=== PATIENT | female | born 1945 | race Two or more races ===

== ENCOUNTER → 2020-12-16 | Outpatient (CLI) | payer MEDICARE ==
[2020-12-02 15:00] VITALS: BP 164/74
[~2020-12-16] MED LIST: ACET325T9 PO; AMLO-187 PO; CRESTOR40 MG PO; HYDR-2145 PO; LEXAPRO20 MG PO; LOSA100T14 PO; METO50TA4 PO; WARF4TAB64 PO
--- NOTE | 2020-12-17 02:27 | RAD ---
US LEFT LOWER EXTREMITY ARTERIAL DUPLEX EVAL Indication: Reason: NON HEALING LEG ULCER / Spl. Instructions: / History: Pain Comparison: None. Procedure: Real-time grayscale, color flow Doppler, and Doppler spectral waveform analysis of the art erial system of the lower extremity is performed. Findings: Biphasic waveform within the left common femoral, deep femoral, superficial femoral and popliteal art eries. Monophasic waveform within the posterior tibial, peroneal and dorsalis pedis arteries. Borderl ine elevated velocity within the deep femoral artery measures 150 cm/s. Moderate atheromatous plaque. IMPRESSION: 1. Borderline elevated velocity within the left deep femoral artery, may indicate 30-49 percent sten osis. 2. Monophasic waveform within the left posterior tibial, peroneal and dorsalis pedis arteries, may i ndicate proximal stenosis. 3. Moderate atheromatous plaque. Electronically signed by: Esdras Rodas DO (12/17/2020 2:24 AM) [facility]
== END ==
LOC: US 13:43
PROVIDERS: ATTEND Nurse Practitioner Family
DX: L97.222 Non-pressure chronic ulcer of left calf with fat layer exposed (principal); L03.116 Cellulitis of left lower limb
CPT/HCPCS: 93926

== ENCOUNTER 2021-04-12 17:22 | Inpatient (IN) | payer MEDICARE ==
[~2021-04-12] VITALS: Ht 144.8 cm; Wt 94.8 kg
[~2021-04-12 17:22] MED LIST changes: +AMOX1TAB61 PO; +HYDR-2761 PO; +INSU100I13 SQ; +INSU100V6 SQ
[2021-04-12] MEDS ORDERED: ACETAMINOPHEN 325 MG TABLET. PO PRN (19:30)
[2021-04-12] MEDS ORDERED: 0.9 % SODIUM CHLORIDE 10 ML DISP.SYRIN. IV PRN (19:30)
[2021-04-12] MEDS ORDERED: guaiFENesin ORAL 200 MG/10 ML LIQUID. PO PRN (19:30)
[2021-04-12] MEDS ORDERED: ONDANSETRON PF 4 MG/2 ML VIAL. IV PRN (19:30)
[2021-04-12] MEDS ORDERED: SODIUM PHOSPHATES 19/7GM 133 ML ENEMA. PR PRN (19:30)
[2021-04-12] MEDS ORDERED: MAG HYDROX/ALUMINUM HYD/SIMETH 30 ML ORAL.SUSP PO PRN (19:30)
[2021-04-12] MEDS ORDERED: HYDROcodone/APAP 5/325MG 1 TAB TABLET PO PRN (19:45)
[2021-04-12] MEDS: ATORVASTATIN CALCIUM 40 MG TABLET. PO SCH (19:55)
[2021-04-12] MEDS: WARFARIN 4 MG TABLET. PO SCH (19:56)
[2021-04-12] MEDS ORDERED: IPRATRPIUM/ALBUTEROL 0.5/2.5MG 3 ML NEBU. NEB SCH (20:00)
[2021-04-12 21:19] LABS: BASO % 0 % (0-3); EOS # 0.1 x10^3/uL (0.0-0.7); EOS % 1 % (0-3); HEMATOCRIT 23.4 % (36.0-47.0); HEMOGLOBIN 7.4 g/dL (12.0-15.5); LYMPH # 1.3 x10^3/uL (1.0-4.8); LYMPH % 18 % (24-48); MEAN CORPUSCULAR HEMOGLOBIN 26 pg (25-35); MEAN CORPUSCULAR HGB CONC 32 g/dL (31-37); MEAN CORPUSCULAR VOLUME 81 fL (79-100); MONO # 0.5 x10^3/uL (0.0-1.1); MONO % 7 % (0-9); NEUT # 5.4 x10^3/uL (1.8-7.7); NEUT % 74 % (31-73); PLATELET COUNT 293 x10^3/uL (140-400); RED BLOOD COUNT 2.88 x10^6/uL (3.50-5.40); RED CELL DISTRIBUTION WIDTH 18.8 % (11.5-14.5); WHITE BLOOD COUNT 7.3 x10^3/uL (4.0-11.0)
[2021-04-12] MEDS ORDERED: DEXTROSE 50% 25 GM / 50ML DISP.SYRIN. IV PRN (21:30)
[2021-04-12] MEDS ORDERED: STERILE WATER for RESP 1,000 ML BAG. INH PRN (21:30)
[2021-04-12 21:40] LABS: ALBUMIN 1.5 g/dL (3.4-5.0); ALBUMIN/GLOBULIN RATIO 0.4 (1.0-1.7); CALCIUM 7.7 mg/dL (8.5-10.1); GFR 53.8; POTASSIUM 3.8 mmol/L (3.5-5.1); TOTAL BILIRUBIN 0.3 mg/dL (0.2-1.0); TOTAL PROTEIN 5.4 g/dL (6.4-8.2)
[2021-04-12] MEDS: HYDROmorphone 2 MG/ML VIAL IVP PRN (22:21)
[2021-04-12] MEDS: IV NORMAL SALINE 1000ML BAG 1,000 ML IV SCH (22:25)
[2021-04-12 23:00] VITALS: BP 128/47
--- NOTE | 2021-04-12 23:05 | NUR ---
patient arrived to unit at shift change from . Dr Cash admitted patient, new orders discussed with patient . No antibiotic for tonight per Dr Cash. Wound care consulted.
[2021-04-13 03:00] VITALS: BP 140/79
[2021-04-13] MEDS: HYDROmorphone 2 MG/ML VIAL IVP PRN ×2 (04:06→12:14)
--- NOTE | 2021-04-13 06:51 | PDOC1 ---
History and Physical Date of Admission Date of Admission DATE: 04/13/21 TIME: 06:47 Identification/Chief Complaint Chief Complaint Bilateral lower extremity wounds Source Source: Patient History of Present Illness History of Present Illness Patient 76-year-old female with past medical history DM2, CAD, HTN, HLD, presents as a direct admit from [facility] due to multiple nonhealing blistering wounds to her bilateral feet for the past month. She was recently treated on our service (03/22/2021) for evacuation and debridement of right thigh hematoma. Right lower extremity CTA at that time showed calcified plaque with approximately 50 percent stenosis to SFA, extensive arterial calcifications to right popliteal artery, heavy calcifications to anterior tibial artery, and occluded right posterior tibial artery; Left lower extremity CTA showed popliteal artery with 60-70 percent stenosis at mid segment, left anterior tibial artery with heavy calcifications, left posterior tibial artery occluded distally. She has been receiving local wound care and follow-up at wound care clinic without significant improvement in her blisters. She denies any significant pain but does admit to some clear serous drainage from her bilateral feet. Will admit patient for further medical management. Past Medical History Cardiovascular: CAD, HTN, Hyperlipidemia, Other Pulmonary: Asthma, Pulmonary embolus CENTRAL NERVOUS SYSTEM: Periperal neuropathy GI: GERD Heme/Onc: Anemia NOS, Other Hepatobiliary: No pertinent hx Psych: No pertinent hx Musculoskeletal: Osteoarthritis Rheumatologic: No pertinent hx Infectious disease: No pertinent hx Renal/: No pertinent hx Endocrine: Diabetes Past Surgical History Past Surgical History: Arthroscopy, CABG, Total knee replacement, Hysterectomy Family History Family History: Hypertension Social History Smoke: No ALCOHOL: none Drugs: None Current Medications Current Medications Current Medications Sodium Chloride (Normal Saline Flush) 3 ml QSHIFT PRN IV AFTER MEDS AND BLOOD DRAWS; Start 04/12/21 at 19:30 Sodium Chloride 1,000 ml @ 70 mls/hr [id number] IV Last administered on 04/12/21at 22:25; Start 04/12/21 at 19:30 Ondansetron HCl (Zofran) 4 mg PRN Q4HRS PRN IV NAUSEA/VOMITING; Start 04/12/21 at 19:30 Acetaminophen (Tylenol) 650 mg PRN Q4HRS PRN PO TEMP OVER 100.4F OR MILD PAIN; Start 04/12/21 at 19:30 Al Hydroxide/Mg Hydroxide (Mylanta Plus Xs) 30 ml PRN DAILY PRN PO HEARTBURN / GAS; Start 04/12/21 at 19:30 Sodium Monofluorophosphate (Fleet Adult) 133 ml PRN DAILY PRN MI CONSTIPATION; Start 04/12/21 at 19:30 Albuterol/ Ipratropium (Duoneb) 3 ml Q4HRS NEB ; Start 04/12/21 at 20:00; Stop 04/12/21 at 21:28; Status DC Guaifenesin (Robitussin) 200 mg PRN Q4HRS PRN PO COUGH; Start 04/12/21 at 19:30 Amlodipine Besylate (Norvasc) 10 mg DAILY PO ; Start 04/13/21 at 09:00 Acetaminophen/ Hydrocodone Bitart (Lortab 5/325) 1 tab PRN Q4HRS PRN PO MILD TO MOD PAIN Last administered on 04/12/21at 19:56; Start 04/12/21 at 19:45; Stop 04/12/21 at 21:23; Status DC Metoprolol Succinate (Toprol Xl) 50 mg DAILY PO ; Start 04/13/21 at 09:00 Warfarin Sodium (Coumadin) 4 mg DAILY16 PO ; Start 04/12/21 at 20:00 Citalopram Hydrobromide (CeleXA) 40 mg DAILY PO ; Start 04/13/21 at 09:00 Losartan Potassium (Cozaar) 100 mg DAILY PO ; Start 04/13/21 at 09:00 Atorvastatin Calcium (Lipitor) 80 mg QHS PO Last administered on 04/12/21at 19:55; Start 04/12/21 at 21:00 Warfarin Sodium (Coumadin Per Physician) 1 each PRN DAILY PRN MC SEE COMMENTS; Start 04/12/21 at 19:45 Sterile Water (WATER for RESP) 1,000 ml CONT PRN INH VIA VAPOTHERM DEVICE; Start 04/12/21 at 21:30; Status Cancel Insulin Human Lispro (HumaLOG) 0-5 UNITS TIDWMEALS SQ ; Start 04/13/21 at 08:00 Dextrose (Dextrose 50%-Water Syringe) 12.5 gm PRN Q15MIN PRN IV SEE COMMENTS; Start 04/12/21 at 21:30 Hydromorphone HCl (Dilaudid) 0.5 mg PRN Q2HRS PRN IVP SEVERE PAIN 7-10 Last administered on 04/13/21at 04:06; Start 04/12/21 at 21:30 Albuterol Sulfate (Ventolin Neb Soln) 2.5 mg PRN Q4HRS PRN NEB SHORTNESS OF BREATH; Start 04/12/21 at 21:45 Active Scripts Active Hydrocodone-Apap 5-325 (Hydrocodone Bit/Acetaminophen) 1 Tab Tablet 1 Tab PO PRN Q4HRS PRN 14 Days Reported Humalog (Insulin Lispro) 100 Unit/1 Ml Vial Unknown Dose SQ BIDWMEALS Lantus Solostar (Insulin Glargine,Hum.rec.anlog) 100 Unit/1 Ml Insuln.pen 75 Un it SQ QHS Warfarin Sodium 4 Mg Tablet 4 Mg PO DAILY Toprol XL (Metoprolol Succinate) 50 Mg Tab.er.24h 50 Mg PO DAILY Losartan Potassium 100 Mg Tablet 100 Mg PO DAILY Crestor (Rosuvastatin Calcium) 40 Mg Tablet 1 Tab PO DAILY Amlodipine Besylate 10 Mg Tablet 10 Mg PO DAILY Lexapro (Escitalopram Oxalate) 20 Mg Tablet 1 Tab PO DAILY Tylenol (Acetaminophen) 325 Mg Tablet 325 Mg PO DAILY Allergies Allergies: Coded Allergies: Sulfa (Sulfonamide Antibiotics) (Verified Allergy, Intermediate, 11/29/20) adhesive tape (Verified Allergy, Intermediate, 11/29/20) ROS Review of System GENERAL: No history of weight change, weakness or fevers. SKIN: No bruising, hair changes or rashes. EYES: No blurred, double or loss of vision. NOSE AND THROAT: No history of nosebleeds, hoarseness or sore throat. HEART: Denies chest pain, denies palpitations. LUNGS: Denies cough, hemoptysis, wheezing or shortness of breath. GASTROINTESTINAL: Denies nausea, vomiting, abdominal pain. GENITOURINARY: Denies dysuria, frequency, urgency, hematuria. NEUROLOGIC: Denies history of numbness, tingling, tremor or weakness. PSYCHIATRIC: Denies anxiety, denies depression. ENDOCRINE: No history of heat or cold intolerance, polyuria or polydipsia. EXTREMITIES: Multiple blisters to bilateral lower extremities. Denies muscle weakness, joint pain, pain on walking or stiffness. Physical Exam Physical Exam General: Alert, Oriented X3, Cooperative, No acute distress HEENT: PERRLA, EOMI Lungs: Clear to auscultation, Normal air movement Heart: RRR, no murmurs Cardiovascular: S1, S2 Abdomen: Normal bowel sounds, Soft, No tenderness Extremities: Bilateral lower extremities wrapped in bandage with multiple surrounding vesicles containing serous fluid. Diminished pulses bilateral lower extremities. No clubbing, No cyanosis Skin: No rashes, No significant lesion Neuro: Normal speech, Normal tone, Sensation intact Psych/Mental Status: Mental status NL, Mood NL Vitals Vitals Vital Signs Date Time Temp Pulse Resp B/P (MAP) Pulse Ox O2 Delivery O2 Flow Rate FiO2 04/13/21 04:36 20 96 Room Air 04/13/21 03:00 98.3 65 140/79 (99) 98.3 Labs Labs Laboratory Tests Test 04/12/21 20:50 04/12/21 20:52 White Blood Count 7.3 x10^3/uL (4.0-11.0) Red Blood Count 2.88 x10^6/uL (3.50-5.40) Hemoglobin 7.4 g/dL (12.0-15.5) Hematocrit 23.4 % (36.0-47.0) Mean Corpuscular Volume 81 fL (79-100) Mean Corpuscular Hemoglobin 26 pg (25-35) Mean Corpuscular Hemoglobin Concent 32 g/dL (31-37) Red Cell Distribution Width 18.8 % (11.5-14.5) Platelet Count 293 x10^3/uL (140-400) Neutrophils (%) (Auto) 74 % (31-73) Lymphocytes (%) (Auto) 18 % (24-48) Monocytes (%) (Auto) 7 % (0-9) Eosinophils (%) (Auto) 1 % (0-3) Basophils (%) (Auto) 0 % (0-3) Neutrophils # (Auto) 5.4 x10^3/uL (1.8-7.7) Lymphocytes # (Auto) 1.3 x10^3/uL (1.0-4.8) Monocytes # (Auto) 0.5 x10^3/uL (0.0-1.1) Eosinophils # (Auto) 0.1 x10^3/uL (0.0-0.7) Basophils # (Auto) 0.0 x10^3/uL (0.0-0.2) Sodium Level 141 mmol/L (136-145) Potassium Level 3.8 mmol/L (3.5-5.1) Chloride Level 107 mmol/L (98-107) Carbon Dioxide Level 27 mmol/L (21-32) Anion Gap 7 (6-14) Blood Urea Nitrogen 32 mg/dL (7-20) Creatinine 1.0 mg/dL (0.6-1.0) Estimated GFR (Cockcroft-Gault) 53.8 BUN/Creatinine Ratio 32 (6-20) Glucose Level 222 mg/dL (70-99) Calcium Level 7.7 mg/dL (8.5-10.1) Total Bilirubin 0.3 mg/dL (0.2-1.0) Aspartate Amino Transf (AST/SGOT) 22 U/L (15-37) Alanine Aminotransferase (ALT/SGPT) 9 U/L (14-59) Alkaline Phosphatase 158 U/L (46-116) Total Protein 5.4 g/dL (6.4-8.2) Albumin 1.5 g/dL (3.4-5.0) Albumin/Globulin Ratio 0.4 (1.0-1.7) Glucose (Fingerstick) 210 mg/dL (70-99) Laboratory Tests Test 04/12/21 20:50 04/12/21 20:52 White Blood Count 7.3 x10^3/uL (4.0-11.0) Red Blood Count 2.88 x10^6/uL (3.50-5.40) Hemoglobin 7.4 g/dL (12.0-15.5) Hematocrit 23.4 % (36.0-47.0) Mean Corpuscular Volume 81 fL (79-100) Mean Corpuscular Hemoglobin 26 pg (25-35) Mean Corpuscular Hemoglobin Concent 32 g/dL (31-37) Red Cell Distribution Width 18.8 % (11.5-14.5) Platelet Count 293 x10^3/uL (140-400) Neutrophils (%) (Auto) 74 % (31-73) Lymphocytes (%) (Auto) 18 % (24-48) Monocytes (%) (Auto) 7 % (0-9) Eosinophils (%) (Auto) 1 % (0-3) Basophils (%) (Auto) 0 % (0-3) Neutrophils # (Auto) 5.4 x10^3/uL (1.8-7.7) Lymphocytes # (Auto) 1.3 x10^3/uL (1.0-4.8) Monocytes # (Auto) 0.5 x10^3/uL (0.0-1.1) Eosinophils # (Auto) 0.1 x10^3/uL (0.0-0.7) Basophils # (Auto) 0.0 x10^3/uL (0.0-0.2) Sodium Level 141 mmol/L (136-145) Potassium Level 3.8 mmol/L (3.5-5.1) Chloride Level 107 mmol/L (98-107) Carbon Dioxide Level 27 mmol/L (21-32) Anion Gap 7 (6-14) Blood Urea Nitrogen 32 mg/dL (7-20) Creatinine 1.0 mg/dL (0.6-1.0) Estimated GFR (Cockcroft-Gault) 53.8 BUN/Creatinine Ratio 32 (6-20) Glucose Level 222 mg/dL (70-99) Calcium Level 7.7 mg/dL (8.5-10.1) Total Bilirubin 0.3 mg/dL (0.2-1.0) Aspartate Amino Transf (AST/SGOT) 22 U/L (15-37) Alanine Aminotransferase (ALT/SGPT) 9 U/L (14-59) Alkaline Phosphatase 158 U/L (46-116) Total Protein 5.4 g/dL (6.4-8.2) Albumin 1.5 g/dL (3.4-5.0) Albumin/Globulin Ratio 0.4 (1.0-1.7) Glucose (Fingerstick) 210 mg/dL (70-99) Images Images PATIENT: SIXTO SANTANA ACCOUNT: [id number] : 1945 LOCATION: [address] [place] [address] AGE: 76 SEX: F EXAM STATUS: ADM IN ORD. PHYSICIAN: RADHA RIOS MD REASON: PVD? THIGH WOUND. EVAL FOR STENOSIS. PROCEDURE: CT ANGIO ABD ILEO/FEMOR RUNOFF Site ID: [id number] EXAMINATION: CTA AORTA/RUNOFF W/WO +POST. Technique: Axial images with coronal and sagittal reconstructions with MIP technique are performed of Abdomen and pelvis with bilateral lower extremity runoff and MIP reconstructions performed with angiogram protocol. 95 mL of Omnipaque 350 is administered intravenously. One or more of the following radiation dose reduction techniques was used: automated exposure control, adjustment of mA and/or KV according to patient size, and/or utilization of iterative reconstruction technique. HISTORY: 76 years Female right thigh wound, history of the peripheral arterial disease. COMPARISON: Correlation with vascular ultrasound performed on the same day. FINDINGS: CTA abdomen: The abdominal aorta is a normal in caliber. There is a atherosclerotic calcified the plaque catheter throughout including at the ostium of the the major branches with the the celiac trunk demonstrate the approximately 50 percent stenosis. There is a estimated 80 percent stenosis in the proximal the SMA. Both renal arteries demonstrate stenotic lesions proximally less than 40 percent on the right and the estimated to be at 60 percent on the left side. There is an indeterminate hypodense lesion in the right hepatic lobe measuring 1.6 cm. Dedicated follow-up liver mass protocol CT scan or MRI without and with contrast is recommended for further evaluation. The soft tissues in the abdomen and pelvis appear otherwise grossly unremarkable. The lung bases demonstrate groundglass opacities could relate to atelectasis. * Pelvic CTA: RIGHT: Common iliac: no significant stenosis Internal iliac: no significant stenosis External iliac: no significant stenosis LEFT: Common iliac: no significant stenosis Internal iliac: no significant stenosis External iliac: no significant stenosis * Right lower extremity CTA: [employer]: no significant stenosis Profunda: no significant stenosis SFA: Multifocal the calcified plaque with approximately 50 percent stenosis suggested. Unfortunately the calcium produce artifacts which the may decrease accuracy of estimation of degree of stenosis. Popliteal: The mid segment of the artery is completely obscured by artifacts from knee prosthesis. Proximally and distally the artery appear patent. Distally however there is extensive arterial calcifications. In the right side there are fluid collections with the air in it. This could relate to open wound or recent the procedure versus infection related. The fluid collection is located within the subcutaneous fat along the anterior medial aspect of the mid the right thigh and maximum axial dimensions is a 9.2 x 2.4 cm. AT: Not well evaluated due to heavy calcifications Peroneal: Appear patent to the ankle PT: Appears occluded * Left lower extremity CTA: [employer]: no significant stenosis Profunda: no significant stenosis SFA: Multifocal calcified plaque with no high-grade stenosis evident Popliteal: 60-70 percent stenosis at mid segment AT: Not well evaluated due to heavy calcifications Peroneal: Appear patent PT: Appears to be occluded distally IMPRESSION: 1. Indeterminant hypodense mass in the right the lobe of the liver measuring 1.6 cm. Further evaluation with dedicated liver mass protocol CT scan or MRI of the abdomen without and with contrast is recommended. 2. In the anterior medial aspect of the mid to distal thigh, there are fluid collections within the subcutaneous fat layer containing air which could relate to prior injury, recent the intervention or infection. 3. No high-grade stenosis in the aortoiliac segments. 4. Significant calcifications in the femoropopliteal and the infrapopliteal segments significantly limit evaluation especially below the knee. See detailed evaluation of the arteries in the findings. VTE Prophylaxis Ordered VTE Prophylaxis Devices: No VTE Pharmacological Prophylaxi: Yes Assessment/Plan Assessment/Plan Nonhealing bilateral lower extremity wounds Peripheral artery disease Atrial fibrillation DM2 CAD HTN Severe malnutrition Plan: Place consultation to vascular surgery, plastic surgery, and wound care We will hold off on systemic antibiotics at this time we will hold topical treatments and further wound care recommendations Resume home medications FEN - Cardiac diet PPX - Warfarin DNR Dispo - inpatient for above Surrogate decision-maker is her daughter (Alyce Santana) Justifications for Admission Other Justification Diabetic ulcers, failed outpatient treatment CELIO VILLEGAS MD Apr 13, 2021 06:51
[2021-04-13 07:00] VITALS: BP 138/51
[2021-04-13] MEDS ORDERED: DEXTROSE 50% 25 GM / 50ML DISP.SYRIN. IV PRN (07:30)
[2021-04-13] MEDS ORDERED: IV DEXTROSE 5% 250 ML BAG. IV PRN (07:30)
[2021-04-13] MEDS: INSULIN LISPRO 300 UNITS/3 ML VIAL. SQ SCH ×3 (08:00→17:52)
[2021-04-13] MEDS ORDERED: INSULIN LISPRO 300 UNITS/3 ML VIAL. SQ SCH (08:00)
[2021-04-13 09:03] LABS: PROTHROMBIN TIME PATIENT 20.9 SEC (11.7-14.0)
[2021-04-13] MEDS: HYDROcodone/APAP 5/325MG 1 TAB TABLET PO PRN ×3 (09:23→22:32)
[2021-04-13] MEDS: LOSARTAN POTASSIUM 50 MG TABLET. PO SCH (09:23)
[2021-04-13] MEDS: CITALOPRAM 20 MG TABLET. PO SCH (09:24)
[2021-04-13] MEDS: METOPROLOL SUCC 24HR ER 50 MG TAB.ER.24H. PO SCH (09:24)
[2021-04-13] MEDS: IV NORMAL SALINE 1000ML BAG 1,000 ML IV SCH ×2 (09:48→12:15)
--- NOTE | 2021-04-13 10:22 | PDOC2 ---
CONSULT Date of Service Date of Service DATE: 04/13/21 TIME: 09:59 Reason for Consult Reason for Consult: Nonhealing leg wounds Identification/Chief Complaint Chief Complaint Fall Source Source: Patient History of Present Illness Reason for Visit: This a pleasant 76-year-old diabetic female with significant medical history as noted in her problem list. She has had a previous CABG with left leg vein harvest. She has had several leg surgeries including right knee, right foot, right leg hematoma evacuation x2, denies vascular interventions. She is on chronic anticoagulation with warfarin, her current INR is1.8. She is here due to a fall from tripping in her yard. She has had bilateral leg wounds for several months. She reports she can walk approximately 50 to 80 yards before she needs to stop and rest due to her leg and back pain. She has chronic back pain and receives epidural treatment every 3 months. She has had new small blisters pop up to on her feet in the past week and some discoloration. Her pain is diffusely throughout her bilateral lower extremities, sometimes it is worse with walking, but sometimes also just bad at rest. She denies any fevers or chills. She had a CT angiogram runoff on March 18 that has been reviewed. She recently had right thigh hematoma evacuation by plastic surgery on 03/22 and prior to that hematoma evacuation with VAC by orthopedics on 03/04. Past Medical History Cardiovascular: CAD, HTN, Hyperlipidemia, Other Pulmonary: Asthma, Pulmonary embolus CENTRAL NERVOUS SYSTEM: Periperal neuropathy GI: GERD Heme/Onc: Anemia NOS, Other Hepatobiliary: No pertinent hx Psych: No pertinent hx Musculoskeletal: Osteoarthritis Rheumatologic: No pertinent hx Infectious disease: No pertinent hx Renal/: No pertinent hx Endocrine: Diabetes Past Surgical History Past Surgical History: Arthroscopy, CABG, Total knee replacement, Hysterectomy Family History Family History: Hypertension Social History No ALCOHOL: none Drugs: None Lives: with Family Current Medications Current Medications Current Medications Sodium Chloride (Normal Saline Flush) 3 ml QSHIFT PRN IV AFTER MEDS AND BLOOD DRAWS; Start 04/12/21 at 19:30 Sodium Chloride 1,000 ml @ 70 mls/hr [id number] IV Last administered on 04/12/21at 22:25; Start 04/12/21 at 19:30 Ondansetron HCl (Zofran) 4 mg PRN Q4HRS PRN IV NAUSEA/VOMITING; Start 04/12/21 at 19:30 Acetaminophen (Tylenol) 650 mg PRN Q4HRS PRN PO TEMP OVER 100.4F OR MILD PAIN; Start 04/12/21 at 19:30 Al Hydroxide/Mg Hydroxide (Mylanta Plus Xs) 30 ml PRN DAILY PRN PO HEARTBURN / GAS; Start 04/12/21 at 19:30 Sodium Monofluorophosphate (Fleet Adult) 133 ml PRN DAILY PRN SC CONSTIPATION; Start 04/12/21 at 19:30 Albuterol/ Ipratropium (Duoneb) 3 ml Q4HRS NEB ; Start 04/12/21 at 20:00; Stop 04/12/21 at 21:28; Status DC Guaifenesin (Robitussin) 200 mg PRN Q4HRS PRN PO COUGH; Start 04/12/21 at 19:30 Amlodipine Besylate (Norvasc) 10 mg DAILY PO Last administered on 04/13/21at 09:23; Start 04/13/21 at 09:00 Acetaminophen/ Hydrocodone Bitart (Lortab 5/325) 1 tab PRN Q4HRS PRN PO MILD TO MOD PAIN Last administered on 04/12/21at 19:56; Start 04/12/21 at 19:45; Stop 04/12/21 at 21:23; Status DC Metoprolol Succinate (Toprol Xl) 50 mg DAILY PO Last administered on 04/13/21at 09:24; Start 04/13/21 at 09:00 Warfarin Sodium (Coumadin) 4 mg DAILY16 PO ; Start 04/12/21 at 20:00 Citalopram Hydrobromide (CeleXA) 40 mg DAILY PO Last administered on 04/13/21at 09:24; Start 04/13/21 at 09:00 Losartan Potassium (Cozaar) 100 mg DAILY PO Last administered on 04/13/21at 09:23; Start 04/13/21 at 09:00 Atorvastatin Calcium (Lipitor) 80 mg QHS PO Last administered on 04/12/21at 19:55; Start 04/12/21 at 21:00 Warfarin Sodium (Coumadin Per Physician) 1 each PRN DAILY PRN MC SEE COMMENTS; Start 04/12/21 at 19:45 Sterile Water (WATER for RESP) 1,000 ml CONT PRN INH VIA VAPOTHERM DEVICE; Start 04/12/21 at 21:30; Status Cancel Insulin Human Lispro (HumaLOG) 0-5 UNITS TIDWMEALS SQ ; Start 04/13/21 at 08:00; Status Cancel Dextrose (Dextrose 50%-Water Syringe) 12.5 gm PRN Q15MIN PRN IV SEE COMMENTS; Start 04/12/21 at 21:30 Hydromorphone HCl (Dilaudid) 0.5 mg PRN Q2HRS PRN IVP SEVERE PAIN 7-10 Last administered on 04/13/21at 04:06; Start 04/12/21 at 21:30 Albuterol Sulfate (Ventolin Neb Soln) 2.5 mg PRN Q4HRS PRN NEB SHORTNESS OF BREATH; Start 04/12/21 at 21:45 Insulin Glargine (Lantus Syringe) 75 unit QHS SQ ; Start 04/13/21 at 21:00 Insulin Human Lispro (HumaLOG) 0-9 UNITS TIDWMEALS SQ ; Start 04/13/21 at 08:00 Dextrose (Dextrose 50%-Water Syringe) 12.5 gm PRN Q15MIN PRN IV SEE COMMENTS; Start 04/13/21 at 07:30 Dextrose (Iv Dextrose 5%) 250 ml PRN Q15MIN PRN IV SEE COMMENTS; Start 04/13/21 at 07:30; Status UNV Acetaminophen/ Hydrocodone Bitart (Lortab 5/325) 1 tab PRN Q4HRS PRN PO PAIN Last administered on 04/13/21at 09:23; Start 04/13/21 at 07:30 Active Scripts Active Hydrocodone-Apap 5-325 (Hydrocodone Bit/Acetaminophen) 1 Tab Tablet 1 Tab PO PRN Q4HRS PRN 14 Days Reported Humalog (Insulin Lispro) 100 Unit/1 Ml Vial Unknown Dose SQ BIDWMEALS Lantus Solostar (Insulin Glargine,Hum.rec.anlog) 100 Unit/1 Ml Insuln.pen 75 Unit SQ QHS Warfarin Sodium 4 Mg Tablet 4 Mg PO DAILY Toprol XL (Metoprolol Succinate) 50 Mg Tab.er.24h 50 Mg PO DAILY Losartan Potassium 100 Mg Tablet 100 Mg PO DAILY Crestor (Rosuvastatin Calcium) 40 Mg Tablet 1 Tab PO DAILY Amlodipine Besylate 10 Mg Tablet 10 Mg PO DAILY Lexapro (Escitalopram Oxalate) 20 Mg Tablet 1 Tab PO DAILY Tylenol (Acetaminophen) 325 Mg Tablet 325 Mg PO DAILY Allergies Allergies: Coded Allergies: Sulfa (Sulfonamide Antibiotics) (Verified Allergy, Intermediate, 11/29/20) adhesive tape (Verified Allergy, Intermediate, 11/29/20) ROS General: No: Chills, Other (fever) Hematological and Lymphatic: No: Bleeding Problems, Blood Clots Respiratory: No: Cough, Shortness of breath, SOB with excertion Cardiovascular: yes Edema; No Chest Pain Gastrointestinal: No Nausea, No Vomiting, No Abdominal Pain Musculoskeletal: Yes Gait Disturbance, Yes Other (recent fall) Neurological: No Dizziness Skin: No Dry Skin, No Rash, No Skin Lesion Changes Physical Exam General: Alert, Oriented X3, Cooperative, No acute distress HEENT: Atraumatic Lungs: Normal air movement Heart: Regular rate, Other (Mild peripheral edema) Abdomen: Soft, Other (obese) Extremities: No clubbing, Other (Palpable left femoral pulse, limited right exam due to body habitus. She has powder consuming her right groin pannus and thigh crease and interdry with moist rash consuming her left groin area and pannus crease. She has biphasic left DP and PT, biphasic right DP and monophasic right PT. Her feet are warm. ) Skin: Other (She has several wounds to LE. Her right leg has a large surface area wound to her thigh above her knee with granulation tissue throughout and distinct wound edges without surrounding erythema. Her right lower leg has lateral wounds that are malodorous, appear fairly superficial covered with slough and mild surrounding erythema. Her right foot does not have any open wounds however has several petechial-like blisters and some red discoloration to her toes intermittently. Right knee scar . her left leg she has a thigh scar from vein harvest, knee scar. She has lateral leg wounds that are clean and appear to be healing well, a superficial anterior left lower leg that is covered in slough with old evidence of blistering that was removed. There is mild surrounding erythema. She has a blister over her dorsal first toe on the left that has been popped with slightly discolored but clean tissue underneath. There are no areas of fluctuance or necrosis or signs for deep tissue infection throughout.) Vitals VITALS Vital Signs Date Time Temp Pulse Resp B/P (MAP) Pulse Ox O2 Delivery O2 Flow Rate FiO2 04/13/21 09:24 67 138/51 04/13/21 09:23 Room Air 04/13/21 07:00 98.8 16 92 98.8 Labs Labs Laboratory Tests Test 04/12/21 20:50 04/12/21 20:52 04/13/21 08:15 White Blood Count 7.3 x10^3/uL (4.0-11.0) Red Blood Count 2.88 x10^6/uL (3.50-5.40) Hemoglobin 7.4 g/dL (12.0-15.5) Hematocrit 23.4 % (36.0-47.0) Mean Corpuscular Volume 81 fL (79-100) Mean Corpuscular Hemoglobin 26 pg (25-35) Mean Corpuscular Hemoglobin Concent 32 g/dL (31-37) Red Cell Distribution Width 18.8 % (11.5-14.5) Platelet Count 293 x10^3/uL (140-400) Neutrophils (%) (Auto) 74 % (31-73) Lymphocytes (%) (Auto) 18 % (24-48) Monocytes (%) (Auto) 7 % (0-9) Eosinophils (%) (Auto) 1 % (0-3) Basophils (%) (Auto) 0 % (0-3) Neutrophils # (Auto) 5.4 x10^3/uL (1.8-7.7) Lymphocytes # (Auto) 1.3 x10^3/uL (1.0-4.8) Monocytes # (Auto) 0.5 x10^3/uL (0.0-1.1) Eosinophils # (Auto) 0.1 x10^3/uL (0.0-0.7) Basophils # (Auto) 0.0 x10^3/uL (0.0-0.2) Sodium Level 141 mmol/L (136-145) Potassium Level 3.8 mmol/L (3.5-5.1) Chloride Level 107 mmol/L (98-107) Carbon Dioxide Level 27 mmol/L (21-32) Anion Gap 7 (6-14) Blood Urea Nitrogen 32 mg/dL (7-20) Creatinine 1.0 mg/dL (0.6-1.0) Estimated GFR (Cockcroft-Gault) 53.8 BUN/Creatinine Ratio 32 (6-20) Glucose Level 222 mg/dL (70-99) Calcium Level 7.7 mg/dL (8.5-10.1) Total Bilirubin 0.3 mg/dL (0.2-1.0) Aspartate Amino Transf (AST/SGOT) 22 U/L (15-37) Alanine Aminotransferase (ALT/SGPT) 9 U/L (14-59) Alkaline Phosphatase 158 U/L (46-116) Total Protein 5.4 g/dL (6.4-8.2) Albumin 1.5 g/dL (3.4-5.0) Albumin/Globulin Ratio 0.4 (1.0-1.7) Glucose (Fingerstick) 210 mg/dL (70-99) 123 mg/dL (70-99) Prothrombin Time 20.9 SEC (11.7-14.0) Prothromb Time International Ratio 1.8 (0.8-1.1) Laboratory Tests Test 04/12/21 20:50 04/12/21 20:52 04/13/21 08:15 White Blood Count 7.3 x10^3/uL (4.0-11.0) Red Blood Count 2.88 x10^6/uL (3.50-5.40) Hemoglobin 7.4 g/dL (12.0-15.5) Hematocrit 23.4 % (36.0-47.0) Mean Corpuscular Volume 81 fL (79-100) Mean Corpuscular Hemoglobin 26 pg (25-35) Mean Corpuscular Hemoglobin Concent 32 g/dL (31-37) Red Cell Distribution Width 18.8 % (11.5-14.5) Platelet Count 293 x10^3/uL (140-400) Neutrophils (%) (Auto) 74 % (31-73) Lymphocytes (%) (Auto) 18 % (24-48) Monocytes (%) (Auto) 7 % (0-9) Eosinophils (%) (Auto) 1 % (0-3) Basophils (%) (Auto) 0 % (0-3) Neutrophils # (Auto) 5.4 x10^3/uL (1.8-7.7) Lymphocytes # (Auto) 1.3 x10^3/uL (1.0-4.8) Monocytes # (Auto) 0.5 x10^3/uL (0.0-1.1) Eosinophils # (Auto) 0.1 x10^3/uL (0.0-0.7) Basophils # (Auto) 0.0 x10^3/uL (0.0-0.2) Sodium Level 141 mmol/L (136-145) Potassium Level 3.8 mmol/L (3.5-5.1) Chloride Level 107 mmol/L (98-107) Carbon Dioxide Level 27 mmol/L (21-32) Anion Gap 7 (6-14) Blood Urea Nitrogen 32 mg/dL (7-20) Creatinine 1.0 mg/dL (0.6-1.0) Estimated GFR (Cockcroft-Gault) 53.8 BUN/Creatinine Ratio 32 (6-20) Glucose Level 222 mg/dL (70-99) Calcium Level 7.7 mg/dL (8.5-10.1) Total Bilirubin 0.3 mg/dL (0.2-1.0) Aspartate Amino Transf (AST/SGOT) 22 U/L (15-37) Alanine Aminotransferase (ALT/SGPT) 9 U/L (14-59) Alkaline Phosphatase 158 U/L (46-116) Total Protein 5.4 g/dL (6.4-8.2) Albumin 1.5 g/dL (3.4-5.0) Albumin/Globulin Ratio 0.4 (1.0-1.7) Glucose (Fingerstick) 210 mg/dL (70-99) 123 mg/dL (70-99) Prothrombin Time 20.9 SEC (11.7-14.0) Prothromb Time International Ratio 1.8 (0.8-1.1) Images Images CTA 03/18 * Right lower extremity CTA: OSS ARCHITECT: no significant stenosis Profunda: no significant stenosis SFA: Multifocal the calcified plaque with approximately 50 percent stenosis suggested. Unfortunately the calcium produce artifacts which the may decrease accuracy of estimation of degree of stenosis. Popliteal: The mid segment of the artery is completely obscured by artifacts from knee prosthesis. Proximally and distally the artery appear patent. Distally however there is extensive arterial calcifications. In the right side there are fluid collections with the air in it. This could relate to open wound or recent the procedure versus infection related. The fluid collection is located within the subcutaneous fat along the anterior medial aspect of the mid the right thigh and maximum axial dimensions is a 9.2 x 2.4 cm. AT: Not well evaluated due to heavy calcifications Peroneal: Appear patent to the ankle PT: Appears occluded * Left lower extremity CTA: OSS ARCHITECT: no significant stenosis Profunda: no significant stenosis SFA: Multifocal calcified plaque with no high-grade stenosis evident Popliteal: 60-70 percent stenosis at mid segment AT: Not well evaluated due to heavy calcifications Peroneal: Appear patent PT: Appears to be occluded distally Assessment/Plan Assessment/Plan Recent fall Chronic bilateral lower extremity wounds Status post hematoma evacuation 03/22 by plastic surgery Peripheral arterial disease Pleasant 76-year-old female with some evidence of mild-moderate diffuse peripheral arterial disease on CT angiogram, which I have reviewed. She has several wounds to her lower extremities, most are healing relatively nicely. Her right lower leg lateral wounds would likely benefit from a debriding agent with wound care. Nothing seems to require surgical debridement at this time. She recently underwent hematoma evacuation of her right upper thigh by plastic surgery, this is healing nicely with granulation tissue. Recommend revisiting with plastic surgeon regarding skin graft. Left leg wounds appear to be healing. She has normal creatinine, her next step regarding her circulation would be an arteriogram with possible intervention, however this is not urgent. She has adequate circulation by exam with biphasic signals, which should be sufficient for healing lower leg wounds. She has blistering to her feet, but no deep ulcers or signs of active acute infection. She would be high risk for groin complications due to her body habitus, bilateral groin rashes and likely fungal infection. I discussed with her in detail and also the nurse she will need to continue strict cleaning and rash care for her groins prior to us pursuing arteriogram. She is not currently on antibiotics, however would recommend initiating with her several skin related issues. Recommend physical therapy, no weight bearing restrictions from our standpoint. Recommend continued wound care, would likely benefit from a debriding agent to the right lower leg wounds. Wound care team has been consulted and familiar with patient. No urgent vascular plans at this time. Vascular surgeon will see patient as well. EDDY FINNEGAN Apr 13, 2021 10:22
[2021-04-13 11:00] VITALS: BP 129/82
--- NOTE | 2021-04-13 11:01 | NUR ---
SW following. Discussed with RN. Pt admitted from [facility], can return when medically stable. Pt on room air, ada diet. SW will continue to follow.
[2021-04-13] MEDS: NYSTATIN TOPICAL POWDER 15GM BOTTLE. TP SCH ×2 (12:14→20:29)
[2021-04-13 15:00] VITALS: BP 130/63
--- NOTE | 2021-04-13 15:22 | PDOC2 ---
CONSULT Date of Consult Date of Consult DATE: 04/13/21 TIME: 14:52 Reason for Consult Reason for Consult: Bilateral lower extremity wounds as well as right thigh wound Referring Physician Referring Physician: Dr. 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 [place] recently she underwent a right thigh hematoma evacuation. I believe patient underwent angioplasty of the left popliteal artery and angiogram at that time in January of this year (Dr. Bates) showed 100% occlusion of left anterior tibial and posterior tibial with one-vessel runoff to the left foot via the peroneal artery. It also demonstrated 100% occlusion of the right anterior tibial and posterior tibial with one-vessel runoff via peroneal on the right. She is receiving warfarin anticoagulation. While in rehab facility she demonstrated worsening ulcerations on the lower extremity associated with petechial rash. Recent consultation with vascular surgery reports adequate lower extremity circulation. Consultation effort is directed to the right thigh postoperative site and bilateral lower extremity ulcerations and scattered bullae Past Medical History Cardiovascular: CAD, HTN, Hyperlipidemia, Other Pulmonary: Asthma, Pulmonary embolus CENTRAL NERVOUS SYSTEM: Periperal neuropathy GI: GERD Heme/Onc: Anemia NOS, Other Hepatobiliary: No pertinent hx Psych: No pertinent hx Musculoskeletal: Osteoarthritis Rheumatologic: No pertinent hx Infectious disease: No pertinent hx Renal/: No pertinent hx Endocrine: Diabetes Past Surgical History Past Surgical History: Arthroscopy, CABG, Total knee replacement, Hysterectomy Family History Family History: Hypertension Social History No ALCOHOL: none Drugs: None Lives: with Family Current Medications Current Medications Current Medications Sodium Chloride (Normal Saline Flush) 3 ml QSHIFT PRN IV AFTER MEDS AND BLOOD DRAWS; Start 04/12/21 at 19:30 Sodium Chloride 1,000 ml @ 70 mls/hr [id number] IV Last administered on 04/13/21at 12:15; Start 04/12/21 at 19:30 Ondansetron HCl (Zofran) 4 mg PRN Q4HRS PRN IV NAUSEA/VOMITING; Start 04/12/21 at 19:30 Acetaminophen (Tylenol) 650 mg PRN Q4HRS PRN PO TEMP OVER 100.4F OR MILD PAIN; Start 04/12/21 at 19:30 Al Hydroxide/Mg Hydroxide (Mylanta Plus Xs) 30 ml PRN DAILY PRN PO HEARTBURN / GAS; Start 04/12/21 at 19:30 Sodium Monofluorophosphate (Fleet Adult) 133 ml PRN DAILY PRN ID CONSTIPATION; Start 04/12/21 at 19:30 Albuterol/ Ipratropium (Duoneb) 3 ml Q4HRS NEB ; Start 04/12/21 at 20:00; Stop 04/12/21 at 21:28; Status DC Guaifenesin (Robitussin) 200 mg PRN Q4HRS PRN PO COUGH; Start 04/12/21 at 19:30 Amlodipine Besylate (Norvasc) 10 mg DAILY PO Last administered on 04/13/21at 09:23; Start 04/13/21 at 09:00 Acetaminophen/ Hydrocodone Bitart (Lortab 5/325) 1 tab PRN Q4HRS PRN PO MILD TO MOD PAIN Last administered on 04/12/21at 19:56; Start 04/12/21 at 19:45; Stop 04/12/21 at 21:23; Status DC Metoprolol Succinate (Toprol Xl) 50 mg DAILY PO Last administered on 04/13/21at 09:24; Start 04/13/21 at 09:00 Warfarin Sodium (Coumadin) 4 mg DAILY16 PO ; Start 04/12/21 at 20:00 Citalopram Hydrobromide (CeleXA) 40 mg DAILY PO Last administered on 04/13/21at 09:24; Start 04/13/21 at 09:00 Losartan Potassium (Cozaar) 100 mg DAILY PO Last administered on 04/13/21at 09:23; Start 04/13/21 at 09:00 Atorvastatin Calcium (Lipitor) 80 mg QHS PO Last administered on 04/12/21at 19:55; Start 04/12/21 at 21:00 Warfarin Sodium (Coumadin Per Physician) 1 each PRN DAILY PRN MC SEE COMMENTS; Start 04/12/21 at 19:45 Sterile Water (WATER for RESP) 1,000 ml CONT PRN INH VIA VAPOTHERM DEVICE; Start 04/12/21 at 21:30; Status Cancel Insulin Human Lispro (HumaLOG) 0-5 UNITS TIDWMEALS SQ ; Start 04/13/21 at 08:00; Status Cancel Dextrose (Dextrose 50%-Water Syringe) 12.5 gm PRN Q15MIN PRN IV SEE COMMENTS; Start 04/12/21 at 21:30 Hydromorphone HCl (Dilaudid) 0.5 mg PRN Q2HRS PRN IVP SEVERE PAIN 7-10 Last administered on 04/13/21at 12:14; Start 04/12/21 at 21:30 Albuterol Sulfate (Ventolin Neb Soln) 2.5 mg PRN Q4HRS PRN NEB SHORTNESS OF BREATH; Start 04/12/21 at 21:45 Insulin Glargine (Lantus Syringe) 75 unit QHS SQ ; Start 04/13/21 at 21:00 Insulin Human Lispro (HumaLOG) 0-9 UNITS TIDWMEALS SQ Last administered on 04/13/21at 12:22; Start 04/13/21 at 08:00 Dextrose (Dextrose 50%-Water Syringe) 12.5 gm PRN Q15MIN PRN IV SEE COMMENTS; Start 04/13/21 at 07:30; Status Cancel Dextrose (Iv Dextrose 5%) 250 ml PRN Q15MIN PRN IV SEE COMMENTS; Start 04/13/21 at 07:30; Status UNV Acetaminophen/ Hydrocodone Bitart (Lortab 5/325) 1 tab PRN Q4HRS PRN PO PAIN Last administered on 04/13/21at 14:00; Start 04/13/21 at 07:30 Nystatin (Nystop) 1 debbie BID TP Last administered on 04/13/21at 12:14; Start 04/13/21 at 11:00 Active Scripts Active Hydrocodone-Apap 5-325 (Hydrocodone Bit/Acetaminophen) 1 Tab Tablet 1 Tab PO PRN Q4HRS PRN 14 Days Reported Humalog (Insulin Lispro) 100 Unit/1 Ml Vial Unknown Dose SQ BIDWMEALS Lantus Solostar (Insulin Glargine,Hum.rec.anlog) 100 Unit/1 Ml Insuln.pen 75 Unit SQ QHS Warfarin Sodium 4 Mg Tablet 4 Mg PO DAILY Toprol XL (Metoprolol Succinate) 50 Mg Tab.er.24h 50 Mg PO DAILY Losartan Potassium 100 Mg Tablet 100 Mg PO DAILY Crestor (Rosuvastatin Calcium) 40 Mg Tablet 1 Tab PO DAILY Amlodipine Besylate 10 Mg Tablet 10 Mg PO DAILY Lexapro (Escitalopram Oxalate) 20 Mg Tablet 1 Tab PO DAILY Tylenol (Acetaminophen) 325 Mg Tablet 325 Mg PO DAILY Allergies Allergies: Coded Allergies: Sulfa (Sulfonamide Antibiotics) (Verified Allergy, Intermediate, 11/29/20) adhesive tape (Verified Allergy, Intermediate, 11/29/20) ROS Review of System Review of systems negative except as reported below. Hematological and Lymphatic: YES: Brusing, Other (Anemia) Cardiovascular: yes Edema Musculoskeletal: Yes Gait Disturbance, Yes Joint Stiffness, Yes Pain In: (Chronic back pain) Skin: Yes Skin Lesion Changes (Rash to the lower extremities) Physical Exam General: Alert, Oriented X3, Cooperative HEENT: Atraumatic, PERRLA, EOMI Lungs: Clear to auscultation (Anteriorly) Heart: Regular rate Abdomen: Soft, No tenderness Extremities: Normal pulses (Identified as biphasic left dorsalis pedis and posterior tibial, biphasic right dorsalis pedis and monophasic right posterior tibial pulses by vascular.), Other (Palpable petechial-like rashes identified over bilateral lower extremities and feet. Coalesced areas do demonstrate some blister formation as well. Wounds identified and documented per wound care include a left lower leg ulceration measuring 9.3 cm x 15.5 cm x 0.2 cm to the left lower leg, wound measuring 5 cm x 3.5 cm x 0.1 cm to the left foot, wound measuring 17.5 cm x 15 cm x 4.4 cm to the right thigh, wound measuring 21 cm x 16 cm x 0.2 cm to the right lower leg. Right thigh wound demonstrates relatively heavy biofilm/slough at this time. No significant granulation as evident in a negative pressure wound site.) Skin: No rashes (Petechial rash demonstrated distally coalescence to bullae formation identified over the foot dorsum.) Neuro: Normal speech Psych/Mental Status: Mental status NL MUSCULOSKELETAL: Not examined Vitals VITALS Vital Signs Date Time Temp Pulse Resp B/P (MAP) Pulse Ox O2 Delivery O2 Flow Rate FiO2 04/13/21 14:00 Room Air 04/13/21 11:00 98.3 66 16 129/82 (98) 92 98.3 Labs Labs Laboratory Tests Test 04/12/21 20:50 04/12/21 20:52 04/13/21 08:15 04/13/21 11:15 White Blood Count 7.3 x10^3/uL (4.0-11.0) Red Blood Count 2.88 x10^6/uL (3.50-5.40) Hemoglobin 7.4 g/dL (12.0-15.5) Hematocrit 23.4 % (36.0-47.0) Mean Corpuscular Volume 81 fL (79-100) Mean Corpuscular Hemoglobin 26 pg (25-35) Mean Corpuscular Hemoglobin Concent 32 g/dL (31-37) Red Cell Distribution Width 18.8 % (11.5-14.5) Platelet Count 293 x10^3/uL (140-400) Neutrophils (%) (Auto) 74 % (31-73) Lymphocytes (%) (Auto) 18 % (24-48) Monocytes (%) (Auto) 7 % (0-9) Eosinophils (%) (Auto) 1 % (0-3) Basophils (%) (Auto) 0 % (0-3) Neutrophils # (Auto) 5.4 x10^3/uL (1.8-7.7) Lymphocytes # (Auto) 1.3 x10^3/uL (1.0-4.8) Monocytes # (Auto) 0.5 x10^3/uL (0.0-1.1) Eosinophils # (Auto) 0.1 x10^3/uL (0.0-0.7) Basophils # (Auto) 0.0 x10^3/uL (0.0-0.2) Sodium Level 141 mmol/L (136-145) Potassium Level 3.8 mmol/L (3.5-5.1) Chloride Level 107 mmol/L (98-107) Carbon Dioxide Level 27 mmol/L (21-32) Anion Gap 7 (6-14) Blood Urea Nitrogen 32 mg/dL (7-20) Creatinine 1.0 mg/dL (0.6-1.0) Estimated GFR (Cockcroft-Gault) 53.8 BUN/Creatinine Ratio 32 (6-20) Glucose Level 222 mg/dL (70-99) Calcium Level 7.7 mg/dL (8.5-10.1) Total Bilirubin 0.3 mg/dL (0.2-1.0) Aspartate Amino Transf (AST/SGOT) 22 U/L (15-37) Alanine Aminotransferase (ALT/SGPT) 9 U/L (14-59) Alkaline Phosphatase 158 U/L (46-116) Total Protein 5.4 g/dL (6.4-8.2) Albumin 1.5 g/dL (3.4-5.0) Albumin/Globulin Ratio 0.4 (1.0-1.7) Glucose (Fingerstick) 210 mg/dL (70-99) 123 mg/dL (70-99) 174 mg/dL (70-99) Prothrombin Time 20.9 SEC (11.7-14.0) Prothromb Time International Ratio 1.8 (0.8-1.1) Laboratory Tests Test 04/12/21 20:50 04/12/21 20:52 04/13/21 08:15 04/13/21 11:15 White Blood Count 7.3 x10^3/uL (4.0-11.0) Red Blood Count 2.88 x10^6/uL (3.50-5.40) Hemoglobin 7.4 g/dL (12.0-15.5) Hematocrit 23.4 % (36.0-47.0) Mean Corpuscular Volume 81 fL (79-100) Mean Corpuscular Hemoglobin 26 pg (25-35) Mean Corpuscular Hemoglobin Concent 32 g/dL (31-37) Red Cell Distribution Width 18.8 % (11.5-14.5) Platelet Count 293 x10^3/uL (140-400) Neutrophils (%) (Auto) 74 % (31-73) Lymphocytes (%) (Auto) 18 % (24-48) Monocytes (%) (Auto) 7 % (0-9) Eosinophils (%) (Auto) 1 % (0-3) Basophils (%) (Auto) 0 % (0-3) Neutrophils # (Auto) 5.4 x10^3/uL (1.8-7.7) Lymphocytes # (Auto) 1.3 x10^3/uL (1.0-4.8) Monocytes # (Auto) 0.5 x10^3/uL (0.0-1.1) Eosinophils # (Auto) 0.1 x10^3/uL (0.0-0.7) Basophils # (Auto) 0.0 x10^3/uL (0.0-0.2) Sodium Level 141 mmol/L (136-145) Potassium Level 3.8 mmol/L (3.5-5.1) Chloride Level 107 mmol/L (98-107) Carbon Dioxide Level 27 mmol/L (21-32) Anion Gap 7 (6-14) Blood Urea Nitrogen 32 mg/dL (7-20) Creatinine 1.0 mg/dL (0.6-1.0) Estimated GFR (Cockcroft-Gault) 53.8 BUN/Creatinine Ratio 32 (6-20) Glucose Level 222 mg/dL (70-99) Calcium Level 7.7 mg/dL (8.5-10.1) Total Bilirubin 0.3 mg/dL (0.2-1.0) Aspartate Amino Transf (AST/SGOT) 22 U/L (15-37) Alanine Aminotransferase (ALT/SGPT) 9 U/L (14-59) Alkaline Phosphatase 158 U/L (46-116) Total Protein 5.4 g/dL (6.4-8.2) Albumin 1.5 g/dL (3.4-5.0) Albumin/Globulin Ratio 0.4 (1.0-1.7) Glucose (Fingerstick) 210 mg/dL (70-99) 123 mg/dL (70-99) 174 mg/dL (70-99) Prothrombin Time 20.9 SEC (11.7-14.0) Prothromb Time International Ratio 1.8 (0.8-1.1) Images Images CT with runoff noted Assessment/Plan Assessment/Plan 1) postoperative right thigh wound demonstrating relatively heavy bioburden. Will institute vari flow to this site. Long-term goal is skin grafting to the area. 2) bilateral lower extremity ulcerations demonstrating fat exposure with likely mixed etiology (venous, arterial and vasculitic) Dressing orders as above. Patient is currently poorly tolerant of debridement and would hope to accomplish this after appropriate dressing application and wound bed preparation. 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 Thank you ILIR ADAN DO Apr 13, 2021 15:22
--- NOTE | 2021-04-13 15:54 | NUR ---
Wound/Ostomy Care Wound Type/Assessment: Wound care consult for multiple bilateral thigh, lower legs and foot wounds (see wound intervention for details), pt known to wound care team from previous admissions and outpatient clinic. Dr. Holt (wound care provider) at bedside at time of evaluation. Bilateral lower leg wound possibly venous, arterial and vasculitis in nature. Recommendation for veraflo wound vac to right thigh, honey and aquacel ag to michael lower legs and contact layer for bilateral feet. All wounds assessed, cleansed, pictured and measured. Bruising, dark red discoloration noted to be expanding through lower legs to plantar feet. No other wounds noted on head to toe skin assessment. Treatment Recommendations/Plan: Right thigh: cleanse wound, cover with veraflo silver waffle foam to wound bed, ostomy ring used rajan wound, good seal obtained at 125mmgh, pt tolerated procedure well. Wound care will change dressing again on . Bilateral lower legs: cleanse wounds, cover with therahoney, aquacel ag, abd and kerlix, change every 2-3 days or as needed if saturated. Bilateral feet: cleanse wounds, cover with contact layer (greasy gauze), then cover with abd and kerlix, change every 2-3 days. Education provided: pt educated on PU prevention and leg elevation Offloading surface/device: pillows, purple wedge Recommended Referrals/Tests: n/a Discharge Recommendations for dressings: same as above, wound care will follow up on 04/15 for re-eval on wounds. Dressing recommendations left in room, pt left in bed with call light within reach, be lowered, pt dtr at bedside at time of departure.
[2021-04-13] MEDS: WARFARIN 4 MG TABLET. PO SCH (16:36)
[2021-04-13 19:15] VITALS: BP 138/55
[2021-04-13] MEDS: ATORVASTATIN CALCIUM 40 MG TABLET. PO SCH (20:29)
[2021-04-13] MEDS ORDERED: INSULIN GLARGINE SYRINGE. SQ SCH (21:00)
[2021-04-13] MEDS: INSULIN GLARGINE SYRINGE. SQ SCH (21:56)
[2021-04-13 23:00] VITALS: BP 142/54
[2021-04-14] MEDS: HYDROmorphone 2 MG/ML VIAL IVP PRN ×2 (01:15→11:06)
[2021-04-14 03:00] VITALS: BP 142/51
[2021-04-14 06:49] LABS: BASO % 0 % (0-3); EOS # 0.1 x10^3/uL (0.0-0.7); EOS % 1 % (0-3); HEMATOCRIT 24.3 % (36.0-47.0); HEMOGLOBIN 7.6 g/dL (12.0-15.5); LYMPH % 18 % (24-48); MEAN CORPUSCULAR HEMOGLOBIN 26 pg (25-35); MEAN CORPUSCULAR HGB CONC 31 g/dL (31-37); MEAN CORPUSCULAR VOLUME 82 fL (79-100); MONO # 0.9 x10^3/uL (0.0-1.1); MONO % 8 % (0-9); NEUT # 8.3 x10^3/uL (1.8-7.7); NEUT % 73 % (31-73); PLATELET COUNT 330 x10^3/uL (140-400); RED BLOOD COUNT 2.97 x10^6/uL (3.50-5.40); RED CELL DISTRIBUTION WIDTH 18.8 % (11.5-14.5); WHITE BLOOD COUNT 11.4 x10^3/uL (4.0-11.0)
[2021-04-14 07:00] VITALS: BP 136/53
[2021-04-14 07:02] LABS: C-REACTIVE PROTEIN 128.6 mg/L (0-3.3); CALCIUM 7.5 mg/dL (8.5-10.1); CREATININE 1.1 mg/dL (0.6-1.0); GFR 48.2; POTASSIUM 3.9 mmol/L (3.5-5.1)
[2021-04-14] MEDS: INSULIN LISPRO 300 UNITS/3 ML VIAL. SQ SCH ×3 (08:00→17:48)
--- NOTE | 2021-04-14 08:06 | PDOC ---
[employer] PROGRESS NOTE Date of Service DOS: DATE: 04/14/21 TIME: 07:53 Chief Complaint Chief Complaint Nonhealing bilateral lower extremity wounds Peripheral artery disease Atrial fibrillation DM2 CAD HTN Severe malnutrition Plan: Place consultation to vascular surgery, plastic surgery, and wound care We will hold off on systemic antibiotics at this time we will hold topical treatments and further wound care recommendations Resume home medications FEN - Cardiac diet PPX - Warfarin DNR Dispo - inpatient for above Surrogate decision-maker is her daughter (Alyce Santana) History of Present Illness History of Present Illness Patient 76-year-old female with past medical history DM2, CAD, HTN, HLD, presents as a direct admit from [facility] due to multiple nonhealing bl istering wounds to her bilateral feet for the past month. She was recently treated on our service (03/22/2021) for evacuation and debridement of right thigh hematoma. Right lower extremity CTA at that time showed calcified plaque with approximately 50 percent stenosis to SFA, extensive arterial calcifications to right popliteal artery, heavy calcifications to anterior tibial artery, and occluded right posterior tibial artery; Left lower extremity CTA showed popliteal artery with 60-70 percent stenosis at mid segment, left anterior tibial artery with heavy calcifications, left posterior tibial artery occluded distally. She has been receiving local wound care and follow-up at wound care clinic without significant improvement in her blisters. She denies any s ignificant pain but does admit to some clear serous drainage from her bilateral feet. Will admit patient for further medical management. 04/14/2021: Febrile overnight with T-max 100.7 F. WBC 11.4. Will place consult to ID to help with management of cellulitis that failed outpatient antibiotic treatment. Per vascular surgery, no urgency for surgical debridement of her wounds or angiogram currently. She had wound VAC placed in the right thigh yesterday. Await recommendations from plastic surgery. Vitals/I&O Vitals/I&O: Vital Signs Date Time Temp Pulse Resp B/P (MAP) Pulse Ox O2 Delivery O2 Flow Rate FiO2 04/14/21 03:00 99.2 88 18 142/51 (81) 96 Room Air 99.2 I & O 04/13/21 04/13/21 04/14/21 15:00 23:00 07:00 Intake Total 510 ml 200 ml Output Total 400 ml Balance 510 ml -200 ml Physical Exam General: Alert, Oriented X3, Cooperative Heart: Regular rate Lungs: Clear Abdomen: Soft, No tenderness Extremities: Normal pulses (Identified as biphasic left dorsalis pedis and posterior tibial, biphasic right dorsalis pedis and monophasic right posterior tibial pulses by vascular.), Other (Palpable petechial-like rashes identified over bilateral lower extremities and feet. Coalesced areas do demonstrate some blister formation as well. Wounds identified and documented per wound care include a left lower leg ulceration measuring 9.3 cm x 15.5 cm x 0.2 cm to the left lower leg, wound measuring 5 cm x 3.5 cm x 0.1 cm to the left foot, wound measuring 17.5 cm x 15 cm x 4.4 cm to the right thigh, wound measuring 21 cm x 16 cm x 0.2 cm to the right lower leg. Right thigh wound demonstrates relatively heavy biofilm/slough at this time. No significant granulation as evident in a negative pressure wound site.) Skin: No rashes (Petechial rash demonstrated distally coalescence to bullae for mation identified over the foot dorsum.) Labs Labs: Laboratory Tests Test 04/13/21 08:15 04/13/21 11:15 04/13/21 16:44 04/13/21 19:57 Prothrombin Time 20.9 SEC (11.7-14.0) Prothromb Time International Ratio 1.8 (0.8-1.1) Glucose (Fingerstick) 123 mg/dL (70-99) 174 mg/dL (70-99) 167 mg/dL (70-99) 147 mg/dL (70-99) Test 04/14/21 06:25 White Blood Count 11.4 x10^3/uL (4.0-11.0) Red Blood Count 2.97 x10^6/uL (3.50-5.40) Hemoglobin 7.6 g/dL (12.0-15.5) Hematocrit 24.3 % (36.0-47.0) Mean Corpuscular Volume 82 fL (79-100) Mean Corpuscular Hemoglobin 26 pg (25-35) Mean Corpuscular Hemoglobin Concent 31 g/dL (31-37) Red Cell Distribution Width 18.8 % (11.5-14.5) Platelet Count 330 x10^3/uL (140-400) Neutrophils (%) (Auto) 73 % (31-73) Lymphocytes (%) (Auto) 18 % (24-48) Monocytes (%) (Auto) 8 % (0-9) Eosinophils (%) (Auto) 1 % (0-3) Basophils (%) (Auto) 0 % (0-3) Neutrophils # (Auto) 8.3 x10^3/uL (1.8-7.7) Lymphocytes # (Auto) 2.0 x10^3/uL (1.0-4.8) Monocytes # (Auto) 0.9 x10^3/uL (0.0-1.1) Eosinophils # (Auto) 0.1 x10^3/uL (0.0-0.7) Basophils # (Auto) 0.0 x10^3/uL (0.0-0.2) Sodium Level 137 mmol/L (136-145) Potassium Level 3.9 mmol/L (3.5-5.1) Chloride Level 106 mmol/L (98-107) Carbon Dioxide Level 27 mmol/L (21-32) Anion Gap 4 (6-14) Blood Urea Nitrogen 41 mg/dL (7-20) Creatinine 1.1 mg/dL (0.6-1.0) Estimated GFR (Cockcroft-Gault) 48.2 Glucose Level 142 mg/dL (70-99) Calcium Level 7.5 mg/dL (8.5-10.1) C-Reactive Protein, Quantitative 128.6 mg/L (0-3.3) Assessment and Plan Problems: (1) Diabetic leg ulcer (2) skilled nursing (current) use of anticoagulants Comment Review of Relevant I have reviewed the following items ronen (where applicable) has been applied. Medications: Current Medications Medications (Trade) Dose Ordered Sig/Gennaro Route PRN Reason Start Time Stop Time Status Last Admin Dose Admin Amlodipine Besylate (Norvasc) 10 mg DAILY PO 04/13/21 09:00 04/13/21 09:23 Metoprolol Succinate (Toprol Xl) 50 mg DAILY PO 04/13/21 09:00 04/13/21 09:24 Citalopram Hydrobromide (CeleXA) 40 mg DAILY PO 04/13/21 09:00 04/13/21 09:24 Losartan Potassium (Cozaar) 100 mg DAILY PO 04/13/21 09:00 04/13/21 09:23 Insulin Human Lispro (HumaLOG) 0-9 UNITS TIDWMEALS SQ 04/13/21 08:00 04/13/21 17:52 Nystatin (Nystop) 1 debbie BID TP 04/13/21 11:00 04/13/21 20:29 Insulin Glargine (Lantus Syringe) 8 unit QHS SQ 04/13/21 22:00 04/13/21 21:56 Justifications for Admission Other Justification Diabetic ulcers, failed outpatient treatment CELIO VILLEGAS MD Apr 14, 2021 08:06
[2021-04-14] MEDS: LOSARTAN POTASSIUM 50 MG TABLET. PO SCH (08:44)
[2021-04-14] MEDS: NYSTATIN TOPICAL POWDER 15GM BOTTLE. TP SCH ×2 (08:45→20:33)
[2021-04-14] MEDS: METOPROLOL SUCC 24HR ER 50 MG TAB.ER.24H. PO SCH (08:45)
[2021-04-14] MEDS: CITALOPRAM 20 MG TABLET. PO SCH (08:45)
[2021-04-14] MEDS: IV NORMAL SALINE 1000ML BAG 1,000 ML IV SCH (08:46)
[2021-04-14] MEDS: HYDROcodone/APAP 5/325MG 1 TAB TABLET PO PRN ×3 (08:50→22:12)
--- NOTE | 2021-04-14 10:02 | CONS ---
DATE OF CONSULTATION: 04/14/2021 REQUESTING PHYSICIAN: Dr. Proctor. REASON FOR CONSULTATION: Cellulitis. HISTORY OF PRESENT ILLNESS: This is a 76-year-old female who has had fall with hematoma, multiple surgeries done for that. The patient also has some peripheral vascular disease and lower extremity blistering and ulcerations that have been going on for several months. The patient has had a prolonged hospital course last time and she was seen at [facility] and she came back with further worsening of the wounds. The patient denies any fever, denies any nausea, vomiting, diarrhea, chest pain, shortness of breath, abdominal pain, urinary symptoms or bowel symptoms. The patient has a wound VAC on the right lower thigh and multiple other wounds on both lower extremities. Vascular Surgery is involved and last time Plastic Surgery was involved. The patient is not on any antibiotics. PAST MEDICAL HISTORY: Positive for coronary artery disease, hypertension, hyperlipidemia, asthma, pulmonary embolism, peripheral neuropathy, gastroesophageal reflux disease, anemia, osteoarthritis, diabetes. She had coronary artery bypass grafting in the past, total knee arthroplasty, hysterectomy, and hematoma evacuation done in the past. SOCIAL HISTORY: Negative for smoking, alcohol, illicit drug use. ALLERGIES: LISTED ALLERGIC TO SULFA. CURRENT MEDICATIONS: Reviewed. REVIEW OF SYSTEMS: As in HPI. All other systems reviewed are negative. PHYSICAL EXAMINATION: GENERAL: Alert, oriented female, not in distress. VITAL SIGNS: Temperature 98.7 with a T-max 100.7, pulse 71, respiration 16, blood pressure 136/53. HEENT: Both pupils are round and reacting. No conjunctival lesion, no lesion in the mouth. NECK: Supple, no JVP, no lymphadenopathy. LUNGS: Clear. HEART: S1, S2 regular. ABDOMEN: Soft, nontender, no organomegaly. EXTREMITIES: Right lower extremity, lower thigh, right thigh has a wound VAC, which was not removed. Right lower extremity, back of the leg, there is a foul smelling necrotic wound. She has some other skin breakdown superficial on the right leg and foot and erythema. The patient also has an ulcer on the left leg, large ulcer with drainage, again foul smelling drainage and multiple other smaller superficial wounds. NEUROLOGIC: The patient is alert, awake, and appropriate. No focal neurologic deficit. LABORATORY DATA: White count is 11.4, platelets are normal. BUN and creatinine is 41 and 1.1. Cultures were done earlier last month, they were negative. The patient had angiogram done. There is a hypodense mass in the right lobe of the liver, no high-grade stenosis and significant calcification in the femoral, popliteal and infrapopliteal segment. IMPRESSION: 1. Infected foul smelling wounds, bilateral lower extremity. 2. Right lower thigh hematoma evacuation with a wound VAC in place, unable to see right now. 3. Leukocytosis. 4. Fever. 5. Peripheral vascular disease. 6. Coronary artery disease. RECOMMENDATIONS: We will start Zosyn, supportive care and will continue to follow. Thank you very much, Dr. Proctor for giving me opportunity to participate in this patient's care. IVIS DR: Acosta TID: [id number]
[2021-04-14] MEDS: PIPERACILLIN/TAZOBACTAM 3.375 GM in IV NORMAL SALINE 50ML 50 ML IV SCH ×2 (10:06→17:45)
--- NOTE | 2021-04-14 10:45 | NUR ---
Covid swab collected and walked down to lab.
[2021-04-14 11:00] VITALS: BP 130/80
--- NOTE | 2021-04-14 12:50 | NUR ---
SW following. Discussed with RN, clinicals faxed to [facility], pending insurance auth and negative COVID. SW will continue to follow.
[2021-04-14 15:00] VITALS: BP 114/75
[2021-04-14] MEDS: WARFARIN 4 MG TABLET. PO SCH (16:12)
[2021-04-14 19:00] VITALS: BP 98/41
[2021-04-14] MEDS: LACTOBACILLUS RHAMNOSUS GG 1 CAPSULE. PO SCH (20:34)
[2021-04-14] MEDS: INSULIN GLARGINE SYRINGE. SQ SCH (20:34)
[2021-04-14] MEDS: ATORVASTATIN CALCIUM 40 MG TABLET. PO SCH (20:34)
[2021-04-14 23:00] VITALS: BP 153/47
[2021-04-15] MEDS: PIPERACILLIN/TAZOBACTAM 3.375 GM in IV NORMAL SALINE 50ML 50 ML IV SCH ×4 (00:26→17:43)
[2021-04-15 02:44] VITALS: BP 172/57
[2021-04-15 05:00] LABS: PROTHROMBIN TIME PATIENT 25.9 SEC (11.7-14.0)
[2021-04-15 05:04] LABS: BASO # 0.1 x10^3/uL (0.0-0.2); BASO % 1 % (0-3); EOS # 0.1 x10^3/uL (0.0-0.7); EOS % 1 % (0-3); HEMATOCRIT 24.4 % (36.0-47.0); HEMOGLOBIN 7.7 g/dL (12.0-15.5); LYMPH # 1.4 x10^3/uL (1.0-4.8); LYMPH % 14 % (24-48); MEAN CORPUSCULAR HEMOGLOBIN 26 pg (25-35); MEAN CORPUSCULAR HGB CONC 32 g/dL (31-37); MEAN CORPUSCULAR VOLUME 82 fL (79-100); MONO # 0.7 x10^3/uL (0.0-1.1); MONO % 7 % (0-9); NEUT # 7.8 x10^3/uL (1.8-7.7); NEUT % 78 % (31-73); PLATELET COUNT 328 x10^3/uL (140-400); RED BLOOD COUNT 2.98 x10^6/uL (3.50-5.40); RED CELL DISTRIBUTION WIDTH 18.9 % (11.5-14.5); WHITE BLOOD COUNT 10.1 x10^3/uL (4.0-11.0)
[2021-04-15 05:10] LABS: CALCIUM 7.7 mg/dL (8.5-10.1); CREATININE 1.1 mg/dL (0.6-1.0); GFR 48.2; POTASSIUM 3.9 mmol/L (3.5-5.1)
[2021-04-15] MEDS: IV NORMAL SALINE 1000ML BAG 1,000 ML IV SCH ×2 (05:39→12:53)
[2021-04-15] MEDS: HYDROcodone/APAP 5/325MG 1 TAB TABLET PO PRN ×3 (05:39→15:14)
[2021-04-15 07:00] VITALS: BP 159/57
--- NOTE | 2021-04-15 07:39 | PDOC ---
[employer] PROGRESS NOTE Date of Service DOS: DATE: 04/15/21 TIME: 07:29 Chief Complaint Chief Complaint Nonhealing bilateral lower extremity wounds Right lower thigh hematoma with wound VAC in place Peripheral artery disease Atrial fibrillation DM2 CAD HTN Severe malnutrition Plan: Place consultation to vascular surgery, plastic surgery, and wound care We will hold off on systemic antibiotics at this time we will hold topical t reatments and further wound care recommendations Resume home medications FEN - Cardiac diet PPX - Warfarin DNR Dispo - inpatient for above Surrogate decision-maker is her daughter (Alyce Santana) History of Present Illness History of Present Illness Patient 76-year-old female with past medical history DM2, CAD, HTN, HLD, presents as a direct admit from [facility] due to multiple nonhealing blistering wounds to her bilateral feet for the past month. She was recently t reated on our service (03/22/2021) for evacuation and debridement of right thigh hematoma. Right lower extremity CTA at that time showed calcified plaque with approximately 50 percent stenosis to SFA, extensive arterial calcifications to right popliteal artery, heavy calcifications to anterior tibial artery, and occluded right posterior tibial artery; Left lower extremity CTA showed popliteal artery with 60-70 percent stenosis at mid segment, left anterior tibial artery with heavy calcifications, left posterior tibial artery occluded distally. She has been receiving local wound care and follow-up at wound care clinic without significant improvement in her blisters. She denies any significant pain but does admit to some clear serous drainage from her bilateral feet. Will admit patient for further medical management. 04/14/2021: Febrile overnight with T-max 100.7 F. WBC 11.4. Will place consult to ID to help with management of cellulitis that failed outpatient antibiotic treatment. Per vascular surgery, no urgency for surgical debridement of her wounds or angiogram currently. She had wound VAC placed in the right thigh yesterday. Await recommendations from plastic surgery. 04/15/2021: Afebrile, breathing on room air. Wound VAC in place to right thigh. She reports some pain in her legs with movement, but worked with physical therapy yesterday. Continue treatment of bilateral lower extremity wounds with Zosyn. She states that she has not found to [facility] as did not really change the dressings on her legs. She would much prefer a different [facility] facility upon discharge. Anticipate plastic surgery recommendations on management of right thigh hematoma. Vitals/I&O Vitals/I&O: Vital Signs Date Time Temp Pulse Resp B/P (MAP) Pulse Ox O2 Delivery O2 Flow Rate FiO2 04/15/21 06:09 20 92 Room Air 04/15/21 02:44 98.5 71 172/57 (95) 98.5 I & O 04/14/21 04/14/21 04/15/21 15:00 23:00 07:00 Intake Total 100 ml 100 ml Output Total 300 ml Balance 100 ml -200 ml Physical Exam General: Alert, Oriented X3, Cooperative Heart: Regular rate Lungs: Clear Abdomen: Soft, No tenderness Extremities: Normal pulses (Identified as biphasic left dorsalis pedis and posterior tibial, biphasic right dorsalis pedis and monophasic right posterior tibial pulses by vascular.), Other (Palpable petechial-like rashes identified over bilateral lower extremities and feet. Coalesced areas do demonstrate some blister formation as well. Wounds identified and documented per wound care include a left lower leg ulceration measuring 9.3 cm x 15.5 cm x 0.2 cm to the left lower leg, wound measuring 5 cm x 3.5 cm x 0.1 cm to the left foot, wound measuring 17.5 cm x 15 cm x 4.4 cm to the right thigh, wound measuring 21 cm x 16 cm x 0.2 cm to the right lower leg. Right thigh wound demonstrates relatively heavy biofilm/slough at this time. No significant granulation as evident in a negative pressure wound site.) Skin: No rashes (Petechial rash demonstrated distally coalescence to bullae formation identified over the foot dorsum.) Labs Labs: Laboratory Tests Test 04/14/21 07:45 04/14/21 11:42 04/14/21 16:28 04/14/21 20:09 Glucose (Fingerstick) 138 mg/dL (70-99) 204 mg/dL (70-99) 187 mg/dL (70-99) 158 mg/dL (70-99) Test 04/15/21 04:28 White Blood Count 10.1 x10^3/uL (4.0-11.0) Red Blood Count 2.98 x10^6/uL (3.50-5.40) Hemoglobin 7.7 g/dL (12.0-15.5) Hematocrit 24.4 % (36.0-47.0) Mean Corpuscular Volume 82 fL (79-100) Mean Corpuscular Hemoglobin 26 pg (25-35) Mean Corpuscular Hemoglobin Concent 32 g/dL (31-37) Red Cell Distribution Width 18.9 % (11.5-14.5) Platelet Count 328 x10^3/uL (140-400) Neutrophils (%) (Auto) 78 % (31-73) Lymphocytes (%) (Auto) 14 % (24-48) Monocytes (%) (Auto) 7 % (0-9) Eosinophils (%) (Auto) 1 % (0-3) Basophils (%) (Auto) 1 % (0-3) Neutrophils # (Auto) 7.8 x10^3/uL (1.8-7.7) Lymphocytes # (Auto) 1.4 x10^3/uL (1.0-4.8) Monocytes # (Auto) 0.7 x10^3/uL (0.0-1.1) Eosinophils # (Auto) 0.1 x10^3/uL (0.0-0.7) Basophils # (Auto) 0.1 x10^3/uL (0.0-0.2) Prothrombin Time 25.9 SEC (11.7-14.0) Prothromb Time International Ratio 2.4 (0.8-1.1) Sodium Level 134 mmol/L (136-145) Potassium Level 3.9 mmol/L (3.5-5.1) Chloride Level 104 mmol/L (98-107) Carbon Dioxide Level 26 mmol/L (21-32) Anion Gap 4 (6-14) Blood Urea Nitrogen 37 mg/dL (7-20) Creatinine 1.1 mg/dL (0.6-1.0) Estimated GFR (Cockcroft-Gault) 48.2 Glucose Level 171 mg/dL (70-99) Calcium Level 7.7 mg/dL (8.5-10.1) Comment Review of Relevant I have reviewed the following items ronen (where applicable) has been applied. Medications: Current Medications Medications (Trade) Dose Ordered Sig/Gennaro Route PRN Reason Start Time Stop Time Status Last Admin Dose Admin Piperacillin Sod/ Tazobactam Sod 3.375 gm/Sodium Chloride 50 ml @ 100 mls/hr Q6HRS IV 04/14/21 10:00 04/15/21 05:38 Lactobacillus Rhamnosus (Culturelle) 1 cap BID PO 04/14/21 21:00 04/14/21 20:34 Justifications for Admission Other Justification Diabetic ulcers, failed outpatient treatment CELIO VILLEGAS MD Apr 15, 2021 07:39
--- NOTE | 2021-04-15 08:10 | PDOC ---
Infectious Disease Note Subjective Subjective pt is feeling better ROS ROS no n/v/d/sob Vital Sign Vital Signs Vital Signs Date Time Temp Pulse Resp B/P (MAP) Pulse Ox O2 Delivery O2 Flow Rate FiO2 04/15/21 06:09 20 92 Room Air 04/15/21 02:44 98.5 71 172/57 (95) 98.5 Physical Exam PHYSICAL EXAM GENERAL: Alert, oriented female, not in distress. VITAL SIGNS: stable HEENT: Both pupils are round and reacting. No conjunctival lesion, no lesion in the mouth. NECK: Supple, no JVP, no lymphadenopathy. LUNGS: Clear. HEART: S1, S2 regular. ABDOMEN: Soft, nontender, no organomegaly. EXTREMITIES: Right lower extremity, lower thigh, right thigh has a wound VAC, which was not removed. Right lower extremity, back of the leg, there is a foul smelling necrotic wound. She has some other skin breakdown superficial on the right leg and foot and erythema. The patient also has an ulcer on the left leg, large ulcer with drainage, again foul smelling drainage and multiple other smaller superficial wounds. NEUROLOGIC: The patient is alert, awake, and appropriate. No focal neurologic deficit. Labs Lab Laboratory Tests Test 04/14/21 11:42 04/14/21 16:28 04/14/21 20:09 04/15/21 04:28 Glucose (Fingerstick) 204 mg/dL (70-99) 187 mg/dL (70-99) 158 mg/dL (70-99) White Blood Count 10.1 x10^3/uL (4.0-11.0) Red Blood Count 2.98 x10^6/uL (3.50-5.40) Hemoglobin 7.7 g/dL (12.0-15.5) Hematocrit 24.4 % (36.0-47.0) Mean Corpuscular Volume 82 fL (79-100) Mean Corpuscular Hemoglobin 26 pg (25-35) Mean Corpuscular Hemoglobin Concent 32 g/dL (31-37) Red Cell Distribution Width 18.9 % (11.5-14.5) Platelet Count 328 x10^3/uL (140-400) Neutrophils (%) (Auto) 78 % (31-73) Lymphocytes (%) (Auto) 14 % (24-48) Monocytes (%) (Auto) 7 % (0-9) Eosinophils (%) (Auto) 1 % (0-3) Basophils (%) (Auto) 1 % (0-3) Neutrophils # (Auto) 7.8 x10^3/uL (1.8-7.7) Lymphocytes # (Auto) 1.4 x10^3/uL (1.0-4.8) Monocytes # (Auto) 0.7 x10^3/uL (0.0-1.1) Eosinophils # (Auto) 0.1 x10^3/uL (0.0-0.7) Basophils # (Auto) 0.1 x10^3/uL (0.0-0.2) Prothrombin Time 25.9 SEC (11.7-14.0) Prothromb Time International Ratio 2.4 (0.8-1.1) Sodium Level 134 mmol/L (136-145) Potassium Level 3.9 mmol/L (3.5-5.1) Chloride Level 104 mmol/L (98-107) Carbon Dioxide Level 26 mmol/L (21-32) Anion Gap 4 (6-14) Blood Urea Nitrogen 37 mg/dL (7-20) Creatinine 1.1 mg/dL (0.6-1.0) Estimated GFR (Cockcroft-Gault) 48.2 Glucose Level 171 mg/dL (70-99) Calcium Level 7.7 mg/dL (8.5-10.1) Objective Assessment IMPRESSION: 1. Infected foul smelling wounds, bilateral lower extremity. 2. Right lower thigh hematoma evacuation with a wound VAC in place, unable to see right now. 3. Leukocytosis. 4. Fever. 5. Peripheral vascular disease. 6. Coronary artery disease. Plan Plan of Care cont antibiotics cont supportive care TOMAS ROMAN MD Apr 15, 2021 08:10
[2021-04-15] MEDS: CITALOPRAM 20 MG TABLET. PO SCH (08:49)
[2021-04-15] MEDS: METOPROLOL SUCC 24HR ER 50 MG TAB.ER.24H. PO SCH (08:49)
[2021-04-15] MEDS: LOSARTAN POTASSIUM 50 MG TABLET. PO SCH (08:49)
[2021-04-15] MEDS: LACTOBACILLUS RHAMNOSUS GG 1 CAPSULE. PO SCH ×2 (08:49→20:37)
[2021-04-15] MEDS: NYSTATIN TOPICAL POWDER 15GM BOTTLE. TP SCH ×2 (08:50→20:37)
[2021-04-15] MEDS: INSULIN LISPRO 300 UNITS/3 ML VIAL. SQ SCH ×3 (08:54→17:45)
[2021-04-15 11:00] VITALS: BP 133/51
[2021-04-15 15:00] VITALS: BP 140/45
[2021-04-15] MEDS: WARFARIN 4 MG TABLET. PO SCH (16:29)
[2021-04-15 19:30] VITALS: BP 137/49
[2021-04-15] MEDS: ATORVASTATIN CALCIUM 40 MG TABLET. PO SCH (20:37)
[2021-04-15] MEDS: INSULIN GLARGINE SYRINGE. SQ SCH (21:22)
[2021-04-15 23:08] VITALS: BP 130/56
[2021-04-16] MEDS: PIPERACILLIN/TAZOBACTAM 3.375 GM in IV NORMAL SALINE 50ML 50 ML IV SCH ×4 (00:04→16:21)
[2021-04-16] MEDS: HYDROcodone/APAP 5/325MG 1 TAB TABLET PO PRN ×5 (00:12→20:58)
[2021-04-16 03:44] VITALS: BP 141/51
[2021-04-16] MEDS: IV NORMAL SALINE 1000ML BAG 1,000 ML IV SCH (06:21)
[2021-04-16 07:00] VITALS: BP 158/56
[2021-04-16] MEDS: NYSTATIN TOPICAL POWDER 15GM BOTTLE. TP SCH ×2 (08:19→20:58)
[2021-04-16] MEDS: LACTOBACILLUS RHAMNOSUS GG 1 CAPSULE. PO SCH ×2 (08:20→20:57)
[2021-04-16] MEDS: CITALOPRAM 20 MG TABLET. PO SCH (08:20)
[2021-04-16 08:21] LABS: BASO % 0 % (0-3); EOS % 1 % (0-3); HEMATOCRIT 22.7 % (36.0-47.0); HEMOGLOBIN 7.3 g/dL (12.0-15.5); LYMPH # 0.9 x10^3/uL (1.0-4.8); LYMPH % 11 % (24-48); MEAN CORPUSCULAR HEMOGLOBIN 26 pg (25-35); MEAN CORPUSCULAR HGB CONC 32 g/dL (31-37); MEAN CORPUSCULAR VOLUME 81 fL (79-100); MONO # 0.5 x10^3/uL (0.0-1.1); MONO % 6 % (0-9); NEUT # 6.7 x10^3/uL (1.8-7.7); NEUT % 82 % (31-73); PLATELET COUNT 334 x10^3/uL (140-400); RED BLOOD COUNT 2.79 x10^6/uL (3.50-5.40); RED CELL DISTRIBUTION WIDTH 18.8 % (11.5-14.5); WHITE BLOOD COUNT 8.2 x10^3/uL (4.0-11.0)
--- NOTE | 2021-04-16 08:21 | PDOC ---
Infectious Disease Note Subjective Subjective pt is feeling better ROS ROS no n/v/d/ Vital Sign Vital Signs Vital Signs Date Time Temp Pulse Resp B/P (MAP) Pulse Ox O2 Delivery O2 Flow Rate FiO2 04/16/21 04:56 Room Air 04/16/21 03:44 98.8 69 18 141/51 (81) 94 98.8 Physical Exam PHYSICAL EXAM GENERAL: Alert, oriented female, not in distress. VITAL SIGNS: stable HEENT: Both pupils are round and reacting. No conjunctival lesion, no lesion in the mouth. NECK: Supple, no JVP, no lymphadenopathy. LUNGS: Clear. HEART: S1, S2 regular. ABDOMEN: Soft, nontender, no organomegaly. EXTREMITIES: Right lower extremity, lower thigh, right thigh has a wound VAC, which was not removed. Right lower extremity, back of the leg, there is a foul smelling necrotic wound. She has some other skin breakdown superficial on the right leg and foot and erythema. The patient also has an ulcer on the left leg, large ulcer with drainage, again foul smelling drainage and multiple other smaller superficial wounds. NEUROLOGIC: The patient is alert, awake, and appropriate. No focal neurologic deficit. Labs Lab Laboratory Tests Test 04/15/21 08:24 04/15/21 11:17 04/15/21 17:01 04/15/21 21:04 Glucose (Fingerstick) 183 mg/dL (70-99) 199 mg/dL (70-99) 186 mg/dL (70-99) 217 mg/dL (70-99) Objective Assessment IMPRESSION: 1. Infected foul smelling wounds, bilateral lower extremity. 2. Right lower thigh hematoma evacuation with a wound VAC in place, unable to see right now. 3. Leukocytosis. 4. Fever. 5. Peripheral vascular disease. 6. Coronary artery disease. Plan Plan of Care cont antibiotics cont supportive care [facility] cannot do zosyn ( 4 times a day ) change to TOMAS Paz MD Apr 16, 2021 08:21
[2021-04-16] MEDS: INSULIN LISPRO 300 UNITS/3 ML VIAL. SQ SCH ×3 (08:22→17:13)
[2021-04-16] MEDS: METOPROLOL SUCC 24HR ER 50 MG TAB.ER.24H. PO SCH (08:26)
[2021-04-16] MEDS: LOSARTAN POTASSIUM 50 MG TABLET. PO SCH (08:27)
[2021-04-16 08:39] LABS: CALCIUM 7.6 mg/dL (8.5-10.1); GFR 53.8; POTASSIUM 3.7 mmol/L (3.5-5.1)
--- NOTE | 2021-04-16 10:47 | PDOC ---
PROGRESS NOTES Date of Service: DATE: 04/16/21 TIME: 10:47 Chief Complaint Chief Complaint Nonhealing bilateral lower extremity wounds Right lower thigh hematoma with wound VAC in place Peripheral artery disease Atrial fibrillation DM2 CAD HTN Severe malnutrition Plan: Place consultation to vascular surgery, plastic surgery, and wound care We will hold off on systemic antibiotics at this time we will hold topical treatments and further wound care recommendations Resume home medications FEN - Cardiac diet PPX - Warfarin DNR Dispo - inpatient for above Surrogate decision-maker is her daughter (Alyce Santana) History of Present Illness History of Present Illness Patient 76-year-old female with past medical history DM2, CAD, HTN, HLD, presents as a direct admit from [facility] due to multiple nonhealing blistering wounds to her bilateral feet for the past month. She was recently treated on our service (03/22/2021) for evacuation and debridement of right thigh hematoma. Right lower extremity CTA at that time showed calcified plaque with approximately 50 percent stenosis to SFA, extensive arterial calcifications to right popliteal artery, heavy calcifications to anterior tibial artery, and occluded right posterior tibial artery; Left lower extremity CTA showed popliteal artery with 60-70 percent stenosis at mid segment, left anterior tibial artery with heavy calcifications, left posterior tibial artery occluded distally. She has been receiving local wound care and follow-up at wound care clinic without significant improvement in her blisters. She denies any significant pain but does admit to some clear serous drainage from her bilateral feet. Will admit patient for further medical management. 04/14/2021: Febrile overnight with T-max 100.7 F. WBC 11.[address]. Will place consult to ID to help with management of cellulitis that failed outpatient antibiotic treatment. Per vascular surgery, no urgency for surgical debridement of her wounds or angiogram currently. She had wound VAC placed in the right thigh yesterday. Await recommendations from plastic surgery. 04/15/2021: Afebrile, breathing on room air. Wound VAC in place to right thigh. She reports some pain in her legs with movement, but worked with physical therapy yesterday. Continue treatment of bilateral lower extremity wounds with Zosyn. She states that she has not found to [facility] as did not really change the dressings on her legs. She would much prefer a different halfway facility upon discharge. Anticipate plastic surgery recommendations on management of right thigh hematoma. 04/16/2021: Afebrile, breathing on room air. Wound VAC in place to right thigh. worked with physical therapy . Continue treatment of bilateral lower extremity wounds with Zosyn. she has not willing to go back [facility] as did not really change the dressings on her legs. She would much prefer a different halfway facility upon discharge. Anticipate plastic surgery recommendations on management of right thigh hematoma. d/w rn and social work infected foul smelling wounds, bilateral lower extremity. Right lower thigh hematoma evacuation with a wound VAC in place Vitals Vitals Vital Signs Date Time Temp Pulse Resp B/P (MAP) Pulse Ox O2 Delivery O2 Flow Rate FiO2 04/16/21 08:27 71 158/56 04/16/21 08:00 Room Air 04/16/21 07:00 98.0 18 95 98.0 Physical Exam Physical Exam GENERAL: Alert, oriented female, not in distress. resting in bed HEENT: Both pupils are round and reacting. No conjunctival lesion, no lesion in the mouth. NECK: Supple, no JVP, no lymphadenopathy. LUNGS: Clear. HEART: S1, S2 regular. ABDOMEN: Soft, nontender, no organomegaly. EXTREMITIES: Right lower extremity, lower thigh, right thigh has a wound VAC, which was not removed. Right lower extremity, back of the leg, there is a foul smelling necrotic wound. She has some other skin breakdown superficial on the right leg and foot and erythema. The patient also has an ulcer on the left leg, large ulcer with drainage, again foul smelling drainage and multiple other smaller superficial wounds. NEUROLOGIC: The patient is alert, awake, and appropriate. No focal neurologic deficit. General: Alert, Oriented X3, Cooperative, No acute distress Heart: Regular rate Lungs: Clear Abdomen: Normal bowel sounds, Soft, No tenderness Extremities: No cyanosis, Normal pulses (Identified as biphasic left dorsalis pedis and posterior tibial, biphasic right dorsalis pedis and monophasic right posterior tibial pulses by vascular.), Other (Palpable petechial-like rashes identified over bilateral lower extremities and feet. Coalesced areas do demonstrate some blister formation as well. Wounds identified and documented per wound care include a left lower leg ulceration measuring 9.3 cm x 15.5 cm x 0.2 cm to the left lower leg, wound measuring 5 cm x 3.5 cm x 0.1 cm to the left foot, wound measuring 17.5 cm x 15 cm x 4.4 cm to the right thigh, wound measuring 21 cm x 16 cm x 0.2 cm to the right lower leg. Right thigh wound demo nstrates relatively heavy biofilm/slough at this time. No significant granulation as evident in a negative pressure wound site.) Skin: No rashes (Petechial rash demonstrated distally coalescence to bullae formation identified over the foot dorsum.) Labs LABS Laboratory Tests Test 04/15/21 11:17 04/15/21 17:01 04/15/21 21:04 04/16/21 07:55 Glucose (Fingerstick) 199 mg/dL (70-99) 186 mg/dL (70-99) 217 mg/dL (70-99) White Blood Count 8.2 x10^3/uL (4.0-11.0) Red Blood Count 2.79 x10^6/uL (3.50-5.40) Hemoglobin 7.3 g/dL (12.0-15.5) Hematocrit 22.7 % (36.0-47.0) Mean Corpuscular Volume 81 fL (79-100) Mean Corpuscular Hemoglobin 26 pg (25-35) Mean Corpuscular Hemoglobin Concent 32 g/dL (31-37) Red Cell Distribution Width 18.8 % (11.5-14.5) Platelet Count 334 x10^3/uL (140-400) Neutrophils (%) (Auto) 82 % (31-73) Lymphocytes (%) (Auto) 11 % (24-48) Monocytes (%) (Auto) 6 % (0-9) Eosinophils (%) (Auto) 1 % (0-3) Basophils (%) (Auto) 0 % (0-3) Neutrophils # (Auto) 6.7 x10^3/uL (1.8-7.7) Lymphocytes # (Auto) 0.9 x10^3/uL (1.0-4.8) Monocytes # (Auto) 0.5 x10^3/uL (0.0-1.1) Eosinophils # (Auto) 0.0 x10^3/uL (0.0-0.7) Basophils # (Auto) 0.0 x10^3/uL (0.0-0.2) Sodium Level 139 mmol/L (136-145) Potassium Level 3.7 mmol/L (3.5-5.1) Chloride Level 106 mmol/L (98-107) Carbon Dioxide Level 25 mmol/L (21-32) Anion Gap 8 (6-14) Blood Urea Nitrogen 24 mg/dL (7-20) Creatinine 1.0 mg/dL (0.6-1.0) Estimated GFR (Cockcroft-Gault) 53.8 Glucose Level 198 mg/dL (70-99) Calcium Level 7.6 mg/dL (8.5-10.1) Test 04/16/21 08:21 Glucose (Fingerstick) 179 mg/dL (70-99) Comment Review of Relevant I have reviewed the following items ronen (where applicable) has been applied. Labs Laboratory Tests Test 04/14/21 11:42 04/14/21 16:28 04/14/21 20:09 04/15/21 04:28 Glucose (Fingerstick) 204 mg/dL (70-99) 187 mg/dL (70-99) 158 mg/dL (70-99) White Blood Count 10.1 x10^3/uL (4.0-11.0) Red Blood Count 2.98 x10^6/uL (3.50-5.40) Hemoglobin 7.7 g/dL (12.0-15.5) Hematocrit 24.4 % (36.0-47.0) Mean Corpuscular Volume 82 fL (79-100) Mean Corpuscular Hemoglobin 26 pg (25-35) Mean Corpuscular Hemoglobin Concent 32 g/dL (31-37) Red Cell Distribution Width 18.9 % (11.5-14.5) Platelet Count 328 x10^3/uL (140-400) Neutrophils (%) (Auto) 78 % (31-73) Lymphocytes (%) (Auto) 14 % (24-48) Monocytes (%) (Auto) 7 % (0-9) Eosinophils (%) (Auto) 1 % (0-3) Basophils (%) (Auto) 1 % (0-3) Neutrophils # (Auto) 7.8 x10^3/uL (1.8-7.7) Lymphocytes # (Auto) 1.4 x10^3/uL (1.0-4.8) Monocytes # (Auto) 0.7 x10^3/uL (0.0-1.1) Eosinophils # (Auto) 0.1 x10^3/uL (0.0-0.7) Basophils # (Auto) 0.1 x10^3/uL (0.0-0.2) Prothrombin Time 25.9 SEC (11.7-14.0) Prothromb Time International Ratio 2.4 (0.8-1.1) Sodium Level 134 mmol/L (136-145) Potassium Level 3.9 mmol/L (3.5-5.1) Chloride Level 104 mmol/L (98-107) Carbon Dioxide Level 26 mmol/L (21-32) Anion Gap 4 (6-14) Blood Urea Nitrogen 37 mg/dL (7-20) Creatinine 1.1 mg/dL (0.6-1.0) Estimated GFR (Cockcroft-Gault) 48.2 Glucose Level 171 mg/dL (70-99) Calcium Level 7.7 mg/dL (8.5-10.1) Test 04/15/21 08:24 04/15/21 11:17 04/15/21 17:01 04/15/21 21:04 Glucose (Fingerstick) 183 mg/dL (70-99) 199 mg/dL (70-99) 186 mg/dL (70-99) 217 mg/dL (70-99) Test 04/16/21 07:55 04/16/21 08:21 White Blood Count 8.2 x10^3/uL (4.0-11.0) Red Blood Count 2.79 x10^6/uL (3.50-5.40) Hemoglobin 7.3 g/dL (12.0-15.5) Hematocrit 22.7 % (36.0-47.0) Mean Corpuscular Volume 81 fL (79-100) Mean Corpuscular Hemoglobin 26 pg (25-35) Mean Corpuscular Hemoglobin Concent 32 g/dL (31-37) Red Cell Distribution Width 18.8 % (11.5-14.5) Platelet Count 334 x10^3/uL (140-400) Neutrophils (%) (Auto) 82 % (31-73) Lymphocytes (%) (Auto) 11 % (24-48) Monocytes (%) (Auto) 6 % (0-9) Eosinophils (%) (Auto) 1 % (0-3) Basophils (%) (Auto) 0 % (0-3) Neutrophils # (Auto) 6.7 x10^3/uL (1.8-7.7) Lymphocytes # (Auto) 0.9 x10^3/uL (1.0-4.8) Monocytes # (Auto) 0.5 x10^3/uL (0.0-1.1) Eosinophils # (Auto) 0.0 x10^3/uL (0.0-0.7) Basophils # (Auto) 0.0 x10^3/uL (0.0-0.2) Sodium Level 139 mmol/L (136-145) Potassium Level 3.7 mmol/L (3.5-5.1) Chloride Level 106 mmol/L (98-107) Carbon Dioxide Level 25 mmol/L (21-32) Anion Gap 8 (6-14) Blood Urea Nitrogen 24 mg/dL (7-20) Creatinine 1.0 mg/dL (0.6-1.0) Estimated GFR (Cockcroft-Gault) 53.8 Glucose Level 198 mg/dL (70-99) Calcium Level 7.6 mg/dL (8.5-10.1) Glucose (Fingerstick) 179 mg/dL (70-99) Laboratory Tests Test 04/15/21 11:17 04/15/21 17:01 04/15/21 21:04 04/16/21 07:55 Glucose (Fingerstick) 199 mg/dL (70-99) 186 mg/dL (70-99) 217 mg/dL (70-99) White Blood Count 8.2 x10^3/uL (4.0-11.0) Red Blood Count 2.79 x10^6/uL (3.50-5.40) Hemoglobin 7.3 g/dL (12.0-15.5) Hematocrit 22.7 % (36.0-47.0) Mean Corpuscular Volume 81 fL (79-100) Mean Corpuscular Hemoglobin 26 pg (25-35) Mean Corpuscular Hemoglobin Concent 32 g/dL (31-37) Red Cell Distribution Width 18.8 % (11.5-14.5) Platelet Count 334 x10^3/uL (140-400) Neutrophils (%) (Auto) 82 % (31-73) Lymphocytes (%) (Auto) 11 % (24-48) Monocytes (%) (Auto) 6 % (0-9) Eosinophils (%) (Auto) 1 % (0-3) Basophils (%) (Auto) 0 % (0-3) Neutrophils # (Auto) 6.7 x10^3/uL (1.8-7.7) Lymphocytes # (Auto) 0.9 x10^3/uL (1.0-4.8) Monocytes # (Auto) 0.5 x10^3/uL (0.0-1.1) Eosinophils # (Auto) 0.0 x10^3/uL (0.0-0.7) Basophils # (Auto) 0.0 x10^3/uL (0.0-0.2) Sodium Level 139 mmol/L (136-145) Potassium Level 3.7 mmol/L (3.5-5.1) Chloride Level 106 mmol/L (98-107) Carbon Dioxide Level 25 mmol/L (21-32) Anion Gap 8 (6-14) Blood Urea Nitrogen 24 mg/dL (7-20) Creatinine 1.0 mg/dL (0.6-1.0) Estimated GFR (Cockcroft-Gault) 53.8 Glucose Level 198 mg/dL (70-99) Calcium Level 7.6 mg/dL (8.5-10.1) Test 04/16/21 08:21 Glucose (Fingerstick) 179 mg/dL (70-99) Medications Current Medications Sodium Chloride (Normal Saline Flush) 3 ml QSHIFT PRN IV AFTER MEDS AND BLOOD DRAWS; Start 04/12/21 at 19:30 Sodium Chloride 1,000 ml @ 70 mls/hr [id number] IV Last administered on 04/16/21at 06:21; Start 04/12/21 at 19:30 Ondansetron HCl (Zofran) 4 mg PRN Q4HRS PRN IV NAUSEA/VOMITING; Start 04/12/21 at 19:30 Acetaminophen (Tylenol) 650 mg PRN Q4HRS PRN PO TEMP OVER 100.4F OR MILD PAIN; Start 04/12/21 at 19:30 Al Hydroxide/Mg Hydroxide (Mylanta Plus Xs) 30 ml PRN DAILY PRN PO HEARTBURN / GAS; Start 04/12/21 at 19:30 Sodium Monofluorophosphate (Fleet Adult) [address]N [address] CONSTIPATION; Start 04/12/21 at 19:30 Albuterol/ Ipratropium (Duoneb) 3 ml Q4HRS NEB ; Start 04/12/21 at 20:00; Stop 04/12/21 at 21:28; Status DC Guaifenesin (Robitussin) 200 mg PRN Q4HRS PRN PO COUGH; Start 04/12/21 at 19:30 Amlodipine Besylate (Norvasc) 10 mg DAILY PO Last administered on 04/16/21at 08:26; Start 04/13/21 at 09:00 Acetaminophen/ Hydrocodone Bitart (Lortab 5/325) 1 tab PRN Q4HRS PRN PO MILD TO MOD PAIN Last administered on 04/12/21at 19:56; Start 04/12/21 at 19:45; Stop 04/12/21 at 21:23; Status DC Metoprolol Succinate (Toprol Xl) 50 mg DAILY PO Last administered on 04/16/21 08:26; Start 04/13/21 at 09:00 Warfarin Sodium (Coumadin) 4 mg DAILY16 PO Last administered on 04/15/21at 16:29; Start 04/12/21 at 20:00 Citalopram Hydrobromide (CeleXA) 40 mg DAILY PO Last administered on 04/16/21at 08:20; Start 04/13/21 at 09:00 Losartan Potassium (Cozaar) 100 mg DAILY PO Last administered on 04/16/21 08:27; Start 04/13/21 at 09:00 Atorvastatin Calcium (Lipitor) 80 mg QHS PO Last administered on 04/15/21at 20:37; Start 04/12/21 at 21:00 Warfarin Sodium (Coumadin Per Physician) 1 each PRN DAILY PRN MC SEE COMMENTS Last administered on 04/14/21at 12:31; Start 04/12/21 at 19:45 Sterile Water (WATER for RESP) 1,000 ml CONT PRN INH VIA VAPOTHERM DEVICE; Start 04/12/21 at 21:30; Status Cancel Insulin Human Lispro (HumaLOG) 0-5 UNITS TIDWMEALS SQ ; Start 04/13/21 at 08:00; Status Cancel Dextrose (Dextrose 50%-Water Syringe) 12.5 gm PRN Q15MIN PRN IV SEE COMMENTS; Start 04/12/21 at 21:30 Hydromorphone HCl (Dilaudid) 0.5 mg PRN Q2HRS PRN IVP SEVERE PAIN 7-10 Last administered on 04/14/21at 11:06; Start 04/12/21 at 21:30 Albuterol Sulfate (Ventolin Neb Soln) 2.5 mg PRN Q4HRS PRN NEB SHORTNESS OF BREATH; Start 04/12/21 at 21:45 Insulin Glargine (Lantus Syringe) 75 unit QHS SQ ; Start 04/13/21 at 21:00; Stop 04/13/21 at 21:33; Status DC Insulin Human Lispro (HumaLOG) 0-9 UNITS TIDWMEALS SQ Last administered on 04/16/21at 08:22; Start 04/13/21 at 08:00 Dextrose (Dextrose 50%-Water Syringe) 12.5 gm PRN Q15MIN PRN IV SEE COMMENTS; Start 04/13/21 at 07:30; Status Cancel Dextrose (Iv Dextrose 5%) 250 ml PRN Q15MIN PRN IV SEE COMMENTS; Start 04/13/21 at 07:30; Status UNV Acetaminophen/ Hydrocodone Bitart (Lortab 5/325) 1 tab PRN Q4HRS PRN PO MODERATE-SEVERE PAIN Last administered on 04/16/21at 08:20; Start 04/13/21 at 07:30 Nystatin (Nystop) 1 debbie BID TP Last administered on 04/16/21at 08:19; Start 04/13/21 at 11:00 Insulin Glargine (Lantus Syringe) 8 unit QHS SQ Last administered on 04/15/21at 21:22; Start 04/13/21 at 22:00 Piperacillin Sod/ Tazobactam Sod 3.375 gm/Sodium Chloride 50 ml @ 100 mls/hr Q6HRS IV Last administered on 04/16/21at 05:52; Start 04/14/21 at 10:00 Lactobacillus Rhamnosus (Culturelle) 1 cap BID PO Last administered on 04/16/21at 08:20; Start 04/14/21 at 21:00 Active Scripts Active Hydrocodone-Apap 5-325 (Hydrocodone Bit/Acetaminophen) 1 Tab Tablet 1 Tab PO PRN Q4HRS PRN 14 Days Reported Humalog (Insulin Lispro) 100 Unit/1 Ml Vial Unknown Dose SQ BIDWMEALS Lantus Solostar (Insulin Glargine,Hum.rec.anlog) 100 Unit/1 Ml Insuln.pen 75 Unit SQ QHS Warfarin Sodium 4 Mg Tablet 4 Mg PO DAILY Toprol XL (Metoprolol Succinate) 50 Mg Tab.er.24h 50 Mg PO DAILY Losartan Potassium 100 Mg Tablet 100 Mg PO DAILY Crestor (Rosuvastatin Calcium) 40 Mg Tablet 1 Tab PO DAILY Amlodipine Besylate 10 Mg Tablet 10 Mg PO DAILY Lexapro (Escitalopram Oxalate) 20 Mg Tablet 1 Tab PO DAILY Tylenol (Acetaminophen) 325 Mg Tablet 325 Mg PO DAILY Vitals/I & O Vital Sign - Last 24 Hours 04/15/21 04/15/21 04/15/21 04/15/21 11:00 15:00 15:14 19:30 Temp 98.8 98.4 98.7 98.8 98.4 98.7 Pulse 66 62 59 Resp 16 16 18 B/P (MAP) 133/51 (78) 140/45 (76) 137/49 (78) Pulse Ox 95 92 93 O2 Delivery Room Air Room Air Room Air Room Air 04/15/21 04/15/21 04/16/21 04/16/21 19:45 23:08 00:12 03:44 Temp 98.6 98.8 98.6 98.8 Pulse 60 69 Resp 18 18 B/P (MAP) 130/56 (80) 141/51 (81) Pulse Ox 94 94 O2 Delivery Room Air Room Air Room Air Room Air 04/16/21 04/16/21 04/16/21 04/16/21 04:26 04:56 07:00 08:00 Temp 98.0 98.0 Pulse 70 Resp 18 B/P (MAP) 158/56 (90) Pulse Ox 95 O2 Delivery Room Air Room Air Room Air Room Air 04/16/21 04/16/21 04/16/21 08:26 08:26 08:27 Pulse 71 71 71 B/P (MAP) 158/56 158/56 158/56 Intake and Output 04/15/21 04/15/21 04/16/21 15:00 23:00 07:00 Intake Total 480 ml Balance 480 ml Justicifation of Admission Dx: Justifications for Admission: Justification of Admission Dx: Yes JEVON CUNNINGHAM MD Apr 16, 2021 10:47
[2021-04-16 11:00] VITALS: BP 134/52
[2021-04-16 15:00] VITALS: BP 148/51
--- NOTE | 2021-04-16 16:02 | NUR ---
Wound Care Wound care changed wound vac dressing. ostomy ring to periwound. NPWT 125 mmHg continuous suction, veraflo black foam 26ml NS for 5 min every 3 hours. Other dressings had already been changed today. Pt tolerated dressing change well.
[2021-04-16] MEDS: WARFARIN 4 MG TABLET. PO SCH (16:20)
[2021-04-16 19:30] VITALS: BP 141/90
[2021-04-16] MEDS: INSULIN GLARGINE SYRINGE. SQ SCH (20:57)
[2021-04-16] MEDS: ATORVASTATIN CALCIUM 40 MG TABLET. PO SCH (20:57)
[2021-04-16 23:21] VITALS: BP 133/65
[2021-04-17] MEDS: IV NORMAL SALINE 1000ML BAG 1,000 ML IV SCH ×2 (00:06→13:54)
[2021-04-17] MEDS: PIPERACILLIN/TAZOBACTAM 3.375 GM in IV NORMAL SALINE 50ML 50 ML IV SCH ×4 (00:06→17:52)
[2021-04-17] MEDS: HYDROcodone/APAP 5/325MG 1 TAB TABLET PO PRN ×4 (03:08→21:35)
[2021-04-17 03:16] VITALS: BP 134/65
[2021-04-17 07:00] VITALS: BP 141/48
[2021-04-17] MEDS: INSULIN LISPRO 300 UNITS/3 ML VIAL. SQ SCH ×3 (08:00→16:54)
[2021-04-17 08:16] LABS: BASO % 0 % (0-3); EOS # 0.1 x10^3/uL (0.0-0.7); EOS % 1 % (0-3); HEMATOCRIT 23.5 % (36.0-47.0); HEMOGLOBIN 7.4 g/dL (12.0-15.5); LYMPH # 1.2 x10^3/uL (1.0-4.8); LYMPH % 18 % (24-48); MEAN CORPUSCULAR HEMOGLOBIN 26 pg (25-35); MEAN CORPUSCULAR HGB CONC 32 g/dL (31-37); MEAN CORPUSCULAR VOLUME 81 fL (79-100); MONO # 0.5 x10^3/uL (0.0-1.1); MONO % 8 % (0-9); NEUT # 4.9 x10^3/uL (1.8-7.7); NEUT % 73 % (31-73); PLATELET COUNT 359 x10^3/uL (140-400); RED BLOOD COUNT 2.89 x10^6/uL (3.50-5.40); RED CELL DISTRIBUTION WIDTH 18.7 % (11.5-14.5); WHITE BLOOD COUNT 6.7 x10^3/uL (4.0-11.0)
[2021-04-17 08:29] LABS: PROTHROMBIN TIME PATIENT 49.1 SEC (11.7-14.0)
[2021-04-17 08:34] LABS: CALCIUM 7.5 mg/dL (8.5-10.1); CREATININE 0.9 mg/dL (0.6-1.0); GFR 60.7; POTASSIUM 3.6 mmol/L (3.5-5.1)
[2021-04-17] MEDS: METOPROLOL SUCC 24HR ER 50 MG TAB.ER.24H. PO SCH (08:48)
[2021-04-17] MEDS: CITALOPRAM 20 MG TABLET. PO SCH (08:48)
[2021-04-17] MEDS: LACTOBACILLUS RHAMNOSUS GG 1 CAPSULE. PO SCH ×2 (08:48→20:54)
[2021-04-17] MEDS: LOSARTAN POTASSIUM 50 MG TABLET. PO SCH (08:49)
[2021-04-17] MEDS: NYSTATIN TOPICAL POWDER 15GM BOTTLE. TP SCH ×2 (08:49→20:59)
--- NOTE | 2021-04-17 09:08 | PDOC ---
Infectious Disease Note Subjective Subjective pt is feeling better ROS ROS No nausea vomiting diarrhea does have swelling of the body Vital Sign Vital Signs Vital Signs Date Time Temp Pulse Resp B/P (MAP) Pulse Ox O2 Delivery O2 Flow Rate FiO2 04/17/21 08:49 77 141/48 04/17/21 07:00 97.9 18 96 Room Air 97.9 Physical Exam PHYSICAL EXAM GENERAL: Alert, oriented female, not in distress. resting in bed HEENT: Both pupils are round and reacting. No conjunctival lesion, no lesion in the mouth. NECK: Supple, no JVP, no lymphadenopathy. LUNGS: Clear. HEART: S1, S2 regular. ABDOMEN: Soft, nontender, no organomegaly. EXTREMITIES: Right lower extremity, lower thigh, right thigh has a wound VAC, which was not removed. Right lower extremity, back of the leg, there is a foul smelling necrotic wound. She has some other skin breakdown superficial on the right leg and foot and erythema. The patient also has an ulcer on the left leg, large ulcer with drainage, again foul smelling drainage and multiple other smaller superficial wounds. NEUROLOGIC: The patient is alert, awake, and appropriate. No focal neurologic deficit. Labs Lab Laboratory Tests Test 04/16/21 11:52 04/16/21 17:07 04/16/21 20:55 04/17/21 07:44 Glucose (Fingerstick) 181 mg/dL (70-99) 186 mg/dL (70-99) 172 mg/dL (70-99) 149 mg/dL (70-99) Test 04/17/21 07:50 White Blood Count 6.7 x10^3/uL (4.0-11.0) Red Blood Count 2.89 x10^6/uL (3.50-5.40) Hemoglobin 7.4 g/dL (12.0-15.5) Hematocrit 23.5 % (36.0-47.0) Mean Corpuscular Volume 81 fL (79-100) Mean Corpuscular Hemoglobin 26 pg (25-35) Mean Corpuscular Hemoglobin Concent 32 g/dL (31-37) Red Cell Distribution Width 18.7 % (11.5-14.5) Platelet Count 359 x10^3/uL (140-400) Neutrophils (%) (Auto) 73 % (31-73) Lymphocytes (%) (Auto) 18 % (24-48) Monocytes (%) (Auto) 8 % (0-9) Eosinophils (%) (Auto) 1 % (0-3) Basophils (%) (Auto) 0 % (0-3) Neutrophils # (Auto) 4.9 x10^3/uL (1.8-7.7) Lymphocytes # (Auto) 1.2 x10^3/uL (1.0-4.8) Monocytes # (Auto) 0.5 x10^3/uL (0.0-1.1) Eosinophils # (Auto) 0.1 x10^3/uL (0.0-0.7) Basophils # (Auto) 0.0 x10^3/uL (0.0-0.2) Prothrombin Time 49.1 SEC (11.7-14.0) Prothromb Time International Ratio 5.6 (0.8-1.1) Sodium Level 140 mmol/L (136-145) Potassium Level 3.6 mmol/L (3.5-5.1) Chloride Level 107 mmol/L (98-107) Carbon Dioxide Level 25 mmol/L (21-32) Anion Gap 8 (6-14) Blood Urea Nitrogen 18 mg/dL (7-20) Creatinine 0.9 mg/dL (0.6-1.0) Estimated GFR (Cockcroft-Gault) 60.7 Glucose Level 155 mg/dL (70-99) Calcium Level 7.5 mg/dL (8.5-10.1) Objective Assessment IMPRESSION: 1. Infected foul smelling wounds, bilateral lower extremity. 2. Right lower thigh hematoma evacuation with a wound VAC in place, unable to see right now. 3. Leukocytosis. 4. Fever. 5. Peripheral vascular disease. 6. Coronary artery disease. Plan Plan of Care cont antibiotics cont supportive care [facility] cannot do zosyn ( 4 times a day ) change to TOMAS Paz MD Apr 17, 2021 09:08
--- NOTE | 2021-04-17 10:55 | PDOC ---
PROGRESS NOTES Date of Service: DATE: 04/17/21 TIME: 10:53 Chief Complaint Chief Complaint impression Nonhealing bilateral lower extremity wounds Right lower thigh hematoma with wound VAC in place Peripheral artery disease Atrial fibrillation Supratherapeutic INR, hold warfarin, pharmacy to adjust need 04-17 DM2 CAD HTN Severe malnutrition Plan: Place consultation to vascular surgery, plastic surgery, and wound care We will hold off on systemic antibiotics at this time we will hold topical treatments and further wound care recommendations Resume home medications FEN - Cardiac diet PPX - Warfarin DNR Dispo - inpatient for above Surrogate decision-maker is her daughter (Alyce Santana) History of Present Illness History of Present Illness Patient 76-year-old female with past medical history DM2, CAD, HTN, HLD, presents as a direct admit from [facility] due to multiple nonhealing blistering wounds to her bilateral feet for the past month. She was recently treated on our service (03/22/2021) for evacuation and debridement of right thigh hematoma. Right lower extremity CTA at that time showed calcified plaque with approximately 50 percent stenosis to SFA, extensive arterial calcifications to right popliteal artery, heavy calcifications to anterior tibial artery, and oc cluded right posterior tibial artery; Left lower extremity CTA showed popliteal artery with 60-70 percent stenosis at mid segment, left anterior tibial artery with heavy calcifications, left posterior tibial artery occluded distally. She has been receiving local wound care and follow-up at wound care clinic without significant improvement in her blisters. She denies any significant pain but does admit to some clear serous drainage from her bilateral feet. Will admit patient for further medical management. 04/14/2021: Febrile overnight with T-max 100.7 F. WBC 11.[address]. Will place consult to ID to help with management of cellulitis that failed outpatient antibiotic treatment. Per vascular surgery, no urgency for surgical debridement of her wounds or angiogram currently. She had wound VAC placed in the right thigh yesterday. Await recommendations from plastic surgery. 04/15/2021: Afebrile, breathing on room air. Wound VAC in place to right thigh. She reports some pain in her legs with movement, but worked with physical therapy yesterday. Continue treatment of bilateral lower extremity wounds with Zosyn. She states that she has not found to [facility] as did not really change the dressings on her legs. She would much prefer a different snf facility upon discharge. Anticipate plastic surgery recommendations on management of right thigh hematoma. 04/17/2021: less ankle edema Afebrile, breathing on room air. Wound VAC in place to right thigh. worked with physical therapy . Continue treatment of bilateral lower extremity wounds with Zosyn. she has not willing to go back [facility] as did not really change the dressings on her legs. She would much prefer a different snf facility upon discharge. Anticipate plastic surgery recommendations on management of right thigh hematoma. d/w rn and social work infected foul smelling wounds, bilateral lower extremity. Right lower thigh hematoma evacuation with a wound VAC in place 28 min pt exam, chart review, > 50% of time spent with exam, chart review, pt care coordination 04/16/2021: Afebrile, breathing on room air. Wound VAC in place to right thigh. worked with physical therapy . Continue treatment of bilateral lower extremity wounds with Zosyn. she has not willing to go back [facility] as did not really change the dressings on her legs. She would much prefer a different snf facili ty upon discharge. Anticipate plastic surgery recommendations on management of right thigh hematoma. d/w rn and social work infected foul smelling wounds, bilateral lower extremity. Right lower thigh hematoma evacuation with a wound VAC in place Vitals Vitals Vital Signs Date Time Temp Pulse Resp B/P (MAP) Pulse Ox O2 Delivery O2 Flow Rate FiO2 04/17/21 08:49 77 141/48 04/17/21 07:00 97.9 18 96 Room Air 97.9 Physical Exam Physical Exam GENERAL: Alert, oriented female, not in distress. resting in bed HEENT: Both pupils are round and reacting. No conjunctival lesion, no lesion in the mouth. NECK: Supple, no JVP, no lymphadenopathy. LUNGS: Clear. HEART: S1, S2 regular. ABDOMEN: Soft, nontender, no organomegaly. EXTREMITIES: Right lower extremity, lower thigh, right thigh has a wound VAC, which was not removed. Right lower extremity, back of the leg, there is a foul smelling necrotic wound. She has some other skin breakdown superficial on the right leg and foot and erythema. The patient also has an ulcer on the left leg, large ulcer with drainage, again foul smelling drainage and multiple other smaller superficial wounds. NEUROLOGIC: The patient is alert, awake, and appropriate. No focal neurologic deficit. General: Alert, Oriented X3, Cooperative, No acute distress Heart: Regular rate Lungs: Clear Abdomen: Normal bowel sounds, Soft, No tenderness Extremities: No cyanosis, Normal pulses (Identified as biphasic left dorsalis pedis and posterior tibial, biphasic right dorsalis pedis and monophasic right posterior tibial pulses by vascular.), Other (Palpable petechial-like rashes identified over bilateral lower extremities and feet. Coalesced areas do de monstrate some blister formation as well. Wounds identified and documented per wound care include a left lower leg ulceration measuring 9.3 cm x 15.5 cm x 0.2 cm to the left lower leg, wound measuring 5 cm x 3.5 cm x 0.1 cm to the left foot, wound measuring 17.5 cm x 15 cm x 4.4 cm to the right thigh, wound measuring 21 cm x 16 cm x 0.2 cm to the right lower leg. Right thigh wound demonstrates relatively heavy biofilm/slough at this time. No significant granulation as evident in a negative pressure wound site.) Skin: No rashes (Petechial rash demonstrated distally coalescence to bullae formation identified over the foot dorsum.) Labs LABS Laboratory Tests Test 04/16/21 11:52 04/16/21 17:07 04/16/21 20:55 04/17/21 07:44 Glucose (Fingerstick) 181 mg/dL (70-99) 186 mg/dL (70-99) 172 mg/dL (70-99) 149 mg/dL (70-99) Test 04/17/21 07:50 White Blood Count 6.7 x10^3/uL (4.0-11.0) Red Blood Count 2.89 x10^6/uL (3.50-5.40) Hemoglobin 7.4 g/dL (12.0-15.5) Hematocrit 23.5 % (36.0-47.0) Mean Corpuscular Volume 81 fL (79-100) Mean Corpuscular Hemoglobin 26 pg (25-35) Mean Corpuscular Hemoglobin Concent 32 g/dL (31-37) Red Cell Distribution Width 18.7 % (11.5-14.5) Platelet Count 359 x10^3/uL (140-400) Neutrophils (%) (Auto) 73 % (31-73) Lymphocytes (%) (Auto) 18 % (24-48) Monocytes (%) (Auto) 8 % (0-9) Eosinophils (%) (Auto) 1 % (0-3) Basophils (%) (Auto) 0 % (0-3) Neutrophils # (Auto) 4.9 x10^3/uL (1.8-7.7) Lymphocytes # (Auto) 1.2 x10^3/uL (1.0-4.8) Monocytes # (Auto) 0.5 x10^3/uL (0.0-1.1) Eosinophils # (Auto) 0.1 x10^3/uL (0.0-0.7) Basophils # (Auto) 0.0 x10^3/uL (0.0-0.2) Prothrombin Time 49.1 SEC (11.7-14.0) Prothromb Time International Ratio 5.6 (0.8-1.1) Sodium Level 140 mmol/L (136-145) Potassium Level 3.6 mmol/L (3.5-5.1) Chloride Level 107 mmol/L (98-107) Carbon Dioxide Level 25 mmol/L (21-32) Anion Gap 8 (6-14) Blood Urea Nitrogen 18 mg/dL (7-20) Creatinine 0.9 mg/dL (0.6-1.0) Estimated GFR (Cockcroft-Gault) 60.7 Glucose Level 155 mg/dL (70-99) Calcium Level 7.5 mg/dL (8.5-10.1) Comment Review of Relevant I have reviewed the following items ronen (where applicable) has been applied. Labs Laboratory Tests Test 04/15/21 11:17 04/15/21 17:01 04/15/21 21:04 04/16/21 07:55 Glucose (Fingerstick) 199 mg/dL (70-99) 186 mg/dL (70-99) 217 mg/dL (70-99) White Blood Count 8.2 x10^3/uL (4.0-11.0) Red Blood Count 2.79 x10^6/uL (3.50-5.40) Hemoglobin 7.3 g/dL (12.0-15.5) Hematocrit 22.7 % (36.0-47.0) Mean Corpuscular Volume 81 fL (79-100) Mean Corpuscular Hemoglobin 26 pg (25-35) Mean Corpuscular Hemoglobin Concent 32 g/dL (31-37) Red Cell Distribution Width 18.8 % (11.5-14.5) Platelet Count 334 x10^3/uL (140-400) Neutrophils (%) (Auto) 82 % (31-73) Lymphocytes (%) (Auto) 11 % (24-48) Monocytes (%) (Auto) 6 % (0-9) Eosinophils (%) (Auto) 1 % (0-3) Basophils (%) (Auto) 0 % (0-3) Neutrophils # (Auto) 6.7 x10^3/uL (1.8-7.7) Lymphocytes # (Auto) 0.9 x10^3/uL (1.0-4.8) Monocytes # (Auto) 0.5 x10^3/uL (0.0-1.1) Eosinophils # (Auto) 0.0 x10^3/uL (0.0-0.7) Basophils # (Auto) 0.0 x10^3/uL (0.0-0.2) Sodium Level 139 mmol/L (136-145) Potassium Level 3.7 mmol/L (3.5-5.1) Chloride Level 106 mmol/L (98-107) Carbon Dioxide Level 25 mmol/L (21-32) Anion Gap 8 (6-14) Blood Urea Nitrogen 24 mg/dL (7-20) Creatinine 1.0 mg/dL (0.6-1.0) Estimated GFR (Cockcroft-Gault) 53.8 Glucose Level 198 mg/dL (70-99) Calcium Level 7.6 mg/dL (8.5-10.1) Test 04/16/21 08:21 04/16/21 11:52 04/16/21 17:07 04/16/21 20:55 Glucose (Fingerstick) 179 mg/dL (70-99) 181 mg/dL (70-99) 186 mg/dL (70-99) 172 mg/dL (70-99) Test 04/17/21 07:44 04/17/21 07:50 Glucose (Fingerstick) 149 mg/dL (70-99) White Blood Count 6.7 x10^3/uL (4.0-11.0) Red Blood Count 2.89 x10^6/uL (3.50-5.40) Hemoglobin 7.4 g/dL (12.0-15.5) Hematocrit 23.5 % (36.0-47.0) Mean Corpuscular Volume 81 fL (79-100) Mean Corpuscular Hemoglobin 26 pg (25-35) Mean Corpuscular Hemoglobin Concent 32 g/dL (31-37) Red Cell Distribution Width 18.7 % (11.5-14.5) Platelet Count 359 x10^3/uL (140-400) Neutrophils (%) (Auto) 73 % (31-73) Lymphocytes (%) (Auto) 18 % (24-48) Monocytes (%) (Auto) 8 % (0-9) Eosinophils (%) (Auto) 1 % (0-3) Basophils (%) (Auto) 0 % (0-3) Neutrophils # (Auto) 4.9 x10^3/uL (1.8-7.7) Lymphocytes # (Auto) 1.2 x10^3/uL (1.0-4.8) Monocytes # (Auto) 0.5 x10^3/uL (0.0-1.1) Eosinophils # (Auto) 0.1 x10^3/uL (0.0-0.7) Basophils # (Auto) 0.0 x10^3/uL (0.0-0.2) Prothrombin Time 49.1 SEC (11.7-14.0) Prothromb Time International Ratio 5.6 (0.8-1.1) Sodium Level 140 mmol/L (136-145) Potassium Level 3.6 mmol/L (3.5-5.1) Chloride Level 107 mmol/L (98-107) Carbon Dioxide Level 25 mmol/L (21-32) Anion Gap 8 (6-14) Blood Urea Nitrogen 18 mg/dL (7-20) Creatinine 0.9 mg/dL (0.6-1.0) Estimated GFR (Cockcroft-Gault) 60.7 Glucose Level 155 mg/dL (70-99) Calcium Level 7.5 mg/dL (8.5-10.1) Laboratory Tests Test 04/16/21 11:52 04/16/21 17:07 04/16/21 20:55 04/17/21 07:44 Glucose (Fingerstick) 181 mg/dL (70-99) 186 mg/dL (70-99) 172 mg/dL (70-99) 149 mg/dL (70-99) Test 04/17/21 07:50 White Blood Count 6.7 x10^3/uL (4.0-11.0) Red Blood Count 2.89 x10^6/uL (3.50-5.40) Hemoglobin 7.4 g/dL (12.0-15.5) Hematocrit 23.5 % (36.0-47.0) Mean Corpuscular Volume 81 fL (79-100) Mean Corpuscular Hemoglobin 26 pg (25-35) Mean Corpuscular Hemoglobin Concent 32 g/dL (31-37) Red Cell Distribution Width 18.7 % (11.5-14.5) Platelet Count 359 x10^3/uL (140-400) Neutrophils (%) (Auto) 73 % (31-73) Lymphocytes (%) (Auto) 18 % (24-48) Monocytes (%) (Auto) 8 % (0-9) Eosinophils (%) (Auto) 1 % (0-3) Basophils (%) (Auto) 0 % (0-3) Neutrophils # (Auto) 4.9 x10^3/uL (1.8-7.7) Lymphocytes # (Auto) 1.2 x10^3/uL (1.0-4.8) Monocytes # (Auto) 0.5 x10^3/uL (0.0-1.1) Eosinophils # (Auto) 0.1 x10^3/uL (0.0-0.7) Basophils # (Auto) 0.0 x10^3/uL (0.0-0.2) Prothrombin Time 49.1 SEC (11.7-14.0) Prothromb Time International Ratio 5.6 (0.8-1.1) Sodium Level 140 mmol/L (136-145) Potassium Level 3.6 mmol/L (3.5-5.1) Chloride Level 107 mmol/L (98-107) Carbon Dioxide Level 25 mmol/L (21-32) Anion Gap 8 (6-14) Blood Urea Nitrogen 18 mg/dL (7-20) Creatinine 0.9 mg/dL (0.6-1.0) Estimated GFR (Cockcroft-Gault) 60.7 Glucose Level 155 mg/dL (70-99) Calcium Level 7.5 mg/dL (8.5-10.1) Medications Current Medications Sodium Chloride (Normal Saline Flush) 3 ml QSHIFT PRN IV AFTER MEDS AND BLOOD DRAWS; Start 04/12/21 at 19:30 Sodium Chloride 1,000 ml @ 70 mls/hr [id number] IV Last administered on 04/17/21at 00:06; Start 04/12/21 at 19:30 Ondansetron HCl (Zofran) 4 mg PRN Q4HRS PRN IV NAUSEA/VOMITING; Start 04/12/21 at 19:30 Acetaminophen (Tylenol) 650 mg PRN Q4HRS PRN PO TEMP OVER 100.4F OR MILD PAIN; Start 04/12/21 at 19:30 Al Hydroxide/Mg Hydroxide (Mylanta Plus Xs) 30 ml PRN DAILY PRN PO HEARTBURN / GAS; Start 04/12/21 at 19:30 Sodium Monofluorophosphate (Fleet Adult) 133 ml PRN DAILY PRN [place] CONSTIPATION; Start 04/12/21 at 19:30 Albuterol/ Ipratropium (Duoneb) 3 ml Q4HRS NEB ; Start 04/12/21 at 20:00; Stop 04/12/21 at 21:28; Status DC Guaifenesin (Robitussin) 200 mg PRN Q4HRS PRN PO COUGH; Start 04/12/21 at 19:30 Amlodipine Besylate (Norvasc) 10 mg DAILY PO Last administered on 04/17/21at 08:48; Start 04/13/21 at 09:00 Acetaminophen/ Hydrocodone Bitart (Lortab 5/325) 1 tab PRN Q4HRS PRN PO MILD TO MOD PAIN Last administered on 04/12/21at 19:56; Start 04/12/21 at 19:45; Stop 04/12/21 at 21:23; Status DC Metoprolol Succinate (Toprol Xl) 50 mg DAILY PO Last administered on 04/17/21at 08:48; Start 04/13/21 at 09:00 Warfarin Sodium (Coumadin) 4 mg DAILY16 PO Last administered on 04/16/21at 16:20; Start 04/12/21 at 20:00; Stop 04/17/21 at 09:07; Status DC Citalopram Hydrobromide (CeleXA) 40 mg DAILY PO Last administered on 04/17/21at 08:48; Start 04/13/21 at 09:00 Losartan Potassium (Cozaar) 100 mg DAILY PO Last administered on 04/17/21at 08:49; Start 04/13/21 at 09:00 Atorvastatin Calcium (Lipitor) 80 mg QHS PO Last administered on 04/16/21at 20:57; Start 04/12/21 at 21:00 Warfarin Sodium (Coumadin Per Physician) 1 each PRN DAILY PRN MC SEE COMMENTS Last administered on 04/16/21at 13:55; Start 04/12/21 at 19:45; Stop 04/17/21 at 09:07; Status DC Sterile Water (WATER for RESP) 1,000 ml CONT PRN INH VIA VAPOTHERM DEVICE; Start 04/12/21 at 21:30; Status Cancel Insulin Human Lispro (HumaLOG) 0-5 UNITS TIDWMEALS SQ ; Start 04/13/21 at 08:00; Status Cancel Dextrose (Dextrose 50%-Water Syringe) 12.5 gm PRN Q15MIN PRN IV SEE COMMENTS; Start 04/12/21 at 21:30 Hydromorphone HCl (Dilaudid) 0.5 mg PRN Q2HRS PRN IVP SEVERE PAIN 7-10 Last administered on 04/14/21at 11:06; Start 04/12/21 at 21:30 Albuterol Sulfate (Ventolin Neb Soln) 2.5 mg PRN Q4HRS PRN NEB SHORTNESS OF BREATH; Start 04/12/21 at 21:45 Insulin Glargine (Lantus Syringe) 75 unit QHS SQ ; Start 04/13/21 at 21:00; Stop 04/13/21 at 21:33; Status DC Insulin Human Lispro (HumaLOG) 0-9 UNITS TIDWMEALS SQ Last administered on 04/16/21at 17:13; Start 04/13/21 at 08:00 Dextrose (Dextrose 50%-Water Syringe) 12.5 gm PRN Q15MIN PRN IV SEE COMMENTS; Start 04/13/21 at 07:30; Status Cancel Dextrose (Iv Dextrose 5%) 250 ml PRN Q15MIN PRN IV SEE COMMENTS; Start 04/13/21 at 07:30; Status UNV Acetaminophen/ Hydrocodone Bitart (Lortab 5/325) 1 tab PRN Q4HRS PRN PO MODERATE-SEVERE PAIN Last administered on 04/17/21at 03:08; Start 04/13/21 at 07:30 Nystatin (Nystop) 1 debbie BID TP Last administered on 04/17/21at 08:49; Start 04/13/21 at 11:00 Insulin Glargine (Lantus Syringe) 8 unit QHS SQ Last administered on 04/16/21at 20:57; Start 04/13/21 at 22:00 Piperacillin Sod/ Tazobactam Sod 3.375 gm/Sodium Chloride 50 ml @ 100 mls/hr Q6HRS IV Last administered on 04/17/21at 05:56; Start 04/14/21 at 10:00 Lactobacillus Rhamnosus (Culturelle) 1 cap BID PO Last administered on 04/17/21at 08:48; Start 04/14/21 at 21:00 Warfarin Sodium (Coumadin Per Pharmacy) 1 each PRN DAILY PRN MC SEE COMMENTS; Start 04/17/21 at 09:00 Warfarin Sodium (Coumadin - No Dose Today) 1 each 1X WARF ONCE MC ; Start 04/17/21 at 16:00; Stop 04/17/21 at 16:01 Active Scripts Active Hydrocodone-Apap 5-325 (Hydrocodone Bit/Acetaminophen) 1 Tab Tablet 1 Tab PO PRN Q4HRS PRN 14 Days Reported Humalog (Insulin Lispro) 100 Unit/1 Ml Vial Unknown Dose SQ BIDWMEALS Lantus Solostar (Insulin Glargine,Hum.rec.anlog) 100 Unit/1 Ml Insuln.pen 75 Unit SQ QHS Warfarin Sodium 4 Mg Tablet 4 Mg PO DAILY Toprol XL (Metoprolol Succinate) 50 Mg Tab.er.24h 50 Mg PO DAILY Losartan Potassium 100 Mg Tablet 100 Mg PO DAILY Crestor (Rosuvastatin Calcium) 40 Mg Tablet 1 Tab PO DAILY Amlodipine Besylate 10 Mg Tablet 10 Mg PO DAILY Lexapro (Escitalopram Oxalate) 20 Mg Tablet 1 Tab PO DAILY Tylenol (Acetaminophen) 325 Mg Tablet 325 Mg PO DAILY Vitals/I & O Vital Sign - Last 24 Hours 04/16/21 04/16/21 04/16/21 04/16/21 11:00 15:00 19:30 20:10 Temp 98.2 98.7 99.0 98.2 98.7 99.0 Pulse 65 65 73 Resp 18 18 20 B/P (MAP) 134/52 (79) 148/51 (83) 141/90 (107) Pulse Ox 93 95 91 O2 Delivery Room Air Room Air Room Air Room Air 04/16/21 04/16/21 04/16/21 04/17/21 20:58 21:28 23:21 03:08 Temp 99.9 99.9 Pulse 70 Resp 18 B/P (MAP) 133/65 (87) Pulse Ox 91 O2 Delivery Nasal Cannula Room Air Room Air Room Air 04/17/21 04/17/21 04/17/21 04/17/21 03:16 03:38 07:00 08:48 Temp 99.1 97.9 99.1 97.9 Pulse 70 77 77 Resp 18 18 B/P (MAP) 134/65 (88) 141/48 (79) 141/48 Pulse Ox 92 96 O2 Delivery Room Air Room Air Room Air 04/17/21 04/17/21 08:48 08:49 Pulse 77 77 B/P (MAP) 141/48 141/48 Intake and Output 04/16/21 04/16/21 04/17/21 15:00 23:00 07:00 Intake Total 240 ml 120 ml 1530 ml Balance 240 ml 120 ml 1530 ml Justicifation of Admission Dx: Justifications for Admission: Justification of Admission Dx: Yes JEVON CUNNINGHAM MD Apr 17, 2021 10:54
[2021-04-17 11:00] VITALS: BP 133/87
--- NOTE | 2021-04-17 11:43 | NUR ---
Pharmacy Warfarin Dosing Note S: Pharmacy consulted to assist with anticoagulation therapy started [employer] O: SIXTO MEREDITH is a 76 year old F with H/O DVT LABS: Last INR: 5.6 Last HGB: 7.4 Last HCT: 23.5 Last PLT: 359 Last dose of 4 mg given on 04/16/21 at 1620 A:INR of 5.6 is above desired range. Target range for this patient is: 2 -3 P: Warfarin dose: Hold Today Next INR due 04/18/21 AM Pharmacy anticoagulation service will continue to follow. RICKEY CHE RP, 04/17/21 1149
[2021-04-17 15:00] VITALS: BP 154/60
[2021-04-17 19:37] VITALS: BP 137/50
[2021-04-17] MEDS: ATORVASTATIN CALCIUM 40 MG TABLET. PO SCH (20:54)
[2021-04-17] MEDS: INSULIN GLARGINE SYRINGE. SQ SCH (20:58)
[2021-04-17 23:00] VITALS: BP 142/54
[2021-04-18] MEDS: PIPERACILLIN/TAZOBACTAM 3.375 GM in IV NORMAL SALINE 50ML 50 ML IV SCH ×5 (00:38→23:39)
[2021-04-18] MEDS: HYDROcodone/APAP 5/325MG 1 TAB TABLET PO PRN ×4 (01:32→20:52)
[2021-04-18 03:00] VITALS: BP 136/55
[2021-04-18] MEDS: IV NORMAL SALINE 1000ML BAG 1,000 ML IV SCH (04:12)
[2021-04-18 07:00] VITALS: BP 153/88
--- NOTE | 2021-04-18 07:12 | PDOC ---
[employer] PROGRESS NOTE Date of Service DOS: DATE: 04/18/21 TIME: 07:05 Chief Complaint Chief Complaint impression Nonhealing bilateral lower extremity wounds Right lower thigh hematoma with wound VAC in place Peripheral artery disease Atrial fibrillation Supratherapeutic INR, hold warfarin, pharmacy to adjust need 04-17 DM2 CAD HTN Severe malnutrition Plan: Place consultation to vascular surgery, plastic surgery, and wound care We will hold off on systemic antibiotics at this time we will hold topical treatments and further wound care recommendations Resume home medications FEN - Cardiac diet PPX - Warfarin DNR Dispo - inpatient for above Surrogate decision-maker is her daughter (Alyce Santana) History of Present Illness History of Present Illness Patient 76-year-old female with past medical history DM2, CAD, HTN, HLD, presents as a direct admit from [facility] due to multiple nonhealing blistering wounds to her bilateral feet for the past month. She was recently treated on our service (03/22/2021) for evacuation and debridement of right thigh hematoma. Right lower extremity CTA at that time showed calcified plaque with approximately 50 percent stenosis to SFA, extensive arterial calcifications to right popliteal artery, heavy calcifications to anterior tibial artery, and occluded right posterior tibial artery; Left lower extremity CTA showed popliteal artery with 60-70 percent stenosis at mid segment, left anterior tibial artery with heavy calcifications, left posterior tibial artery occluded distally. She has been receiving local wound care and follow-up at wound care clinic without significant improvement in her blisters. She denies any significant pain but does admit to some clear serous drainage from her bilateral feet. Will admit patient for further medical management. 04/18/2021: Afebrile. Still with some leg pain, controlled with medication. She will need [facility] facility that can manage wound VAC and IV antibiotic regimen. Likely change Zosyn to Invanz, per ID. She does not want to return to [facility] for mcc. 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 04/17/2021: less ankle edema Afebrile, breathing on room air. Wound VAC in place to right thigh. worked with physical therapy . Continue treatment of bilateral lower extremity wounds with Zosyn. she has not willing to go back [facility] as did not really change the dressings on her legs. She would much prefer a different [facility] facility upon discharge. Anticipate plastic surgery recommendations on management of right thigh hematoma. d/w rn and social work infected foul smelling wounds, bilateral lower extremity. Right lower thigh hematoma evacuation with a wound VAC in place 28 min pt exam, chart review, > 50% of time spent with exam, chart review, pt care coordination 04/16/2021: Afebrile, breathing on room air. Wound VAC in place to right thigh. worked with physical therapy . Continue treatment of bilateral lower extremity wounds with Zosyn. she has not willing to go back [facility] as did not really change the dressings on her legs. She would much prefer a different [facility] facility upon discharge. Anticipate plastic surgery recommendations on management of right thigh hematoma. d/w rn and social work infected foul smelling wounds, bilateral lower extremity. Right lower thigh hematoma evacuation with a wound VAC in place 04/15/2021: Afebrile, breathing on room air. Wound VAC in place to right thigh. She reports some pain in her legs with movement, but worked with physical therapy yesterday. Continue treatment of bilateral lower extremity wounds with Zosyn. She states that she has not found to [facility] as did not really change the dressings on her legs. She would much prefer a different [facility] facility upon discharge. Anticipate plastic surgery recommendations on management of right thigh hematoma. 04/14/2021: Febrile overnight with T-max 100.7 F. WBC 11.[address]. Will [address] consult to ID to help with management of cellulitis that failed outpatient antibiotic treatment. Per vascular surgery, no urgency for surgical debridement of her wounds or angiogram currently. She had wound VAC placed in the right thigh yesterday. Await recommendations from plastic surgery. Vitals/I&O Vitals/I&O: Vital Signs Date Time Temp Pulse Resp B/P (MAP) Pulse Ox O2 Delivery O2 Flow Rate FiO2 04/18/21 03:00 98.1 69 16 136/55 (82) 91 Room Air 98.1 I & O 04/17/21 04/17/21 04/18/21 14:59 22:59 06:59 Intake Total 200 ml 0 ml Output Total 300 ml Balance 200 ml -300 ml Physical Exam Physical Exam: GENERAL: Alert, oriented female, not in distress. resting in bed HEENT: Both pupils are round and reacting. No conjunctival lesion, no lesion in the mouth. NECK: Supple, no JVP, no lymphadenopathy. LUNGS: Clear. HEART: S1, S2 regular. ABDOMEN: Soft, nontender, no organomegaly. EXTREMITIES: Right lower extremity, lower thigh, right thigh has a wound VAC, which was not removed. Right lower extremity, back of the leg, there is a foul smelling necrotic wound. She has some other skin breakdown superficial on the right leg and foot and erythema. The patient also has an ulcer on the left leg, large ulcer with drainage, again foul smelling drainage and multiple other smaller superficial wounds. NEUROLOGIC: The patient is alert, awake, and appropriate. No focal neurologic deficit. General: Alert, Oriented X3, Cooperative, No acute distress Heart: Regular rate Lungs: Clear Abdomen: Normal bowel sounds, Soft, No tenderness Extremities: No cyanosis, Normal pulses (Identified as biphasic left dorsalis pedis and posterior tibial, biphasic right dorsalis pedis and monophasic right posterior tibial pulses by vascular.), Other (Palpable petechial-like rashes identified over bilateral lower extremities and feet. Coalesced areas do demonstrate some blister formation as well. Wounds identified and documented per wound care include a left lower leg ulceration measuring 9.3 cm x 15.5 cm x 0.2 cm to the left lower leg, wound measuring 5 cm x 3.5 cm x 0.1 cm to the left foot, wound measuring 17.5 cm x 15 cm x 4.4 cm to the right thigh, wound measuring 21 cm x 16 cm x 0.2 cm to the right lower leg. Right thigh wound demonstrates relatively heavy biofilm/slough at this time. No significant granulation as evident in a negative pressure wound site.) Skin: No rashes (Petechial rash demonstrated distally coalescence to bullae formation identified over the foot dorsum.) Labs Labs: Laboratory Tests Test 04/17/21 07:44 04/17/21 07:50 04/17/21 12:11 04/17/21 16:38 Glucose (Fingerstick) 149 mg/dL (70-99) 215 mg/dL (70-99) 243 mg/dL (70-99) White Blood Count 6.7 x10^3/uL (4.0-11.0) Red Blood Count 2.89 x10^6/uL (3.50-5.40) Hemoglobin 7.4 g/dL (12.0-15.5) Hematocrit 23.5 % (36.0-47.0) Mean Corpuscular Volume 81 fL (79-100) Mean Corpuscular Hemoglobin 26 pg (25-35) Mean Corpuscular Hemoglobin Concent 32 g/dL (31-37) Red Cell Distribution Width 18.7 % (11.5-14.5) Platelet Count 359 x10^3/uL (140-400) Neutrophils (%) (Auto) 73 % (31-73) Lymphocytes (%) (Auto) 18 % (24-48) Monocytes (%) (Auto) 8 % (0-9) Eosinophils (%) (Auto) 1 % (0-3) Basophils (%) (Auto) 0 % (0-3) Neutrophils # (Auto) 4.9 x10^3/uL (1.8-7.7) Lymphocytes # (Auto) 1.2 x10^3/uL (1.0-4.8) Monocytes # (Auto) 0.5 x10^3/uL (0.0-1.1) Eosinophils # (Auto) 0.1 x10^3/uL (0.0-0.7) Basophils # (Auto) 0.0 x10^3/uL (0.0-0.2) Prothrombin Time 49.1 SEC (11.7-14.0) Prothromb Time International Ratio 5.6 (0.8-1.1) Sodium Level 140 mmol/L (136-145) Potassium Level 3.6 mmol/L (3.5-5.1) Chloride Level 107 mmol/L (98-107) Carbon Dioxide Level 25 mmol/L (21-32) Anion Gap 8 (6-14) Blood Urea Nitrogen 18 mg/dL (7-20) Creatinine 0.9 mg/dL (0.6-1.0) Estimated GFR (Cockcroft-Gault) 60.7 Glucose Level 155 mg/dL (70-99) Calcium Level 7.5 mg/dL (8.5-10.1) Test 04/17/21 20:53 Glucose (Fingerstick) 182 mg/dL (70-99) Comment Review of Relevant I have reviewed the following items ronen (where applicable) has been applied. Medications: Current Medications Medications (Trade) Dose Ordered Sig/Gennaro Route PRN Reason Start Time Stop Time Status Last Admin Dose Admin Warfarin Sodium (Coumadin Per Pharmacy) 1 each PRN DAILY PRN [facility] SEE COMMENTS 04/17/21 09:00 04/17/21 11:41 Warfarin Sodium (Coumadin - No Dose Today) 1 each 1X WARF ONCE 04/17/21 16:00 04/17/21 16:01 DC 04/17/21 16:00 Justifications for Admission Other Justification Diabetic ulcers, failed outpatient treatment CELIO VILLEGAS MD Apr 18, 2021 07:11
[2021-04-18 07:58] LABS: BASO % 0 % (0-3); EOS # 0.1 x10^3/uL (0.0-0.7); EOS % 1 % (0-3); HEMATOCRIT 24.6 % (36.0-47.0); HEMOGLOBIN 7.8 g/dL (12.0-15.5); LYMPH # 1.5 x10^3/uL (1.0-4.8); LYMPH % 21 % (24-48); MEAN CORPUSCULAR HEMOGLOBIN 26 pg (25-35); MEAN CORPUSCULAR HGB CONC 32 g/dL (31-37); MEAN CORPUSCULAR VOLUME 81 fL (79-100); MONO # 0.6 x10^3/uL (0.0-1.1); MONO % 8 % (0-9); NEUT # 4.8 x10^3/uL (1.8-7.7); NEUT % 69 % (31-73); PLATELET COUNT 397 x10^3/uL (140-400); RED BLOOD COUNT 3.05 x10^6/uL (3.50-5.40); RED CELL DISTRIBUTION WIDTH 18.8 % (11.5-14.5); WHITE BLOOD COUNT 7.1 x10^3/uL (4.0-11.0)
[2021-04-18] MEDS: INSULIN LISPRO 300 UNITS/3 ML VIAL. SQ SCH ×3 (08:00→17:41)
[2021-04-18 08:08] LABS: PROTHROMBIN TIME PATIENT 46.6 SEC (11.7-14.0)
[2021-04-18 08:11] LABS: CREATININE 0.8 mg/dL (0.6-1.0); GFR 69.6; POTASSIUM 3.8 mmol/L (3.5-5.1)
[2021-04-18] MEDS: LOSARTAN POTASSIUM 50 MG TABLET. PO SCH (09:11)
[2021-04-18] MEDS: LACTOBACILLUS RHAMNOSUS GG 1 CAPSULE. PO SCH ×2 (09:11→20:52)
[2021-04-18] MEDS: CITALOPRAM 20 MG TABLET. PO SCH (09:11)
[2021-04-18] MEDS: METOPROLOL SUCC 24HR ER 50 MG TAB.ER.24H. PO SCH (09:11)
[2021-04-18] MEDS: NYSTATIN TOPICAL POWDER 15GM BOTTLE. TP SCH ×2 (09:12→21:00)
--- NOTE | 2021-04-18 09:29 | PDOC ---
Infectious Disease Note Subjective Subjective Patient continues to have swelling all over but no other complaints ROS ROS No nausea vomiting diarrhea or fever Vital Sign Vital Signs Vital Signs Date Time Temp Pulse Resp B/P (MAP) Pulse Ox O2 Delivery O2 Flow Rate FiO2 04/18/21 09:11 Room Air 04/18/21 09:11 74 153/88 04/18/21 07:00 98.6 18 95 98.6 Physical Exam PHYSICAL EXAM GENERAL: Alert, oriented female, not in distress. resting in bed HEENT: Both pupils are round and reacting. No conjunctival lesion, no lesion in the mouth. NECK: Supple, no JVP, no lymphadenopathy. LUNGS: Clear. HEART: S1, S2 regular. ABDOMEN: Soft, nontender, no organomegaly. EXTREMITIES: Right lower extremity, lower thigh, right thigh has a wound VAC, which was not removed. Right lower extremity, back of the leg, there is a foul smelling necrotic wound. She has some other skin breakdown superficial on the right leg and foot and erythema. The patient also has an ulcer on the left leg, large ulcer with drainage, again foul smelling drainage and multiple other smaller superficial wounds. NEUROLOGIC: The patient is alert, awake, and appropriate. No focal neurologic deficit. Labs Lab Laboratory Tests Test 04/17/21 12:11 04/17/21 16:38 04/17/21 20:53 04/18/21 07:35 Glucose (Fingerstick) 215 mg/dL (70-99) 243 mg/dL (70-99) 182 mg/dL (70-99) White Blood Count 7.1 x10^3/uL (4.0-11.0) Red Blood Count 3.05 x10^6/uL (3.50-5.40) Hemoglobin 7.8 g/dL (12.0-15.5) Hematocrit 24.6 % (36.0-47.0) Mean Corpuscular Volume 81 fL (79-100) Mean Corpuscular Hemoglobin 26 pg (25-35) Mean Corpuscular Hemoglobin Concent 32 g/dL (31-37) Red Cell Distribution Width 18.8 % (11.5-14.5) Platelet Count 397 x10^3/uL (140-400) Neutrophils (%) (Auto) 69 % (31-73) Lymphocytes (%) (Auto) 21 % (24-48) Monocytes (%) (Auto) 8 % (0-9) Eosinophils (%) (Auto) 1 % (0-3) Basophils (%) (Auto) 0 % (0-3) Neutrophils # (Auto) 4.8 x10^3/uL (1.8-7.7) Lymphocytes # (Auto) 1.5 x10^3/uL (1.0-4.8) Monocytes # (Auto) 0.6 x10^3/uL (0.0-1.1) Eosinophils # (Auto) 0.1 x10^3/uL (0.0-0.7) Basophils # (Auto) 0.0 x10^3/uL (0.0-0.2) Prothrombin Time 46.6 SEC (11.7-14.0) Prothromb Time International Ratio 5.2 (0.8-1.1) Sodium Level 141 mmol/L (136-145) Potassium Level 3.8 mmol/L (3.5-5.1) Chloride Level 108 mmol/L (98-107) Carbon Dioxide Level 25 mmol/L (21-32) Anion Gap 8 (6-14) Blood Urea Nitrogen 13 mg/dL (7-20) Creatinine 0.8 mg/dL (0.6-1.0) Estimated GFR (Cockcroft-Gault) 69.6 Glucose Level 128 mg/dL (70-99) Calcium Level 8.0 mg/dL (8.5-10.1) Test 04/18/21 08:36 Glucose (Fingerstick) 137 mg/dL (70-99) Objective Assessment IMPRESSION: 1. Infected foul smelling wounds, bilateral lower extremity. 2. Right lower thigh hematoma evacuation with a wound VAC in place, unable to see right now. 3. Leukocytosis. 4. Fever. 5. Peripheral vascular disease. 6. Coronary artery disease. Plan Plan of Care cont antibiotics cont supportive care NH cannot do zosyn ( 4 times a day ) change to TOMAS Paz MD Apr 18, 2021 09:29
[2021-04-18 11:00] VITALS: BP 155/55
[2021-04-18 15:00] VITALS: BP 143/49
[2021-04-18 19:00] VITALS: BP 138/54
[2021-04-18] MEDS: ATORVASTATIN CALCIUM 40 MG TABLET. PO SCH (20:53)
[2021-04-18] MEDS: INSULIN GLARGINE SYRINGE. SQ SCH (20:53)
[2021-04-18 23:00] VITALS: BP 151/57
[2021-04-19] MEDS: HYDROcodone/APAP 5/325MG 1 TAB TABLET PO PRN ×4 (02:25→22:30)
[2021-04-19 03:00] VITALS: BP 147/53
[2021-04-19 05:28] LABS: PROTHROMBIN TIME PATIENT 46.1 SEC (11.7-14.0)
[2021-04-19] MEDS: PIPERACILLIN/TAZOBACTAM 3.375 GM in IV NORMAL SALINE 50ML 50 ML IV SCH ×3 (05:44→17:40)
[2021-04-19 07:00] VITALS: BP 150/54
[2021-04-19] MEDS: LOSARTAN POTASSIUM 50 MG TABLET. PO SCH (08:45)
[2021-04-19] MEDS: CITALOPRAM 20 MG TABLET. PO SCH (08:45)
[2021-04-19] MEDS: LACTOBACILLUS RHAMNOSUS GG 1 CAPSULE. PO SCH ×2 (08:45→22:21)
[2021-04-19] MEDS: METOPROLOL SUCC 24HR ER 50 MG TAB.ER.24H. PO SCH (08:46)
[2021-04-19] MEDS: NYSTATIN TOPICAL POWDER 15GM BOTTLE. TP SCH ×2 (08:46→22:32)
[2021-04-19] MEDS: INSULIN LISPRO 300 UNITS/3 ML VIAL. SQ SCH ×3 (08:49→17:43)
--- NOTE | 2021-04-19 09:53 | PDOC ---
Infectious Disease Note Subjective: Subjective Patient continues to feel the same Vital Signs: Vital Signs Vital Signs Date Time Temp Pulse Resp B/P (MAP) Pulse Ox O2 Delivery O2 Flow Rate FiO2 04/19/21 09:14 Room Air 04/19/21 08:46 68 150/54 04/19/21 07:00 98.0 18 96 98.0 Physical Exam: PHYSICAL EXAM GENERAL: Alert, oriented female, not in distress. resting in bed HEENT: Both pupils are round and reacting. No conjunctival lesion, no lesion in the mouth. NECK: Supple, no JVP, no lymphadenopathy. LUNGS: Clear. HEART: S1, S2 regular. ABDOMEN: Soft, nontender, no organomegaly. EXTREMITIES: Right lower extremity, lower thigh, right thigh has a wound VAC, Intact, removed, large wound with clean base , purulence no surrounding redness or warmth; Bilateral lower extremity, back of the leg, wound dressing in place, intact not taken down Wound pictures reviewed in chart; discussed with RN NEUROLOGIC: The patient is alert, awake, and appropriate. No focal neurologic deficit. Medications: Inpatient Meds: Medications reviewed. Labs: Lab Laboratory Tests Test 04/18/21 12:12 04/18/21 16:53 04/18/21 20:58 04/19/21 04:40 Glucose (Fingerstick) 217 mg/dL (70-99) 179 mg/dL (70-99) 224 mg/dL (70-99) Prothrombin Time 46.1 SEC (11.7-14.0) Prothromb Time International Ratio 5.2 (0.8-1.1) Test 04/19/21 08:20 Glucose (Fingerstick) 156 mg/dL (70-99) Objective: Assessment: 1. Infected foul smelling wounds, bilateral lower extremity. 2. Right lower thigh hematoma evacuation with a wound VAC in place, clean wound 3. Leukocytosis. 4. Fever. 5. Peripheral vascular disease. 6. Coronary artery disease. Plan: Plan of Care NH cannot do zosyn ( 4 times a day ) Not place midline or PICC line Change to Invanz when ready for discharge for 7 days through PIV First dose here before discharge Then transition to p.o. Augmentin for 7 days Wound/VAC care per wound team Discussed with nursing staff CASTRO ROMAN MD Apr 19, 2021 09:53
[2021-04-19] MEDS ORDERED: ERTAPENEM 1GM IVPB(GENERIC) NS 50 ML IV ONE (10:00)
--- NOTE | 2021-04-19 10:31 | NUR ---
Pharmacy Warfarin Dosing Note S:Pharmacy consulted to assist with anticoagulation therapy started with target INR: 2 -3 O:SIXTO MEREDITH is a 76 year old F with DVT/PE H/O DVT LABS: Last INR: 5.2 Last HGB: 7.8 Last HCT: 24.6 Last PLT: 397 Last dose of Hold given on 04/16/21 at 1620 Previous Regimen: 4MG DAILY Vitamin K given: N Drug Interaction Changes: None Ongoing Drug Interactions: A:INR of 5.2 is above desired range. Target range for this patient is: 2 -3 P: Warfarin dose: Hold Today at 1600. Bridge Therapy: None Next INR due tomorrow. Pharmacy anticoagulation service will continue to follow. Carson Chandler [facility] [place], 04/19/21 103
[2021-04-19 11:00] VITALS: BP 130/91
[2021-04-19] MEDS ORDERED: FUROSEMIDE 20 MG/2 ML VIAL. IVP ONE (12:15)
[2021-04-19] MEDS: HYDROmorphone 2 MG/ML VIAL IVP PRN (13:33)
--- NOTE | 2021-04-19 13:40 | NUR ---
Dr. Cartwright requested Dr. Arevalo follow up on the wounds. Called and left message with answering service at Dr. Arevalo office.
--- NOTE | 2021-04-19 13:51 | RAD ---
EXAM: CHEST ONE VIEW. HISTORY: Shortness of breath. COMPARISON: 03/09/2021. FINDINGS: A frontal view of the chest is obtained. There are changes of coronary artery bypass grafti ng. Bibasilar interstitial opacities appear slightly improved since the prior study. Small bilateral pleu ral effusions are likely present. There is no pneumothorax. The heart is moderately enlarged. There a re atherosclerotic calcifications of the aorta. IMPRESSION: 1. Small bilateral pleural effusions. Correlate for mild pulmonary edema. Electronically signed by: Laly Banegas MD (04/19/2021 1:49 PM) [id number]
--- NOTE | 2021-04-19 14:28 | PDOC ---
[employer] PROGRESS NOTE Date of Service DOS: DATE: 04/19/21 TIME: 14:24 Chief Complaint Chief Complaint Impression Nonhealing bilateral lower extremity wounds Right lower thigh hematoma with wound VAC in place Peripheral artery disease Atrial fibrillation Supratherapeutic INR, hold warfarin, pharmacy to adjust need 04-17 DM2 CAD HTN Severe malnutrition Plan: Consulted to vascular surgery, plastic surgery, and wound care Continue Zosyn; will change to Invanz on discharge Continue holding warfarin due to supratherapeutic INR Continue home medications FEN - Cardiac diet PPX - Warfarin DNR Dispo - inpatient for above Surrogate decision-maker is her daughter (Alyce Santana) History of Present Illness History of Present Illness Patient 76-year-old female with past medical history DM2, CAD, HTN, HLD, presents as a direct admit from [facility] due to multiple nonhealing blistering wounds to her bilateral feet for the past month. She was recently treated on our service (03/22/2021) for evacuation and debridement of right thigh hematoma. Right lower extremity CTA at that time showed calcified plaque with approximately 50 percent stenosis to SFA, extensive arterial calcifications to right popliteal artery, heavy calcifications to anterior tibial artery, and occluded right posterior tibial artery; Left lower extremity CTA showed popliteal artery with 60-70 percent stenosis at mid segment, left anterior tibial artery with heavy calcifications, left posterior tibial artery occluded distally. She has been receiving local wound care and follow-up at wound care clinic without significant improvement in her blisters. She denies any significant pain but does admit to some clear serous drainage from her bilateral feet. Will admit patient for further medical management. 04/19/21 Patient seen and examined at bedside. Remains afebrile. Agreeable to returning to [facility] for rehab. Continuing Zosyn will change to Invanz on discharge. Is endorsing some shortness of breath and bilateral upper extremity swelling this morning chest x-ray shows pulmonary edema, will try a one-time dose of Lasix. Plan of care discussed with bedside nurse 04/18/2021: Afebrile. Still with some leg pain, controlled with medication. She will need detention facility that can manage wound VAC and IV antibiotic regimen. Likely change Zosyn to Invanz, per ID. She does not want to return to [facility] for detention. 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 04/17/2021: less ankle edema Afebrile, breathing on room air. Wound VAC in place to right thigh. worked with physical therapy . Continue treatment of bilateral lower extremity wounds with Zosyn. she has not willing to go back [facility] as did not really change the dressings on her legs. She would much prefer a different detention facility upon discharge. Anticipate plastic surgery recommendations on management of right thigh hematoma. d/w rn and social work infected foul smelling wounds, bilateral lower extremity. Right lower thigh hematoma evacuation with a wound VAC in place 28 min pt exam, chart review, > 50% of time spent with exam, chart review, pt care coordination 04/16/2021: Afebrile, breathing on room air. Wound VAC in place to right thigh. worked with physical therapy . Continue treatment of bilateral lower extremity wounds with Zosyn. she has not willing to go back [facility] as did not really change the dressings on her legs. She would much prefer a different detention facility upon discharge. Anticipate plastic surgery recommendations on management of right thigh hematoma. d/w rn and social work infected foul smelling wounds, bilateral lower extremity. Right lower thigh hematoma evacuation with a wound VAC in place 04/15/2021: Afebrile, breathing on room air. Wound VAC in place to right thigh. She reports some pain in her legs with movement, but worked with physical therapy yesterday. Continue treatment of bilateral lower extremity wounds with Zosyn. She states that she has not found to [facility] as did not really change the dressings on her legs. She would much prefer a different detention facility upon discharge. Anticipate plastic surgery recommendations on management of right thigh hematoma. 04/14/2021: Febrile overnight with T-max 100.7 F. WBC 11[address]. [address] consult to ID to help with management of cellulitis that failed outpatient antibiotic treatment. Per vascular surgery, no urgency for surgical debridement of her wounds or angiogram currently. She had wound VAC placed in the right thigh yesterday. Await recommendations from plastic surgery. Vitals/I&O Vitals/I&O: Vital Signs Date Time Temp Pulse Resp B/P (MAP) Pulse Ox O2 Delivery O2 Flow Rate FiO2 04/19/21 13:33 Room Air 04/19/21 11:00 98.0 64 18 130/91 104 92 98.0 I & O 04/18/21 04/18/21 04/19/21 15:00 23:00 07:00 Intake Total 200 ml 320 ml Balance 200 ml 320 ml Physical Exam Physical Exam: GENERAL: Alert, oriented female, not in distress. resting in bed HEENT: Both pupils are round and reacting. No conjunctival lesion, no lesion in the mouth. NECK: Supple, no JVP, no lymphadenopathy. LUNGS: Clear. HEART: S1, S2 regular. ABDOMEN: Soft, nontender, no organomegaly. EXTREMITIES: Right lower extremity, lower thigh, right thigh has a wound VAC, Intact, removed, large wound with clean base , purulence no surrounding redness or warmth; Bilateral lower extremity, back of the leg, wound dressing in place, intact not taken down Wound pictures reviewed in chart; discussed with RN NEUROLOGIC: The patient is alert, awake, and appropriate. No focal neurologic deficit. General: Alert, Oriented X3, Cooperative, No acute distress Heart: Regular rate, Normal S1, Normal S2 Lungs: Clear Abdomen: Normal bowel sounds, Soft, No tenderness Extremities: No cyanosis, Normal pulses (Identified as biphasic left dorsalis pedis and posterior tibial, biphasic right dorsalis pedis and monophasic right posterior tibial pulses by vascular.), Other (Palpable petechial-like rashes identified over bilateral lower extremities and feet. Coalesced areas do demonstrate some blister formation as well. Wounds identified and documented per wound care include a left lower leg ulceration measuring 9.3 cm x 15.5 cm x 0.2 cm to the left lower leg, wound measuring 5 cm x 3.5 cm x 0.1 cm to the left foot, wound measuring 17.5 cm x 15 cm x 4.4 cm to the right thigh, wound measuring 21 cm x 16 cm x 0.2 cm to the right lower leg. Right thigh wound demonstrates relatively heavy biofilm/slough at this time. No significant granulation as evident in a negative pressure wound site.) Skin: No rashes (Petechial rash demonstrated distally coalescence to bullae formation identified over the foot dorsum.) Labs Labs: Laboratory Tests Test 04/18/21 16:53 04/18/21 20:58 04/19/21 04:40 04/19/21 08:20 Glucose (Fingerstick) 179 mg/dL (70-99) 224 mg/dL (70-99) 156 mg/dL (70-99) Prothrombin Time 46.1 SEC (11.7-14.0) Prothromb Time International Ratio 5.2 (0.8-1.1) Test 04/19/21 10:57 Glucose (Fingerstick) 175 mg/dL (70-99) Review of Systems Review of Systems: Endorses mild shortness of breath Comment Review of Relevant I have reviewed the following items ronen (where applicable) has been applied. Medications: Current Medications Medications (Trade) Dose Ordered Sig/Gennaro Route PRN Reason Start Time Stop Time Status Last Admin Dose Admin Warfarin Sodium (Coumadin - No Dose Today) 1 each 1X WARF ONCE 04/18/21 16:00 04/18/21 16:01 DC 04/18/21 15:47 Furosemide (Lasix) 20 mg 1X ONCE IVP 04/19/21 12:15 04/19/21 12:16 DC 04/19/21 12:41 Justifications for Admission Other Justification Diabetic ulcers, failed outpatient treatment JAZMINE REY MD Apr 19, 2021 14:28
[2021-04-19 15:00] VITALS: BP 145/46
--- NOTE | 2021-04-19 16:20 | NUR ---
Wound Care Wound Type/Assessment: Follow up to apply migdalia-flow wound vac. Dressing removed by ID earlier today, and photographed by Thu COLBY. Wound cleansed and measured. Wound bed is clean and fully granulated with smooth, epithelialized margins. Skin prep applied to periwound and 2 pieces of black foam to the wound bed. Good seal achieved. All dressings to other wounds changed within the last hour prior to arrival, left in place. Will reassess at next vac change on 04/21/21. No other wounds noted on head to toe inspection. Treatment Recommendations/Plan: Leave current dressings in place until follow up on 04/21/21 Veraflow settings: Instill NS @ 26cc x5min Q3H. Suction at 125mmHg continuous. Education provided: Pt educated on mobility to reduce risk for pressure ulcers. Offloading surface/device: Pt is independent with bed mobility Recommended Referrals/Tests: Per Dr. Cartwright, consult to Dr. Arevalo due to worsening wounds to BLE. Discharge Recommendations for dressings: As above pending changes in treatment plan
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
[2021-04-19 19:00] VITALS: BP 149/48
[2021-04-19] MEDS: ATORVASTATIN CALCIUM 40 MG TABLET. PO SCH (22:21)
[2021-04-19] MEDS: INSULIN GLARGINE SYRINGE. SQ SCH (22:26)
[2021-04-19 23:00] VITALS: BP 151/52
[2021-04-20] MEDS: PIPERACILLIN/TAZOBACTAM 3.375 GM in IV NORMAL SALINE 50ML 50 ML IV SCH ×4 (00:04→17:30)
[2021-04-20] MEDS: HYDROcodone/APAP 5/325MG 1 TAB TABLET PO PRN ×4 (02:41→17:31)
[2021-04-20 03:00] VITALS: BP 151/49
[2021-04-20 04:56] LABS: PROTHROMBIN TIME PATIENT 37.6 SEC (11.7-14.0)
[2021-04-20 07:00] VITALS: BP 151/41
[2021-04-20] MEDS: INSULIN LISPRO 300 UNITS/3 ML VIAL. SQ SCH ×3 (08:00→17:36)
[2021-04-20] MEDS: LACTOBACILLUS RHAMNOSUS GG 1 CAPSULE. PO SCH ×2 (08:40→21:06)
[2021-04-20] MEDS: CITALOPRAM 20 MG TABLET. PO SCH (08:40)
[2021-04-20] MEDS: LOSARTAN POTASSIUM 50 MG TABLET. PO SCH (08:41)
[2021-04-20] MEDS: METOPROLOL SUCC 24HR ER 50 MG TAB.ER.24H. PO SCH (08:41)
[2021-04-20] MEDS: NYSTATIN TOPICAL POWDER 15GM BOTTLE. TP SCH ×2 (08:43→21:00)
--- NOTE | 2021-04-20 08:55 | PDOC ---
Infectious Disease Note Subjective: Subjective Patient feels better wound evaluated d.w external grinder tool plans for debridement Vital Signs: Vital Signs Vital Signs Date Time Temp Pulse Resp B/P (MAP) Pulse Ox O2 Delivery O2 Flow Rate FiO2 04/20/21 08:43 Room Air 04/20/21 08:41 77 151/41 04/20/21 07:00 98.5 18 94 98.5 Physical Exam: PHYSICAL EXAM GENERAL: Alert, oriented female, not in distress. resting in bed HEENT: Both pupils are round and reacting. No conjunctival lesion, no lesion in the mouth. NECK: Supple, no JVP, no lymphadenopathy. LUNGS: Clear. HEART: S1, S2 regular. ABDOMEN: Soft, nontender, no organomegaly. EXTREMITIES: Right lower extremity, lower thigh, right thigh has a wound VAC, Intact, removed, large wound with clean base , purulence no surrounding redness or warmth; Bilateral lower extremity, back of the leg, wound dressing in place, intact not taken down Wound pictures reviewed in chart; discussed with RN NEUROLOGIC: The patient is alert, awake, and appropriate. No focal neurologic deficit. Medications: Inpatient Meds: Medications reviewed. Labs: Lab Laboratory Tests Test 04/19/21 10:57 04/19/21 16:45 04/19/21 20:53 04/20/21 04:37 Glucose (Fingerstick) 175 mg/dL (70-99) 180 mg/dL (70-99) 179 mg/dL (70-99) Prothrombin Time 37.6 SEC (11.7-14.0) Prothromb Time International Ratio 3.9 (0.8-1.1) Test 04/20/21 08:03 Glucose (Fingerstick) 132 mg/dL (70-99) Objective: Assessment: 1. Infected foul smelling wounds, bilateral lower extremity. 2. Right lower thigh hematoma evacuation with a wound VAC in place, clean wound 3. Leukocytosis. 4. Fever. 5. Peripheral vascular disease. 6. Coronary artery disease. Plan: Plan of Care cont zosyn local wound care per wound team plastics plans for debridement per [employer] following D/W daughter at bedside Discussed with nursing staff CASTRO ROMAN MD Apr 20, 2021 08:55
--- NOTE | 2021-04-20 09:29 | PDOC ---
PROGRESS NOTES Date of Service DATE: 04/20/21 TIME: 09:03 Subjective Subjective Patient seen and examined in room. Patient has a history of peripheral arterial disease and venous stasis ulceration of the left lower extremity, she was last seen on 04/13/2021 for superficial lower extremity wounds that appeared to be r esponding to local wound care. The wounds on her right lower extremity are progressively worsening. In addition she has a petechia rash and blistering on her feet. We have been asked to reevaluate the patient due to poorly healing right lower extremity wounds. The patient has biphasic doppler signal bilateral DP and PT. She has a history of right thigh wound from a hematoma and debridement with wound vac therapy. This wound is healing nicely. The patient has been under the care of Infectious Disease with Intravenous antibiotics. Objective Objective Vital Signs Date Time Temp Pulse Resp B/P (MAP) Pulse Ox O2 Delivery O2 Flow Rate FiO2 04/20/21 08:43 Room Air 04/20/21 08:41 77 151/41 04/20/21 07:00 98.5 18 94 98.5 Intake and Output 04/20/21 07:00 # Voids 4 # Bowel Movements 2 Physical Exam Physical Exam Awake and alert HRR Non-labored respirations Abdomen obese, soft, NTND Bilateral groin dry without fungal infection Extremities: Right thigh wound vac in place, images reviewed from 04/19/2021, wound bed clean with pink granulation tissue. Left lower extremity wounds with fibrin slough, this was gently debrided with gauze and underlying tissue is pink and superficial. Right lateral and posterior leg wounds have necrotic gangrenous tissue throughout with some periwound erythema. The second and fourth toes have blisters on the dorsal surface of the distal phalanges. There are venous stasis skin changes and edema in bilateral lower extremities. There are petechiae extending from the lower leg to the toes. Plan Plan of Care 76 year old female with atherosclerosis of the bilateral lower extremities with ulceration. I discussed the above examination with Dr. Arevalo. Etiology of her progressively worsening right lower extremity wounds is uncertain. We agree the patient should seek hematology evaluation with concerning petechiae and her anticoagulation history with rapid wound progression to rule out a vasculitis. We are not certain that her wounds are due to ischemia or occlusive disease, therefore would await the decision from hematology prior to proceeding with an angiogram. She would definitely not be a good candidate for bypass if percutaneous intervention is not an option. I discussed plan of care with the wound care team, the patient's nurse and the patient. The patient would benefit from an evaluation for HBO. In addition she would benefit from wound debridement. We will defer to Plastic Surgery. Comment Review of Relevant I have reviewed the following items ronen (where applicable) has been applied. Labs Laboratory Tests Test 04/18/21 12:12 04/18/21 16:53 04/18/21 20:58 04/19/21 04:40 Glucose (Fingerstick) 217 mg/dL (70-99) 179 mg/dL (70-99) 224 mg/dL (70-99) Prothrombin Time 46.1 SEC (11.7-14.0) Prothromb Time International Ratio 5.2 (0.8-1.1) Test 04/19/21 08:20 04/19/21 10:57 04/19/21 16:45 04/19/21 20:53 Glucose (Fingerstick) 156 mg/dL (70-99) 175 mg/dL (70-99) 180 mg/dL (70-99) 179 mg/dL (70-99) Test 04/20/21 04:37 04/20/21 08:03 Prothrombin Time 37.6 SEC (11.7-14.0) Prothromb Time International Ratio 3.9 (0.8-1.1) Glucose (Fingerstick) 132 mg/dL (70-99) Laboratory Tests Test 04/19/21 10:57 04/19/21 16:45 04/19/21 20:53 04/20/21 04:37 Glucose (Fingerstick) 175 mg/dL (70-99) 180 mg/dL (70-99) 179 mg/dL (70-99) Prothrombin Time 37.6 SEC (11.7-14.0) Prothromb Time International Ratio 3.9 (0.8-1.1) Test 04/20/21 08:03 Glucose (Fingerstick) 132 mg/dL (70-99) Medications Current Medications Sodium Chloride (Normal Saline Flush) 3 ml QSHIFT PRN IV AFTER MEDS AND BLOOD DRAWS; Start 04/12/21 at 19:30 Sodium Chloride 1,000 ml @ 70 mls/hr [id number] IV Last administered on 04/17/21at 00:06; Start 04/12/21 at 19:30; Stop 04/18/21 at 17:42; Status DC Ondansetron HCl (Zofran) 4 mg PRN Q4HRS PRN IV NAUSEA/VOMITING; Start 04/12/21 at 19:30 Acetaminophen (Tylenol) 650 mg PRN Q4HRS PRN PO TEMP OVER 100.4F OR MILD PAIN Last administered on 04/18/21at 23:39; Start 04/12/21 at 19:30 Al Hydroxide/Mg Hydroxide (Mylanta Plus Xs) 30 ml PRN DAILY PRN PO HEARTBURN / GAS; Start 04/12/21 at 19:30 Sodium Monofluorophosphate (Fleet Adult) 133 ml PRN DAILY PRN OK CONSTIPATION; Start 04/12/21 at 19:30 Albuterol/ Ipratropium (Duoneb) 3 ml Q4HRS NEB ; Start 04/12/21 at 20:00; Stop 04/12/21 at 21:28; Status DC Guaifenesin (Robitussin) 200 mg PRN Q4HRS PRN PO COUGH; Start 04/12/21 at 19:30 Amlodipine Besylate (Norvasc) 10 mg DAILY PO Last administered on 04/20/21at 08:41; Start 04/13/21 at 09:00 Acetaminophen/ Hydrocodone Bitart (Lortab 5/325) 1 tab PRN Q4HRS PRN PO MILD TO MOD PAIN Last administered on 04/12/21at 19:56; Start 04/12/21 at 19:45; Stop 04/12/21 at 21:23; Status DC Metoprolol Succinate (Toprol Xl) 50 mg DAILY PO Last administered on 04/20/21at 08:41; Start 04/13/21 at 09:00 Warfarin Sodium (Coumadin) 4 mg DAILY16 PO Last administered on 04/16/21at 16:20; Start 04/12/21 at 20:00; Stop 04/17/21 at 09:07; Status DC Citalopram Hydrobromide (CeleXA) 40 mg DAILY PO Last administered on 04/20/21at 08:40; Start 04/13/21 at 09:00 Losartan Potassium (Cozaar) 100 mg DAILY PO Last administered on 04/20/21at 08:41; Start 04/13/21 at 09:00 Atorvastatin Calcium (Lipitor) 80 mg QHS PO Last administered on 04/19/21 22:21; Start 04/12/21 at 21:00 Warfarin Sodium (Coumadin Per Physician) 1 each PRN DAILY PRN MC SEE COMMENTS Last administered on 04/16/21at 13:55; Start 04/12/21 at 19:45; Stop 04/17/21 at 09:07; Status DC Sterile Water (WATER for RESP) 1,000 ml CONT PRN INH VIA VAPOTHERM DEVICE; Start 04/12/21 at 21:30; Status Cancel Insulin Human Lispro (HumaLOG) 0-5 UNITS TIDWMEALS SQ ; Start 04/13/21 at 08:00; Status Cancel Dextrose (Dextrose 50%-Water Syringe) 12.5 gm PRN Q15MIN PRN IV SEE COMMENTS; Start 04/12/21 at 21:30 Hydromorphone HCl (Dilaudid) 0.5 mg PRN Q2HRS PRN IVP SEVERE PAIN 7-10 Last administered on 04/19/21at 13:33; Start 04/12/21 at 21:30 Albuterol Sulfate (Ventolin Neb Soln) 2.5 mg PRN Q4HRS PRN NEB SHORTNESS OF BREATH; Start 04/12/21 at 21:45 Insulin Glargine (Lantus Syringe) 75 unit QHS SQ ; Start 04/13/21 at 21:00; Stop 04/13/21 at 21:33; Status DC Insulin Human Lispro (HumaLOG) 0-9 UNITS TIDWMEALS SQ Last administered on 04/19/21at 17:43; Start 04/13/21 at 08:00 Dextrose (Dextrose 50%-Water Syringe) 12.5 gm PRN Q15MIN PRN IV SEE COMMENTS; Start 04/13/21 at 07:30; Status Cancel Dextrose (Iv Dextrose 5%) 250 ml PRN Q15MIN PRN IV SEE COMMENTS; Start 04/13/21 at 07:30; Status UNV Acetaminophen/ Hydrocodone Bitart (Lortab 5/325) 1 tab PRN Q4HRS PRN PO MODERATE-SEVERE PAIN Last administered on 04/20/21at 08:43; Start 04/13/21 at 07:30 Nystatin (Nystop) 1 debbie BID TP Last administered on 04/20/21 08:43; Start 04/13/21 at 11:00 Insulin Glargine (Lantus Syringe) 8 unit QHS SQ Last administered on 04/19/21 22:26; Start 04/13/21 at 22:00 Piperacillin Sod/ Tazobactam Sod 3.375 gm/Sodium Chloride 50 ml @ 100 mls/hr Q6HRS IV Last administered on 04/20/21 06:16; Start 04/14/21 at 10:00 Lactobacillus Rhamnosus (Culturelle) 1 cap BID PO Last administered on 04/20/21 08:40; Start 04/14/21 at 21:00 Warfarin Sodium (Coumadin Per Pharmacy) 1 each PRN DAILY PRN MC SEE COMMENTS Last administered on 04/19/21 10:18; Start 04/17/21 at 09:00 Warfarin Sodium (Coumadin - No Dose Today) 1 each 1X WARF ONCE MC Last administered on 04/17/21at 16:00; Start 04/17/21 at 16:00; Stop 04/17/21 at 16:01; Status DC Warfarin Sodium (Coumadin - No Dose Today) 1 each 1X WARF ONCE MC Last administered on 04/18/21at 15:47; Start 04/18/21 at 16:00; Stop 04/18/21 at 16:01; Status DC Ertapenem 50 ml @ 100 mls/hr 1X ONCE IV ; Start 04/19/21 at 10:00; Stop 04/19/21 at 10:29; Status DC Warfarin Sodium (Coumadin - No Dose Today) 1 each 1X WARF ONCE MC Last administered on 04/19/21at 16:00; Start 04/19/21 at 16:00; Stop 04/19/21 at 16:01; Status DC Furosemide (Lasix) 20 mg 1X ONCE IVP Last administered on 04/19/21at 12:41; Start 04/19/21 at 12:15; Stop 04/19/21 at 12:16; Status DC Active Scripts Active Hydrocodone-Apap 5-325 (Hydrocodone Bit/Acetaminophen) 1 Tab Tablet 1 Tab PO PRN Q4HRS PRN 14 Days Reported Humalog (Insulin Lispro) 100 Unit/1 Ml Vial Unknown Dose SQ BIDWMEALS Lantus Solostar (Insulin Glargine,Hum.rec.anlog) 100 Unit/1 Ml Insuln.pen 75 Unit SQ QHS Warfarin Sodium 4 Mg Tablet 4 Mg PO DAILY Toprol XL (Metoprolol Succinate) 50 Mg Tab.er.24h 50 Mg PO DAILY Losartan Potassium 100 Mg Tablet 100 Mg PO DAILY Crestor (Rosuvastatin Calcium) 40 Mg Tablet 1 Tab PO DAILY Amlodipine Besylate 10 Mg Tablet 10 Mg PO DAILY Lexapro (Escitalopram Oxalate) 20 Mg Tablet 1 Tab PO DAILY Tylenol (Acetaminophen) 325 Mg Tablet 325 Mg PO DAILY Vitals/I & O Vital Sign - Last 24 Hours 04/19/21 04/19/21 04/19/21 04/19/21 09:14 09:45 11:00 13:33 Temp 98.0 98.0 Pulse 64 Resp 18 B/P (MAP) 130/91 (104) Pulse Ox 92 O2 Delivery Room Air Room Air Room Air Room Air 04/19/21 04/19/21 04/19/21 04/19/21 14:05 15:00 16:01 16:35 Temp 98.7 98.7 Pulse 70 Resp 18 B/P (MAP) 145/46 (79) Pulse Ox 91 O2 Delivery Room Air Room Air Room Air Room Air 04/19/21 04/19/21 04/19/21 04/19/21 19:00 19:40 22:30 23:00 Temp 99.5 99.5 Pulse 69 Resp 18 20 20 B/P (MAP) 149/48 (81) Pulse Ox 92 O2 Delivery Room Air Room Air Room Air Room Air 04/19/21 04/20/21 04/20/21 04/20/21 23:00 02:41 03:00 03:11 Temp 99.2 99.2 99.2 99.2 Pulse 64 69 Resp 18 20 18 20 B/P (MAP) 151/52 (85) 151/49 (83) Pulse Ox 93 93 O2 Delivery Room Air Room Air Room Air Room Air 04/20/21 04/20/21 04/20/21 04/20/21 07:00 08:41 08:41 08:41 Temp 98.5 98.5 Pulse 77 77 77 77 Resp 18 B/P (MAP) 151/41 (77) 151/41 151/41 151/41 Pulse Ox 94 O2 Delivery Room Air 04/20/21 08:43 O2 Delivery Room Air Justifications for Admission Other Justification Diabetic ulcers, failed outpatient treatment [facility] [employer] DISPATCHER Apr 20, 2021 09:28
--- NOTE | 2021-04-20 10:28 | PDOC ---
[employer] PROGRESS NOTE Date of Service DOS: DATE: 04/20/21 TIME: 10:25 Chief Complaint Chief Complaint Impression Nonhealing bilateral lower extremity wounds Right lower thigh hematoma with wound VAC in place Peripheral artery disease Atrial fibrillation Supratherapeutic INR, hold warfarin, pharmacy to adjust need 04-17 DM2 CAD HTN Severe malnutrition Plan: Consulted to vascular surgery, plastic surgery, and wound care Patient likely to need additional debridement Continue Zosyn; will change to Invanz on discharge Continue holding warfarin due to supratherapeutic INR Continue home medications FEN - Cardiac diet PPX - Warfarin DNR Dispo - inpatient for above Surrogate decision-maker is her daughter (Alyce Santana) History of Present Illness History of Present Illness Patient 76-year-old female with past medical history DM2, CAD, HTN, HLD, presents as a direct admit from [facility] due to multiple nonhealing blistering wounds to her bilateral feet for the past month. She was recently treated on our service (03/22/2021) for evacuation and debridement of right thigh hematoma. Right lower extremity CTA at that time showed calcified plaque with approximately 50 percent stenosis to SFA, extensive arterial calcifications to right popliteal artery, heavy calcifications to anterior tibial artery, and occluded right posterior tibial artery; Left lower extremity CTA showed popliteal artery with 60-70 percent stenosis at mid segment, left anterior tibial artery with heavy calcifications, left posterior tibial artery occluded distally. She has been receiving local wound care and follow-up at wound care clinic without significant improvement in her blisters. She denies any significant pain but does admit to some clear serous drainage from her bilateral feet. Will admit patient for further medical management. 04/20/21 Patient seen and examined at bedside. This morning she reports her breathing is stable. Does report increased swelling in her bilateral upper extremities encouraged her to elevate them. Patient being reevaluated by vascular surgery today. Also will consult hematology for vasculitis work-up. Plan of care discussed with bedside nurse. 04/19/21 Patient seen and examined at bedside. Remains afebrile. Agreeable to returning to [facility] for rehab. Continuing Zosyn will change to Invanz on discharge. Is endorsing some shortness of breath and bilateral upper extremity swelling this morning chest x-ray shows pulmonary edema, will try a one-time dose of Lasix. Plan of care discussed with bedside nurse 04/18/2021: Afebrile. Still with some leg pain, controlled with medication. She will need [facility] facility that can manage wound VAC and IV antibiotic regimen. Likely change Zosyn to Invanz, per ID. She does not want to return to [facility] for [facility]. 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 04/17/2021: less ankle edema Afebrile, breathing on room air. Wound VAC in place to right thigh. worked with physical therapy . Continue treatment of bilateral lower extremity wounds with Zosyn. she has not willing to go back [facility] as did not really change the dressings on her legs. She would much prefer a different [facility] facility upon discharge. Anticipate plastic surgery recommendations on management of right thigh hematoma. d/w rn and social work infected foul smelling wounds, bilateral lower extremity. Right lower thigh hematoma evacuation with a wound VAC in place 28 min pt exam, chart review, > 50% of time spent with exam, chart review, pt care coordination 04/16/2021: Afebrile, breathing on room air. Wound VAC in place to right thigh. worked with physical therapy . Continue treatment of bilateral lower extremity wounds with Zosyn. she has not willing to go back [facility] as did not really change the dressings on her legs. She would much prefer a different [facility] facility upon discharge. Anticipate plastic surgery recommendations on management of right thigh hematoma. d/w rn and social work infected foul smelling wounds, bilateral lower extremity. Right lower thigh hematoma evacuation with a wound VAC in place 04/15/2021: Afebrile, breathing on room air. Wound VAC in place to right thigh. She reports some pain in her legs with movement, but worked with physical therapy yesterday. Continue treatment of bilateral lower extremity wounds with Zosyn. She states that she has not found to [facility] as did not really change the dressings on her legs. She would much prefer a different [facility] facility upon discharge. Anticipate plastic surgery recommendations on management of right thigh hematoma. 04/14/2021: Febrile overnight with T-max 100.7 F. WBC 11.4. Will place consult to ID to help with management of cellulitis that failed outpatient antibiotic treatment. Per vascular surgery, no urgency for surgical debridement of her wounds or angiogram currently. She had wound VAC placed in the right thigh yesterday. Await recommendations from plastic surgery. Vitals/I&O Vitals/I&O: Vital Signs Date Time Temp Pulse Resp B/P (MAP) Pulse Ox O2 Delivery O2 Flow Rate FiO2 04/20/21 08:43 Room Air 04/20/21 08:41 77 151/41 04/20/21 07:00 98.5 18 94 98.5 Physical Exam Physical Exam: GENERAL: Alert, oriented female, not in distress. resting in bed HEENT: Both pupils are round and reacting. No conjunctival lesion, no lesion in the mouth. NECK: Supple, no JVP, no lymphadenopathy. LUNGS: Clear. HEART: S1, S2 regular. ABDOMEN: Soft, nontender, no organomegaly. EXTREMITIES: Right lower extremity, lower thigh, right thigh has a wound VAC, Intact, removed, large wound with clean base , purulence no surrounding redness or warmth; Bilateral lower extremity, back of the leg, wound dressing in place, intact not taken down Wound pictures reviewed in chart; discussed with RN NEUROLOGIC: The patient is alert, awake, and appropriate. No focal neurologic deficit. General: Alert, Oriented X3, No acute distress Heart: Regular rate, Normal S1, Normal S2 Lungs: Clear Abdomen: Normal bowel sounds, Soft Extremities: Other (Necrotic ulcers on right lower extremity. Diffuse wounds throughout lower extremities. Wound VAC in place to right lower extremity) Skin: No rashes (Petechial rash demonstrated distally coalescence to bullae formation identified over the foot dorsum.) Labs Labs: Laboratory Tests Test 04/19/21 10:57 04/19/21 16:45 04/19/21 20:53 04/20/21 04:37 Glucose (Fingerstick) 175 mg/dL (70-99) 180 mg/dL (70-99) 179 mg/dL (70-99) Prothrombin Time 37.6 SEC (11.7-14.0) Prothromb Time International Ratio 3.9 (0.8-1.1) Test 04/20/21 08:03 Glucose (Fingerstick) 132 mg/dL (70-99) Review of Systems Review of Systems: No major complaints Comment Review of Relevant I have reviewed the following items ronen (where applicable) has been applied. Medications: Current Medications Medications (Trade) Dose Ordered Sig/Gennaro Route PRN Reason Start Time Stop Time Status Last Admin Dose Admin Warfarin Sodium (Coumadin - No Dose Today) 1 each 1X WARF ONCE MC 04/19/21 16:00 04/19/21 16:01 DC 04/19/21 16:00 Furosemide (Lasix) 20 mg 1X ONCE IVP 04/19/21 12:15 04/19/21 12:16 DC 04/19/21 12:41 Justifications for Admission Other Justification Diabetic ulcers, failed outpatient treatment JAZMINE REY MD Apr 20, 2021 10:28
--- NOTE | 2021-04-20 10:49 | NUR ---
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 Target range for this patient is: 2 -3 P: Warfarin dose: Hold Today at 1600. Bridge Therapy: None Next INR due tomorrow. Pharmacy anticoagulation service will continue to follow. Carson Chandler [facility], 04/20/21 [id number]
[2021-04-20 11:00] VITALS: BP 152/49
[2021-04-20] MEDS: HYDROmorphone 2 MG/ML VIAL IVP PRN ×2 (11:52→15:32)
[2021-04-20 15:00] VITALS: BP 153/48
[2021-04-20 19:00] VITALS: BP 135/49
[2021-04-20] MEDS: ATORVASTATIN CALCIUM 40 MG TABLET. PO SCH (21:06)
[2021-04-20] MEDS: INSULIN GLARGINE SYRINGE. SQ SCH (21:11)
[2021-04-20 23:40] VITALS: BP 138/52
[2021-04-21] MEDS: PIPERACILLIN/TAZOBACTAM 3.375 GM in IV NORMAL SALINE 50ML 50 ML IV SCH ×4 (00:05→18:00)
[2021-04-21 03:10] VITALS: BP 157/59
[2021-04-21 07:00] VITALS: BP 170/62
--- NOTE | 2021-04-21 08:22 | PDOC ---
Infectious Disease Note Subjective: Subjective Patient feels better wound evaluated viky adamemold burner plans for debridement Vital Signs: Vital Signs Vital Signs Date Time Temp Pulse Resp B/P (MAP) Pulse Ox O2 Delivery O2 Flow Rate FiO2 04/21/21 03:10 98.5 73 20 157/59 (91) 94 Room Air 98.5 Physical Exam: PHYSICAL EXAM GENERAL: Alert, oriented female, not in distress. resting in bed HEENT: Both pupils are round and reacting. No conjunctival lesion, no lesion in the mouth. NECK: Supple, no JVP, no lymphadenopathy. LUNGS: Clear. HEART: S1, S2 regular. ABDOMEN: Soft, nontender, no organomegaly. EXTREMITIES: Right lower extremity, lower thigh, right thigh has a wound VAC, Intact, removed, large wound with clean base , purulence no surrounding redness or warmth; Bilateral lower extremity, back of the leg, wound dressing in place, intact not taken down Wound pictures reviewed in chart; discussed with RN NEUROLOGIC: The patient is alert, awake, and appropriate. No focal neurologic deficit. Medications: Inpatient Meds: Medications reviewed. Labs: Lab Laboratory Tests Test 04/20/21 11:19 04/20/21 17:17 04/20/21 20:45 04/21/21 07:45 Glucose (Fingerstick) 169 mg/dL (70-99) 167 mg/dL (70-99) 167 mg/dL (70-99) 156 mg/dL (70-99) Objective: Assessment: 1. Infected foul smelling wounds, bilateral lower extremity. 2. Right lower thigh hematoma evacuation with a wound VAC in place, clean wound 3. Leukocytosis. 4. Fever. 5. Peripheral vascular disease. 6. Coronary artery disease. Plan: Plan of Care cont [facility] per wound team Awaiting possible debridement by plastics Discussed with nursing staff and daughter CASTRO ROMAN MD Apr 21, 2021 08:22
[2021-04-21] MEDS: CITALOPRAM 20 MG TABLET. PO SCH (08:41)
[2021-04-21] MEDS: METOPROLOL SUCC 24HR ER 50 MG TAB.ER.24H. PO SCH (08:42)
[2021-04-21] MEDS: LOSARTAN POTASSIUM 50 MG TABLET. PO SCH (08:42)
[2021-04-21] MEDS: HYDROcodone/APAP 5/325MG 1 TAB TABLET PO PRN ×3 (08:42→21:19)
[2021-04-21] MEDS: LACTOBACILLUS RHAMNOSUS GG 1 CAPSULE. PO SCH ×2 (08:42→21:19)
[2021-04-21] MEDS: NYSTATIN TOPICAL POWDER 15GM BOTTLE. TP SCH ×2 (08:47→21:20)
[2021-04-21] MEDS: INSULIN LISPRO 300 UNITS/3 ML VIAL. SQ SCH ×3 (08:47→18:05)
[2021-04-21 09:12] LABS: PROTHROMBIN TIME PATIENT 28.4 SEC (11.7-14.0)
--- NOTE | 2021-04-21 09:42 | PDOC ---
PROGRESS NOTES Date of Service DATE: 04/21/21 TIME: 09:32 Subjective Subjective Patient without new complaints overnight. Notes persistent pain in the RLE with occasional shooting pain. Objective Objective Vital Signs Date Time Temp Pulse Resp B/P (MAP) Pulse Ox O2 Delivery O2 Flow Rate FiO2 04/21/21 08:42 Room Air 04/21/21 08:42 80 170/62 04/21/21 07:00 98.1 18 94 98.1 Intake and Output 04/21/21 07:00 Intake Total 360 ml Balance 360 ml Intake Oral 360 ml # Voids 4 # Bowel Movements 1 Physical Exam Physical Exam Physical Exam General: alert and oriented, NAD Heart: regular rate and rhythm Lungs: nonlabored respirations Abd: soft, NT, ND Ext: BLE with wounds with dressings in place, minimal serous staining on dressing, RLE wound vac in place, scattered superficial ulcerations across toes Vasc: doppler DP/PT signal bilaterally Neuro: sensation and motor intact to BLE Diagnosis HYPERTENSION: Benign hypertension HEART FAILURE: Coronary artery disease DIABETES: Type II (Controlled) Other peripheral arterial disease Assessment Assessment 76F with BLE wounds, recent RLE debridement for hematoma, CAD, DM Plan Plan of Care Patient reports that she had an angiogram with angioplasty, she believes of the LLE with Dr. Bates. We will obtain these records. Await input from Hematology regarding possible vasculitis. She does have peripheral arterial disease, but it is unclear whether this is driving her wound formation. Continue local wound care. Will follow along. Comment Review of Relevant I have reviewed the following items ronen (where applicable) has been applied. Labs Laboratory Tests Test 04/19/21 10:57 04/19/21 16:45 04/19/21 20:53 04/20/21 04:37 Glucose (Fingerstick) 175 mg/dL (70-99) 180 mg/dL (70-99) 179 mg/dL (70-99) Prothrombin Time 37.6 SEC (11.7-14.0) Prothromb Time International Ratio 3.9 (0.8-1.1) Test 04/20/21 08:03 04/20/21 11:19 04/20/21 17:17 04/20/21 20:45 Glucose (Fingerstick) 132 mg/dL (70-99) 169 mg/dL (70-99) 167 mg/dL (70-99) 167 mg/dL (70-99) Test 04/21/21 07:45 04/21/21 08:40 Glucose (Fingerstick) 156 mg/dL (70-99) Prothrombin Time 28.4 SEC (11.7-14.0) Prothromb Time International Ratio 2.7 (0.8-1.1) Laboratory Tests Test 04/20/21 11:19 04/20/21 17:17 04/20/21 20:45 04/21/21 07:45 Glucose (Fingerstick) 169 mg/dL (70-99) 167 mg/dL (70-99) 167 mg/dL (70-99) 156 mg/dL (70-99) Test 04/21/21 08:40 Prothrombin Time 28.4 SEC (11.7-14.0) Prothromb Time International Ratio 2.7 (0.8-1.1) Medications Current Medications Sodium Chloride (Normal Saline Flush) 3 ml QSHIFT PRN IV AFTER MEDS AND BLOOD DRAWS; Start 04/12/21 at 19:30 Sodium Chloride 1,000 ml @ 70 mls/hr [id number] IV Last administered on 04/17/21at 00:06; Start 04/12/21 at 19:30; Stop 04/18/21 at 17:42; Status DC Ondansetron HCl (Zofran) 4 mg PRN Q4HRS PRN IV NAUSEA/VOMITING; Start 04/12/21 at 19:30 Acetaminophen (Tylenol) 650 mg PRN Q4HRS PRN PO TEMP OVER 100.4F OR MILD PAIN Last administered on 04/18/21at 23:39; Start 04/12/21 at 19:30 Al Hydroxide/Mg Hydroxide (Mylanta Plus Xs) 30 ml PRN DAILY PRN PO HEARTBURN / GAS; Start 04/12/21 at 19:30 Sodium Monofluorophosphate (Fleet Adult) 133 ml PRN DAILY PRN DE CONSTIPATION; Start 04/12/21 at 19:30 Albuterol/ Ipratropium (Duoneb) 3 ml Q4HRS NEB ; Start 04/12/21 at 20:00; Stop 04/12/21 at 21:28; Status DC Guaifenesin (Robitussin) 200 mg PRN Q4HRS PRN PO COUGH; Start 04/12/21 at 19:30 Amlodipine Besylate (Norvasc) 10 mg DAILY PO Last administered on 04/21/21 08:42; Start 04/13/21 at 09:00 Acetaminophen/ Hydrocodone Bitart (Lortab 5/325) 1 tab PRN Q4HRS PRN PO MILD TO MOD PAIN Last administered on 04/12/21at 19:56; Start 04/12/21 at 19:45; Stop 04/12/21 at 21:23; Status DC Metoprolol Succinate (Toprol Xl) 50 mg DAILY PO Last administered on 04/21/21 08:42; Start 04/13/21 at 09:00 Warfarin Sodium (Coumadin) 4 mg DAILY16 PO Last administered on 04/16/21at 16:20; Start 04/12/21 at 20:00; Stop 04/17/21 at 09:07; Status DC Citalopram Hydrobromide (CeleXA) 40 mg DAILY PO Last administered on 04/21/21at 08:41; Start 04/13/21 at 09:00 Losartan Potassium (Cozaar) 100 mg DAILY PO Last administered on 04/21/21at 08:42; Start 04/13/21 at 09:00 Atorvastatin Calcium (Lipitor) 80 mg QHS PO Last administered on 04/20/21at 21:06; Start 04/12/21 at 21:00 Warfarin Sodium (Coumadin Per Physician) 1 each PRN DAILY PRN MC SEE COMMENTS Last administered on 04/16/21at 13:55; Start 04/12/21 at 19:45; Stop 04/17/21 at 09:07; Status DC Sterile Water (WATER for RESP) 1,000 ml CONT PRN INH VIA VAPOTHERM DEVICE; Start 04/12/21 at 21:30; Status Cancel Insulin Human Lispro (HumaLOG) 0-5 UNITS TIDWMEALS SQ ; Start 04/13/21 at 08:00; Status Cancel Dextrose (Dextrose 50%-Water Syringe) 12.5 gm PRN Q15MIN PRN IV SEE COMMENTS; Start 04/12/21 at 21:30 Hydromorphone HCl (Dilaudid) 0.5 mg PRN Q2HRS PRN IVP SEVERE PAIN 7-10 Last administered on 04/20/21at 15:32; Start 04/12/21 at 21:30 Albuterol Sulfate (Ventolin Neb Soln) 2.5 mg PRN Q4HRS PRN NEB SHORTNESS OF BREATH; Start 04/12/21 at 21:45 Insulin Glargine (Lantus Syringe) 75 unit QHS SQ ; Start 04/13/21 at 21:00; Stop 04/13/21 at 21:33; Status DC Insulin Human Lispro (HumaLOG) 0-9 UNITS TIDWMEALS SQ Last administered on 04/21/21at 08:47; Start 04/13/21 at 08:00 Dextrose (Dextrose 50%-Water Syringe) 12.5 gm PRN Q15MIN PRN IV SEE COMMENTS; Start 04/13/21 at 07:30; Status Cancel Dextrose (Iv Dextrose 5%) 250 ml PRN Q15MIN PRN IV SEE COMMENTS; Start 04/13/21 at 07:30; Status UNV Acetaminophen/ Hydrocodone Bitart (Lortab 5/325) 1 tab PRN Q4HRS PRN PO MODERATE-SEVERE PAIN Last administered on 04/21/21 08:42; Start 04/13/21 at 07:30 Nystatin (Nystop) 1 debbie BID TP Last administered on 04/21/21 08:47; Start 04/13/21 at 11:00 Insulin Glargine (Lantus Syringe) 8 unit QHS SQ Last administered on 04/20/21at 21:11; Start 04/13/21 at 22:00 Piperacillin Sod/ Tazobactam Sod 3.375 gm/Sodium Chloride 50 ml @ 100 mls/hr Q6HRS IV Last administered on 04/21/21at 06:10; Start 04/14/21 at 10:00 Lactobacillus Rhamnosus (Culturelle) 1 cap BID PO Last administered on 04/21/21 08:42; Start 04/14/21 at 21:00 Warfarin Sodium (Coumadin Per Pharmacy) 1 each PRN DAILY PRN MC SEE COMMENTS Last administered on 04/20/21at 10:46; Start 04/17/21 at 09:00 Warfarin Sodium (Coumadin - No Dose Today) 1 each 1X WARF ONCE MC Last administered on 04/17/21at 16:00; Start 04/17/21 at 16:00; Stop 04/17/21 at 16:01; Status DC Warfarin Sodium (Coumadin - No Dose Today) 1 each 1X WARF ONCE MC Last administered on 04/18/21at 15:47; Start 04/18/21 at 16:00; Stop 04/18/21 at 16:01; Status DC Ertapenem 50 ml @ 100 mls/hr 1X ONCE IV ; Start 04/19/21 at 10:00; Stop 04/19/21 at 10:29; Status DC Warfarin Sodium (Coumadin - No Dose Today) 1 each 1X WARF ONCE MC Last administered on 04/19/21at 16:00; Start 04/19/21 at 16:00; Stop 04/19/21 at 16:01; Status DC Furosemide (Lasix) 20 mg 1X ONCE IVP Last administered on 04/19/21at 12:41; Start 04/19/21 at 12:15; Stop 04/19/21 at 12:16; Status DC Warfarin Sodium (Coumadin - No Dose Today) 1 each 1X WARF ONCE MC Last administered on 04/20/21at 16:00; Start 04/20/21 at 16:00; Stop 04/20/21 at 16:01; Status DC Active Scripts Active Hydrocodone-Apap 5-325 (Hydrocodone Bit/Acetaminophen) 1 Tab Tablet 1 Tab PO PRN Q4HRS PRN 14 Days Reported Humalog (Insulin Lispro) 100 Unit/1 Ml Vial Unknown Dose SQ BIDWMEALS Lantus Solostar (Insulin Glargine,Hum.rec.anlog) 100 Unit/1 Ml Insuln.pen 75 Unit SQ QHS Warfarin Sodium 4 Mg Tablet 4 Mg PO DAILY Toprol XL (Metoprolol Succinate) 50 Mg Tab.er.24h 50 Mg PO DAILY Losartan Potassium 100 Mg Tablet 100 Mg PO DAILY Crestor (Rosuvastatin Calcium) 40 Mg Tablet 1 Tab PO DAILY Amlodipine Besylate 10 Mg Tablet 10 Mg PO DAILY Lexapro (Escitalopram Oxalate) 20 Mg Tablet 1 Tab PO DAILY Tylenol (Acetaminophen) 325 Mg Tablet 325 Mg PO DAILY Vitals/I & O Vital Sign - Last 24 Hours 04/20/21 04/20/21 04/20/21 04/20/21 11:00 11:52 12:22 13:39 Temp 98.6 98.6 Pulse 67 Resp 18 B/P (MAP) 152/49 (83) Pulse Ox 94 O2 Delivery Room Air Room Air Room Air Room Air 04/20/21 04/20/21 04/20/21 04/20/21 14:22 15:00 15:32 16:02 Temp 98.8 98.8 Pulse 69 Resp 18 B/P (MAP) 153/48 (83) Pulse Ox 90 O2 Delivery Room Air Room Air Room Air Room Air 04/20/21 04/20/21 04/20/21 04/20/21 17:31 18:01 19:00 20:00 Temp 98.8 98.8 Pulse 66 Resp 18 B/P (MAP) 135/49 (77) Pulse Ox 91 O2 Delivery Room Air Room Air Room Air Room Air 04/20/21 04/21/21 04/21/21 04/21/21 23:40 03:10 07:00 08:42 Temp 98.6 98.5 98.1 98.6 98.5 98.1 Pulse 66 73 80 80 Resp 18 18 B/P (MAP) 138/52 (80) 157/59 (91) 170/62 (98) 170/62 Pulse Ox 97 94 94 O2 Delivery Room Air Room Air Room Air 04/21/21 04/21/21 04/21/21 08:42 08:42 08:42 Pulse 80 80 B/P (MAP) 170/62 170/62 O2 Delivery Room Air Intake and Output 04/20/21 04/20/21 04/21/21 15:00 23:00 07:00 Intake Total 120 ml 240 ml Balance 120 ml 240 ml Justifications for Admission Other Justification Diabetic ulcers, failed outpatient treatment JOSE ARMIJO DO Apr 21, 2021 09:42
--- NOTE | 2021-04-21 10:47 | PDOC2 ---
CONSULT Date of Consult Date of Consult DATE: 04/21/21 TIME: 10:42 Reason for Consult Reason for Consult: petechiae, rapid wound changes, anticoagulation hx Referring Physician Referring Physician: Dr. Cartwright Identification/Chief Complaint Chief Complaint Bilateral leg pain and infected wounds Source Source: Chart review, Patient History of Present Illness Reason for Visit: Loree Santana is a 76-year-old female with medical history pertinent for coronary artery disease, peripheral vascular disease, uncontrolled type 2 diabetes, hypertension, atrial fibrillation Past Medical History Cardiovascular: CAD, HTN, Hyperlipidemia, Other Pulmonary: Asthma, Pulmonary embolus CENTRAL NERVOUS SYSTEM: Periperal neuropathy GI: GERD Heme/Onc: Anemia NOS, Other Hepatobiliary: No pertinent hx Psych: No pertinent hx Musculoskeletal: Osteoarthritis Rheumatologic: No pertinent hx Infectious disease: No pertinent hx Renal/: No pertinent hx Endocrine: Diabetes Past Surgical History Past Surgical History: Arthroscopy, CABG, Total knee replacement, Hysterectomy Family History Family History: Hypertension Social History No ALCOHOL: none Drugs: None Lives: with Family Current Medications Current Medications Current Medications Sodium Chloride (Normal Saline Flush) 3 ml QSHIFT PRN IV AFTER MEDS AND BLOOD DRAWS; Start 04/12/21 at 19:30 Sodium Chloride 1,000 ml @ 70 mls/hr [id number] IV Last administered on 04/17/21at 00:06; Start 04/12/21 at 19:30; Stop 04/18/21 at 17:42; Status DC Ondansetron HCl (Zofran) 4 mg PRN Q4HRS PRN IV NAUSEA/VOMITING; Start 04/12/21 at 19:30 Acetaminophen (Tylenol) 650 mg PRN Q4HRS PRN PO TEMP OVER 100.4F OR MILD PAIN Last administered on 04/18/21at 23:39; Start 04/12/21 at 19:30 Al Hydroxide/Mg Hydroxide (Mylanta Plus Xs) 30 ml PRN DAILY PRN PO HEARTBURN / GAS; Start 04/12/21 at 19:30 Sodium Monofluorophosphate (Fleet Adult) 133 ml PRN DAILY PRN NM CONSTIPATION; Start 04/12/21 at 19:30 Albuterol/ Ipratropium (Duoneb) 3 ml Q4HRS NEB ; Start 04/12/21 at 20:00; Stop 04/12/21 at 21:28; Status DC Guaifenesin (Robitussin) 200 mg PRN Q4HRS PRN PO COUGH; Start 04/12/21 at 19:30 Amlodipine Besylate (Norvasc) 10 mg DAILY PO Last administered on 04/21/21 08:42; Start 04/13/21 at 09:00 Acetaminophen/ Hydrocodone Bitart (Lortab 5/325) 1 tab PRN Q4HRS PRN PO MILD TO MOD PAIN Last administered on 04/12/21at 19:56; Start 04/12/21 at 19:45; Stop 04/12/21 at 21:23; Status DC Metoprolol Succinate (Toprol Xl) 50 mg DAILY PO Last administered on 04/21/21 08:42; Start 04/13/21 at 09:00 Warfarin Sodium (Coumadin) 4 mg DAILY16 PO Last administered on 04/16/21at 16:20; Start 04/12/21 at 20:00; Stop 04/17/21 at 09:07; Status DC Citalopram Hydrobromide (CeleXA) 40 mg DAILY PO Last administered on 04/21/21at 08:41; Start 04/13/21 at 09:00 Losartan Potassium (Cozaar) 100 mg DAILY PO Last administered on 04/21/21 08:42; Start 04/13/21 at 09:00 Atorvastatin Calcium (Lipitor) 80 mg QHS PO Last administered on 04/20/21at 21:06; Start 04/12/21 at 21:00 Warfarin Sodium (Coumadin Per Physician) 1 each PRN DAILY PRN MC SEE COMMENTS Last administered on 04/16/21at 13:55; Start 04/12/21 at 19:45; Stop 04/17/21 at 09:07; Status DC Sterile Water (WATER for RESP) 1,000 ml CONT PRN INH VIA VAPOTHERM DEVICE; Start 04/12/21 at 21:30; Status Cancel Insulin Human Lispro (HumaLOG) 0-5 UNITS TIDWMEALS SQ ; Start 04/13/21 at 08:00; Status Cancel Dextrose (Dextrose 50%-Water Syringe) 12.5 gm PRN Q15MIN PRN IV SEE COMMENTS; Start 04/12/21 at 21:30 Hydromorphone HCl (Dilaudid) 0.5 mg PRN Q2HRS PRN IVP SEVERE PAIN 7-10 Last administered on 04/20/21at 15:32; Start 04/12/21 at 21:30 Albuterol Sulfate (Ventolin Neb Soln) 2.5 mg PRN Q4HRS PRN NEB SHORTNESS OF BREATH; Start 04/12/21 at 21:45 Insulin Glargine (Lantus Syringe) 75 unit QHS SQ ; Start 04/13/21 at 21:00; Stop 04/13/21 at 21:33; Status DC Insulin Human Lispro (HumaLOG) 0-9 UNITS TIDWMEALS SQ Last administered on 04/21/21 08:47; Start 04/13/21 at 08:00 Dextrose (Dextrose 50%-Water Syringe) 12.5 gm PRN Q15MIN PRN IV SEE COMMENTS; Start 04/13/21 at 07:30; Status Cancel Dextrose (Iv Dextrose 5%) 250 ml PRN Q15MIN PRN IV SEE COMMENTS; Start 04/13/21 at 07:30; Status UNV Acetaminophen/ Hydrocodone Bitart (Lortab 5/325) 1 tab PRN Q4HRS PRN PO MODERATE-SEVERE PAIN Last administered on 04/21/21 08:42; Start 04/13/21 at 07:30 Nystatin (Nystop) 1 debbie BID TP Last administered on 04/21/21 08:47; Start 04/13/21 at 11:00 Insulin Glargine (Lantus Syringe) 8 unit QHS SQ Last administered on 04/20/21at 21:11; Start 04/13/21 at 22:00 Piperacillin Sod/ Tazobactam Sod 3.375 gm/Sodium Chloride 50 ml @ 100 mls/hr Q6HRS IV Last administered on 04/21/21 06:10; Start 04/14/21 at 10:00 Lactobacillus Rhamnosus (Culturelle) 1 cap BID PO Last administered on 04/21/21 08:42; Start 04/14/21 at 21:00 Warfarin Sodium (Coumadin Per Pharmacy) 1 each PRN DAILY PRN MC SEE COMMENTS Last administered on 04/20/21at 10:46; Start 04/17/21 at 09:00 Warfarin Sodium (Coumadin - No Dose Today) 1 each 1X WARF ONCE MC Last administered on 04/17/21at 16:00; Start 04/17/21 at 16:00; Stop 04/17/21 at 16:01; Status DC Warfarin Sodium (Coumadin - No Dose Today) 1 each 1X WARF ONCE MC Last administered on 04/18/21at 15:47; Start 04/18/21 at 16:00; Stop 04/18/21 at 16:01; Status DC Ertapenem 50 ml @ 100 mls/hr 1X ONCE IV ; Start 04/19/21 at 10:00; Stop 04/19/21 at 10:29; Status DC Warfarin Sodium (Coumadin - No Dose Today) 1 each 1X WARF ONCE MC Last administered on 04/19/21at 16:00; Start 04/19/21 at 16:00; Stop 04/19/21 at 16:01; Status DC Furosemide (Lasix) 20 mg 1X ONCE IVP Last administered on 04/19/21at 12:41; Start 04/19/21 at 12:15; Stop 04/19/21 at 12:16; Status DC Warfarin Sodium (Coumadin - No Dose Today) 1 each 1X WARF ONCE MC Last adminis tered on 04/20/21at 16:00; Start 04/20/21 at 16:00; Stop 04/20/21 at 16:01; Status DC Active Scripts Active Hydrocodone-Apap 5-325 (Hydrocodone Bit/Acetaminophen) 1 Tab Tablet 1 Tab PO PRN Q4HRS PRN 14 Days Reported Humalog (Insulin Lispro) 100 Unit/1 Ml Vial Unknown Dose SQ BIDWMEALS Lantus Solostar (Insulin Glargine,Hum.rec.anlog) 100 Unit/1 Ml Insuln.pen 75 Unit SQ QHS Warfarin Sodium 4 Mg Tablet 4 Mg PO DAILY Toprol XL (Metoprolol Succinate) 50 Mg Tab.er.24h 50 Mg PO DAILY Losartan Potassium 100 Mg Tablet 100 Mg PO DAILY Crestor (Rosuvastatin Calcium) 40 Mg Tablet 1 Tab PO DAILY Amlodipine Besylate 10 Mg Tablet 10 Mg PO DAILY Lexapro (Escitalopram Oxalate) 20 Mg Tablet 1 Tab PO DAILY Tylenol (Acetaminophen) 325 Mg Tablet 325 Mg PO DAILY Allergies Allergies: Coded Allergies: Sulfa (Sulfonamide Antibiotics) (Verified Allergy, Intermediate, 11/29/20) adhesive tape (Verified Allergy, Intermediate, 11/29/20) Vitals VITALS Vital Signs Date Time Temp Pulse Resp B/P (MAP) Pulse Ox O2 Delivery O2 Flow Rate FiO2 04/21/21 09:12 Room Air 04/21/21 08:42 80 170/62 04/21/21 07:00 98.1 18 94 98.1 Labs Labs Laboratory Tests Test 04/19/21 10:57 04/19/21 16:45 04/19/21 20:53 04/20/21 04:37 Glucose (Fingerstick) 175 mg/dL (70-99) 180 mg/dL (70-99) 179 mg/dL (70-99) Prothrombin Time 37.6 SEC (11.7-14.0) Prothromb Time International Ratio 3.9 (0.8-1.1) Test 04/20/21 08:03 04/20/21 11:19 04/20/21 17:17 04/20/21 20:45 Glucose (Fingerstick) 132 mg/dL (70-99) 169 mg/dL (70-99) 167 mg/dL (70-99) 167 mg/dL (70-99) Test 04/21/21 07:45 04/21/21 08:40 Glucose (Fingerstick) 156 mg/dL (70-99) Prothrombin Time 28.4 SEC (11.7-14.0) Prothromb Time International Ratio 2.7 (0.8-1.1) Laboratory Tests Test 04/20/21 11:19 04/20/21 17:17 04/20/21 20:45 04/21/21 07:45 Glucose (Fingerstick) 169 mg/dL (70-99) 167 mg/dL (70-99) 167 mg/dL (70-99) 156 mg/dL (70-99) Test 04/21/21 08:40 Prothrombin Time 28.4 SEC (11.7-14.0) Prothromb Time International Ratio 2.7 (0.8-1.1) ODALYS SIMMONS MD Apr 21, 2021 10:47
[2021-04-21 11:00] VITALS: BP 152/52
[2021-04-21] MEDS ORDERED: HYDROcodone/APAP 5/325MG 1 TAB TABLET PO PRN (11:15)
--- NOTE | 2021-04-21 12:00 | NUR ---
Spoke to Dr. Cartwright regarding plan of care. Updated her that vascular surgeon stated it does not appear to be a vascular issue and they do not recommend angiography or intervention at this time. Also updated her that Dr. Kramer stated he does not believe there is any intervention needed on his end of things. He stated he would also call Dr. Cartwright to discuss. Received orders from Dr. Cartwright for debridement of bilateral wounds tomorrow afternoon. Orders for NS @ 75mL/hr, NPO midnight. Provided update to patient. Addendum: 04/21/21 at 1940 by ZAYDA BEAVERS RN Per Dr. Cartwright INR needs to be < or equal to 1.[address] Torres who placed orders for vit K.
[2021-04-21] MEDS ORDERED: PHYTONADIONE 10 MG/ML AMPUL. SQ ONE (13:00)
--- NOTE | 2021-04-21 13:21 | PDOC ---
[facility] [facility] PROGRESS NOTE Date of Service DOS: DATE: 04/21/21 TIME: 13:17 Chief Complaint Chief Complaint Impression Nonhealing bilateral lower extremity wounds Right lower thigh hematoma with wound VAC in place Peripheral artery disease Atrial fibrillation Supratherapeutic INR, hold warfarin, pharmacy to adjust need 04-17 DM2 CAD HTN Severe malnutrition Plan: Consulted to vascular surgery, plastic surgery, and wound care Patient likely to need additional debridement; planning for April 22 Continue Zosyn; will change to Invanz on discharge Continue holding warfarin due to supratherapeutic INR Continue home medications FEN - Cardiac diet PPX -hold warfarin for procedure tomorrow DNR Dispo - inpatient for above Surrogate decision-maker is her daughter (Alyce Santana) History of Present Illness History of Present Illness Patient 76-year-old female with past medical history DM2, CAD, HTN, HLD, presents as a direct admit from [facility] due to multiple nonhealing blistering wounds to her bilateral feet for the past month. She was recently treated on our service (03/22/2021) for evacuation and debridement of right thigh hematoma. Right lower extremity CTA at that time showed calcified plaque with approximately 50 percent stenosis to SFA, extensive arterial calcifications to right popliteal artery, heavy calcifications to anterior tibial artery, and occluded right posterior tibial artery; Left lower extremity CTA showed popliteal artery with 60-70 percent stenosis at mid segment, left anterior tibial artery with heavy calcifications, left posterior tibial artery occluded distally. She has been receiving local wound care and follow-up at wound care clinic without significant improvement in her blisters. She denies any significant pain but does admit to some clear serous drainage from her bilateral feet. Will admit patient for further medical management. 04/21/21 Patient seen and examined at bedside. Does say she is having some worsening pain in her right lower extremity. Evaluated by hematology and vascular surgery today. Plastic surgery reconsulted and planning for irrigation and debridement tomorrow. However patient's INR needs to be below 1.5, it is 2.7 today however has been dropping at least one-point the past 2 days. Will give dose of vitamin K today and recheck INR in the morning. If above one-point 5 in the morning patient may need FFP prior to surgery. 04/20/21 Patient seen and examined at bedside. This morning she reports her breathing is stable. Does report increased swelling in her bilateral upper extremities encouraged her to elevate them. Patient being reevaluated by vascular surgery today. Also will consult hematology for vasculitis work-up. Plan of care discussed with bedside nurse. 04/19/21 Patient seen and examined at bedside. Remains afebrile. Agreeable to returning to [facility] for rehab. Continuing Zosyn will change to Invanz on discharge. Is endorsing some shortness of breath and bilateral upper extremity swelling this morning chest x-ray shows pulmonary edema, will try a one-time dose of Lasix. Plan of care discussed with bedside nurse 04/18/2021: Afebrile. Still with some leg pain, controlled with medication. She will need chcf facility that can manage wound VAC and IV antibiotic regimen. Likely change Zosyn to Invanz, per ID. She does not want to return to [facility] for chcf. insulation worker interior surface helping to find other suitable rehab facilities per patient's preference. 04/17/2021: less ankle edema Afebrile, breathing on room air. Wound VAC in place to right thigh. worked with physical therapy . Continue treatment of bilateral lower extremity wounds with Zosyn. she has not willing to go back [facility] as did not really change the dressings on her legs. She would much prefer a different chcf facility upon discharge. Anticipate plastic surgery recommendations on management of right thigh hematoma. d/w rn and social work infected foul smelling wounds, bilateral lower extremity. Right lower thigh hematoma evacuation with a wound VAC in place 28 min pt exam, chart review, > 50% of time spent with exam, chart review, pt care coordination 04/16/2021: Afebrile, breathing on room air. Wound VAC in place to right thigh. worked with physical therapy . Continue treatment of bilateral lower extremity wounds with Zosyn. she has not willing to go back [facility] as did not really change the dressings on her legs. She would much prefer a different chcf facility upon discharge. Anticipate plastic surgery recommendations on ma nagement of right thigh hematoma. d/w rn and social work infected foul smelling wounds, bilateral lower extremity. Right lower thigh hematoma evacuation with a wound VAC in place 04/15/2021: Afebrile, breathing on room air. Wound VAC in place to right thigh. She reports some pain in her legs with movement, but worked with physical therapy yesterday. Continue treatment of bilateral lower extremity wounds with Zosyn. She states that she has not found to [facility] as did not really change the dressings on her legs. She would much prefer a different chcf facility upon discharge. Anticipate plastic surgery recommendations on management of right thigh hematoma. 04/14/2021: Febrile overnight with T-max 100.7 F. WBC 11[address] consult to ID to help with management of cellulitis that failed outpatient antibiotic treatment. Per vascular surgery, no urgency for surgical debridement of her wounds or angiogram currently. She had wound VAC placed in the right thigh yesterday. Await recommendations from plastic surgery. Vitals/I&O Vitals/I&O: Vital Signs Date Time Temp Pulse Resp B/P (MAP) Pulse Ox O2 Delivery O2 Flow Rate FiO2 04/21/21 12:44 Room Air 04/21/21 11:00 98.4 72 18 152/52 (85) 95 98.4 I & O 04/20/21 04/20/21 04/21/21 15:00 23:00 07:00 Intake Total 120 ml 240 ml Balance 120 ml 240 ml Physical Exam Physical Exam: GENERAL: Alert, oriented female, not in distress. resting in bed HEENT: Both pupils are round and reacting. No conjunctival lesion, no lesion in the mouth. NECK: Supple, no JVP, no lymphadenopathy. LUNGS: Clear. HEART: S1, S2 regular. ABDOMEN: Soft, nontender, no organomegaly. EXTREMITIES: Right lower extremity, lower thigh, right thigh has a wound VAC, Intact, removed, large wound with clean base , purulence no surrounding redness or warmth; Bilateral lower extremity, back of the leg, wound dressing in place, intact not taken down Wound pictures reviewed in chart; discussed with RN NEUROLOGIC: The patient is alert, awake, and appropriate. No focal neurologic deficit. General: Alert, Oriented X3, No acute distress Heart: Regular rate, Normal S1, Normal S2 Lungs: Clear Abdomen: Normal bowel sounds, Soft Extremities: Other (Necrotic ulcers on right lower extremity. Diffuse wounds throughout lower extremities. Wound VAC in place to right lower extremity) Skin: No rashes (Petechial rash demonstrated distally coalescence to bullae formation identified over the foot dorsum.) Labs Labs: Laboratory Tests Test 04/20/21 17:17 04/20/21 20:45 04/21/21 07:45 04/21/21 08:40 Glucose (Fingerstick) 167 mg/dL (70-99) 167 mg/dL (70-99) 156 mg/dL (70-99) Prothrombin Time 28.4 SEC (11.7-14.0) Prothromb Time International Ratio 2.7 (0.8-1.1) Test 04/21/21 11:05 Glucose (Fingerstick) 193 mg/dL (70-99) Review of Systems Review of Systems: Endorsing leg pain otherwise doing well Comment Review of Relevant I have reviewed the following items ronen (where applicable) has been applied. Medications: Current Medications Medications (Trade) Dose Ordered Sig/Gennaro Route PRN Reason Start Time Stop Time Status Last Admin Dose Admin Warfarin Sodium (Coumadin - No Dose Today) 1 each 1X WARF ONCE MC 04/20/21 16:00 04/20/21 16:01 DC 04/20/21 16:00 Acetaminophen/ Hydrocodone Bitart (Lortab 5/325) 2 tab PRN Q4HRS PRN PO SEVERE PAIN 04/21/21 11:15 04/21/21 12:14 Justifications for Admission Other Justification Diabetic ulcers, failed outpatient treatment JAZMINE REY MD Apr 21, 2021 13:21
--- NOTE | 2021-04-21 14:34 | RAD ---
EXAM: Right lower extremity venous Doppler. HISTORY: Right lower extremity pain/swelling. COMPARISON: None. FINDINGS: Grayscale and Doppler analysis of the right lower extremity deep venous system was performe d with graded compression and augmentation. The common femoral, greater saphenous, superficial femora l, popliteal and calf veins were assessed. There is no evidence of deep venous thrombosis. IMPRESSION: 1. No evidence of deep venous thrombosis. Electronically signed by: Laly Banegas MD (04/21/2021 2:31 PM) [id number]
[2021-04-21 15:00] VITALS: BP 138/54
[2021-04-21 19:00] VITALS: BP 146/43
[2021-04-21] MEDS: ATORVASTATIN CALCIUM 40 MG TABLET. PO SCH (21:19)
[2021-04-21] MEDS: IV NORMAL SALINE 1000ML BAG 1,000 ML IV SCH (21:20)
[2021-04-21] MEDS: INSULIN GLARGINE SYRINGE. SQ SCH (21:35)
[2021-04-21 22:53] VITALS: BP 139/49
[2021-04-22] MEDS: PIPERACILLIN/TAZOBACTAM 3.375 GM in IV NORMAL SALINE 50ML 50 ML IV SCH ×4 (00:04→17:46)
[2021-04-22 03:00] VITALS: BP 144/56
[2021-04-22] MEDS: HYDROmorphone 2 MG/ML VIAL IVP PRN ×2 (04:11→07:53)
[2021-04-22 05:05] LABS: PROTHROMBIN TIME PATIENT 22.9 SEC (11.7-14.0)
[2021-04-22 06:20] VITALS: BP 159/60
[2021-04-22] MEDS: INSULIN LISPRO 300 UNITS/3 ML VIAL. SQ SCH ×3 (07:38→17:46)
--- NOTE | 2021-04-22 07:49 | PDOC ---
Infectious Disease Note Subjective: Subjective Patient feels better RLE pain is improving d.w rn Vital Signs: Vital Signs Vital Signs Date Time Temp Pulse Resp B/P (MAP) Pulse Ox O2 Delivery O2 Flow Rate FiO2 04/22/21 06:20 97.6 65 18 159/60 (93) 94 Room Air 97.6 Physical Exam: PHYSICAL EXAM GENERAL: Alert, oriented female, not in distress. resting in bed HEENT: Both pupils are round and reacting. No conjunctival lesion, no lesion in the mouth. NECK: Supple, no JVP, no lymphadenopathy. LUNGS: Clear. HEART: S1, S2 regular. ABDOMEN: Soft, nontender, no organomegaly. EXTREMITIES: Right lower extremity, lower thigh, right thigh has a wound VAC, Intact, removed, large wound with clean base , purulence no surrounding redness or warmth; Bilateral lower extremity, back of the leg, wound dressing in place, intact not taken down Wound pictures reviewed in chart; discussed with RN NEUROLOGIC: The patient is alert, awake, and appropriate. No focal neurologic deficit. Medications: Inpatient Meds: Medications reviewed. Labs: Lab Laboratory Tests Test 04/21/21 08:40 04/21/21 11:05 04/21/21 16:40 04/21/21 20:36 Prothrombin Time 28.4 SEC (11.7-14.0) Prothromb Time International Ratio 2.7 (0.8-1.1) Glucose (Fingerstick) 193 mg/dL (70-99) 191 mg/dL (70-99) 191 mg/dL (70-99) Test 04/22/21 04:02 04/22/21 07:23 Prothrombin Time 22.9 SEC (11.7-14.0) Prothromb Time International Ratio 2.1 (0.8-1.1) Glucose (Fingerstick) 149 mg/dL (70-99) Objective: Assessment: 1. Infected foul smelling wounds, bilateral lower extremity. 2. Right lower thigh hematoma evacuation with a wound VAC in place, clean wound 3. Leukocytosis. 4. Fever. resolved 5. Peripheral vascular disease. 6. Coronary artery disease. Plan: Plan of Care cont zosyn local wound care per wound team Awaiting debridement by plastics Monitor labs D/W CASTRO MAYA MD Apr 22, 2021 07:49
[2021-04-22] MEDS: METOPROLOL SUCC 24HR ER 50 MG TAB.ER.24H. PO SCH (07:54)
[2021-04-22] MEDS: LOSARTAN POTASSIUM 50 MG TABLET. PO SCH (07:54)
[2021-04-22] MEDS: CITALOPRAM 20 MG TABLET. PO SCH (07:55)
[2021-04-22] MEDS: LACTOBACILLUS RHAMNOSUS GG 1 CAPSULE. PO SCH ×2 (09:00→22:05)
[2021-04-22] MEDS ORDERED: PHYTONADIONE 10 MG/ML AMPUL. SQ ONE (09:30)
[2021-04-22] MEDS: HYDROcodone/APAP 5/325MG 1 TAB TABLET PO PRN ×3 (09:54→22:36)
[2021-04-22 11:00] VITALS: BP 133/53
[2021-04-22] MEDS: IV NORMAL SALINE 1000ML BAG 1,000 ML IV SCH ×2 (12:20→22:25)
[2021-04-22] MEDS: NYSTATIN TOPICAL POWDER 15GM BOTTLE. TP SCH ×2 (12:21→22:06)
--- NOTE | 2021-04-22 13:40 | PDOC ---
[employer] [facility] PROGRESS NOTE Date of Service DOS: DATE: 04/22/21 TIME: 13:38 Chief Complaint Chief Complaint Impression Nonhealing bilateral lower extremity wounds Right lower thigh hematoma with wound VAC in place Peripheral artery disease Atrial fibrillation Supratherapeutic INR, hold warfarin, pharmacy to adjust need 04-17 DM2 CAD HTN Severe malnutrition Plan: Consulted to vascular surgery, plastic surgery, and wound care Patient likely to need additional debridement; planning for April 23 pending INR below 1.5 tomorrow morning Continue Zosyn; will change to Invanz on discharge Continue holding warfarin due to supratherapeutic INR Continue home medications FEN - Cardiac diet PPX -hold warfarin for procedure tomorrow DNR Dispo - inpatient for above Surrogate decision-maker is her daughter (Alyce Santana) History of Present Illness History of Present Illness Patient 76-year-old female with past medical history DM2, CAD, HTN, HLD, presents as a direct admit from [facility] due to multiple nonhealing blistering wounds to her bilateral feet for the past month. She was recently treated on our service (03/22/2021) for evacuation and debridement of right thigh hematoma. Right lower extremity CTA at that time showed calcified plaque with approximately 50 percent stenosis to SFA, extensive arterial calcifications to right popliteal artery, heavy calcifications to anterior tibial artery, and occluded right posterior tibial artery; Left lower extremity CTA showed popliteal artery with 60-70 percent stenosis at mid segment, left anterior tibial artery with heavy calcifications, left posterior tibial artery occluded distally. She has been receiving local wound care and follow-up at wound care clinic without significant improvement in her blisters. She denies any significant pain but does admit to some clear serous drainage from her bilateral feet. Will admit patient for further medical management. 04/22/21 Patient seen and examined at bedside. Other than right lower extremity pain no complaints. INR 2 elevated this morning, 2.1, so high for surgery. Will give another dose of vitamin K today and recheck INR tomorrow. Surgery pending INR result in the morning. Plan discussed with bedside nurse. 04/21/21 Patient seen and examined at bedside. Does say she is having some worsening pain in her right lower extremity. Evaluated by hematology and vascular surgery today. Plastic surgery reconsulted and planning for irrigation and debridement tomorrow. However patient's INR needs to be below 1.5, it is 2.7 today however has been dropping at least one-point the past 2 days. Will give dose of vitamin K today and recheck INR in the morning. If above one-point 5 in the morning patient may need FFP prior to surgery. 04/20/21 Patient seen and examined at bedside. This morning she reports her breathing is stable. Does report increased swelling in her bilateral upper extremities encouraged her to elevate them. Patient being reevaluated by vascular surgery today. Also will consult hematology for vasculitis work-up. Plan of care disc ussed with bedside nurse. 04/19/21 Patient seen and examined at bedside. Remains afebrile. Agreeable to returning to [facility] for rehab. Continuing Zosyn will change to Invanz on discharge. Is endorsing some shortness of breath and bilateral upper extremity swelling this morning chest x-ray shows pulmonary edema, will try a one-time dose of Lasix. Plan of care discussed with bedside nurse 04/18/2021: Afebrile. Still with some leg pain, controlled with medication. She will need shelter facility that can manage wound VAC and IV antibiotic regimen. Likely change Zosyn to Invanz, per ID. She does not want to return to [facility] for shelter. 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 04/17/2021: less ankle edema Afebrile, breathing on room air. Wound VAC in place to right thigh. worked with physical therapy . Continue treatment of bilateral lower extremity wounds with Zosyn. she has not willing to go back [facility] as did not really change the dressings on her legs. She would much prefer a different shelter facility upon discharge. Anticipate plastic surgery recommendations on management of right thigh hematoma. d/w rn and social work infected foul smelling wounds, bilateral lower extremity. Right lower thigh hematoma evacuation with a wound VAC in place 28 min pt exam, chart review, > 50% of time spent with exam, chart review, pt care coordination 04/16/2021: Afebrile, breathing on room air. Wound VAC in place to right thigh. worked with physical therapy . Continue treatment of bilateral lower extremity wounds with Zosyn. she has not willing to go back [facility] as did not really change the dressings on her legs. She would much prefer a different shelter facility upon discharge. Anticipate plastic surgery recommendations on management of right thigh hematoma. d/w rn and social work infected foul smelling wounds, bilateral lower extremity. Right lower thigh hematoma evacuation with a wound VAC in place 04/15/2021: Afebrile, breathing on room air. Wound VAC in place to right thigh. She reports some pain in her legs with movement, but worked with physical therapy yesterday. Continue treatment of bilateral lower extremity wounds with Zosyn. She states that she has not found to [facility] as did not really change the dressings on her legs. She would much prefer a different shelter facility upon discharge. Anticipate plastic surgery recommendations on management of right thigh hematoma. 04/14/2021: Febrile overnight with T-max 100.7 F. WBC 11.[address] consult to ID to help with management of cellulitis that failed outpatient antibiotic treatment. Per vascular surgery, no urgency for surgical debridement of her wounds or angiogram currently. She had wound VAC placed in the right thigh yesterday. Await recommendations from plastic surgery. Vitals/I&O Vitals/I&O: Vital Signs Date Time Temp Pulse Resp B/P (MAP) Pulse Ox O2 Delivery O2 Flow Rate FiO2 04/22/21 11:00 98.3 61 16 133/53 (79) 90 Room Air 98.3 I & O 04/21/21 04/21/21 04/22/21 15:00 23:00 07:00 Intake Total 840 ml 50 ml Balance 840 ml 50 ml Physical Exam Physical Exam: GENERAL: Alert, oriented female, not in distress. resting in bed HEENT: Both pupils are round and reacting. No conjunctival lesion, no lesion in the mouth. NECK: Supple, no JVP, no lymphadenopathy. LUNGS: Clear. HEART: S1, S2 regular. ABDOMEN: Soft, nontender, no organomegaly. EXTREMITIES: Right lower extremity, lower thigh, right thigh has a wound VAC, Intact, removed, large wound with clean base , purulence no surrounding redness or warmth; Bilateral lower extremity, back of the leg, wound dressing in place, intact not taken down Wound pictures reviewed in chart; discussed with RN NEUROLOGIC: The patient is alert, awake, and appropriate. No focal neurologic deficit. General: Alert, Oriented X3, No acute distress Heart: Regular rate, Normal S1, Normal S2 Lungs: Clear Abdomen: Normal bowel sounds, Soft Extremities: Other (Necrotic ulcers on right lower extremity. Diffuse wounds throughout lower extremities. Wound VAC in place to right lower extremity) Skin: No rashes (Petechial rash demonstrated distally coalescence to bullae formation identified over the foot dorsum.) Labs Labs: Laboratory Tests Test 04/21/21 16:40 04/21/21 20:36 04/22/21 04:02 04/22/21 07:23 Glucose (Fingerstick) 191 mg/dL (70-99) 191 mg/dL (70-99) 149 mg/dL (70-99) Prothrombin Time 22.9 SEC (11.7-14.0) Prothromb Time International Ratio 2.1 (0.8-1.1) Test 04/22/21 11:16 Glucose (Fingerstick) 154 mg/dL (70-99) Review of Systems Review of Systems: Other than right lower extremity pain no complaints Comment Review of Relevant I have reviewed the following items ronen (where applicable) has been applied. Medications: Current Medications Medications (Trade) Dose Ordered Sig/Gennaro Route PRN Reason Start Time Stop Time Status Last Admin Dose Admin Warfarin Sodium (Coumadin - No Dose Today) 1 each 1X WARF ONCE MC 04/21/21 16:00 04/21/21 16:01 DC 04/21/21 16:00 Sodium Chloride 1,000 ml @ 75 mls/hr [id number] IV 04/21/21 19:45 04/22/21 12:20 Hydromorphone HCl (Dilaudid) 0.5 mg PRN Q2HR PRN IVP SEVERE PAIN 7-10 04/22/21 04:00 04/22/21 07:53 Phytonadione (Vitamin K Ampule) 5 mg 1X ONCE SQ 04/22/21 09:30 04/22/21 09:31 DC 04/22/21 12:20 Justifications for Admission Other Justification Diabetic ulcers, failed outpatient treatment JAZMINE REY MD Apr 22, 2021 13:40
--- NOTE | 2021-04-22 14:50 | NUR ---
Wound Care Pt had vac dressing changed earlier by Law BRIDGES. Pt had venous doppler today so kerlix was removed. Pt still has aquacel ag over open wounds, reapplied ABD pads and kerlix, wounds not assessed as pt is scheduled to go to surgery tomorrow.
[2021-04-22 15:00] VITALS: BP 147/54
--- NOTE | 2021-04-22 15:33 | NUR ---
Pt transferred to 5N at 1525.
--- NOTE | 2021-04-22 15:45 | NUR ---
Pt arrived on unit from 4N at 1530 via bed. Pt denies pain upon transfer. Tele monitor applied, sinus rhythm on the monitor. POC/orders reviewed. Pt has call light at hand, water within reach, watching tv with no complaints. Will assume care of pt.
--- NOTE | 2021-04-22 16:37 | RAD ---
EXAM: US VENOUS REFLUX. HISTORY: Venous hypertension. COMPARISON: None. FINDINGS: Grayscale and Doppler analysis of the lower extremity deep venous systems was performed to assess for reflux. On the right, there is 0.4 seconds reflux at the saphenofemoral junction, which measures 0.7 mm. Ther e is no free reflux within the proximal greater saphenous vein. There is no reflux within the right lesser saphenous vein. It measures 2 mm at the junction and 3 mm proximally. On the left, there is 0.4 seconds reflux at the saphenofemoral junction, which measures 6 mm. The lef t greater saphenous vein has been ablated more distally. The left lesser saphenous vein is not visualized. IMPRESSION: 1. 0.4 seconds reflux at the saphenofemoral junctions bilaterally may be within normal limits. Electronically signed by: Laly Banegas MD (04/22/2021 4:35 PM) [id number]
[2021-04-22 19:00] VITALS: BP 132/47
[2021-04-22] MEDS: ATORVASTATIN CALCIUM 40 MG TABLET. PO SCH (22:04)
[2021-04-22] MEDS: INSULIN GLARGINE SYRINGE. SQ SCH (22:10)
--- NOTE | 2021-04-22 22:25 | NUR ---
Iv flids for 2225 not administered, as current bag remains infusing, not out as of yet.
[2021-04-22 23:00] VITALS: BP 142/52
[2021-04-23] VITALS (10 sets, daily range): BP systolic 155–197; BP diastolic 35–167
[2021-04-23] MEDS: PIPERACILLIN/TAZOBACTAM 3.375 GM in IV NORMAL SALINE 50ML 50 ML IV SCH ×5 (00:13→23:26)
--- NOTE | 2021-04-23 02:34 | NUR ---
Wound vac collection chamber full, changed with assist of carlos Holly rn, 450mls serous contents noted, entered onto the i/o chart. patient sleping through the change.
[2021-04-23 07:08] LABS: BASO % 0 % (0-3); EOS # 0.1 x10^3/uL (0.0-0.7); EOS % 1 % (0-3); HEMATOCRIT 23.9 % (36.0-47.0); HEMOGLOBIN 7.6 g/dL (12.0-15.5); LYMPH # 1.4 x10^3/uL (1.0-4.8); LYMPH % 20 % (24-48); MEAN CORPUSCULAR HEMOGLOBIN 26 pg (25-35); MEAN CORPUSCULAR HGB CONC 32 g/dL (31-37); MEAN CORPUSCULAR VOLUME 80 fL (79-100); MONO # 0.6 x10^3/uL (0.0-1.1); MONO % 8 % (0-9); NEUT % 71 % (31-73); PLATELET COUNT 379 x10^3/uL (140-400); RED BLOOD COUNT 2.97 x10^6/uL (3.50-5.40); RED CELL DISTRIBUTION WIDTH 18.9 % (11.5-14.5); WHITE BLOOD COUNT 7.1 x10^3/uL (4.0-11.0)
[2021-04-23 07:15] LABS: PROTHROMBIN TIME PATIENT 17.5 SEC (11.7-14.0)
[2021-04-23 07:28] LABS: ALBUMIN 1.2 g/dL (3.4-5.0); ALBUMIN/GLOBULIN RATIO 0.3 (1.0-1.7); CALCIUM 7.9 mg/dL (8.5-10.1); CREATININE 0.9 mg/dL (0.6-1.0); GFR 60.7; POTASSIUM 3.2 mmol/L (3.5-5.1); TOTAL BILIRUBIN 0.2 mg/dL (0.2-1.0); TOTAL PROTEIN 5.5 g/dL (6.4-8.2)
[2021-04-23] MEDS: INSULIN LISPRO 300 UNITS/3 ML VIAL. SQ SCH ×3 (07:54→17:40)
--- NOTE | 2021-04-23 08:34 | PDOC ---
Infectious Disease Note Subjective: Subjective Patient feels better has some RLE pain and loose bm dEmyw rn Vital Signs: Vital Signs Vital Signs Date Time Temp Pulse Resp B/P (MAP) Pulse Ox O2 Delivery O2 Flow Rate FiO2 04/23/21 07:54 Room Air 04/23/21 06:14 98.9 72 20 160/61 (94) 93 98.9 Physical Exam: PHYSICAL EXAM GENERAL: Alert, oriented female, not in distress. resting in bed HEENT: Both pupils are round and reacting. No conjunctival lesion, no lesion in the mouth. NECK: Supple, no JVP, no lymphadenopathy. LUNGS: Clear. HEART: S1, S2 regular. ABDOMEN: Soft, nontender, no organomegaly. EXTREMITIES: Right lower extremity, lower thigh, right thigh has a wound VAC, Intact, removed, large wound with clean base , purulence no surrounding redness or warmth; Bilateral lower extremity, back of the leg, wound dressing in place, intact not taken down Wound pictures reviewed in chart; discussed with RN NEUROLOGIC: The patient is alert, awake, and appropriate. No focal neurologic deficit. Medications: Inpatient Meds: Medications reviewed. Labs: Lab Laboratory Tests Test 04/22/21 11:16 04/22/21 17:14 04/22/21 20:20 04/23/21 06:40 Glucose (Fingerstick) 154 mg/dL (70-99) 199 mg/dL (70-99) 172 mg/dL (70-99) White Blood Count 7.1 x10^3/uL (4.0-11.0) Red Blood Count 2.97 x10^6/uL (3.50-5.40) Hemoglobin 7.6 g/dL (12.0-15.5) Hematocrit 23.9 % (36.0-47.0) Mean Corpuscular Volume 80 fL (79-100) Mean Corpuscular Hemoglobin 26 pg (25-35) Mean Corpuscular Hemoglobin Concent 32 g/dL (31-37) Red Cell Distribution Width 18.9 % (11.5-14.5) Platelet Count 379 x10^3/uL (140-400) Neutrophils (%) (Auto) 71 % (31-73) Lymphocytes (%) (Auto) 20 % (24-48) Monocytes (%) (Auto) 8 % (0-9) Eosinophils (%) (Auto) 1 % (0-3) Basophils (%) (Auto) 0 % (0-3) Neutrophils # (Auto) 5.0 x10^3/uL (1.8-7.7) Lymphocytes # (Auto) 1.4 x10^3/uL (1.0-4.8) Monocytes # (Auto) 0.6 x10^3/uL (0.0-1.1) Eosinophils # (Auto) 0.1 x10^3/uL (0.0-0.7) Basophils # (Auto) 0.0 x10^3/uL (0.0-0.2) Prothrombin Time 17.5 SEC (11.7-14.0) Prothromb Time International Ratio 1.5 (0.8-1.1) Sodium Level 144 mmol/L (136-145) Potassium Level 3.2 mmol/L (3.5-5.1) Chloride Level 110 mmol/L (98-107) Carbon Dioxide Level 28 mmol/L (21-32) Anion Gap 6 (6-14) Blood Urea Nitrogen 9 mg/dL (7-20) Creatinine 0.9 mg/dL (0.6-1.0) Estimated GFR (Cockcroft-Gault) 60.7 BUN/Creatinine Ratio 10 (6-20) Glucose Level 141 mg/dL (70-99) Calcium Level 7.9 mg/dL (8.5-10.1) Total Bilirubin 0.2 mg/dL (0.2-1.0) Aspartate Amino Transf (AST/SGOT) 14 U/L (15-37) Alanine Aminotransferase (ALT/SGPT) 7 U/L (14-59) Alkaline Phosphatase 117 U/L (46-116) Total Protein 5.5 g/dL (6.4-8.2) Albumin 1.2 g/dL (3.4-5.0) Albumin/Globulin Ratio 0.3 (1.0-1.7) Test 04/23/21 07:54 Glucose (Fingerstick) 132 mg/dL (70-99) Objective: Assessment: 1. Infected foul smelling wounds, bilateral lower extremity. 2. Right lower thigh hematoma evacuation with a wound VAC in place, clean wound 3. Leukocytosis. 4. Fever. resolved 5. Peripheral vascular disease. 6. Coronary artery disease. Plan: Plan of Care cont zosyn Cont local wound care per wound team Awaiting debridement by plastics per RN Monitor labs D/W CASTRO MAYA MD Apr 23, 2021 08:34
[2021-04-23] MEDS: LACTOBACILLUS RHAMNOSUS GG 1 CAPSULE. PO SCH ×2 (08:52→20:56)
[2021-04-23] MEDS: METOPROLOL SUCC 24HR ER 50 MG TAB.ER.24H. PO SCH (08:52)
[2021-04-23] MEDS: LOSARTAN POTASSIUM 50 MG TABLET. PO SCH (08:52)
[2021-04-23] MEDS: CITALOPRAM 20 MG TABLET. PO SCH (08:52)
[2021-04-23] MEDS: HYDROmorphone 2 MG/ML VIAL IVP PRN ×2 (09:40→20:56)
[2021-04-23] MEDS: NYSTATIN TOPICAL POWDER 15GM BOTTLE. TP SCH ×2 (09:41→20:57)
[2021-04-23] MEDS: POTASSIUM CHLORIDE 10MEQ 100 ML IV SCH ×4 (09:41→15:30)
[2021-04-23] MEDS ORDERED: IV RINGERS,LACTATED 1000ML 1,000 ML IV SCH (11:00)
[2021-04-23] MEDS ORDERED: fentaNYL PF VIAL 100 MCG/2 ML VIAL IVP PRN (11:00)
[2021-04-23] MEDS ORDERED: HYDROmorphone 2 MG/ML VIAL IVP PRN (11:00)
[2021-04-23] MEDS ORDERED: PROCHLORPERAZINE 10 MG/2 ML VIAL. IVP PRN (11:00)
[2021-04-23] MEDS ORDERED: MORPHINE SULFATE 2 MG/ML INJ. IVP PRN (11:00)
--- NOTE | 2021-04-23 11:27 | PDOC ---
[facility] [facility] PROGRESS NOTE Date of Service DOS: DATE: 04/23/21 TIME: 11:22 Chief Complaint Chief Complaint Impression Sepsis present on admission Nonhealing acute on chronic bilateral lower extremity wounds, foul-smelling and necrotic tissue down to subcutaneous fat. Right lower thigh hematoma with wound VAC in place Severe peripheral vascular disease with multiple stenosis Atrial fibrillation Supratherapeutic INR, hold warfarin, pharmacy to adjust need 04-17 DM2 CAD HTN Severe protein malnutrition Anemia of chronic inflammatory disease Transaminitiselevated alkaline phosphatase likely related to bone disease Hypokalemia Plan: Consulted to vascular surgery, plastic surgery, and wound care Patient likely to need additional debridement; planning for April 23 pending INR below 1.5 tomorrow morning Continue Zosyn; will change to Invanz on discharge Continue holding warfarin due to supratherapeutic INR Continue home medications FEN - Cardiac diet PPX -hold warfarin for procedure tomorrow DNR Dispo - inpatient for above Surrogate decision-maker is her daughter (Alyce Santana) History of Present Illness History of Present Illness Patient 76-year-old female with past medical history DM2, CAD, HTN, HLD, presents as a direct admit from [facility] due to multiple nonhealing blistering wounds to her bilateral feet for the past month. She was recently treated on our service (03/22/2021) for evacuation and debridement of right thigh hematoma. Right lower extremity CTA at that time showed calcified plaque with approximately 50 percent stenosis to SFA, extensive arterial calcifications to right popliteal artery, heavy calcifications to anterior tibial artery, and occluded right posterior tibial artery; Left lower extremity CTA showed popliteal artery with 60-70 percent stenosis at mid segment, left anterior tibial artery with heavy calcifications, left posterior tibial artery occluded distally. She has been receiving local wound care and follow-up at wound care clinic without significant improvement in her blisters. She denies any significant pain but does admit to some clear serous drainage from her bilateral feet. Will admit patient for further medical management. 04/22/21 Patient seen and examined at bedside. Other than right lower extremity pain no complaints. INR 2 elevated this morning, 2.1, so high for surgery. Will give another dose of vitamin K today and recheck INR tomorrow. Surgery pending INR result in the morning. Plan discussed with bedside nurse. 04/21/21 Patient seen and examined at bedside. Does say she is having some worsening pain in her right lower extremity. Evaluated by hematology and vascular surgery today. Plastic surgery reconsulted and planning for irrigation and debridement tomorrow. However patient's INR needs to be below 1.5, it is 2.7 today however has been dropping at least one-point the past 2 days. Will give dose of vitamin K today and recheck INR in the morning. If above one-point 5 in the morning patient may need FFP prior to surgery. 04/20/21 Patient seen and examined at bedside. This morning she reports her breathing is stable. Does report increased swelling in her bilateral upper extremities encouraged her to elevate them. Patient being reevaluated by vascular surgery today. Also will consult hematology for vasculitis work-up. Plan of care discussed with bedside nurse. 04/19/21 Patient seen and examined at bedside. Remains afebrile. Agreeable to returning to [facility] for rehab. Continuing Zosyn will change to Invanz on discharge. Is endorsing some shortness of breath and bilateral upper extremity swelling this morning chest x-ray shows pulmonary edema, will try a one-time dose of Lasix. Plan of care discussed with bedside nurse 04/18/2021: Afebrile. Still with some leg pain, controlled with medication. She will need penitentiary facility that can manage wound VAC and IV antibiotic regimen. Likely change Zosyn to Invanz, per ID. She does not want to return to [facility] for penitentiary. political worker helping to find other suitable rehab facilities per patient's preference. 04/17/2021: less ankle edema Afebrile, breathing on room air. Wound VAC in place to right thigh. worked with physical therapy . Continue treatment of bilateral lower extremity wounds with Zosyn. she has not willing to go back [facility] as did not really change the dressings on her legs. She would much prefer a different penitentiary facility upon discharge. Anticipate plastic surgery recommendations on management of right thigh hematoma. d/w rn and social work infected foul smelling wounds, bilateral lower extremity. Right lower thigh hematoma evacuation with a wound VAC in place 28 min pt exam, chart review, > 50% of time spent with exam, chart review, pt care coordination 04/16/2021: Afebrile, breathing on room air. Wound VAC in place to right thigh. worked with physical therapy . Continue treatment of bilateral lower extremity wounds with Zosyn. she has not willing to go back [facility] as did not really change the dressings on her legs. She would much prefer a different penitentiary facility upon discharge. Anticipate plastic surgery recommendations on management of right thigh hematoma. d/w rn and social work infected foul smelling wounds, bilateral lower extremity. Right lower thigh hematoma evacuation with a wound VAC in place 04/15/2021: Afebrile, breathing on room air. Wound VAC in place to right thigh. She reports some pain in her legs with movement, but worked with physical therapy yesterday. Continue treatment of bilateral lower extremity wounds with Zosyn. She states that she has not found to [facility] as did not really change the dressings on her legs. She would much prefer a different penitentiary facility upon discharge. Anticipate plastic surgery recommendations on management of right thigh hematoma. 04/14/2021: Febrile overnight with T-max 100.7 F. WBC 11.[address]. Will [address] consult to ID to help with management of cellulitis that failed outpatient antibiotic treatment. Per vascular surgery, no urgency for surgical debridement of her wounds or angiogram currently. She had wound VAC placed in the right thigh yesterday. Await recommendations from plastic surgery. Vitals/I&O Vitals/I&O: Vital Signs Date Time Temp Pulse Resp B/P (MAP) Pulse Ox O2 Delivery O2 Flow Rate FiO2 04/23/21 10:03 Room Air 04/23/21 06:14 98.9 72 20 160/61 (94) 93 98.9 I & O 04/22/21 04/22/21 04/23/21 15:00 23:00 07:00 Intake Total 150 ml 150 ml Output Total 450 ml Balance 150 ml -300 ml Physical Exam Physical Exam: GENERAL: Alert, oriented female, not in distress. resting in bed HEENT: Both pupils are round and reacting. No conjunctival lesion, no lesion in the mouth. NECK: Supple, no JVP, no lymphadenopathy. LUNGS: Clear. HEART: S1, S2 regular. ABDOMEN: Soft, nontender, no organomegaly. EXTREMITIES: Right lower extremity, lower thigh, right thigh has a wound VAC, Intact, removed, large wound with clean base , purulence no surrounding redness or warmth; Bilateral lower extremity, back of the leg, wound dressing in place, intact not taken down Wound pictures reviewed in chart; discussed with RN NEUROLOGIC: The patient is alert, awake, and appropriate. No focal neurologic deficit. General: Alert, Oriented X3, No acute distress Heart: Regular rate, Normal S1, Normal S2 Lungs: Clear Abdomen: Normal bowel sounds, Soft Extremities: Other (Necrotic ulcers on right lower extremity. Diffuse wounds throughout lower extremities. Wound VAC in place to right lower extremity) Skin: No rashes (Petechial rash demonstrated distally coalescence to bullae formation identified over the foot dorsum.) Labs Labs: Laboratory Tests Test 04/22/21 17:14 04/22/21 20:20 04/23/21 06:40 04/23/21 07:54 Glucose (Fingerstick) 199 mg/dL (70-99) 172 mg/dL (70-99) 132 mg/dL (70-99) White Blood Count 7.1 x10^3/uL (4.0-11.0) Red Blood Count 2.97 x10^6/uL (3.50-5.40) Hemoglobin 7.6 g/dL (12.0-15.5) Hematocrit 23.9 % (36.0-47.0) Mean Corpuscular Volume 80 fL (79-100) Mean Corpuscular Hemoglobin 26 pg (25-35) Mean Corpuscular Hemoglobin Concent 32 g/dL (31-37) Red Cell Distribution Width 18.9 % (11.5-14.5) Platelet Count 379 x10^3/uL (140-400) Neutrophils (%) (Auto) 71 % (31-73) Lymphocytes (%) (Auto) 20 % (24-48) Monocytes (%) (Auto) 8 % (0-9) Eosinophils (%) (Auto) 1 % (0-3) Basophils (%) (Auto) 0 % (0-3) Neutrophils # (Auto) 5.0 x10^3/uL (1.8-7.7) Lymphocytes # (Auto) 1.4 x10^3/uL (1.0-4.8) Monocytes # (Auto) 0.6 x10^3/uL (0.0-1.1) Eosinophils # (Auto) 0.1 x10^3/uL (0.0-0.7) Basophils # (Auto) 0.0 x10^3/uL (0.0-0.2) Prothrombin Time 17.5 SEC (11.7-14.0) Prothromb Time International Ratio 1.5 (0.8-1.1) Sodium Level 144 mmol/L (136-145) Potassium Level 3.2 mmol/L (3.5-5.1) Chloride Level 110 mmol/L (98-107) Carbon Dioxide Level 28 mmol/L (21-32) Anion Gap 6 (6-14) Blood Urea Nitrogen 9 mg/dL (7-20) Creatinine 0.9 mg/dL (0.6-1.0) Estimated GFR (Cockcroft-Gault) 60.7 BUN/Creatinine Ratio 10 (6-20) Glucose Level 141 mg/dL (70-99) Calcium Level 7.9 mg/dL (8.5-10.1) Total Bilirubin 0.2 mg/dL (0.2-1.0) Aspartate Amino Transf (AST/SGOT) 14 U/L (15-37) Alanine Aminotransferase (ALT/SGPT) 7 U/L (14-59) Alkaline Phosphatase 117 U/L (46-116) Total Protein 5.5 g/dL (6.4-8.2) Albumin 1.2 g/dL (3.4-5.0) Albumin/Globulin Ratio 0.3 (1.0-1.7) Comment Review of Relevant I have reviewed the following items ronen (where applicable) has been applied. Medications: Current Medications Medications (Trade) Dose Ordered Sig/Gennaro Route PRN Reason Start Time Stop Time Status Last Admin Dose Admin Potassium Chloride/Water 100 ml @ 100 mls/hr Q1H IV 04/23/21 09:00 04/23/21 12:59 04/23/21 11:21 Justifications for Admission Other Justification Diabetic ulcers, failed outpatient treatment ZORAIDA GARCIA MD Apr 23, 2021 11:27
[2021-04-23] MEDS: IV NORMAL SALINE 1000ML BAG 1,000 ML IV SCH ×2 (11:45→23:26)
--- NOTE | 2021-04-23 11:50 | PDOC ---
SURGICAL PROGRESS NOTE DATE: 04/23/21 TIME: 11:44 Subjective Patient was seen and examined at the bedside today and is doing well. Pain is under good control. She is n.p.o. this morning for planned surgical debridement with plastic surgery later this afternoon. Vital Signs Vital Signs Date Time Temp Pulse Resp B/P (MAP) Pulse Ox O2 Delivery O2 Flow Rate FiO2 04/23/21 10:03 Room Air 04/23/21 06:14 98.9 72 20 160/61 (94) 93 98.9 I&O Intake and Output 04/23/21 07:00 Intake Total 300 ml Output Total 450 ml Balance -150 ml Intake Oral 200 ml IV Total 100 ml Drainage Total 450 ml # Voids 1 # Bowel Movements 1 General: Alert HEENT: Atraumatic, PERRLA, EOMI, Mucous membr. moist/pink Lungs: Clear to auscultation, Normal air movement Heart: Regular rate, Normal S1, Normal S2, No murmurs Abdomen: Normal bowel sounds, Soft, Other (Morbidly obese) Extremities: No clubbing, No edema, Other (Intact biphasic dorsalis pedis Doppler signals bilaterally, posterior tibial Doppler signals are absent bilaterally) Skin: Other (Full-thickness superficial gangrene involving the posterior right lower extremity with several large patches of wounds, superficial full-thickness wounds involving the left dorsal surface pretibial area, chronic venous insufficiency skin changes bilaterally with hemosiderin deposition, no cellul itis, no purulent drainage) Neuro: Normal speech, Strength at 5/5 X4 ext, Sensation intact, Cranial nerves 3-12 NL Psych/Mental Status: Mental status NL, Mood NL Labs Laboratory Tests Test 04/21/21 16:40 04/21/21 20:36 04/22/21 04:02 04/22/21 07:23 Glucose (Fingerstick) 191 mg/dL (70-99) 191 mg/dL (70-99) 149 mg/dL (70-99) Prothrombin Time 22.9 SEC (11.7-14.0) Prothromb Time International Ratio 2.1 (0.8-1.1) Test 04/22/21 11:16 04/22/21 17:14 04/22/21 20:20 04/23/21 06:40 Glucose (Fingerstick) 154 mg/dL (70-99) 199 mg/dL (70-99) 172 mg/dL (70-99) White Blood Count 7.1 x10^3/uL (4.0-11.0) Red Blood Count 2.97 x10^6/uL (3.50-5.40) Hemoglobin 7.6 g/dL (12.0-15.5) Hematocrit 23.9 % (36.0-47.0) Mean Corpuscular Volume 80 fL (79-100) Mean Corpuscular Hemoglobin 26 pg (25-35) Mean Corpuscular Hemoglobin Concent 32 g/dL (31-37) Red Cell Distribution Width 18.9 % (11.5-14.5) Platelet Count 379 x10^3/uL (140-400) Neutrophils (%) (Auto) 71 % (31-73) Lymphocytes (%) (Auto) 20 % (24-48) Monocytes (%) (Auto) 8 % (0-9) Eosinophils (%) (Auto) 1 % (0-3) Basophils (%) (Auto) 0 % (0-3) Neutrophils # (Auto) 5.0 x10^3/uL (1.8-7.7) Lymphocytes # (Auto) 1.4 x10^3/uL (1.0-4.8) Monocytes # (Auto) 0.6 x10^3/uL (0.0-1.1) Eosinophils # (Auto) 0.1 x10^3/uL (0.0-0.7) Basophils # (Auto) 0.0 x10^3/uL (0.0-0.2) Prothrombin Time 17.5 SEC (11.7-14.0) Prothromb Time International Ratio 1.5 (0.8-1.1) Sodium Level 144 mmol/L (136-145) Potassium Level 3.2 mmol/L (3.5-5.1) Chloride Level 110 mmol/L (98-107) Carbon Dioxide Level 28 mmol/L (21-32) Anion Gap 6 (6-14) Blood Urea Nitrogen 9 mg/dL (7-20) Creatinine 0.9 mg/dL (0.6-1.0) Estimated GFR (Cockcroft-Gault) 60.7 BUN/Creatinine Ratio 10 (6-20) Glucose Level 141 mg/dL (70-99) Calcium Level 7.9 mg/dL (8.5-10.1) Total Bilirubin 0.2 mg/dL (0.2-1.0) Aspartate Amino Transf (AST/SGOT) 14 U/L (15-37) Alanine Aminotransferase (ALT/SGPT) 7 U/L (14-59) Alkaline Phosphatase 117 U/L (46-116) Total Protein 5.5 g/dL (6.4-8.2) Albumin 1.2 g/dL (3.4-5.0) Albumin/Globulin Ratio 0.3 (1.0-1.7) Test 04/23/21 07:54 Glucose (Fingerstick) 132 mg/dL (70-99) Laboratory Tests Test 04/22/21 17:14 04/22/21 20:20 04/23/21 06:40 04/23/21 07:54 Glucose (Fingerstick) 199 mg/dL (70-99) 172 mg/dL (70-99) 132 mg/dL (70-99) White Blood Count 7.1 x10^3/uL (4.0-11.0) Red Blood Count 2.97 x10^6/uL (3.50-5.40) Hemoglobin 7.6 g/dL (12.0-15.5) Hematocrit 23.9 % (36.0-47.0) Mean Corpuscular Volume 80 fL (79-100) Mean Corpuscular Hemoglobin 26 pg (25-35) Mean Corpuscular Hemoglobin Concent 32 g/dL (31-37) Red Cell Distribution Width 18.9 % (11.5-14.5) Platelet Count 379 x10^3/uL (140-400) Neutrophils (%) (Auto) 71 % (31-73) Lymphocytes (%) (Auto) 20 % (24-48) Monocytes (%) (Auto) 8 % (0-9) Eosinophils (%) (Auto) 1 % (0-3) Basophils (%) (Auto) 0 % (0-3) Neutrophils # (Auto) 5.0 x10^3/uL (1.8-7.7) Lymphocytes # (Auto) 1.4 x10^3/uL (1.0-4.8) Monocytes # (Auto) 0.6 x10^3/uL (0.0-1.1) Eosinophils # (Auto) 0.1 x10^3/uL (0.0-0.7) Basophils # (Auto) 0.0 x10^3/uL (0.0-0.2) Prothrombin Time 17.5 SEC (11.7-14.0) Prothromb Time International Ratio 1.5 (0.8-1.1) Sodium Level 144 mmol/L (136-145) Potassium Level 3.2 mmol/L (3.5-5.1) Chloride Level 110 mmol/L (98-107) Carbon Dioxide Level 28 mmol/L (21-32) Anion Gap 6 (6-14) Blood Urea Nitrogen 9 mg/dL (7-20) Creatinine 0.9 mg/dL (0.6-1.0) Estimated GFR (Cockcroft-Gault) 60.7 BUN/Creatinine Ratio 10 (6-20) Glucose Level 141 mg/dL (70-99) Calcium Level 7.9 mg/dL (8.5-10.1) Total Bilirubin 0.2 mg/dL (0.2-1.0) Aspartate Amino Transf (AST/SGOT) 14 U/L (15-37) Alanine Aminotransferase (ALT/SGPT) 7 U/L (14-59) Alkaline Phosphatase 117 U/L (46-116) Total Protein 5.5 g/dL (6.4-8.2) Albumin 1.2 g/dL (3.4-5.0) Albumin/Globulin Ratio 0.3 (1.0-1.7) Problem List 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 I did rereviewed the patient's CT angiogram with runoff which does show diffuse ca lcified peripheral arterial disease. She has occlusion of the posterior tibial artery and peroneal artery bilaterally. Her dominant runoff is through the anterior tibial artery bilaterally. I do not think that revascularization of her single-vessel runoff is going to markedly improve her chances of healing based on her wound distribution. The 2 vessels that supply the posterior aspect of her legs where the majority of her wounds are located are chronically occluded. I do agree with Dr. Cartwright that aggressive surgical debridement and wound care is her best opportunity of managing these wounds. I did have a adalberto conversation with the patient regarding her peripheral arterial disease. She does understand that in the most severe consequences, there is a chance of limb loss. I do not suspect that this is imminent at this point. She was very realistic regarding these findings and does understand that point. She is hopeful that aggressive wound care and debridement will ultimately heal her wounds. She will go with Dr. Cartwright later today for aggressive surgical debridement. All questions were answered to her satisfaction at the bedside today. Aidee Lorenz DO, [facility] Justicifation of Admission Dx: Justifications for Admission: Justification of Admission Dx: Yes AIDEE LORENZ DO Apr 23, 2021 11:50
--- NOTE | 2021-04-23 12:59 | NUR ---
Pharmacy Warfarin Dosing Note S:Pharmacy consulted to assist with anticoagulation therapy started with target INR: 2 -3 O:SIXTO MEREDITH is a 76 year old F with DVT/PE H/O DVT LABS: Last INR: 1.5 Last HGB: 7.6 Last HCT: 23.9 Last PLT: 379 Last dose of Hold given on 04/22/21 at 1600 Previous Regimen: 4MG DAILY Vitamin K given: Y 04/21 5MG, 04/22 5MG Drug Interaction Changes: None Ongoing Drug Interactions: A:INR of 1.5 is below desired range. Target range for this patient is: 2 -3 P: Warfarin dose: 4 mg Today at 2100 Bridge Therapy: None Next INR due 04/24/21. Pharmacy anticoagulation service will continue to follow. JENNA SAEED RP, 04/23/21 [id number]
[2021-04-23] MEDS ORDERED: PROPOFOL 10 MG/ML (20ML) VIAL. IV ONE (13:13)
[2021-04-23] MEDS ORDERED: LIDOCAINE 2% PF 5 ML VIAL. ONE (13:14)
[2021-04-23] MEDS ORDERED: DEXAMETHASONE SOD PHOS 4 MG/ML VIAL ONE (13:14)
[2021-04-23] MEDS ORDERED: ONDANSETRON PF 4 MG/2 ML VIAL. ONE (13:14)
[2021-04-23] MEDS ORDERED: METOPROLOL IV PUSH 5 MG/5 ML VIAL. IVP ONE (13:18)
[2021-04-23] MEDS ORDERED: HYDROmorphone 2 MG/ML VIAL ONE (13:20)
[2021-04-23] MEDS ORDERED: EPINEPHrine VIAL 30 MG/30 ML VIAL ONE (13:44)
[2021-04-23] MEDS ORDERED: SODIUM HYPOCHLORITE 0.125% 473 ML BOTTLE. TP ONE (14:00)
[2021-04-23] MEDS ORDERED: fentaNYL PF VIAL 100 MCG/2 ML VIAL ONE (15:21)
[2021-04-23] MEDS ORDERED: PROCHLORPERAZINE 10 MG/2 ML VIAL. ONE (15:21)
[2021-04-23] MEDS: fentaNYL PF VIAL 100 MCG/2 ML VIAL IVP PRN ×2 (15:29→16:08)
--- NOTE | 2021-04-23 15:36 | PDOC ---
SUBJECTIVE Subjective 04/23/21 1300 Pt was examined before surgery in the perioperative holding area. Her INR responded to a second dose of Vitamin K and is 1.5. No acute changes in her status. OBJECTIVE Vital Signs Vital Signs Date Time Temp Pulse Resp B/P (MAP) Pulse Ox O2 Delivery O2 Flow Rate FiO2 04/23/21 13:00 98.5 70 15 157/51 93 Room Air 98.5 04/23/21 11:00 98.5 70 20 155/49 (84) 93 Room Air 98.5 04/23/21 10:03 Room Air 04/23/21 07:54 Room Air 04/23/21 06:14 98.9 72 20 160/61 (94) 93 Room Air 98.9 04/22/21 23:00 99.0 69 20 142/52 (82) 91 Room Air 99.0 04/22/21 22:36 20 Room Air 04/22/21 20:30 Room Air 04/22/21 19:00 98.6 60 20 132/47 (75) 91 Room Air 98.6 I & O Intake and Output 04/23/21 07:00 Intake Total 300 ml Output Total 450 ml Balance -150 ml Intake Oral 200 ml IV Total 100 ml Drainage Total 450 ml # Voids 1 # Bowel Movements 1 PHYSICAL EXAM Physical Exam General: No acute distress Extremities: Warm, all sites bandaged. Wound vac to right thigh ASSESSMENT/PLAN Assessment/Plan Investigations/Discussions with vascular surgery, hematology, and hospitalist teams did not result in a consensus of the etiology of the patient's lower leg wounds. Venous studies for reflux and DVT this admission were essentially negative. Prior CTA bilateral lower extremity revealed chronic PAD with occludsion of the PT and and peroneal on the right. Vascular surgery assessed that revascularization will not contribute to wound healing and risks outweigh benefits. Differential includes peripheral venous/arterial insufficiency +/- pyoderma gangrenosum. I discussed this with the patient. I will take her to the OR today for debridement bilateral lower extremity wounds, obtain tissue and cultures, and place Dakin's wet to dry dressings at all sites. I'll follow up cultures and place wound vacs at all sites when appropriate, eventually proceeding to skin grafts hopefully in one session. She understands that debridement today could worsen the wounds as well as general risks of bleeding, infection, need for further procedures, . Will proceed as above. COMMENT Lab Laboratory Tests Test 04/22/21 17:14 04/22/21 20:20 04/23/21 06:40 04/23/21 07:54 Glucose (Fingerstick) 199 mg/dL (70-99) 172 mg/dL (70-99) 132 mg/dL (70-99) White Blood Count 7.1 x10^3/uL (4.0-11.0) Red Blood Count 2.97 x10^6/uL (3.50-5.40) Hemoglobin 7.6 g/dL (12.0-15.5) Hematocrit 23.9 % (36.0-47.0) Mean Corpuscular Volume 80 fL (79-100) Mean Corpuscular Hemoglobin 26 pg (25-35) Mean Corpuscular Hemoglobin Concent 32 g/dL (31-37) Red Cell Distribution Width 18.9 % (11.5-14.5) Platelet Count 379 x10^3/uL (140-400) Neutrophils (%) (Auto) 71 % (31-73) Lymphocytes (%) (Auto) 20 % (24-48) Monocytes (%) (Auto) 8 % (0-9) Eosinophils (%) (Auto) 1 % (0-3) Basophils (%) (Auto) 0 % (0-3) Neutrophils # (Auto) 5.0 x10^3/uL (1.8-7.7) Lymphocytes # (Auto) 1.4 x10^3/uL (1.0-4.8) Monocytes # (Auto) 0.6 x10^3/uL (0.0-1.1) Eosinophils # (Auto) 0.1 x10^3/uL (0.0-0.7) Basophils # (Auto) 0.0 x10^3/uL (0.0-0.2) Prothrombin Time 17.5 SEC (11.7-14.0) Prothromb Time International Ratio 1.5 (0.8-1.1) Sodium Level 144 mmol/L (136-145) Potassium Level 3.2 mmol/L (3.5-5.1) Chloride Level 110 mmol/L (98-107) Carbon Dioxide Level 28 mmol/L (21-32) Anion Gap 6 (6-14) Blood Urea Nitrogen 9 mg/dL (7-20) Creatinine 0.9 mg/dL (0.6-1.0) Estimated GFR (Cockcroft-Gault) 60.7 BUN/Creatinine Ratio 10 (6-20) Glucose Level 141 mg/dL (70-99) Calcium Level 7.9 mg/dL (8.5-10.1) Total Bilirubin 0.2 mg/dL (0.2-1.0) Aspartate Amino Transf (AST/SGOT) 14 U/L (15-37) Alanine Aminotransferase (ALT/SGPT) 7 U/L (14-59) Alkaline Phosphatase 117 U/L (46-116) Total Protein 5.5 g/dL (6.4-8.2) Albumin 1.2 g/dL (3.4-5.0) Albumin/Globulin Ratio 0.3 (1.0-1.7) Test 04/23/21 11:49 Glucose (Fingerstick) 151 mg/dL (70-99) Justifications for Admission Other Justification Diabetic ulcers, failed outpatient treatment JESSE ALVARADO MD Apr 23, 2021 15:36
--- NOTE | 2021-04-23 16:22 | PDOC4 ---
OPERATIVE NOTE Date: Date: Mar 04, 2021 Pre-Op Diagnosis: Bilateral lower extremity wounds Post-Op Diagnosis: Same Procedure Performed: Debridement of bilateral lower extremity wounds Incision and debridement of abscess right posterior leg Surgeon: Isa Alvarado MD Anesthesia Type: General endotracheal anesthesia Blood Loss: 50 mL Specimans Obtained: Right leg posterior wound, right leg anterior lateral wound, right leg posterior lateral wound Findings: See operative note Complications: None Operative Note: Informed consent was obtained in the perioperative holding area. The risks of bleeding, infection, worsening of the wounds, need for additional procedures, delayed wound healing were discussed with the patient. She understood the risks and desire to proceed. The patient was taken to the operating room and placed on the OR table in the supine position. Perioperative antibiotics were administered. SCDs were in place prior to induction of anesthesia. General endotracheal anesthesia was induced. The patient was secured to the operating room table. The patient's bilateral lower extremities were prepped with Betadine and draped in a sterile fashion. Working from the wound with the least to most necrotic burden, I began by debriding the slough that had begun to develop on the right thigh wound using a curette. The level of debridement was to fascia. This was then irrigated with an aqueous iodine solution. Attention was then turned to the left anterior leg wound where a moderate layer of slough was removed with a curette. The level of debridement was to the fascia. This was followed by irrigation. The process repeated for the right anterior, anterolateral, posterior lateral, and posterior wounds followed by the left posterior lateral wound. Tissue from these wounds were sent to the lab for pathologic analysis. In addition, a normal island of tissue with associated affected tissue from the posterior lateral wound was sent to pathology and histology for analysis. Finally the left great toe and right second toes were debrided. The level of debridement was to the fascia at each site. When debriding the right posterior wound purulence was noted to be emanating from a rent in the fascia. The fascia was open further, extending superiorly and inferiorly approximately 8 cm. Using digital exploration to release the fascia from the surrounding muscle a small amount of necrotic tissue was removed and sent to pathology for review. The underlying muscle was pink and appeared healthy. The surrounding fascia was adherent and also appeared healthy. The site was thoroughly irrigated with a an aqueous iodine solution. The fascia was loosely approximated with 2 interrupted [id number] sutures using 3-0 Vicryl. After all wounds were thoroughly irrigated hemostasis was obtained by using an epinephrine soaked sponge on each site. Measurements were obtained and are as follows: Left anterior leg 6.1 cm x 6.0 x 0.2cm Left great toe 4.4 cm x 2.4 cm x 0.1 cm Left posterior lateral wound 8.1 cm x 7.2 cm x 0.3 cm Right thigh 16.5 cm x 15.5 cm x 0.2cm Right posterior leg 2.1 cm x 2.3 cm x 0.5 cm Right anterolateral leg 6.8 cm x 3.4 cm x 0.3 cm Right mid anterior leg 2.3 cm x 1.5 cm x 0.2cm Right posterior lateral leg 11.5 cm x 8.5 cm x 0.5 cm Right second toe 1.5 cm x 1.8cm x 0.1 cm The wounds were dressed with quarter percent Dakin's wet-to-dry gauze, covered with ABDs, and wrapped with Kerlix. The patient tolerated the procedure well was transferred to the PACU in stable condition. Operating time: 13:51-14:46 ISA ALVARADO MD Apr 23, 2021 16:22
[2021-04-23] MEDS: HYDROcodone/APAP 5/325MG 1 TAB TABLET PO PRN (17:37)
[2021-04-23] MEDS: ATORVASTATIN CALCIUM 40 MG TABLET. PO SCH (20:56)
[2021-04-23] MEDS ORDERED: WARFARIN 4 MG TABLET. PO ONE (21:00)
[2021-04-23] MEDS: INSULIN GLARGINE SYRINGE. SQ SCH (21:00)
[2021-04-24 03:00] VITALS: BP 185/59
[2021-04-24] MEDS: HYDROcodone/APAP 5/325MG 1 TAB TABLET PO PRN ×4 (03:45→21:56)
[2021-04-24] MEDS: PIPERACILLIN/TAZOBACTAM 3.375 GM in IV NORMAL SALINE 50ML 50 ML IV SCH ×4 (06:17→23:21)
[2021-04-24] MEDS: HYDROmorphone 2 MG/ML VIAL IVP PRN ×2 (06:40→12:49)
[2021-04-24 07:00] VITALS: BP 146/51
[2021-04-24] MEDS: NYSTATIN TOPICAL POWDER 15GM BOTTLE. TP SCH ×2 (09:00→21:49)
[2021-04-24] MEDS: METOPROLOL SUCC 24HR ER 50 MG TAB.ER.24H. PO SCH (09:32)
[2021-04-24] MEDS: LACTOBACILLUS RHAMNOSUS GG 1 CAPSULE. PO SCH ×2 (09:32→21:49)
[2021-04-24] MEDS: CITALOPRAM 20 MG TABLET. PO SCH (09:32)
[2021-04-24] MEDS: LOSARTAN POTASSIUM 50 MG TABLET. PO SCH (09:33)
[2021-04-24] MEDS: INSULIN LISPRO 300 UNITS/3 ML VIAL. SQ SCH ×3 (09:39→18:09)
[2021-04-24 10:37] LABS: CALCIUM 7.6 mg/dL (8.5-10.1); GFR 53.8; MAGNESIUM 2.2 mg/dL (1.8-2.4); PHOSPHORUS 4.5 mg/dL (2.6-4.7); POTASSIUM 3.6 mmol/L (3.5-5.1)
--- NOTE | 2021-04-24 10:55 | PDOC ---
Infectious Disease Note Subjective: Subjective Patient underwent I and D of wound yesterday remains afebrile Postoperative pain site is under control Vital Signs: Vital Signs Vital Signs Date Time Temp Pulse Resp B/P (MAP) Pulse Ox O2 Delivery O2 Flow Rate FiO2 04/24/21 09:44 19 93 Room Air 04/24/21 09:33 64 146/51 04/24/21 07:00 98.0 2.0 98.0 Physical Exam: PHYSICAL EXAM GENERAL: Alert, oriented female, not in distress. resting in bed HEENT: Both pupils are round and reacting. No conjunctival lesion, no lesion in the mouth. NECK: Supple, no JVP, no lymphadenopathy. LUNGS: Clear. HEART: S1, S2 regular. ABDOMEN: Soft, nontender, no organomegaly. EXTREMITIES: Right lower extremity, lower thigh, right thigh has a wound VAC, Intact, removed, large wound with clean base , purulence no surrounding redness or warmth; Bilateral lower extremity, back of the leg, wound dressing in place, intact not taken down Wound pictures reviewed in chart; discussed with RN NEUROLOGIC: The patient is alert, awake, and appropriate. No focal neurologic deficit. Medications: Inpatient Meds: Medications reviewed. Labs: Lab Laboratory Tests Test 04/23/21 11:49 04/23/21 17:36 04/23/21 20:24 04/24/21 07:39 Glucose (Fingerstick) 151 mg/dL (70-99) 175 mg/dL (70-99) 168 mg/dL (70-99) 181 mg/dL (70-99) Test 04/24/21 09:05 Sodium Level 144 mmol/L (136-145) Potassium Level 3.6 mmol/L (3.5-5.1) Chloride Level 109 mmol/L (98-107) Carbon Dioxide Level 24 mmol/L (21-32) Anion Gap 11 (6-14) Blood Urea Nitrogen 14 mg/dL (7-20) Creatinine 1.0 mg/dL (0.6-1.0) Estimated GFR (Cockcroft-Gault) 53.8 Glucose Level 210 mg/dL (70-99) Calcium Level 7.6 mg/dL (8.5-10.1) Phosphorus Level 4.5 mg/dL (2.6-4.7) Magnesium Level 2.2 mg/dL (1.8-2.4) Objective: Assessment: 1. Infected foul smelling wounds, bilateral lower extremity. 2. Right lower thigh hematoma evacuation with a wound VAC in place, clean wound 3. Leukocytosis. 4. Fever. resolved 5. Peripheral vascular disease. 6. Coronary artery disease. Plan: Plan of Care cont zosyn Cont local wound care as directed supportive care Check C. difficile if diarrhea continues d/w daughters at bedside CASTRO ROMAN MD Apr 24, 2021 10:55
[2021-04-24 11:00] VITALS: BP 167/58
[2021-04-24 11:05] LABS: BASO % 0 % (0-3); EOS % 0 % (0-3); HEMATOCRIT 24.8 % (36.0-47.0); HEMOGLOBIN 7.7 g/dL (12.0-15.5); LYMPH % 11 % (24-48); MEAN CORPUSCULAR HEMOGLOBIN 25 pg (25-35); MEAN CORPUSCULAR HGB CONC 31 g/dL (31-37); MEAN CORPUSCULAR VOLUME 81 fL (79-100); MONO # 0.4 x10^3/uL (0.0-1.1); MONO % 4 % (0-9); NEUT # 7.4 x10^3/uL (1.8-7.7); NEUT % 84 % (31-73); PLATELET COUNT 405 x10^3/uL (140-400); RED BLOOD COUNT 3.06 x10^6/uL (3.50-5.40); RED CELL DISTRIBUTION WIDTH 19.1 % (11.5-14.5); WHITE BLOOD COUNT 8.7 x10^3/uL (4.0-11.0)
[2021-04-24 11:51] LABS: PROTHROMBIN TIME PATIENT 16.8 SEC (11.7-14.0)
--- NOTE | 2021-04-24 12:35 | NUR ---
Pharmacy Warfarin Dosing Note S:Pharmacy consulted to assist with anticoagulation therapy started with target INR: 2 -3 O:SIXTO MEREDITH is a 76 year old F with DVT/PE; H/O DVT LABS: Last INR: 1.4 Last HGB: 7.7 Last HCT: 24.8 Last PLT: 405 Last dose of 4 mg given on 04/23/21 at 2056 Previous Regimen: 4MG DAILY Vitamin K given: Y 04/21 5MG, 04/22 5MG Drug Interaction Changes: None A:INR of 1.4 is below desired range. Target range for this patient is: 2 -3 P: Warfarin dose: 4 mg Today at 1600 Bridge Therapy: None Next INR due 04/25/21 Pharmacy anticoagulation service will continue to follow. BRE CASTRO RPH, 04/24/21 [id number]
--- NOTE | 2021-04-24 13:53 | PDOC ---
[facility] PROGRESS NOTE Date of Service DOS: DATE: 04/24/21 TIME: 13:49 Chief Complaint Chief Complaint Assessment Sepsis present on admission Nonhealing acute on chronic bilateral lower extremity wounds, foul-smelling and necrotic tissue down to subcutaneous fat status post surgical debridement 2020 Right lower thigh hematoma with wound VAC in place Severe peripheral vascular disease with multiple stenosis Atrial fibrillation Supratherapeutic INR, hold warfarin, pharmacy to adjust need 04-17 DM2 CAD HTN Severe protein malnutrition Anemia of chronic inflammatory disease Transaminitiselevated alkaline phosphatase likely related to bone disease Hypokalemia Plan: Resume anticoagulation with goal of INR between 2-3, pharmacy to dose Consulted to vascular surgery, plastic surgery, and wound care Patient likely to need additional debridement; planning for April 23 pending INR below 1.5 tomorrow morning Continue Zosyn; will change to Invanz on discharge Continue holding warfarin due to supratherapeutic INR Continue home medications FEN - Cardiac diet PPX -hold warfarin for procedure tomorrow DNR Dispo - inpatient for above Surrogate decision-maker is her daughter (Alyce Santana) History of Present Illness History of Present Illness Patient 76-year-old female with past medical history DM2, CAD, HTN, HLD, presents as a direct admit from [facility] due to multiple nonhealing blistering wounds to her bilateral feet for the past month. She was recently treated on our service (03/22/2021) for evacuation and debridement of right thigh hematoma. Right lower extremity CTA at that time showed calcified plaque with approximately 50 percent stenosis to SFA, extensive arterial calcifications to right popliteal artery, heavy calcifications to anterior tibial artery, and occluded right posterior tibial artery; Left lower extremity CTA showed popliteal artery with 60-70 percent stenosis at mid segment, left anterior tibial artery with heavy calcifications, left posterior tibial artery occluded distally. She has been receiving local wound care and follow-up at wound care clinic without significant improvement in her blisters. She denies any significant pain but does admit to some clear serous drainage from her bilateral feet. Will admit patient for further medical management. 04/24/2021 No acute events overnight. Patient seen and examined bedside. Dressings are moist with strikethrough with serous fluid. Pain is well controlled at this time. Patient's chart, labs, images were reviewed and discussed with RN 04/22/21 Patient seen and examined at bedside. Other than right lower extremity pain no complaints. INR 2 elevated this morning, 2.1, so high for surgery. Will give another dose of vitamin K today and recheck INR tomorrow. Surgery pending INR result in the morning. Plan discussed with bedside nurse. 04/21/21 Patient seen and examined at bedside. Does say she is having some worsening pain in her right lower extremity. Evaluated by hematology and vascular surgery today. Plastic surgery reconsulted and planning for irrigation and debridement tomorrow. However patient's INR needs to be below 1.5, it is 2.7 today however has been dropping at least one-point the past 2 days. Will give dose of vitamin K today and recheck INR in the morning. If above one-point 5 in the morning patient may need FFP prior to surgery. 04/20/21 Patient seen and examined at bedside. This morning she reports her breathing is stable. Does report increased swelling in her bilateral upper extremities encouraged her to elevate them. Patient being reevaluated by vascular surgery today. Also will consult hematology for vasculitis work-up. Plan of care discussed with bedside nurse. 04/19/21 Patient seen and examined at bedside. Remains afebrile. Agreeable to returning to [facility] for rehab. Continuing Zosyn will change to Invanz on discharge. Is endorsing some shortness of breath and bilateral upper extremity swelling this morning chest x-ray shows pulmonary edema, will try a one-time dose of Lasix. Plan of care discussed with bedside nurse 04/18/2021: Afebrile. Still with some leg pain, controlled with medication. She will need senior care facility that can manage wound VAC and IV antibiotic regimen. Likely change Zosyn to Invanz, per ID. She does not want to return to [facility] for senior care. pantry worker helping to find other suitable rehab facilities per patient's preference. 04/17/2021: less ankle edema Afebrile, breathing on room air. Wound VAC in place to right thigh. worked with physical therapy . Continue treatment of bilateral lower extremity wounds with Zosyn. she has not willing to go back [facility] as did not really change the dressings on her legs. She would much prefer a different senior care facility upon discharge. Anticipate plastic surgery recommendations on management of right thigh hematoma. d/w rn and social work infected foul smelling wounds, bilateral lower extremity. Right lower thigh hematoma evacuation with a wound VAC in place 28 min pt exam, chart review, > 50% of time spent with exam, chart review, pt care coordination 04/16/2021: Afebrile, breathing on room air. Wound VAC in place to right thigh. worked with physical therapy . Continue treatment of bilateral lower extremity wounds with Zosyn. she has not willing to go back [facility] as did not really change the dressings on her legs. She would much prefer a different senior care facil ity upon discharge. Anticipate plastic surgery recommendations on management of right thigh hematoma. d/w rn and social work infected foul smelling wounds, bilateral lower extremity. Right lower thigh hematoma evacuation with a wound VAC in place 04/15/2021: Afebrile, breathing on room air. Wound VAC in place to right thigh. She reports some pain in her legs with movement, but worked with physical therapy yesterday. Continue treatment of bilateral lower extremity wounds with Zosyn. She states that she has not found to [facility] as did not really change the dressings on her legs. She would much prefer a different skilled n ursing facility upon discharge. Anticipate plastic surgery recommendations on management of right thigh hematoma. 04/14/2021: Febrile overnight with T-max 100.7 F. WBC 11.4. Will place consult to ID to help with management of cellulitis that failed outpatient antibiotic treatment. Per vascular surgery, no urgency for surgical debridement of her wounds or angiogram currently. She had wound VAC placed in the right thigh yesterday. Await recommendations from plastic surgery. Vitals/I&O Vitals/I&O: Vital Signs Date Time Temp Pulse Resp B/P (MAP) Pulse Ox O2 Delivery O2 Flow Rate FiO2 04/24/21 12:49 20 93 Room Air 04/24/21 11:00 98.0 67 167/58 (94) 2.0 98.0 I & O 04/23/21 04/23/21 04/24/21 15:00 23:00 07:00 Intake Total 700 ml 1050 ml 1050 ml Output Total 50 ml Balance 700 ml 1000 ml 1050 ml Physical Exam Physical Exam: GENERAL: Alert, oriented female, not in distress. resting in bed HEENT: Both pupils are round and reacting. No conjunctival lesion, no lesion in the mouth. NECK: Supple, no JVP, no lymphadenopathy. LUNGS: Clear. HEART: S1, S2 regular. ABDOMEN: Soft, nontender, no organomegaly. EXTREMITIES: Right lower extremity, lower thigh, right thigh has a wound VAC, Intact, removed, large wound with clean base , purulence no surrounding redness or warmth; Bilateral lower extremity, back of the leg, wound dressing in place, intact not taken down Wound pictures reviewed in chart; discussed with RN NEUROLOGIC: The patient is alert, awake, and appropriate. No focal neurologic deficit. General: Alert Heart: Regular rate, Normal S1, Normal S2, No murmurs Lungs: Clear Abdomen: Normal bowel sounds, Soft, Other (Morbidly obese) Extremities: No clubbing, No edema, Other (Dressings with serous fluid strikethrough. Intact biphasic dorsalis pedis Doppler signals bilaterally, posterior tibial Doppler signals are absent bilaterally) Skin: Other (Full-thickness superficial gangrene involving the posterior right lower extremity with several large patches of wounds, superficial full-thickness wounds involving the left dorsal surface pretibial area, chronic venous insufficiency skin changes bilaterally with hemosiderin deposition, no cellulitis, no purulent drainage) Labs Labs: Laboratory Tests Test 04/23/21 17:36 04/23/21 20:24 04/24/21 07:39 04/24/21 09:05 Glucose (Fingerstick) 175 mg/dL (70-99) 168 mg/dL (70-99) 181 mg/dL (70-99) White Blood Count 8.7 x10^3/uL (4.0-11.0) Red Blood Count 3.06 x10^6/uL (3.50-5.40) Hemoglobin 7.7 g/dL (12.0-15.5) Hematocrit 24.8 % (36.0-47.0) Mean Corpuscular Volume 81 fL (79-100) Mean Corpuscular Hemoglobin 25 pg (25-35) Mean Corpuscular Hemoglobin Concent 31 g/dL (31-37) Red Cell Distribution Width 19.1 % (11.5-14.5) Platelet Count 405 x10^3/uL (140-400) Neutrophils (%) (Auto) 84 % (31-73) Lymphocytes (%) (Auto) 11 % (24-48) Monocytes (%) (Auto) 4 % (0-9) Eosinophils (%) (Auto) 0 % (0-3) Basophils (%) (Auto) 0 % (0-3) Neutrophils # (Auto) 7.4 x10^3/uL (1.8-7.7) Lymphocytes # (Auto) 1.0 x10^3/uL (1.0-4.8) Monocytes # (Auto) 0.4 x10^3/uL (0.0-1.1) Eosinophils # (Auto) 0.0 x10^3/uL (0.0-0.7) Basophils # (Auto) 0.0 x10^3/uL (0.0-0.2) Prothrombin Time 16.8 SEC (11.7-14.0) Prothromb Time International Ratio 1.4 (0.8-1.1) Sodium Level 144 mmol/L (136-145) Potassium Level 3.6 mmol/L (3.5-5.1) Chloride Level 109 mmol/L (98-107) Carbon Dioxide Level 24 mmol/L (21-32) Anion Gap 11 (6-14) Blood Urea Nitrogen 14 mg/dL (7-20) Creatinine 1.0 mg/dL (0.6-1.0) Estimated GFR (Cockcroft-Gault) 53.8 Glucose Level 210 mg/dL (70-99) Calcium Level 7.6 mg/dL (8.5-10.1) Phosphorus Level 4.5 mg/dL (2.6-4.7) Magnesium Level 2.2 mg/dL (1.8-2.4) Test 04/24/21 11:48 Glucose (Fingerstick) 225 mg/dL (70-99) Comment Review of Relevant I have reviewed the following items ronen (where applicable) has been applied. Medications: Current Medications Medications (Trade) Dose Ordered Sig/Gennaro Route PRN Reason Start Time Stop Time Status Last Admin Dose Admin Warfarin Sodium (Coumadin) 4 mg 1X WARF ONCE PO 04/23/21 21:00 04/23/21 21:01 DC 04/23/21 20:56 Sodium Hypochlorite (Dakin'S 1/4 Strength) 1 debbie 1X ONCE TP 04/23/21 14:00 04/23/21 14:05 DC 04/23/21 14:25 Justifications for Admission Other Justification Diabetic ulcers, failed outpatient treatment ZORAIDA GARCIA MD Apr 24, 2021 13:53
[2021-04-24 15:00] VITALS: BP 152/61
[2021-04-24] MEDS ORDERED: WARFARIN 4 MG TABLET. PO ONE (16:00)
[2021-04-24] MEDS: ALBUTEROL SULFATE 2.5 MG/3 ML NEBU. NEB PRN (16:23)
[2021-04-24 19:00] VITALS: BP 135/48
[2021-04-24] MEDS: IV NORMAL SALINE 1000ML BAG 1,000 ML IV SCH (21:48)
[2021-04-24] MEDS: ATORVASTATIN CALCIUM 40 MG TABLET. PO SCH (21:49)
[2021-04-24] MEDS: INSULIN GLARGINE SYRINGE. SQ SCH (21:51)
[2021-04-24 23:00] VITALS: BP 132/43
[2021-04-25] VITALS (7 sets, daily range): BP systolic 125–167; BP diastolic 43–52
[2021-04-25] MEDS: HYDROmorphone 2 MG/ML VIAL IVP PRN ×3 (00:58→20:46)
[2021-04-25] MEDS: HYDROcodone/APAP 5/325MG 1 TAB TABLET PO PRN ×4 (03:45→18:15)
[2021-04-25] MEDS: PIPERACILLIN/TAZOBACTAM 3.375 GM in IV NORMAL SALINE 50ML 50 ML IV SCH ×4 (06:04→23:53)
[2021-04-25 06:14] LABS: PROTHROMBIN TIME PATIENT 18.5 SEC (11.7-14.0)
[2021-04-25] MEDS: LOSARTAN POTASSIUM 50 MG TABLET. PO SCH (08:51)
[2021-04-25] MEDS: LACTOBACILLUS RHAMNOSUS GG 1 CAPSULE. PO SCH ×2 (08:51→20:46)
[2021-04-25] MEDS: METOPROLOL SUCC 24HR ER 50 MG TAB.ER.24H. PO SCH (08:52)
[2021-04-25] MEDS: CITALOPRAM 20 MG TABLET. PO SCH (08:52)
[2021-04-25] MEDS: NYSTATIN TOPICAL POWDER 15GM BOTTLE. TP SCH ×2 (08:52→20:46)
[2021-04-25] MEDS: SODIUM HYPOCHLORITE 0.125% 473 ML BOTTLE. TP SCH (08:52)
[2021-04-25] MEDS: INSULIN LISPRO 300 UNITS/3 ML VIAL. SQ SCH ×3 (08:57→17:26)
--- NOTE | 2021-04-25 09:20 | NUR ---
Pharmacy Warfarin Dosing Note S:Pharmacy consulted to assist with anticoagulation therapy started with target INR: 2 -3 O:SIXTO MEREDITH is a 76 year old F with DVT/PE; H/O DVT LABS: Last INR: 1.6 Last HGB: 7.7 Last HCT: 24.8 Last PLT: 405 Last dose of 4 mg given on 04/24/21 at 1803 Previous Regimen: 4MG DAILY Vitamin K given: Y 04/21 5MG, 04/22 5MG Drug Interaction Changes: None A:INR of 1.6 is below desired range. Target range for this patient is: 2 -3 P: Warfarin dose: 4 mg Today at 1600 Bridge Therapy: None Next INR due 04/26/21 Pharmacy anticoagulation service will continue to follow. BRE CASTRO RPH, 04/25/21 [id number]
--- NOTE | 2021-04-25 11:14 | PDOC ---
[facility] PROGRESS NOTE Date of Service DOS: DATE: 04/25/21 TIME: 11:13 Chief Complaint Chief Complaint Assessment Sepsis present on admission Nonhealing acute on chronic bilateral lower extremity wounds, foul-smelling and necrotic tissue down to subcutaneous fat status post surgical debridement 2020 Right lower thigh hematoma with wound VAC in place Severe peripheral vascular disease with multiple stenosis Atrial fibrillation Supratherapeutic INR, hold warfarin, pharmacy to adjust need 04-17 DM2 CAD HTN Severe protein malnutrition Anemia of chronic inflammatory disease Transaminitiselevated alkaline phosphatase likely related to bone disease Hypokalemia Plan: Resume anticoagulation with goal of INR between 2-3, pharmacy to dose Consulted to vascular surgery, plastic surgery, and wound care Patient likely to need additional debridement; planning for April 23 pending INR below 1.5 tomorrow morning Continue Zosyn; will change to Invanz on discharge Continue holding warfarin due to supratherapeutic INR Continue home medications FEN - Cardiac diet PPX -hold warfarin for procedure tomorrow DNR Dispo - inpatient for above Surrogate decision-maker is her daughter (Alyce Santana) History of Present Illness History of Present Illness Patient 76-year-old female with past medical history DM2, CAD, HTN, HLD, presents as a direct admit from [facility] due to multiple nonhealing blistering wounds to her bilateral feet for the past month. She was recently treated on our service (03/22/2021) for evacuation and debridement of right thigh hematoma. Right lower extremity CTA at that time showed calcified plaque with approximately 50 percent stenosis to SFA, extensive arterial calcifications to right popliteal artery, heavy calcifications to anterior tibial artery, and occluded right posterior tibial artery; Left lower extremity CTA showed popliteal artery with 60-70 percent stenosis at mid segment, left anterior tibial artery with heavy calcifications, left posterior tibial artery occluded distally. She has been receiving local wound care and follow-up at wound care clinic without significant improvement in her blisters. She denies any significant pain but does admit to some clear serous drainage from her bilateral feet. Will admit patient for further medical management. 04/25/2021 No acute events overnight. Patient seen and examined bedside during wound dressing changes. There is definitely still weeping around the wounds but the wounds do not appear infected or is or any active bleeding or purulent drainage. Warfarin managed by pharmacy and currently INR is at 1.6 at home dose warfarin. Patient will likely need some skilled rehab upon discharge. Anticipate discharge in the next 24 to 48 hours. Patient's chart, labs, images were reviewed and discussed with RN 04/24/2021 No acute events overnight. Patient seen and examined bedside. Dressings are moist with strikethrough with serous fluid. Pain is well controlled at this time. Patient's chart, labs, images were reviewed and discussed with RN 04/22/21 Patient seen and examined at bedside. Other than right lower extremity pain no complaints. INR 2 elevated this morning, 2.1, so high for surgery. Will give another dose of vitamin K today and recheck INR tomorrow. Surgery pending INR result in the morning. Plan discussed with bedside nurse. 04/21/21 Patient seen and examined at bedside. Does say she is having some worsening pain in her right lower extremity. Evaluated by hematology and vascular surgery today. Plastic surgery reconsulted and planning for irrigation and debridement tomorrow. However patient's INR needs to be below 1.5, it is 2.7 today however has been dropping at least one-point the past 2 days. Will give dose of vitamin K today and recheck INR in the morning. If above one-point 5 in the morning patient may need FFP prior to surgery. 04/20/21 Patient seen and examined at bedside. This morning she reports her breathing is stable. Does report increased swelling in her bilateral upper extremities encouraged her to elevate them. Patient being reevaluated by vascular surgery today. Also will consult hematology for vasculitis work-up. Plan of care discussed with bedside nurse. 04/19/21 Patient seen and examined at bedside. Remains afebrile. Agreeable to returning to [facility] for rehab. Continuing Zosyn will change to Invanz on discharge. Is endorsing some shortness of breath and bilateral upper extremity swelling this morning chest x-ray shows pulmonary edema, will try a one-time dose of Lasix. Plan of care discussed with bedside nurse 04/18/2021: Afebrile. Still with some leg pain, controlled with medication. She will need senior living facility that can manage wound VAC and IV antibiotic regimen. Likely change Zosyn to Invanz, per ID. She does not want to return to [facility] for senior living. food prep worker helping to find other suitable rehab facilities per patient's preference. 04/17/2021: less ankle edema Afebrile, breathing on room air. Wound VAC in place to right thigh. worked with physical therapy . Continue treatment of bilateral lower extremity wounds with Zosyn. she has not willing to go back [facility] as did not really change the d ressings on her legs. She would much prefer a different senior living facility upon discharge. Anticipate plastic surgery recommendations on management of right thigh hematoma. d/w rn and social work infected foul smelling wounds, bilateral lower extremity. Right lower thigh hematoma evacuation with a wound VAC in place 28 min pt exam, chart review, > 50% of time spent with exam, chart review, pt care coordination 04/16/2021: Afebrile, breathing on room air. Wound VAC in place to right thigh. worked with physical therapy . Continue treatment of bilateral lower extremity wounds with Zosyn. she has not willing to go back [facility] as did not really change the dressings on her legs. She would much prefer a different senior living facility upon discharge. Anticipate plastic surgery recommendations on management of right thigh hematoma. d/w rn and social work infected foul smelling wounds, bilateral lower extremity. Right lower thigh hematoma evacuation with a wound VAC in place 04/15/2021: Afebrile, breathing on room air. Wound VAC in place to right thigh. She reports some pain in her legs with movement, but worked with physical therapy yesterday. Continue treatment of bilateral lower extremity wounds with Zosyn. She states that she has not found to [facility] as did not really change the dressings on her legs. She would much prefer a different senior living facility upon discharge. Anticipate plastic surgery recommendations on management of right thigh hematoma. 04/14/2021: Febrile overnight with T-max 100.7 F. WBC 11.[address]. Will [address] consult to ID to help with management of cellulitis that failed outpatient antibiotic treatment. Per vascular surgery, no urgency for surgical debridement of her wounds or angiogram currently. She had wound VAC placed in the right thigh yesterday. Await recommendations from plastic surgery. Vitals/I&O Vitals/I&O: Vital Signs Date Time Temp Pulse Resp B/P (MAP) Pulse Ox O2 Delivery O2 Flow Rate FiO2 04/25/21 10:28 16 95 Room Air 2.0 04/25/21 08:52 62 127/52 04/25/21 06:47 98.1 98.1 I & O 04/24/21 04/24/21 04/25/21 15:00 23:00 07:00 Intake Total 340 ml 240 ml 1000 ml Balance 340 ml 240 ml 1000 ml Physical Exam Physical Exam: GENERAL: Alert, oriented female, not in distress. resting in bed HEENT: Both pupils are round and reacting. No conjunctival lesion, no lesion in the mouth. NECK: Supple, no JVP, no lymphadenopathy. LUNGS: Clear. HEART: S1, S2 regular. ABDOMEN: Soft, nontender, no organomegaly. EXTREMITIES: Right lower extremity, lower thigh, right thigh has a wound VAC, Intact, removed, large wound with clean base , purulence no surrounding redness or warmth; Bilateral lower extremity, back of the leg, wound dressing in place, intact not taken down Wound pictures reviewed in chart; discussed with RN NEUROLOGIC: The patient is alert, awake, and appropriate. No focal neurologic deficit. General: Alert Heart: Regular rate, Normal S1, Normal S2, No murmurs Lungs: Clear Abdomen: Normal bowel sounds, Soft, Other (Morbidly obese) Extremities: No clubbing, No edema, Other (Dressings with serous fluid strikethrough. Intact biphasic dorsalis pedis Doppler signals bilaterally, posterior tibial Doppler signals are absent bilaterally) Skin: Other (Full-thickness superficial gangrene involving the posterior right lower extremity with several large patches of wounds, superficial full-thickness wounds involving the left dorsal surface pretibial area, chronic venous insufficiency skin changes bilaterally with hemosiderin deposition, no cellulitis, no purulent drainage) Labs Labs: Laboratory Tests Test 04/24/21 11:48 04/24/21 16:51 04/24/21 20:12 04/25/21 05:15 Glucose (Fingerstick) 225 mg/dL (70-99) 185 mg/dL (70-99) 195 mg/dL (70-99) Prothrombin Time 18.5 SEC (11.7-14.0) Prothromb Time International Ratio 1.6 (0.8-1.1) Test 04/25/21 07:25 Glucose (Fingerstick) 155 mg/dL (70-99) Comment Review of Relevant I have reviewed the following items ronen (where applicable) has been applied. Medications: Current Medications Medications (Trade) Dose Ordered Sig/Gennaro Route PRN Reason Start Time Stop Time Status Last Admin Dose Admin Warfarin Sodium (Coumadin) 4 mg 1X WARF ONCE PO 04/24/21 16:00 04/24/21 16:01 DC 04/24/21 18:03 Sodium Hypochlorite (Dakin'S 1/4 Strength) 1 debbie DAILY TP 04/25/21 09:00 04/25/21 08:52 Justifications for Admission Other Justification Diabetic ulcers, failed outpatient treatment ZORAIDA GARCIA MD Apr 25, 2021 11:14
--- NOTE | 2021-04-25 12:21 | PDOC ---
Infectious Disease Note Subjective: Subjective Patient says postoperative pain site is under control no other complaints Vital Signs: Vital Signs Vital Signs Date Time Temp Pulse Resp B/P (MAP) Pulse Ox O2 Delivery O2 Flow Rate FiO2 04/25/21 12:19 16 94 Room Air 2.0 04/25/21 12:03 98.0 67 146/47 (80) 98.0 Physical Exam: PHYSICAL EXAM GENERAL: Alert, oriented female, not in distress. resting in bed HEENT: Both pupils are round and reacting. No conjunctival lesion, no lesion in the mouth. NECK: Supple, no JVP, no lymphadenopathy. LUNGS: Clear. HEART: S1, S2 regular. ABDOMEN: Soft, nontender, no organomegaly. EXTREMITIES: Right lower extremity, lower thigh, right thigh has a wound VAC, Intact, removed, large wound with clean base , purulence no surrounding redness or warmth; Bilateral lower extremity, back of the leg, wound dressing in place, intact not taken down Wound pictures reviewed in chart; discussed with RN NEUROLOGIC: The patient is alert, awake, and appropriate. No focal neurologic deficit. Medications: Inpatient Meds: Medications reviewed. Labs: Lab Laboratory Tests Test 04/24/21 16:51 04/24/21 20:12 04/25/21 05:15 04/25/21 07:25 Glucose (Fingerstick) 185 mg/dL (70-99) 195 mg/dL (70-99) 155 mg/dL (70-99) Prothrombin Time 18.5 SEC (11.7-14.0) Prothromb Time International Ratio 1.6 (0.8-1.1) Test 04/25/21 11:43 Glucose (Fingerstick) 137 mg/dL (70-99) Objective: Assessment: 1. Infected foul smelling wounds, bilateral lower extremity. 2. Right lower thigh hematoma evacuation with a wound VAC in place, clean wound 3. Leukocytosis. 4. Fever. resolved 5. Peripheral vascular disease. 6. Coronary artery disease. Plan: Plan of Care cont zosyn F/u Cult 04/23 neg so far Cont local wound care as directed d/w daughter at bedside CASTRO ROMAN MD Apr 25, 2021 12:21
[2021-04-25] MEDS: IV NORMAL SALINE 1000ML BAG 1,000 ML IV SCH (15:49)
[2021-04-25] MEDS ORDERED: WARFARIN 4 MG TABLET. PO ONE (16:00)
[2021-04-25] MEDS: ATORVASTATIN CALCIUM 40 MG TABLET. PO SCH (20:46)
[2021-04-25] MEDS: INSULIN GLARGINE SYRINGE. SQ SCH (20:49)
[2021-04-26 03:10] VITALS: BP 149/50
[2021-04-26 05:31] LABS: PROTHROMBIN TIME PATIENT 22.9 SEC (11.7-14.0)
[2021-04-26] MEDS: IV NORMAL SALINE 1000ML BAG 1,000 ML IV SCH (05:37)
[2021-04-26] MEDS: PIPERACILLIN/TAZOBACTAM 3.375 GM in IV NORMAL SALINE 50ML 50 ML IV SCH ×3 (05:38→17:38)
[2021-04-26 07:00] VITALS: BP 113/83
[2021-04-26] MEDS: HYDROcodone/APAP 5/325MG 1 TAB TABLET PO PRN ×3 (08:12→21:30)
[2021-04-26] MEDS: INSULIN LISPRO 300 UNITS/3 ML VIAL. SQ SCH ×3 (08:15→17:36)
--- NOTE | 2021-04-26 09:00 | PDOC ---
Infectious Disease Note Subjective: Subjective Patient has no other complaints Swelling of both lower extremities improving Vital Signs: Vital Signs Vital Signs Date Time Temp Pulse Resp B/P (MAP) Pulse Ox O2 Delivery O2 Flow Rate FiO2 04/26/21 08:48 Room Air 04/26/21 03:10 98.7 66 19 149/50 (83) 93 2.0 98.7 Physical Exam: PHYSICAL EXAM GENERAL: Alert, oriented female, not in distress. resting in bed HEENT: Both pupils are round and reacting. No conjunctival lesion, no lesion in the mouth. NECK: Supple, no JVP, no lymphadenopathy. LUNGS: Clear. HEART: S1, S2 regular. ABDOMEN: Soft, nontender, no organomegaly. EXTREMITIES: Bilateral lower extremity swelling present improving, dressing intact not taken down NEUROLOGIC: The patient is alert, awake, and appropriate. No focal neurologic deficit. Medications: Inpatient Meds: Medications reviewed. Labs: Lab Laboratory Tests Test 04/25/21 11:43 04/25/21 16:36 04/25/21 20:33 04/26/21 04:14 Glucose (Fingerstick) 137 mg/dL (70-99) 163 mg/dL (70-99) 171 mg/dL (70-99) Prothrombin Time 22.9 SEC (11.7-14.0) Prothromb Time International Ratio 2.1 (0.8-1.1) Test 04/26/21 07:59 Glucose (Fingerstick) 159 mg/dL (70-99) Objective: Assessment: 1. 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 Right lower thigh hematoma evacuation with a wound VAC in place, clean wound 3. Leukocytosis. 4. Fever. resolved 5. Peripheral vascular disease. 6. Coronary artery disease. Plan: Plan of Care Continue Zosyn Offload Cont local wound care as directed CASTRO ROMAN MD Apr 26, 2021 09:00
[2021-04-26] MEDS: LACTOBACILLUS RHAMNOSUS GG 1 CAPSULE. PO SCH ×2 (09:36→21:31)
[2021-04-26] MEDS: METOPROLOL SUCC 24HR ER 50 MG TAB.ER.24H. PO SCH (09:36)
[2021-04-26] MEDS: NYSTATIN TOPICAL POWDER 15GM BOTTLE. TP SCH ×2 (09:37→21:32)
[2021-04-26] MEDS: LOSARTAN POTASSIUM 50 MG TABLET. PO SCH (09:37)
[2021-04-26] MEDS: CITALOPRAM 20 MG TABLET. PO SCH (09:37)
[2021-04-26] MEDS: SODIUM HYPOCHLORITE 0.125% 473 ML BOTTLE. TP SCH (09:39)
[2021-04-26 11:00] VITALS: BP 122/56
--- NOTE | 2021-04-26 11:00 | PDOC ---
Provider Note Date of Service: DATE: 04/26/21 TIME: 10:54 Provider Note Provider Note Vascular S: Patient is resting comfortably in bed. States improvement in pain lower extremities since her debridement. O: Awake and alert HRR Non-labored respirations All dressings to lower extremities and dry and intact. Feet warm, mild swelling. Toes pink. A/P: 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 CT angiogram with runoff which does show diffuse calcified peripheral arterial disease. She has occlusion of the posterior tibial artery and peroneal artery bilaterally. Her dominant runoff is through the anterior tibial artery bilaterally. Venous studies for reflux and DVT this admission were essentially negative. Dr. Arevalo did discuss with the patient regarding her peripheral arterial disease. She does understand that in the most severe consequences, there is a chance of limb loss. Recommend continued close monitoring of wounds, local wound care, elevation and diuresis if needed for swelling. Justicifation of Admission Dx: Justifications for Admission: Justification of Admission Dx: Yes FANY HORN [facility] [employer] Apr 26, 2021 11:00
--- NOTE | 2021-04-26 12:51 | PDOC ---
[facility] PROGRESS NOTE Date of Service DOS: DATE: 04/26/21 TIME: 12:47 Chief Complaint Chief Complaint Assessment Sepsis present on admission Nonhealing acute on chronic bilateral lower extremity wounds, foul-smelling and necrotic tissue down to subcutaneous fat status post surgical debridement 2020 Right lower thigh hematoma with wound VAC in place Severe peripheral vascular disease with multiple stenosis Atrial fibrillation Supratherapeutic INR, hold warfarin, pharmacy to adjust need 04-17 DM2 CAD HTN Severe protein malnutrition Anemia of chronic inflammatory disease Transaminitiselevated alkaline phosphatase likely related to bone disease Hypokalemia Plan: Resume anticoagulation with goal of INR between 2-3, pharmacy to dose Consulted to vascular surgery, plastic surgery, and wound care Patient likely to need additional debridement; planning for April 23 pending INR below 1.5 tomorrow morning Continue Zosyn; will change to Invanz on discharge Continue holding warfarin due to supratherapeutic INR Continue home medications FEN - Cardiac diet PPX -hold warfarin for procedure tomorrow DNR Dispo - inpatient for above Surrogate decision-maker is her daughter (Alyce Santana) History of Present Illness History of Present Illness Patient 76-year-old female with past medical history DM2, CAD, HTN, HLD, presents as a direct admit from [facility] due to multiple nonhealing blistering wounds to her bilateral feet for the past month. She was recently treated on our service (03/22/2021) for evacuation and debridement of right thigh hematoma. Right lower extremity CTA at that time showed calcified plaque with approximately 50 percent stenosis to SFA, extensive arterial calcifications to right popliteal artery, heavy calcifications to anterior tibial artery, and occluded right posterior tibial artery; Left lower extremity CTA showed popliteal artery with 60-70 percent stenosis at mid segment, left anterior tibial artery with heavy calcifications, left posterior tibial artery occluded distally. She has been receiving local wound care and follow-up at wound care clinic without significant improvement in her blisters. She denies any significant pain but does admit to some clear serous drainage from her bilateral feet. Will admit patient for further medical management. 04/25/2021 No acute events overnight. Patient seen and examined bedside during wound dressing changes. There is definitely still weeping around the wounds but the wounds do not appear infected or is or any active bleeding or purulent drainage. Warfarin managed by pharmacy and currently INR is at 1.6 at home dose warfarin. Patient will likely need some skilled rehab upon discharge. Anticipate discharge in the next 24 to 48 hours. Patient's chart, labs, images were reviewed and discussed with RN No overnight Events. No significant pain with dressing changes. Still on IV Zosyn. Awaiting biopsy results. 04/24/2021 No acute events overnight. Patient seen and examined bedside. Dressings are moist with strikethrough with serous fluid. Pain is well controlled at this time. Patient's chart, labs, images were reviewed and discussed with RN 04/22/21 Patient seen and examined at bedside. Other than right lower extremity pain no complaints. INR 2 elevated this morning, 2.1, so high for surgery. Will give another dose of vitamin K today and recheck INR tomorrow. Surgery pending INR result in the morning. Plan discussed with bedside nurse. 04/21/21 Patient seen and examined at bedside. Does say she is having some worsening pain in her right lower extremity. Evaluated by hematology and vascular surgery today. Plastic surgery reconsulted and planning for irrigation and debridement tomorrow. However patient's INR needs to be below 1.5, it is 2.7 today however has been dropping at least one-point the past 2 days. Will give dose of vitamin K today and recheck INR in the morning. If above one-point 5 in the morning patient may need FFP prior to surgery. 04/20/21 Patient seen and examined at bedside. This morning she reports her breathing is stable. Does report increased swelling in her bilateral upper extremities encouraged her to elevate them. Patient being reevaluated by vascular surgery today. Also will consult hematology for vasculitis work-up. Plan of care discussed with bedside nurse. 04/19/21 Patient seen and examined at bedside. Remains afebrile. Agreeable to returning to [facility] for rehab. Continuing Zosyn will change to Invanz on discharge. Is endorsing some shortness of breath and bilateral upper extremity swelling this morning chest x-ray shows pulmonary edema, will try a one-time dose of Lasix. Plan of care discussed with bedside nurse 04/18/2021: Afebrile. Still with some leg pain, controlled with medication. She will need correction facility that can manage wound VAC and IV antibiotic regimen. Likely change Zosyn to Invanz, per ID. She does not want to return to [facility] for correction. tray line worker helping to find other suitable rehab facilities per patient's preference. 04/17/2021: less ankle edema Afebrile, breathing on room air. Wound VAC in place to right thigh. worked with physical therapy . Continue treatment of bilateral lower extremity wounds with Zosyn. she has not willing to go back [facility] as did not really change the dressings on her legs. She would much prefer a different correction facility upon discharge. Anticipate plastic surgery recommendations on management of right thigh hematoma. d/w rn and social work infected foul smelling wounds, bilateral lower extremity. Right lower thigh hematoma evacuation with a wound VAC in place 28 min pt exam, chart review, > 50% of time spent with exam, chart review, pt care coordination 04/16/2021: Afebrile, breathing on room air. Wound VAC in place to right thigh. worked with physical therapy . Continue treatment of bilateral lower extremity wounds with Zosyn. she has not willing to go back [facility] as did not really change the dressings on her legs. She would much prefer a different correction facili ty upon discharge. Anticipate plastic surgery recommendations on management of right thigh hematoma. d/w rn and social work infected foul smelling wounds, bilateral lower extremity. Right lower thigh hematoma evacuation with a wound VAC in place 04/15/2021: Afebrile, breathing on room air. Wound VAC in place to right thigh. She reports some pain in her legs with movement, but worked with physical therapy yesterday. Continue treatment of bilateral lower extremity wounds with Zosyn. She states that she has not found to [facility] as did not really change the dressings on her legs. She would much prefer a different skilled nu rsing facility upon discharge. Anticipate plastic surgery recommendations on management of right thigh hematoma. 04/14/2021: Febrile overnight with T-max 100.7 F. WBC 11[address]. [address] consult to ID to help with management of cellulitis that failed outpatient antibiotic treatment. Per vascular surgery, no urgency for surgical debridement of her wounds or angiogram currently. She had wound VAC placed in the right thigh yesterday. Await recommendations from plastic surgery. Vitals/I&O Vitals/I&O: Vital Signs Date Time Temp Pulse Resp B/P (MAP) Pulse Ox O2 Delivery O2 Flow Rate FiO2 04/26/21 09:37 77 113/83 04/26/21 08:48 Room Air 04/26/21 07:00 97.8 20 92 97.8 04/26/21 03:10 2.0 I & O 04/25/21 04/25/21 04/26/21 15:00 23:00 07:00 Intake Total 500 ml 320 ml 340 ml Balance 500 ml 320 ml 340 ml Physical Exam Physical Exam: GENERAL: Alert, oriented female, not in distress. resting in bed HEENT: Both pupils are round and reacting. No conjunctival lesion, no lesion in the mouth. NECK: Supple, no JVP, no lymphadenopathy. LUNGS: Clear. HEART: S1, S2 regular. ABDOMEN: Soft, nontender, no organomegaly. EXTREMITIES: Bilateral lower extremity swelling present improving, dressing intact not taken down NEUROLOGIC: The patient is alert, awake, and appropriate. No focal neurologic deficit. General: Alert Heart: Regular rate, Normal S1, Normal S2, No murmurs Lungs: Clear Abdomen: Normal bowel sounds, Soft, Other (Morbidly obese) Extremities: No clubbing, No edema, Other (Dressings with serous fluid strike through. Intact biphasic dorsalis pedis Doppler signals bilaterally, posterior tibial Doppler signals are absent bilaterally) Skin: Other (Full-thickness superficial gangrene involving the posterior right lower extremity with several large patches of wounds, superficial full-thickness wounds involving the left dorsal surface pretibial area, chronic venous ins ufficiency skin changes bilaterally with hemosiderin deposition, no cellulitis, no purulent drainage) Labs Labs: Laboratory Tests Test 04/25/21 16:36 04/25/21 20:33 04/26/21 04:14 04/26/21 07:59 Glucose (Fingerstick) 163 mg/dL (70-99) 171 mg/dL (70-99) 159 mg/dL (70-99) Prothrombin Time 22.9 SEC (11.7-14.0) Prothromb Time International Ratio 2.1 (0.8-1.1) Test 04/26/21 12:27 Glucose (Fingerstick) 167 mg/dL (70-99) Comment Review of Relevant I have reviewed the following items ronen (where applicable) has been applied. Medications: Current Medications Medications (Trade) Dose Ordered Sig/Gennaro Route PRN Reason Start Time Stop Time Status Last Admin Dose Admin Warfarin Sodium (Coumadin) 4 mg 1X WARF ONCE PO 04/25/21 16:00 04/25/21 16:01 DC 04/25/21 17:23 Justifications for Admission Other Justification Diabetic ulcers, failed outpatient treatment JAZMINE TARANGO MD Apr 26, 2021 12:51
[2021-04-26] MEDS: HYDROmorphone 2 MG/ML VIAL IVP PRN (14:01)
[2021-04-26 15:00] VITALS: BP 162/39
[2021-04-26] MEDS ORDERED: WARFARIN 4 MG TABLET. PO ONE (16:00)
--- NOTE | 2021-04-26 16:54 | NUR ---
Wound Care: Wound care follow up, pt underwent surgery on 04/[address] Cartwright. Orders for dakins soaked kerlix ordered, dressings already changed by industrial staff nurse today, wound care to follow up 04/27. POC communicated with staff nurse.
[2021-04-26 19:00] VITALS: BP 150/65
[2021-04-26] MEDS: ATORVASTATIN CALCIUM 40 MG TABLET. PO SCH (21:31)
[2021-04-26] MEDS: INSULIN GLARGINE SYRINGE. SQ SCH (21:41)
[2021-04-26 23:00] VITALS: BP 150/60
[2021-04-27] MEDS: PIPERACILLIN/TAZOBACTAM 3.375 GM in IV NORMAL SALINE 50ML 50 ML IV SCH ×2 (00:54→06:35)
[2021-04-27] MEDS: IV NORMAL SALINE 1000ML BAG 1,000 ML IV SCH ×3 (00:54→22:25)
[2021-04-27 03:00] VITALS: BP 165/65
[2021-04-27] MEDS: HYDROmorphone 2 MG/ML VIAL IVP PRN ×4 (04:24→20:54)
[2021-04-27 07:00] VITALS: BP 154/60
[2021-04-27 07:40] LABS: PROTHROMBIN TIME PATIENT 28.7 SEC (11.7-14.0)
[2021-04-27] MEDS: HYDROcodone/APAP 5/325MG 1 TAB TABLET PO PRN ×2 (07:53→18:22)
[2021-04-27] MEDS: INSULIN LISPRO 300 UNITS/3 ML VIAL. SQ SCH ×3 (07:57→17:09)
[2021-04-27] MEDS: METOPROLOL SUCC 24HR ER 50 MG TAB.ER.24H. PO SCH (09:56)
[2021-04-27] MEDS: CITALOPRAM 20 MG TABLET. PO SCH (09:56)
[2021-04-27] MEDS: LOSARTAN POTASSIUM 50 MG TABLET. PO SCH (09:56)
[2021-04-27] MEDS: LACTOBACILLUS RHAMNOSUS GG 1 CAPSULE. PO SCH ×2 (09:56→20:54)
[2021-04-27] MEDS: NYSTATIN TOPICAL POWDER 15GM BOTTLE. TP SCH ×2 (09:59→20:56)
[2021-04-27] MEDS: SODIUM HYPOCHLORITE 0.125% 473 ML BOTTLE. TP SCH (09:59)
[2021-04-27 11:00] VITALS: BP 155/58
--- NOTE | 2021-04-27 11:00 | PDOC ---
Infectious Disease Note Subjective: Subjective Patient has no other complaints Swelling of both lower extremities improving Vital Signs: Vital Signs Vital Signs Date Time Temp Pulse Resp B/P (MAP) Pulse Ox O2 Delivery O2 Flow Rate FiO2 04/27/21 09:57 73 154/60 04/27/21 08:40 Room Air 04/27/21 08:10 94 04/27/21 07:00 97.5 18 97.5 Physical Exam: PHYSICAL EXAM GENERAL: Alert, oriented female, not in distress. resting in bed HEENT: Both pupils are round and reacting. No conjunctival lesion, no lesion in the mouth. NECK: Supple, no JVP, no lymphadenopathy. LUNGS: Clear. HEART: S1, S2 regular. ABDOMEN: Soft, nontender, no organomegaly. EXTREMITIES: Bilateral lower extremity swelling present improving, dressing intact not taken down NEUROLOGIC: The patient is alert, awake, and appropriate. No focal neurologic deficit. Medications: Inpatient Meds: Medications reviewed. Labs: Lab Laboratory Tests Test 04/26/21 12:27 04/26/21 17:23 04/26/21 21:20 04/27/21 07:05 Glucose (Fingerstick) 167 mg/dL (70-99) 172 mg/dL (70-99) 204 mg/dL (70-99) Prothrombin Time 28.7 SEC (11.7-14.0) Prothromb Time International Ratio 2.8 (0.8-1.1) Test 04/27/21 07:31 Glucose (Fingerstick) 169 mg/dL (70-99) Micro - RUN DATE: 04/26/21 [facility] *LIVE* PAGE 1 RUN TIME: 809 Specimen Inquiry - PATIENT: SIXTO MEREDITH ACCT: [id number] LOC: [address] [place] [address] U: [id number] AGE/SX: 76/F ROOM: [facility] RE04/12/[address]: NATE BHATT III, DO : 1945 BED: 1 DIS: STATUS: ADM IN TLOC: SPEC #: [id number] MARÍA ELENA: 04/23/21 STATUS: RES REQ #: [id number] RECD: 04/23/[address]: NATE BHATT III, DO SOURCE: LEG ENTR: 04/23/[address]: NIXON COURTNEY MD SPDESC: ABSCESS JESSIE,TOMAS ALVARADO,JESSE ADAN,LOWELL CRUZ MD, AXEL DO ORDERED: SHIELA/FEDE/PARUL COMMENTS: RT LEG WOUND - Procedure Result GRAM STAIN Final Final NO ORGANISMS SEEN. SQUAMOUS EPI CELL:NONE SEEN PMN (WBCs):NONE SEEN Unless otherwise specified, Testing Performed by: [address] [address] For Inquires, the Physician may contact the Microbiology department at [phone] ANAEROBIC-AEROBIC CULTURE Preliminary Preliminary RARE [PROTEUS VULGARIS GROUP] on 04/25/21 at 1418 PROTEUS VULGARIS GROUP ANTIMICROBIAL SUSCEPTIBILITY Preliminary Comment NEG TAMEKA 56 PROTEUS VULGARIS GROUP ANTIBIOTIC RESULT INTERPRETATION AMPICILLIN/SULBACTAM 8/4 S AMIKACIN <=16 S AMPICILLIN >16 R AMOXICILLIN/K CLAVULANATE <=8/4 S AZTREONAM <=4 S CEFTRIAXONE <=1 S CEFTAZIDIME <=1 S CEFOTAXIME <=2 S CEFOXITIN <=8 S CEFAZOLIN >16 R CIPROFLOXACIN <=0.25 S CEFEPIME <=2 S CEFUROXIME >16 R RUN DATE: 04/26/21 [facility] *LIVE* PAGE 2 RUN TIME: 0810 Specimen Inquiry SPEC: [id number] PATIENT: SIXTO MEREDITH [id number] (Continued) --- --------- Procedure Result CONTINUED ON NEXT PAGE RUN DATE: 04/26/21 [facility] *LIVE* PAGE 3 RUN TIME: 0810 Specimen Inquiry SPEC: [id number] PATIENT: SIXTO MEREDITH [id number] (Continued) Procedure Result ANTIMICROBIAL SUSCEPTIBILITY Preliminary (continued) ERTAPENEM <=0.5 S GENTAMICIN <=2 S LEVOFLOXACIN <=0.5 S MEROPENEM <=1 S PIPERACILLIN/TAZOBACTAM <=8 S TRIMETHOPRIM/SULFAMETHOXAZOLE <=0.5/9.5 S TETRACYCLINE 8 R* TOBRAMYCIN <=2 S Unless otherwise specified, Testing Performed by: [address] [address] For Inquires, the Physician may contact the Microbiology department at [phone] Objective: Assessment: 1. 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 Right lower thigh hematoma evacuation with a wound VAC in place, clean wound 3. Leukocytosis. 4. Fever. resolved 5. Peripheral vascular disease. 6. Coronary artery disease. Plan: Plan of Care TIN Cunha Ceftriaxone Offload Cont local wound care as directed CASTRO ROMAN MD Apr 27, 2021 11:00
[2021-04-27] MEDS: cefTRIAXone IV Push 2 GM VIAL. IVP SCH (11:28)
--- NOTE | 2021-04-27 13:55 | PDOC ---
[facility] PROGRESS NOTE Date of Service DOS: DATE: 04/27/21 TIME: 13:52 Chief Complaint Chief Complaint Assessment Sepsis present on admission Nonhealing acute on chronic bilateral lower extremity wounds, foul-smelling and necrotic tissue down to subcutaneous fat status post surgical debridement 2020 Right lower thigh hematoma with wound VAC in place Severe peripheral vascular disease with multiple stenosis Atrial fibrillation Supratherapeutic INR, hold warfarin, pharmacy to adjust need 04-17 DM2 CAD HTN Severe protein malnutrition Anemia of chronic inflammatory disease Transaminitiselevated alkaline phosphatase likely related to bone disease Hypokalemia Plan: Resume anticoagulation with goal of INR between 2-3, pharmacy to dose Consulted to vascular surgery, plastic surgery, and wound care Patient likely to need additional debridement; planning for April 23 pending INR below 1.5 tomorrow morning Continue Zosyn; will change to Invanz on discharge Continue holding warfarin due to supratherapeutic INR Continue home medications FEN - Cardiac diet PPX -hold warfarin for procedure tomorrow DNR Dispo - inpatient for above Surrogate decision-maker is her daughter (Alyce Santana) History of Present Illness History of Present Illness Ms Santana is a 76-year-old female with past medical history DM2, CAD, HTN, HLD, presents as a direct admit from [facility] due to multiple nonhealing blistering wounds to her bilateral feet for the past month. She was recently treated on our service (03/22/2021) for evacuation and debridement of right thigh hematoma. Right lower extremity CTA at that time showed calcified plaque with approximately 50 percent stenosis to SFA, extensive arterial calcifications to right popliteal artery, heavy calcifications to anterior tibial artery, and oc cluded right posterior tibial artery; Left lower extremity CTA showed popliteal artery with 60-70 percent stenosis at mid segment, left anterior tibial artery with heavy calcifications, left posterior tibial artery occluded distally. She has been receiving local wound care and follow-up at wound care clinic without significant improvement in her blisters. She denies any significant pain but does admit to some clear serous drainage from her bilateral feet. Will admit patient for further medical management. 04/20: Patient seen and examined at bedside. This morning she reports her breathing is stable. Does report increased swelling in her bilateral upper extremities encouraged her to elevate them. Patient being reevaluated by vascular surgery today. Also will consult hematology for vasculitis work-up. Plan of care discussed with bedside nurse. 04/21: Patient seen and examined at bedside. Does say she is having some worsening pain in her right lower extremity. Evaluated by hematology and vascular surgery today. Plastic surgery reconsulted and planning for irrigation and debridement tomorrow. However patient's INR needs to be below 1.5, it is 2.7 today however has been dropping at least one-point the past 2 days. Will give dose of vitamin K today and recheck INR in the morning. If above one-point 5 in the morning patient may need FFP prior to surgery. 04/22: Patient seen and examined at bedside. Other than right lower extremity pain no complaints. INR 2 elevated this morning, 2.1, so high for surgery. 04/24: No acute events overnight. Patient seen and examined bedside. Dressings are moist with strikethrough with serous fluid. Pain is well controlled at this time. 04/25: No acute events overnight. Patient seen and examined bedside during wound dressing changes. There is definitely still weeping around the wounds but the wounds do not appear infected or is or any active bleeding or purulent drainage. Warfarin managed by pharmacy and currently INR is at 1.6 at home dose warfarin. Patient will likely need some skilled rehab upon discharge. Anticipate discharge in the next 24 to 48 hours. Patient's chart, labs, images were revi ewed and discussed with RN 04/26: No overnight Events. No significant pain with dressing changes. Still on IV Zosyn. Awaiting biopsy results. Swelling improved pain improved in the legs. Changed to Rocephin per ID. 04/19/21 Patient seen and examined at bedside. Remains afebrile. Agreeable to returning to [facility] for rehab. Continuing Zosyn will change to Invanz on discharge. Is endorsing some shortness of breath and bilateral upper extremity swelling this morning chest x-ray shows pulmonary edema, will try a one-time dose of Lasix. Plan of care discussed with bedside nurse 04/18/2021: Afebrile. Still with some leg pain, controlled with medication. She will need half-way facility that can manage wound VAC and IV antibiotic regimen. Likely change Zosyn to Invanz, per ID. She does not want to return to [facility] for half-way. cement storage worker helping to find other suitable rehab facilities per patient's preference. 04/17/2021: less ankle edema Afebrile, breathing on room air. Wound VAC in place to right thigh. worked with physical therapy . Continue treatment of bilateral lower extremity wounds with Zosyn. she has not willing to go back [facility] as did not really change the dressings on her legs. She would much prefer a different half-way facility upon discharge. Anticipate plastic surgery recommendations on management of right thigh hematoma. d/w rn and social work infected foul smelling wounds, bilateral lower extremity. Right lower thigh hematoma evacuation with a wound VAC in place 28 min pt exam, chart review, > 50% of time spent with exam, chart review, pt care coordination 04/16/2021: Afebrile, breathing on room air. Wound VAC in place to right thigh. worked with physical therapy . Continue treatment of bilateral lower extremity wounds with Zosyn. she has not willing to go back [facility] as did not really change the dressings on her legs. She would much prefer a different half-way facility upon discharge. Anticipate plastic surgery recommendations on management of right thigh hematoma. d/w rn and social work infected foul smelling wounds, bilateral lower extremity. Right lower thigh hematoma evacuation with a wound VAC in place 04/15/2021: Afebrile, breathing on room air. Wound VAC in place to right thigh. She reports some pain in her legs with movement, but worked with physical thera py yesterday. Continue treatment of bilateral lower extremity wounds with Zosyn. She states that she has not found to [facility] as did not really change the dressings on her legs. She would much prefer a different half-way facility upon discharge. Anticipate plastic surgery recommendations on management of right thigh hematoma. 04/14/2021: Febrile overnight with T-max 100.7 F. WBC 11.[address]. Will [address] consult to ID to help with management of cellulitis that failed outpatient antibiotic treatment. Per vascular surgery, no urgency for surgical debridement of her wounds or angiogram currently. She had wound VAC placed in the right thigh yesterday. Await recommendations from plastic surgery. Vitals/I&O Vitals/I&O: Vital Signs Date Time Temp Pulse Resp B/P (MAP) Pulse Ox O2 Delivery O2 Flow Rate FiO2 04/27/21 11:12 Room Air 04/27/21 09:57 73 154/60 04/27/21 08:10 94 04/27/21 07:00 97.5 18 97.5 I & O0 04/26/21 04/26/21 04/27/21 15:00 23:00 07:00 Intake Total 950 ml 50 ml 1050 ml Balance 950 ml 50 ml 1050 ml Physical Exam Physical Exam: GENERAL: Alert, oriented female, not in distress. resting in bed HEENT: Both pupils are round and reacting. No conjunctival lesion, no lesion in the mouth. NECK: Supple, no JVP, no lymphadenopathy. LUNGS: Clear. HEART: S1, S2 regular. ABDOMEN: Soft, nontender, no organomegaly. EXTREMITIES: Bilateral lower extremity swelling present improving, dressing intact not taken down NEUROLOGIC: The patient is alert, awake, and appropriate. No focal neurologic deficit. General: Alert Heart: Regular rate, Normal S1, Normal S2, No murmurs Lungs: Clear Abdomen: Normal bowel sounds, Soft, Other (Morbidly obese) Extremities: No clubbing, No edema, Other (Dressings with serous fluid strikethrough. Intact biphasic dorsalis pedis Doppler signals bilaterally, posterior tibial Doppler signals are absent bilaterally) Skin: Other (Full-thickness superficial gangrene involving the posterior right lower extremity with several large patches of wounds, superficial full-thickness wounds involving the left dorsal surface pretibial area, chronic venous insufficiency skin changes bilaterally with hemosiderin deposition, no cellulitis, no purulent drainage) Labs Labs: Laboratory Tests Test 04/26/21 17:23 04/26/21 21:20 04/27/21 07:05 04/27/21 07:31 Glucose (Fingerstick) 172 mg/dL (70-99) 204 mg/dL (70-99) 169 mg/dL (70-99) Prothrombin Time 28.7 SEC (11.7-14.0) Prothromb Time International Ratio 2.8 (0.8-1.1) Test 04/27/21 11:22 04/27/21 13:15 Glucose (Fingerstick) 137 mg/dL (70-99) SARS-CoV-2 Antigen (Rapid) Negative (NEGATIVE) Comment Review of Relevant I have reviewed the following items ronen (where applicable) has been applied. Medications: Current Medications Medications (Trade) Dose Ordered Sig/Gennaro Route PRN Reason Start Time Stop Time Status Last Admin Dose Admin Warfarin Sodium (Coumadin) 4 mg 1X WARF ONCE PO 04/26/21 16:00 04/26/21 16:01 DC 04/26/21 16:34 Ceftriaxone Sodium (Rocephin) 2 gm Q24H IVP 04/27/21 12:00 04/27/21 11:28 Justifications for Admission Other Justification Diabetic ulcers, failed outpatient treatment JAZMINE TARANGO MD Apr 27, 2021 13:55
--- NOTE | 2021-04-27 14:03 | NUR ---
Pharmacy Warfarin Dosing Note S: Pharmacy consulted to assist with anticoagulation therapy O: SIXTO MEREDITH is a 76 year old F with H/O DVT LABS: Last INR: 2.8 Last HGB: 7.7 Last HCT: 24.8 Last PLT: 405 Last dose of 4 mg given on 04/26/21 at 1634 Vitamin K given: Y 04/21 5MG, 04/22 5MG Ongoing Drug Interactions: A:INR of 2.8 is within desired range. Target range for this patient is: 2 -3 P: Warfarin dose: 2 mg Today at 1600 Bridge Therapy: None Next INR due tomorrow Pharmacy anticoagulation service will continue to follow. Lidia Lewis Nancie, 04/27/21 2085
[2021-04-27 15:00] VITALS: BP 157/67
[2021-04-27] MEDS ORDERED: WARFARIN 2 MG TABLET. PO ONE (16:00)
--- NOTE | 2021-04-27 17:17 | NUR ---
Wound/Ostomy Care Wound Type/Assessment: Wound care follow up post debridement from Dr Cartwright on 04/23. patient now has open wounds to Right thigh, lower leg, 2nd toe and plantar foot as well as left posterior and anterior lower leg and left dorsal foot. Pt BLE are edematous and draining. Cleansed all wounds, pictured and measured and redressed per Dr Cartwright's orders. Wound care will continue to follow. Treatment Recommendations/Plan: Dr Cartwright has ordered Dakin gauze, cover with ABD and kerlix, recommend to change BID due to copious drainage. Education provided: WC POC, PU prevention Offloading surface/device: patient is self turn Recommended Referrals/Tests: na Discharge Recommendations for dressings: see above
[2021-04-27 19:00] VITALS: BP 148/53
[2021-04-27] MEDS: ATORVASTATIN CALCIUM 40 MG TABLET. PO SCH (20:54)
[2021-04-27] MEDS: INSULIN GLARGINE SYRINGE. SQ SCH (21:03)
[2021-04-27 23:00] VITALS: BP 151/55
[2021-04-28] MEDS: HYDROcodone/APAP 5/325MG 1 TAB TABLET PO PRN ×4 (00:39→21:50)
[2021-04-28 03:00] VITALS: BP 153/58
[2021-04-28 06:37] LABS: PROTHROMBIN TIME PATIENT 31.6 SEC (11.7-14.0)
[2021-04-28 07:00] VITALS: BP 174/62
[2021-04-28] MEDS: INSULIN LISPRO 300 UNITS/3 ML VIAL. SQ SCH ×3 (08:00→17:00)
--- NOTE | 2021-04-28 08:32 | PDOC ---
[facility] PROGRESS NOTE Date of Service DOS: DATE: 04/28/21 TIME: 08:32 Chief Complaint Chief Complaint Assessment Sepsis present on admission Nonhealing acute on chronic bilateral lower extremity wounds, foul-smelling and necrotic tissue down to subcutaneous fat status post surgical debridement 2020 Right lower thigh hematoma with wound VAC in place Severe peripheral vascular disease with multiple stenosis Atrial fibrillation Supratherapeutic INR, hold warfarin, pharmacy to adjust need 04-17 DM2 CAD HTN Severe protein malnutrition Anemia of chronic inflammatory disease Transaminitiselevated alkaline phosphatase likely related to bone disease Hypokalemia Plan: Resume anticoagulation with goal of INR between 2-3, pharmacy to dose Consulted to vascular surgery, plastic surgery, and wound care Patient likely to need additional debridement; planning for April 23 pending INR below 1.5 tomorrow morning Continue Zosyn; will change to Invanz on discharge Continue holding warfarin due to supratherapeutic INR Continue home medications FEN - Cardiac diet PPX -hold warfarin for procedure tomorrow DNR Dispo - inpatient for above Surrogate decision-maker is her daughter (Alyce Santana) History of Present Illness History of Present Illness Ms Santana is a 76-year-old female with past medical history DM2, CAD, HTN, HLD, presents as a direct admit from [facility] due to multiple nonhealing blistering wounds to her bilateral feet for the past month. She was recently treated on our service (03/22/2021) for evacuation and debridement of right thigh hematoma. Right lower extremity CTA at that time showed calcified plaque with approximately 50 percent stenosis to SFA, extensive arterial calcifications to right popliteal artery, heavy calcifications to anterior tibial artery, and oc cluded right posterior tibial artery; Left lower extremity CTA showed popliteal artery with 60-70 percent stenosis at mid segment, left anterior tibial artery with heavy calcifications, left posterior tibial artery occluded distally. She has been receiving local wound care and follow-up at wound care clinic without significant improvement in her blisters. She denies any significant pain but does admit to some clear serous drainage from her bilateral feet. Will admit patient for further medical management. 04/20: Patient seen and examined at bedside. This morning she reports her breathing is stable. Does report increased swelling in her bilateral upper extremities encouraged her to elevate them. Patient being reevaluated by vascular surgery today. Also will consult hematology for vasculitis work-up. Plan of care discussed with bedside nurse. 04/21: Patient seen and examined at bedside. Does say she is having some worsening pain in her right lower extremity. Evaluated by hematology and vascular surgery today. Plastic surgery reconsulted and planning for irrigation and debridement tomorrow. However patient's INR needs to be below 1.5, it is 2.7 today however has been dropping at least one-point the past 2 days. Will give dose of vitamin K today and recheck INR in the morning. If above one-point 5 in the morning patient may need FFP prior to surgery. 04/22: Patient seen and examined at bedside. Other than right lower extremity pain no complaints. INR 2 elevated this morning, 2.1, so high for surgery. 04/24: No acute events overnight. Patient seen and examined bedside. Dressings are moist with strikethrough with serous fluid. Pain is well controlled at this time. 04/25: No acute events overnight. Patient seen and examined bedside during wound dressing changes. There is definitely still weeping around the wounds but the wounds do not appear infected or is or any active bleeding or purulent drainage. Warfarin managed by pharmacy and currently INR is at 1.6 at home dose warfarin. Patient will likely need some skilled rehab upon discharge. Anticipate discharge in the next 24 to 48 hours. Patient's chart, labs, images were revi ewed and discussed with RN 04/26: No overnight Events. No significant pain with dressing changes. Still on IV Zosyn. Awaiting biopsy results. 04/27: Swelling improved pain improved in the legs. Changed to Rocephin per ID Proteus vulgaris and wound Afebrile overnight. Complaining worsening shortness of breath on minimal exertion and now on 2 L of oxygen. IV fluids at home. Awaiting chest radiograph. Did have some minimal improvement with breathing treatment with respiratory therapy. 04/19/21 Patient seen and examined at bedside. Remains afebrile. Agreeable to returning to [facility] for rehab. Continuing Zosyn will change to Invanz on discharge. Is endorsing some shortness of breath and bilateral upper extremity swelling this morning chest x-ray shows pulmonary edema, will try a one-time dose of Lasix. Plan of care discussed with bedside nurse 04/18/2021: Afebrile. Still with some leg pain, controlled with medication. She will need shelter facility that can manage wound VAC and IV antibiotic regimen. Likely change Zosyn to Invanz, per ID. She does not want to return to [facility] for shelter. slab worker helping to find other suitable rehab facilities per patient's preference. 04/17/2021: less ankle edema Afebrile, breathing on room air. Wound VAC in place to right thigh. worked with physical therapy . Continue treatment of bilateral lower extremity wounds with Zosyn. she has not willing to go back [facility] as did not really change the dressings on her legs. She would much prefer a different shelter facility upon discharge. Anticipate plastic surgery recommendations on management of right thigh hematoma. d/w rn and social work infected foul smelling wounds, bilateral lower extremity. Right lower thigh hematoma evacuation with a wound VAC in place 28 min pt exam, chart review, > 50% of time spent with exam, chart review, pt care coordination 04/16/2021: Afebrile, breathing on room air. Wound VAC in place to right thigh. worked with physical therapy . Continue treatment of bilateral lower extremity wounds with Zosyn. she has not willing to go back [facility] as did not really change the dressings on her legs. She would much prefer a different shelter facility upon discharge. Anticipate plastic surgery recommendations on management of right thigh hematoma. d/w rn and social work infected foul smelling wounds, bilateral lower extremity. Right lower thigh hematoma evacuation with a wound VAC in place 04/15/2021: Afebrile, breathing on room air. Wound VAC in place to right thigh. She reports some pain in her legs with movement, but worked with physical therapy yesterday. Continue treatment of bilateral lower extremity wounds with Zosyn. She states that she has not found to [facility] as did not really change the dressings on her legs. She would much prefer a different shelter facility upon discharge. Anticipate plastic surgery recommendations on management of right thigh hematoma. 04/14/2021: Febrile overnight with T-max 100.7 F. WBC 11.4. Will [address] consult to ID to help with management of cellulitis that failed outpatient antibiotic treatment. Per vascular surgery, no urgency for surgical debridement of her wounds or angiogram currently. She had wound VAC placed in the right thigh yesterday. Await recommendations from plastic surgery. Vitals/I&O Vitals/I&O: Vital Signs Date Time Temp Pulse Resp B/P (MAP) Pulse Ox O2 Delivery O2 Flow Rate FiO2 04/28/21 03:00 98.7 67 16 153/58 (89) 94 Nasal Cannula 2.0 98.7 I & O 04/27/21 04/27/21 04/28/21 15:00 23:00 07:00 Intake Total 1170 ml Balance 1170 ml Physical Exam Physical Exam: GENERAL: Alert, oriented female, not in distress. resting in bed HEENT: Both pupils are round and reacting. No conjunctival lesion, no lesion in the mouth. NECK: Supple, no JVP, no lymphadenopathy. LUNGS: Clear. HEART: S1, S2 regular. ABDOMEN: Soft, nontender, no organomegaly. EXTREMITIES: Bilateral lower extremity swelling present improving, dressing intact not taken down NEUROLOGIC: The patient is alert, awake, and appropriate. No focal neurologic deficit. General: Alert Heart: Regular rate, Normal S1, Normal S2, No murmurs Lungs: Clear Abdomen: Normal bowel sounds, Soft, Other (Morbidly obese) Extremities: No clubbing, No edema, Other (Dressings with serous fluid strikethrough. Intact biphasic dorsalis pedis Doppler signals bilaterally, posterior tibial Doppler signals are absent bilaterally) Skin: Other (Full-thickness superficial gangrene involving the posterior right lower extremity with several large patches of wounds, superficial full-thickness wounds involving the left dorsal surface pretibial area, chronic venous insufficiency skin changes bilaterally with hemosiderin deposition, no cellulitis, no purulent drainage) Labs Labs: Laboratory Tests Test 04/27/21 11:22 04/27/21 13:15 04/27/21 16:59 04/27/21 20:43 Glucose (Fingerstick) 137 mg/dL (70-99) 188 mg/dL (70-99) 129 mg/dL (70-99) SARS-CoV-2 Antigen (Rapid) Negative (NEGATIVE) Test 04/28/21 04:55 04/28/21 07:21 Prothrombin Time 31.6 SEC (11.7-14.0) Prothromb Time International Ratio 3.1 (0.8-1.1) Glucose (Fingerstick) 141 mg/dL (70-99) Comment Review of Relevant I have reviewed the following items ronen (where applicable) has been applied. Medications: Current Medications Medications (Trade) Dose Ordered Sig/Gennaro Route PRN Reason Start Time Stop Time Status Last Admin Dose Admin Ceftriaxone Sodium (Rocephin) 2 gm Q24H IVP 04/27/21 12:00 04/27/21 11:28 Warfarin Sodium (Coumadin) 2 mg 1X WARF ONCE PO 04/27/21 16:00 04/27/21 16:01 DC 04/27/21 15:20 Justifications for Admission Other Justification Diabetic ulcers, failed outpatient treatment JAZMINE TARANGO MD Apr 28, 2021 08:32
--- NOTE | 2021-04-28 08:34 | NUR ---
This RN nonadministered IV fluids. Previous bag still infusing. Refer to EMAR for further details.
--- NOTE | 2021-04-28 08:35 | NUR ---
Pain reassessments not completed by this RN. Reassessments from night guard. Refer to EMAR for further details. Shift pain assessment completed.
[2021-04-28] MEDS: ALBUTEROL SULFATE 2.5 MG/3 ML NEBU. NEB PRN (08:47)
[2021-04-28] MEDS: METOPROLOL SUCC 24HR ER 50 MG TAB.ER.24H. PO SCH (09:45)
[2021-04-28] MEDS: LACTOBACILLUS RHAMNOSUS GG 1 CAPSULE. PO SCH ×2 (09:45→20:08)
[2021-04-28] MEDS: CITALOPRAM 20 MG TABLET. PO SCH (09:45)
[2021-04-28] MEDS: LOSARTAN POTASSIUM 50 MG TABLET. PO SCH (09:46)
[2021-04-28] MEDS: NYSTATIN TOPICAL POWDER 15GM BOTTLE. TP SCH ×2 (09:46→20:08)
[2021-04-28] MEDS: SODIUM HYPOCHLORITE 0.125% 473 ML BOTTLE. TP SCH (09:46)
--- NOTE | 2021-04-28 10:21 | PDOC ---
Date of Service: DATE: 04/26/21 TIME: 11:35 AM Progress Note: S: Pt examined at bedside. Reports decreased pain of lower extremities postop. No acute changes. O: Afebrile. Stable vitals. PE: Gen: No acute distress. Extremities: Bandages clean, dry, intact. Feet warm. shot coat tender to moderate palpation. Pathology and Micro pending A/P: 76yo F with PVD s/p debridement bilateral lower extremity wounds on 04/23 Awaiting culture results and pathology Continue daily Dakin's wet to dry dressing changes Ias Alvarado MD Justifications for Admission Other Justification Diabetic ulcers, failed outpatient treatment ISA ALVARADO MD Apr 28, 2021 10:21
--- NOTE | 2021-04-28 10:43 | PDOC ---
Infectious Disease Note Subjective: Subjective Patient has some postop site pain Complains of shortness of breath Denies fever, nausea, vomiting, diarrhea, abdominal pain Vital Signs: Vital Signs Vital Signs Date Time Temp Pulse Resp B/P (MAP) Pulse Ox O2 Delivery O2 Flow Rate FiO2 04/28/21 09:46 73 174/62 04/28/21 08:47 96 Room Air 04/28/21 08:30 2.0 04/28/21 07:00 98.0 16 98.0 Physical Exam: PHYSICAL EXAM GENERAL: Alert, oriented female, not in distress. resting in bed HEENT: Both pupils are round and reacting. No conjunctival lesion, no lesion in the mouth. NECK: Supple LUNGS: Decreased breath sound at the bases HEART: S1, S2 regular. ABDOMEN: Soft, nontender, no organomegaly. EXTREMITIES: Bilateral lower extremity swelling present improving, dressing intact not taken down NEUROLOGIC: The patient is alert, awake, and appropriate. No focal neurologic deficit. Medications: Inpatient Meds: Medications reviewed. Labs: Lab Laboratory Tests Test 04/27/21 11:22 04/27/21 13:15 04/27/21 16:59 04/27/21 20:43 Glucose (Fingerstick) 137 mg/dL (70-99) 188 mg/dL (70-99) 129 mg/dL (70-99) SARS-CoV-2 Antigen (Rapid) Negative (NEGATIVE) Test 04/28/21 04:55 04/28/21 07:21 Prothrombin Time 31.6 SEC (11.7-14.0) Prothromb Time International Ratio 3.1 (0.8-1.1) Glucose (Fingerstick) 141 mg/dL (70-99) Micro RUN DATE: 04/26/21 [facility] *LIVE* PAGE 1 RUN TIME: 0810 Specimen Inquiry PATIENT: SIXTO MEREDITH ACCT: [id number] LOC: [address] [place] [address] U: [id number] AGE/SX: 76/F ROOM: 528 RE04/12/[address]: NATE BHATT III, DO : 1945 BED: 1 DIS: STATUS: ADM IN TLOC: SPEC #: [id number] MARÍA ELENA: 04/23/21 STATUS: RES REQ #: [id number] RECD: 04/23/[address]: NATE BHATT III, DO SOURCE: LEG ENTR: 04/23/[address]: NIXON COURTNEY MD SPDESC: PANCHO ROMAN,JESSE PEÑA MD, MD, DOUGLAS M DO MANTHRAVADI, SASHIDHAR MD THORS, AXEL DO ORDERED: ANAER/FEDE/PARUL COMMENTS: RT LEG WOUND Procedure Result GRAM STAIN Final Final NO ORGANISMS SEEN. SQUAMOUS EPI CELL:NONE SEEN PMN (WBCs):NONE SEEN Unless otherwise specified, Testing Performed by: [address] [address] For Inquires, the Physician may contact the Microbiology department at [phone] ANAEROBIC-AEROBIC CULTURE Preliminary Preliminary RARE [PROTEUS VULGARIS GROUP] on 04/25/21 at 1418 PROTEUS VULGARIS GROUP ANTIMICROBIAL SUSCEPTIBILITY Preliminary Comment NEG TAMEKA 56 PROTEUS VULGARIS GROUP ANTIBIOTIC RESULT INTERPRETATION AMPICILLIN/SULBACTAM 8/4 S AMIKACIN <=16 S AMPICILLIN >16 R AMOXICILLIN/K CLAVULANATE <=8/4 S AZTREONAM <=4 S CEFTRIAXONE <=1 S CEFTAZIDIME <=1 S CEFOTAXIME <=2 S CEFOXITIN <=8 S CEFAZOLIN >16 R CIPROFLOXACIN <=0.25 S CEFEPIME <=2 S CEFUROXIME >16 R RUN DATE: 04/26/21 [facility] *LIVE* PAGE 2 RUN TIME: 08 Specimen Inquiry SPEC: [id number] PATIENT: SIXTO MEREDITH [id number] (Continued) Procedure Result CONTINUED ON NEXT PAGE RUN DATE: 04/26/21 [facility] *LIVE* PAGE 3 RUN TIME: 0810 Specimen Inquiry SPEC: [id number] PATIENT: SIXTO MEREDITH [id number] (Continued) Procedure Result - ANTIMICROBIAL SUSCEPTIBILITY Preliminary (continued) ERTAPENEM <=0.5 S GENTAMICIN <=2 S LEVOFLOXACIN <=0.5 S MEROPENEM <=1 S PIPERACILLIN/TAZOBACTAM <=8 S TRIMETHOPRIM/SULFAMETHOXAZOLE <=0.5/9.5 S TETRACYCLINE 8 R* TOBRAMYCIN <=2 S Unless otherwise specified, Testing Performed by: [address] [address] For Inquires, the Physician may contact the Microbiology department at [phone] Objective: Assessment: 1. 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 Right lower thigh hematoma evacuation with a wound VAC in place, clean wound 3. Leukocytosis. 4. Fever. resolved 5. Peripheral vascular disease. 6. Coronary artery disease. Plan: Plan of Care Continue ceftriaxone,was on zosyn Offload Cont local wound care as directed Monitor respiratory status closely CASTRO ROMAN MD Apr 28, 2021 10:43
[2021-04-28 11:00] VITALS: BP 152/53
--- NOTE | 2021-04-28 11:34 | NUR ---
Pharmacy Warfarin Dosing Note S:Pharmacy consulted to assist with anticoagulation therapy started with target INR: 2 -3 O:SIXTO MEREDITH is a 76 year old F with H/O DVT. LABS: Last INR: 3.1 Last HGB: 7.7 Last HCT: 24.8 Last PLT: 405 Last dose of 2 mg given on 04/27/21 at 1520 Previous Regimen: 4MG DAILY Vitamin K given: Y 04/21 5MG, 04/22 5MG Drug Interaction Changes: None A:INR of 3.1 is above desired range. Target range for this patient is: 2 -3. INR trending up at a slower rate so will give 2 mg again today. P: Warfarin dose: 2 mg Today at 1600 Bridge Therapy: None Next INR due 04/29/21 Pharmacy anticoagulation service will continue to follow. BRE CASTRO RPH, 04/28/21 1968
[2021-04-28] MEDS: IV NORMAL SALINE 1000ML BAG 1,000 ML IV SCH (11:45)
--- NOTE | 2021-04-28 11:48 | NUR ---
This RN nonadministered IV fluids. Previous bag still infusing. Refer to EMAR for further details.
[2021-04-28] MEDS: cefTRIAXone IV Push 2 GM VIAL. IVP SCH (11:53)
--- NOTE | 2021-04-28 12:09 | NUR ---
Pt experiencing increased SOB, O2 sat 88% on RA. 2L NC placed with improvement to 94%. Fluids stopped, Dr. Canales notified. Lung sounds diminished anteriorly. Orders received from Dr. Canales to discontinue IV fluids.
[2021-04-28 12:38] LABS: BASO % 0 % (0-3); EOS # 0.1 x10^3/uL (0.0-0.7); EOS % 1 % (0-3); HEMATOCRIT 24.4 % (36.0-47.0); HEMOGLOBIN 7.3 g/dL (12.0-15.5); LYMPH # 1.5 x10^3/uL (1.0-4.8); LYMPH % 21 % (24-48); MEAN CORPUSCULAR HEMOGLOBIN 25 pg (25-35); MEAN CORPUSCULAR HGB CONC 30 g/dL (31-37); MEAN CORPUSCULAR VOLUME 82 fL (79-100); MONO # 0.5 x10^3/uL (0.0-1.1); MONO % 7 % (0-9); NEUT # 5.1 x10^3/uL (1.8-7.7); NEUT % 70 % (31-73); PLATELET COUNT 334 x10^3/uL (140-400); RED BLOOD COUNT 2.96 x10^6/uL (3.50-5.40); RED CELL DISTRIBUTION WIDTH 19.3 % (11.5-14.5); WHITE BLOOD COUNT 7.3 x10^3/uL (4.0-11.0)
[2021-04-28 12:50] LABS: CALCIUM 7.8 mg/dL (8.5-10.1); CREATININE 0.6 mg/dL (0.6-1.0); GFR 96.9
[2021-04-28 12:54] LABS: POTASSIUM 2.8 mmol/L (3.5-5.1)
[2021-04-28 13:34] LABS: MAGNESIUM 2.2 mg/dL (1.8-2.4); PHOSPHORUS 3.1 mg/dL (2.6-4.7)
[2021-04-28] MEDS: POTASSIUM CHLORIDE 10MEQ 100 ML IV SCH ×4 (14:00→20:04)
[2021-04-28] MEDS ORDERED: FUROSEMIDE 40 MG/4 ML VIAL. IVP ONE (14:15)
--- NOTE | 2021-04-28 14:29 | NUR ---
Dr. Cartwright changed pt's BLE dressings this am.
[2021-04-28 15:00] VITALS: BP 145/54
--- NOTE | 2021-04-28 15:08 | PATHOLOGY ---
[facility] Accession Number: [id number] . 01 Material submitted: . PART A: leg - RIGHT LATERAL LOWER LEG WOUND. Modifiers: right, lateral, lower PART B: leg - RIGHT LOWER LEG WOUND. Modifiers: right, lower PART C: leg - RIGHT NORMAL LEG WOUND. Modifiers: right, NORMAL PART D: leg - RIGHT POSTERIOR LATERAL NECROTIC TISSUE. Modifiers: right, posterior, lateral PART E: leg - PRODUCTS OF NECROTIC FASCIA RIGHT POSTERIOR LEG. Modifiers: right, posterior PART F: leg - RIGHT ANTERIOR LATERAL LEG WOUND. Modifiers: right, anterior, lateral PART G: leg - RIGHT POSTERIOR LEG WOUND. Modifiers: right, posterior . 01 Clinical history: . RIGHT LEG/FOOT WOUND BILATERAL LEG I/D (INCISION AND DRAINAGE) . 02 Diagnosis: A. Skin, right lateral leg wound: - Focal ulceration of skin with contiguous necrotic tissue and acute inflammation. . B. Skin, right lower leg wound: - Focal ulceration of skin with contiguous necrotic tissue and acute inflammation. . C. Skin, right normal leg wound: - Viable skin showing mild chronic inflammation and small focus of necrotic tissue and acute inflammation. . D. Skin and subcutaneous tissue, right posterior lateral necrotic tissue: - Focal ulceration of skin showing focal pseudoepitheliomatous hyperplasia and contiguous extensive necrotic tissue and acute inflammation. - Arterial calcification of deep dermis and subcutis, focal. . E. Fibroadipose tissue, products of necrotic fascia right posterior leg: - Necrotic tissue and extensive acute inflammation. . F. Skin and subcutaneous tissue, right anterior lateral leg wound: - Focal ulceration of skin with contiguous extensive necrotic tissue and acute inflammation. - Arterial calcification, focal. . G. Segments of skin and subcutaneous tissue, right posterior leg wound: - Focal ulceration of skin with contiguous necrotic tissue showing extensive acute inflammation, and separate segment of fibroadipose tissue showing extensive necrosis and acute inflammation. - Arterial calcification, focal. (JPM:pit; 04/28/2021) [facility] 04/28/2021 1458 Local . 02 Electronically signed: . Boston Rios MD, Pathologist NPI- [id number] . 01 Gross description: . A. The specimen is received in formalin, labeled "Loree Santana, right lateral leg wound" and consists of an unoriented irregular skin shave biopsy measuring 1.5 x 0.8 x 0.3 cm and is surfaced with drake-lucas to dusky and necrotic skin. The surgical margin is inked black. The specimen is serially sectioned and submitted entirely in A1. . B. The specimen is received in formalin, labeled "Loree Santana, right lower leg wound" and consists of an unoriented irregular skin shave biopsy measuring 1.4 x 0.7 x 0.2 cm which is surfaced with drake-lucas and dusky skin. The surgical margin is inked black. The specimen is serially sectioned and submitted entirely in B1. . C. The specimen is received in formalin, labeled "Loree Gomez, right normal leg wound" and consists of an unoriented irregular skin shave biopsy (2.0 x 1.9 x 0.3 cm) which is surfaced with drake-lucas dusky and glistening skin. The surgical margin is inked black. The specimen is serially sectioned and submitted entirely in C1. . D. The specimen is received in formalin, labeled "Loree Gomez, right posterior lateral necrotic tissue" and consists of an unoriented irregular skin shave biopsy (9.6 x 6.3 x 0.5 cm) which is surfaced with drake brown dusky, hemorrhagic and necrotic skin. The epidermis also displays a lucas-white and well circumscribed thickened and slightly raised lesion (1.5 x 0.9 cm) which comes to within 0.4 cm of the surgical margin (inked black). [employer] sections to include the entirety of the lesion are submitted in D1-D2. . E. The specimen is received in formalin, labeled "Loree Gomez, products of necrotic fascia right posterior leg" and consists of a drake-lucas dusky and hemorrhagic rubbery irregular tissue measuring 3.0 x 1.7 x 0.7 cm. Sectioning reveals drake dusky and necrotic cut surfaces. RRepresentative sections are submitted in E1. . F. The specimen is received in formalin, labeled "Loree Santana, right anterior lateral leg wound" and consists of an unoriented irregular skin shave (5.3 x 2.2 x 0.4 cm) which is surfaced with brown drake dusky and necrotic skin. The surgical margin is inked black. Sectioning reveals dusky and necrotic cut surfaces. [employer] sections are submitted in F1-F2. . G. The specimen is received in formalin, labeled "Loree Santana, right posterior leg wound" and consists of an unoriented irregular skin shave biopsy (1.9 x 1.5 x 0.3 cm) which is surfaced with drake-lucas to dusky and necrotic skin. The surgical margin is inked black. The specimen is serially sectioned. Also received in the same container is an unoriented irregular drake-lucas rubbery irregular tissue measuring 1.5 x 1.2 x 0.2 cm. The specimen is submitted entirely in G1-G2 as follows: G1: Skin shave biopsy, entirely submitted G2: Additional soft tissue, entirely submitted ([facility]; 04/26/2021) DKA/DKA 04/26/2021 1655 Local . 02 Pathologist provided ICD-10: L97.919, I96 . 02 CPT . 479191, 502623, 562433, 521700, 330580, 020913, [id number] Specimen Comment: A courtesy copy of this report has been sent to [phone], [phone] Specimen Comment: [id number], Specimen Comment: Report sent to , DR BHATT / DR COURTNEY Performed at: 01 [facility] [address], [place], [place] [id number] MD Manuel Gonzalez MD Phone: [phone] Performed at: 02 [facility] [address] [place], [place] [id number] MD Boston Rios MD Phone: [phone]
[2021-04-28] MEDS: HYDROmorphone 2 MG/ML VIAL IVP PRN (15:24)
--- NOTE | 2021-04-28 15:45 | PDOC ---
Date of Service: DATE: 04/28/21 TIME: 10:15 AM Progress Note: S: Patient reports shortness of breath since yesterday. Received O2 nassula cannula and off since this morning. Reports feeling like there's water in her abdomen. Decreased pain of bilateral lower extremities. Ambulates with PT/OT. Doesn't sit in chair due to pain of legs. O: Afebrile. Stable vitals. Gen: Labored breathing. Lungs: Wheezing. O2 sat 92%. 2L nasal cannula placed with O2 sat at 98% Abdomen: Edematous Extremities: RIght thigh with minimal slough without surrounding cellulitis. Right lower leg posterolateral and inferior wounds with exposed fascia and minimal slough. Threatened tissues along periphery. No surrounding cellutitis. There is maceration of surrounding skin. Right second toe dorsal wound with pink tissue, healing well. Left lower leg anterior wound with mild-moderate slough on a pink tissue base without surrounding cellulitis. There is edema of the leg with serous discharge from the wound. The posterolateral wound has pink granulation tissue with minimal slough. The great toe has an eschar in place with periwound erythema. Labs Microbiology: Rare proteus Histopathology: Pending A/P: Pt s/p debridement of bilateral lower extremities on 04/23/21 The histopathology is pending. Will follow up the reports. Wound cultures show rare Proteus. Antibiotics per susceptibilities and ID. Discussed with wound care team. Will discontinue wet to dry at this time and begin VeraFlo vac with Dakins to decrease slough and assist with controlling serous wound exudate. Not ready for regular wound vac at this time. Optimize nutrition. Protein supplements as tolerated. No recent prealbumin level. Nurses to call hospitalist to further evaluate dyspnea. Management of diuretics and edema per medical team. Justifications for Admission Other Justification Diabetic ulcers, failed outpatient treatment JESSE ALVARADO MD Apr 28, 2021 15:45
[2021-04-28] MEDS ORDERED: WARFARIN 2 MG TABLET. PO ONE (16:00)
--- NOTE | 2021-04-28 16:19 | RAD ---
EXAM: AP View of the chest DATE: 04/28/2021 1:01 PM INDICATION: Worsening hypoxia, concern for fluid overload COMPARISON: 04/19/2021 03/09/2021 FINDINGS: Mild cardiomegaly. Aorta is tortuous with atherosclerotic calcifications. Prominence of pulmonary art erial trunk. Small bilateral pleural effusions. Bilateral perihilar and lung base airspace opacities. No pneumothorax. IMPRESSION: 1. Cardiomegaly with bilateral parenchymal opacities and pleural effusions may be seen with pulmonar y edema. Multifocal consolidative process could have this appearance as well. Electronically signed by: Blayne Boucher MD (04/28/2021 4:16 PM) [id number]
--- NOTE | 2021-04-28 17:12 | NUR ---
Wound Care Wound Type/Assessment: Follow up for management of BLE stasis ulcers s/p multiple debridements, the most recent by Dr. Cartwright. Wounds pictured and measured post debridement yesterday (04/27/21). Pt premedicated with dilaudid prior to visit. Placed veraflo cleanse choice silver foam x5 pieces to R anterior thigh wound (wound bed pink and granulated with significant biofilm), ostomy ring to periwound, good seal achieved. R posterior lower leg wound has 4 open areas with slough, exposed muscle, fascia, tendon, and adipose. Placed 4 pieces of black foam to wound beds (1 in each), ostomy ring to periwound; good seal achieved. Wounds to L leg are shallow with pale pink granulation and yellow slough covered. L great toe and R plantar foot have dry, stable eschar covered wounds. No other wounds noted on head to toe assessment. Treatment Recommendations/Plan: R anterior thigh: Maintain veraflo settings: NS @ 26cc [id number] Q3H. Wound care will change on Monday 04/30 R posterior lower leg: Maintain Veraflo settings: NS @ 16cc [id number] Q3H. Wound care will change on Monday 04/30 L posterior lower leg: Apply 1/4 strength Dakin's soaked gauze pads to wound bed and cover with ABD and kerlix. Change daily L anterior lower leg: There is drawtex as the primary dressing, secondary dressing of ABD and kerlix. Change the ABD and kerlix daily. Education provided: Pt educated regarding wound care, leg elevation, and pressure ulcer prevention Offloading surface/device: Pillows to elevate legs. Pt positioning options are limited due to cardiac and respiratory status Recommended Referrals/Tests: NA Discharge Recommendations for dressings: As above
[2021-04-28 19:00] VITALS: BP 162/60
[2021-04-28] MEDS: ATORVASTATIN CALCIUM 40 MG TABLET. PO SCH (20:08)
[2021-04-28] MEDS: INSULIN GLARGINE SYRINGE. SQ SCH (21:50)
[2021-04-28 23:00] VITALS: BP 152/65
[2021-04-29] MEDS: HYDROmorphone 2 MG/ML VIAL IVP PRN (00:12)
[2021-04-29 03:00] VITALS: BP 164/67
[2021-04-29] MEDS: HYDROcodone/APAP 5/325MG 1 TAB TABLET PO PRN ×4 (06:05→19:51)
[2021-04-29 07:00] VITALS: BP 157/63
[2021-04-29] MEDS: INSULIN LISPRO 300 UNITS/3 ML VIAL. SQ SCH ×3 (08:00→17:00)
--- NOTE | 2021-04-29 08:20 | PDOC ---
Infectious Disease Note Subjective: Subjective Patient feels a little better Still has some shortness of breath Requiring 2 L O2 by nasal cannula Denies fever, nausea, vomiting, diarrhea, abdominal pain Vital Signs: Vital Signs Vital Signs Date Time Temp Pulse Resp B/P (MAP) Pulse Ox O2 Delivery O2 Flow Rate FiO2 04/29/21 03:00 98.4 73 18 164/67 (99) 96 Nasal Cannula 2.0 98.4 Physical Exam: PHYSICAL EXAM GENERAL: Alert, oriented female, not in distress. resting in bed HEENT: Both pupils are round and reacting. No conjunctival lesion, no lesion in the mouth. NECK: Supple LUNGS: Decreased breath sound at the bases HEART: S1, S2 regular. ABDOMEN: Soft, nontender, no organomegaly. EXTREMITIES: Bilateral lower extremity swelling present improving, right lower extremity wound VAC present for both wounds, thigh and leg NEUROLOGIC: The patient is alert, awake, and appropriate. No focal neurologic deficit. Medications: Inpatient Meds: Medications reviewed. Labs: Lab Laboratory Tests Test 04/28/21 11:52 04/28/21 16:57 04/28/21 20:50 04/29/21 07:46 Glucose (Fingerstick) 179 mg/dL (70-99) 140 mg/dL (70-99) 146 mg/dL (70-99) 142 mg/dL (70-99) Micro RUN DATE: 04/26/21 [facility] *LIVE* PAGE 1 RUN TIME: 809 Specimen Inquiry PATIENT: SIXTO MEREDITH: [id number] LOC: [address] [place] [address] U: [id number] AGE/SX: 76/F ROOM: 528 RE04/12/[address]: NATE BHATT III, DO : 1945 BED: 1 DIS: STATUS: ADM IN TLOC: SPEC #: [id number] MARÍA ELENA: 04/23/21 STATUS: RES REQ #: [id number] RECD: 04/23/[address]: NATE BHATT III, DO SOURCE: LEG ENTR: 04/23/[address]: NIXON COURTNEY MD SPDESC: ABSCESS ROMAN,TOMAS ALVARADO,JESSE ADAN,ODALYS CRUZ MD, AXEL DO ORDERED: ANAER/FEDE/PARUL COMMENTS: RT LEG WOUND Procedure Result GRAM STAIN Final Final NO ORGANISMS SEEN. SQUAMOUS EPI CELL:NONE SEEN PMN (WBCs):NONE SEEN Unless otherwise specified, Testing Performed by: [address] [address] For Inquires, the Physician may contact the Microbiology department at [phone] ANAEROBIC-AEROBIC CULTURE Preliminary Preliminary RARE [PROTEUS VULGARIS GROUP] on 04/25/21 at 1418 PROTEUS VULGARIS GROUP ANTIMICROBIAL SUSCEPTIBILITY Preliminary Comment NEG TAMEKA 56 PROTEUS VULGARIS GROUP ANTIBIOTIC RESULT INTERPRETATION AMPICILLIN/SULBACTAM 8/4 S AMIKACIN <=16 S AMPICILLIN >16 R AMOXICILLIN/K CLAVULANATE <=8/4 S AZTREONAM <=4 S CEFTRIAXONE <=1 S CEFTAZIDIME <=1 S CEFOTAXIME <=2 S CEFOXITIN <=8 S CEFAZOLIN >16 R CIPROFLOXACIN <=0.25 S CEFEPIME <=2 S CEFUROXIME >16 R RUN DATE: 04/26/21 [facility] *LIVE* PAGE 2 RUN TIME: 0810 Specimen Inquiry SPEC: [id number] PATIENT: SIXTO MEREDITH [id number] (Continued) Procedure Result CONTINUED ON NEXT PAGE RUN DATE: 04/26/21 [facility] *LIVE* PAGE 3 RUN TIME: 08 Specimen Inquiry SPEC: [id number] PATIENT: SIXTO MEREDITH [id number] (Continued) Procedure Result ANTIMICROBIAL SUSCEPTIBILITY Preliminary (continued) ERTAPENEM <=0.5 S GENTAMICIN <=2 S LEVOFLOXACIN <=0.5 S MEROPENEM <=1 S PIPERACILLIN/TAZOBACTAM <=8 S TRIMETHOPRIM/SULFAMETHOXAZOLE <=0.5/9.5 S TETRACYCLINE 8 R* TOBRAMYCIN <=2 S Unless otherwise specified, Testing Performed by: [address] [address] For Inquires, the Physician may contact the Microbiology department at [phone] Objective: Assessment: 1. 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 Right lower thigh hematoma evacuation with a wound VAC in place, clean wound 3. Leukocytosis. 4. Fever. resolved 5. Peripheral vascular disease. 6. Coronary artery disease. 7. Dyspnea likely volume overload Plan: Plan of Care Continue ceftriaxone while here Will transition to p.o. Augmentin when ready for discharge Please do not place PICC line Offload Cont local wound care as directed Monitor respiratory status closely Discussed with nursing staff Discussed with CASTRO Verdin MD Apr 29, 2021 08:20
[2021-04-29 08:51] LABS: BASO % 0 % (0-3); EOS # 0.1 x10^3/uL (0.0-0.7); EOS % 1 % (0-3); HEMATOCRIT 23.9 % (36.0-47.0); HEMOGLOBIN 7.6 g/dL (12.0-15.5); LYMPH # 1.1 x10^3/uL (1.0-4.8); LYMPH % 14 % (24-48); MEAN CORPUSCULAR HEMOGLOBIN 26 pg (25-35); MEAN CORPUSCULAR HGB CONC 32 g/dL (31-37); MEAN CORPUSCULAR VOLUME 80 fL (79-100); MONO # 0.5 x10^3/uL (0.0-1.1); MONO % 6 % (0-9); NEUT # 6.7 x10^3/uL (1.8-7.7); NEUT % 79 % (31-73); PLATELET COUNT 324 x10^3/uL (140-400); RED BLOOD COUNT 2.98 x10^6/uL (3.50-5.40); RED CELL DISTRIBUTION WIDTH 19.5 % (11.5-14.5); WHITE BLOOD COUNT 8.5 x10^3/uL (4.0-11.0)
[2021-04-29 09:01] LABS: PROTHROMBIN TIME PATIENT 31.6 SEC (11.7-14.0)
[2021-04-29] MEDS: CITALOPRAM 20 MG TABLET. PO SCH (10:05)
[2021-04-29] MEDS: METOPROLOL SUCC 24HR ER 50 MG TAB.ER.24H. PO SCH (10:05)
[2021-04-29] MEDS: LACTOBACILLUS RHAMNOSUS GG 1 CAPSULE. PO SCH ×2 (10:06→22:14)
[2021-04-29] MEDS: NYSTATIN TOPICAL POWDER 15GM BOTTLE. TP SCH ×2 (10:06→21:00)
[2021-04-29] MEDS: SODIUM HYPOCHLORITE 0.125% 473 ML BOTTLE. TP SCH (10:06)
[2021-04-29] MEDS: LOSARTAN POTASSIUM 50 MG TABLET. PO SCH (10:06)
[2021-04-29 10:39] LABS: CREATININE 0.7 mg/dL (0.6-1.0); GFR 81.1
[2021-04-29 10:43] LABS: CALCIUM 7.9 mg/dL (8.5-10.1)
[2021-04-29 11:00] VITALS: BP 155/57
--- NOTE | 2021-04-29 11:11 | NUR ---
Pharmacy Warfarin Dosing Note S:Pharmacy consulted to assist with anticoagulation therapy started with target INR: 2 -3 O:SIXTO MEREDITH is a 76 year old F with H/O DVT. LABS: Last INR: 3.1 Last HGB: 7.6 Last HCT: 23.9 Last PLT: 324 Last dose of 2 mg given on 04/28/21 at 1620 Previous Regimen: 4MG DAILY Vitamin K given: Y 04/21 5MG, 04/22 5MG Drug Interaction Changes: None A:INR of 3.1 is above desired range. Target range for this patient is: 2 -3 P: Warfarin dose: 2 mg Today at 1600 Bridge Therapy: None Next INR due 04/30/21 Pharmacy anticoagulation service will continue to follow. BRE CASTRO RPH, 04/29/21 1111
[2021-04-29] MEDS ORDERED: FUROSEMIDE 40 MG/4 ML VIAL. IVP ONE (11:30)
--- NOTE | 2021-04-29 11:42 | PDOC ---
[facility] PROGRESS NOTE Date of Service DOS: DATE: 04/29/21 TIME: 11:22 Chief Complaint Chief Complaint Assessment Sepsis present on admission Nonhealing acute on chronic bilateral lower extremity wounds, foul-smelling and necrotic tissue down to subcutaneous fat status post surgical debridement 2020 Right lower thigh hematoma with wound VAC in place Severe peripheral vascular disease with multiple stenosis Atrial fibrillation Supratherapeutic INR, hold warfarin, pharmacy to adjust need 04-17 DM2 CAD HTN Severe protein malnutrition Anemia of chronic inflammatory disease Transaminitiselevated alkaline phosphatase likely related to bone disease Hypokalemia Plan: Resume anticoagulation with goal of INR between 2-3, pharmacy to dose Consulted to vascular surgery, plastic surgery, and wound care Patient likely to need additional debridement; planning for April 23 pending INR below 1.5 tomorrow morning Continue Zosyn; will change to Invanz on discharge Continue holding warfarin due to supratherapeutic INR Continue home medications FEN - Cardiac diet PPX -hold warfarin for procedure tomorrow DNR Dispo - inpatient for above Surrogate decision-maker is her daughter (Alyce Santana) History of Present Illness History of Present Illness Ms Santana is a 76-year-old female with past medical history DM2, CAD, HTN, HLD, presents as a direct admit from [facility] due to multiple nonhealing blistering wounds to her bilateral feet for the past month. She was recently treated on our service (03/22/2021) for evacuation and debridement of right thigh hematoma. Right lower extremity CTA at that time showed calcified plaque with approximately 50 percent stenosis to SFA, extensive arterial calcifications to right popliteal artery, heavy calcifications to anterior tibial artery, and oc cluded right posterior tibial artery; Left lower extremity CTA showed popliteal artery with 60-70 percent stenosis at mid segment, left anterior tibial artery with heavy calcifications, left posterior tibial artery occluded distally. She has been receiving local wound care and follow-up at wound care clinic without significant improvement in her blisters. She denies any significant pain but does admit to some clear serous drainage from her bilateral feet. Will admit patient for further medical management. 04/20: Patient seen and examined at bedside. This morning she reports her breathing is stable. Does report increased swelling in her bilateral upper extremities encouraged her to elevate them. Patient being reevaluated by vascular surgery today. Also will consult hematology for vasculitis work-up. Plan of care discussed with bedside nurse. 04/21: Patient seen and examined at bedside. Does say she is having some worsening pain in her right lower extremity. Evaluated by hematology and vascular surgery today. Plastic surgery reconsulted and planning for irrigation and debridement tomorrow. However patient's INR needs to be below 1.5, it is 2.7 today however has been dropping at least one-point the past 2 days. Will give dose of vitamin K today and recheck INR in the morning. If above one-point 5 in the morning patient may need FFP prior to surgery. 04/22: Patient seen and examined at bedside. Other than right lower extremity pain no complaints. INR 2 elevated this morning, 2.1, so high for surgery. 04/24: No acute events overnight. Patient seen and examined bedside. Dressings are moist with strikethrough with serous fluid. Pain is well controlled at this time. 04/25: No acute events overnight. Patient seen and examined bedside during wound dressing changes. There is definitely still weeping around the wounds but the wounds do not appear infected or is or any active bleeding or purulent drainage. Warfarin managed by pharmacy and currently INR is at 1.6 at home dose warfarin. Patient will likely need some skilled rehab upon discharge. Anticipate discharge in the next 24 to 48 hours. Patient's chart, labs, images were revi ewed and discussed with RN 04/26: No overnight Events. No significant pain with dressing changes. Still on IV Zosyn. Awaiting biopsy results. 04/27: Swelling improved pain improved in the legs. Changed to Rocephin per ID Proteus vulgaris and wound 04/28: Afebrile overnight. Complaining worsening shortness of breath on minimal exertion and now on 2 L of oxygen. IV fluids at home. Awaiting chest radiograph. Did have some minimal improvement with breathing treatment with respiratory therapy. Next radiograph with interstitial changes given IV Lasix with some improvement she still with abdominal fullness and shortness of breath on O2. Will give another IV dose of Lasix. Has variflow wound VAC per plastic surgery. Discussed with ID will likely be able to go on PO antibiotics when ready for discharge. 04/19/21 Patient seen and examined at bedside. Remains afebrile. Agreeable to returning to [facility] for rehab. Continuing Zosyn will change to Invanz on discharge. Is endorsing some shortness of breath and bilateral upper extremity swelling this morning chest x-ray shows pulmonary edema, will try a one-time dose of Lasix. Plan of care discussed with bedside nurse 04/18/2021: Afebrile. Still with some leg pain, controlled with medication. She will need assisted facility that can manage wound VAC and IV antibiotic regimen. Likely change Zosyn to Invanz, per ID. She does not want to return to [facility] for assisted. coloring room worker helping to find other suitable rehab facilities per patient's preference. 04/17/2021: less ankle edema Afebrile, breathing on room air. Wound VAC in place to right thigh. worked with physical therapy . Continue treatment of bilateral lower extremity wounds with Zosyn. she has not willing to go back [facility] as did not really change the dressings on her legs. She would much prefer a different assisted facility upon discharge. Anticipate plastic surgery recommendations on management of right thigh hematoma. d/w rn and social work infected foul smelling wounds, bilateral lower extremity. Right lower thigh hematoma evacuation with a wound VAC in place 28 min pt exam, chart review, > 50% of time spent with exam, chart review, pt care coordination 04/16/2021: Afebrile, breathing on room air. Wound VAC in place to right thigh. worked with physical therapy . Continue treatment of bilateral lower extremity wounds with Zosyn. she has not willing to go back [facility] as did not really change the dressings on her legs. She would much prefer a different assisted facility upon discharge. Anticipate plastic surgery recommendations on management of right thigh hematoma. d/w rn and social work infected foul smelling wounds, bilateral lower extremity. Right lower thigh hematoma evacuation with a wound VAC in place 04/15/2021: Afebrile, breathing on room air. Wound VAC in place to right thigh. She reports some pain in her legs with movement, but worked with physical therapy yesterday. Continue treatment of bilateral lower extremity wounds with Zosyn. She states that she has not found to [facility] as did not really change the dressings on her legs. She would much prefer a different assisted facility upon discharge. Anticipate plastic surgery recommendations on management of right thigh hematoma. 04/14/2021: Febrile overnight with T-max 100.7 F. WBC 11.4. Will place consult to ID to help with management of cellulitis that failed outpatient antibiotic treatment. Per vascular surgery, no urgency for surgical debridement of her wounds or angiogram currently. She had wound VAC placed in the right thigh yesterday. Await recommendations from plastic surgery. Vitals/I&O Vitals/I&O: Vital Signs Date Time Temp Pulse Resp B/P (MAP) Pulse Ox O2 Delivery O2 Flow Rate FiO2 04/29/21 11:00 98.8 67 18 155/57 (89) 94 Room Air 98.8 04/29/21 10:27 1.5 I & O 04/28/21 04/28/21 04/29/21 15:00 23:00 07:00 Intake Total 980 ml 440 ml Output Total 0 ml Balance 980 ml 440 ml 0 ml Physical Exam Physical Exam: GENERAL: Alert, oriented female, not in distress. resting in bed HEENT: Both pupils are round and reacting. No conjunctival lesion, no lesion in the mouth. NECK: Supple LUNGS: Decreased breath sound at the bases HEART: S1, S2 regular. ABDOMEN: Soft, nontender, no organomegaly. EXTREMITIES: Bilateral lower extremity swelling present improving, dressing intact not taken down NEUROLOGIC: The patient is alert, awake, and appropriate. No focal neurologic deficit. General: Alert Heart: Regular rate, Normal S1, Normal S2, No murmurs Lungs: Clear Abdomen: Normal bowel sounds, Soft, Other (Morbidly obese) Extremities: No clubbing, No edema, Other (Dressings with serous fluid strikethrough. Intact biphasic dorsalis pedis Doppler signals bilaterally, posterior tibial Doppler signals are absent bilaterally) Skin: Other (Full-thickness superficial gangrene involving the posterior right lower extremity with several large patches of wounds, superficial full-thickness wounds involving the left dorsal surface pretibial area, chronic venous insufficiency skin changes bilaterally with hemosiderin deposition, no cellulitis, no purulent drainage) Labs Labs: Laboratory Tests Test 04/28/21 11:52 04/28/21 16:57 04/28/21 20:50 04/29/21 07:46 Glucose (Fingerstick) 179 mg/dL (70-99) 140 mg/dL (70-99) 146 mg/dL (70-99) 142 mg/dL (70-99) Test 04/29/21 08:00 White Blood Count 8.5 x10^3/uL (4.0-11.0) Red Blood Count 2.98 x10^6/uL (3.50-5.40) Hemoglobin 7.6 g/dL (12.0-15.5) Hematocrit 23.9 % (36.0-47.0) Mean Corpuscular Volume 80 fL (79-100) Mean Corpuscular Hemoglobin 26 pg (25-35) Mean Corpuscular Hemoglobin Concent 32 g/dL (31-37) Red Cell Distribution Width 19.5 % (11.5-14.5) Platelet Count 324 x10^3/uL (140-400) Neutrophils (%) (Auto) 79 % (31-73) Lymphocytes (%) (Auto) 14 % (24-48) Monocytes (%) (Auto) 6 % (0-9) Eosinophils (%) (Auto) 1 % (0-3) Basophils (%) (Auto) 0 % (0-3) Neutrophils # (Auto) 6.7 x10^3/uL (1.8-7.7) Lymphocytes # (Auto) 1.1 x10^3/uL (1.0-4.8) Monocytes # (Auto) 0.5 x10^3/uL (0.0-1.1) Eosinophils # (Auto) 0.1 x10^3/uL (0.0-0.7) Basophils # (Auto) 0.0 x10^3/uL (0.0-0.2) Prothrombin Time 31.6 SEC (11.7-14.0) Prothromb Time International Ratio 3.1 (0.8-1.1) Sodium Level 143 mmol/L (136-145) Potassium Level 3.0 mmol/L (3.5-5.1) Chloride Level 110 mmol/L (98-107) Carbon Dioxide Level 27 mmol/L (21-32) Anion Gap 6 (6-14) Blood Urea Nitrogen 7 mg/dL (7-20) Creatinine 0.7 mg/dL (0.6-1.0) Estimated GFR (Cockcroft-Gault) 81.1 Glucose Level 132 mg/dL (70-99) Calcium Level 7.9 mg/dL (8.5-10.1) Comment Review of Relevant I have reviewed the following items ronen (where applicable) has been applied. Medications: Current Medications Medications (Trade) Dose Ordered Sig/Gennaro Route PRN Reason Start Time Stop Time Status Last Admin Dose Admin Warfarin Sodium (Coumadin) 2 mg 1X WARF ONCE PO 04/28/21 16:00 04/28/21 16:01 DC 04/28/21 16:20 Potassium Chloride/Water 100 ml @ 100 mls/hr Q1H IV 04/28/21 13:00 04/28/21 16:59 DC 04/28/21 20:04 Furosemide (Lasix) 40 mg 1X ONCE IVP 04/28/21 14:15 04/28/21 14:16 DC 04/28/21 15:23 Justifications for Admission Other Justification Diabetic ulcers, failed outpatient treatment JAZMINE TARANGO MD Apr 29, 2021 11:42
[2021-04-29] MEDS: POTASSIUM CHLORIDE 10MEQ 100 ML IV SCH ×4 (12:42→17:29)
[2021-04-29] MEDS: cefTRIAXone IV Push 2 GM VIAL. IVP SCH (12:43)
[2021-04-29 15:00] VITALS: BP 151/59
[2021-04-29] MEDS ORDERED: WARFARIN 2 MG TABLET. PO ONE (16:00)
[2021-04-29 19:00] VITALS: BP 145/47
[2021-04-29] MEDS: ATORVASTATIN CALCIUM 40 MG TABLET. PO SCH (22:14)
[2021-04-29] MEDS: INSULIN GLARGINE SYRINGE. SQ SCH (22:19)
[2021-04-29 23:00] VITALS: BP 167/54
[2021-04-30 03:00] VITALS: BP 154/51
[2021-04-30] MEDS: HYDROcodone/APAP 5/325MG 1 TAB TABLET PO PRN ×5 (03:13→21:14)
[2021-04-30 07:00] VITALS: BP 159/62
[2021-04-30] MEDS: INSULIN LISPRO 300 UNITS/3 ML VIAL. SQ SCH ×3 (08:00→17:28)
--- NOTE | 2021-04-30 08:08 | PDOC ---
Infectious Disease Note Subjective: Subjective Patient feels better On room air Denies fever, nausea, vomiting, diarrhea, abdominal pain Vital Signs: Vital Signs Vital Signs Date Time Temp Pulse Resp B/P (MAP) Pulse Ox O2 Delivery O2 Flow Rate FiO2 04/30/21 03:13 20 04/30/21 03:00 98.5 76 154/51 (85) 93 Room Air 98.5 04/29/21 10:27 1.5 Physical Exam: PHYSICAL EXAM GENERAL: Alert, oriented female, not in distress. resting in bed HEENT: Both pupils are round and reacting. No conjunctival lesion, no lesion in the mouth. NECK: Supple LUNGS: Crackles in both bases of lungs HEART: S1, S2 regular. ABDOMEN: Soft, nontender, no organomegaly. EXTREMITIES: Bilateral lower extremity swelling present improving, right lower e xtremity wound VAC present for both wounds, thigh and leg NEUROLOGIC: The patient is alert, awake, and appropriate. No focal neurologic deficit. Medications: Inpatient Meds: Medications reviewed. Labs: Lab Laboratory Tests Test 04/29/21 11:40 04/29/21 16:52 04/29/21 21:00 Glucose (Fingerstick) 151 mg/dL (70-99) 138 mg/dL (70-99) 137 mg/dL (70-99) Micro RUN DATE: 04/29/21 [facility] *LIVE* PAGE 1 RUN TIME: 906 Specimen Inquiry PATIENT: SIXTO MEREDITH ACCT: [id number] LOC: [address] [place] [address] U: [id number] AGE/SX: 76/F ROOM: 528 RE04/12/[address]: NATE BHATT III, DO : 1945 BED: 1 DIS: STATUS: ADM IN TLOC: SPEC #: [id number] MARÍA ELENA: 04/23/21 STATUS: COMP REQ #: [id number] RECD: 04/23/[address]: NATE BHATT III, DO SOURCE: LEG ENTR: 04/23/[address]: NIXON COURTNEY MD [facility]: ABSCESS ROMAN,TOMAS ALVARADO,ILIR AGLINDO MD, SASHIDHAR MD THORS, AXEL DO ORDERED: ANAER/AEROB/PARUL COMMENTS: RT LEG WOUND Procedure Result GRAM STAIN Final Final NO ORGANISMS SEEN. SQUAMOUS EPI CELL:NONE SEEN PMN (WBCs):NONE SEEN Unless otherwise specified, Testing Performed by: [address] [address] For Inquires, the Physician may contact the Microbiology department at [phone] ANAEROBIC-AEROBIC CULTURE Final Final RARE [PROTEUS VULGARIS GROUP] on 04/25/21 at 1418 NO ANAEROBIC ORGANISMS ISOLATED on 04/29/21 at 0903 PROTEUS VULGARIS GROUP ANTIMICROBIAL SUSCEPTIBILITY Final Comment NEG TAMEKA 56 PROTEUS VULGARIS GROUP ANTIBIOTIC RESULT INTERPRETATION AMPICILLIN/SULBACTAM 8/4 S AMIKACIN <=16 S AMPICILLIN >16 R AMOXICILLIN/K CLAVULANATE <=8/4 S AZTREONAM <=4 S CEFTRIAXONE <=1 S CEFTAZIDIME <=1 S CEFOTAXIME <=2 S CEFOXITIN <=8 S CEFAZOLIN >16 R CIPROFLOXACIN <=0.25 S CEFEPIME <=2 S --- --------- RUN DATE: 04/29/21 [facility] *LIVE* PAGE 2 RUN TIME: 906 Specimen Inquiry SPEC: [id number] PATIENT: SIXTO MEREDITH [id number] (Continued) Procedure Result CONTINUED ON NEXT PAGE RUN DATE: 04/29/21 [facility] *LIVE* PAGE 3 RUN TIME: 09 Specimen Inquiry ---- -------- SPEC: [id number] PATIENT: SIXTO MEREDITH [id number] (Continued) Procedure Result ANTIMICROBIAL SUSCEPTIBILITY Final (continued) CEFUROXIME >16 R ERTAPENEM <=0.5 S GENTAMICIN <=2 S LEVOFLOXACIN <=0.5 S MEROPENEM <=1 S PIPERACILLIN/TAZOBACTAM <=8 S TRIMETHOPRIM/SULFAMETHOXAZOLE <=0.5/9.5 S TETRACYCLINE 8 R* TOBRAMYCIN <=2 S Unless otherwise specified, Testing Performed by: [address] [address] For Inquires, the Physician may contact the Microbiology department at [phone] Objective: Assessment: 1. 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 Right lower thigh hematoma evacuation with a wound VAC in place, clean wound 3. Leukocytosis. 4. Fever. resolved 5. Peripheral vascular disease. 6. Coronary artery disease. 7. Dyspnea likely volume overload Plan: Plan of Care Continue ceftriaxone while here Will transition to p.o. Augmentin when ready for discharge for 5 more days Please do not place PICC line Offload Cont local woundvac care as directed Patient would benefit discharge to [place] than home Discussed with nursing staff Discussed with CASTRO Verdin MD Apr 30, 2021 08:08
[2021-04-30 08:12] LABS: PROTHROMBIN TIME PATIENT 29.6 SEC (11.7-14.0)
--- NOTE | 2021-04-30 08:47 | PDOC ---
[facility] PROGRESS NOTE Date of Service DOS: DATE: 04/30/21 TIME: 08:47 Chief Complaint Chief Complaint Assessment Sepsis present on admission Nonhealing acute on chronic bilateral lower extremity wounds, foul-smelling and necrotic tissue down to subcutaneous fat status post surgical debridement 2020 Right lower thigh hematoma with wound VAC in place Severe peripheral vascular disease with multiple stenosis Atrial fibrillation Supratherapeutic INR, hold warfarin, pharmacy to adjust need 04-17 DM2 CAD HTN Severe protein malnutrition Anemia of chronic inflammatory disease Transaminitiselevated alkaline phosphatase likely related to bone disease Hypokalemia Plan: Resume anticoagulation with goal of INR between 2-3, pharmacy to dose Consulted to vascular surgery, plastic surgery, and wound care Patient likely to need additional debridement; planning for April 23 pending INR below 1.5 tomorrow morning Continue Zosyn; will change to Invanz on discharge Continue holding warfarin due to supratherapeutic INR Continue home medications FEN - Cardiac diet PPX -hold warfarin for procedure tomorrow DNR Dispo - inpatient for above Surrogate decision-maker is her daughter (Alyce Santana) History of Present Illness History of Present Illness Ms Santana is a 76-year-old female with past medical history DM2, CAD, HTN, HLD, presents as a direct admit from [facility] due to multiple nonhealing blistering wounds to her bilateral feet for the past month. She was recently treated on our service (03/22/2021) for evacuation and debridement of right thigh hematoma. Right lower extremity CTA at that time showed calcified plaque with approximately 50 percent stenosis to SFA, extensive arterial calcifications to right popliteal artery, heavy calcifications to anterior tibial artery, and oc cluded right posterior tibial artery; Left lower extremity CTA showed popliteal artery with 60-70 percent stenosis at mid segment, left anterior tibial artery with heavy calcifications, left posterior tibial artery occluded distally. She has been receiving local wound care and follow-up at wound care clinic without significant improvement in her blisters. She denies any significant pain but does admit to some clear serous drainage from her bilateral feet. Will admit patient for further medical management. 04/20: Patient seen and examined at bedside. This morning she reports her breathing is stable. Does report increased swelling in her bilateral upper extremities encouraged her to elevate them. Patient being reevaluated by vascular surgery today. Also will consult hematology for vasculitis work-up. Plan of care discussed with bedside nurse. 04/21: Patient seen and examined at bedside. Does say she is having some worsening pain in her right lower extremity. Evaluated by hematology and vascular surgery today. Plastic surgery reconsulted and planning for irrigation and debridement tomorrow. However patient's INR needs to be below 1.5, it is 2.7 today however has been dropping at least one-point the past 2 days. Will give dose of vitamin K today and recheck INR in the morning. If above one-point 5 in the morning patient may need FFP prior to surgery. 04/22: Patient seen and examined at bedside. Other than right lower extremity pain no complaints. INR 2 elevated this morning, 2.1, so high for surgery. 04/24: No acute events overnight. Patient seen and examined bedside. Dressings are moist with strikethrough with serous fluid. Pain is well controlled at this time. 04/25: No acute events overnight. Patient seen and examined bedside during wound dressing changes. There is definitely still weeping around the wounds but the wounds do not appear infected or is or any active bleeding or purulent drainage. Warfarin managed by pharmacy and currently INR is at 1.6 at home dose warfarin. Patient will likely need some skilled rehab upon discharge. Anticipate discharge in the next 24 to 48 hours. Patient's chart, labs, images were revi ewed and discussed with RN 04/26: No overnight Events. No significant pain with dressing changes. Still on IV Zosyn. Awaiting biopsy results. 04/27: Swelling improved pain improved in the legs. Changed to Rocephin per ID Proteus vulgaris and wound 04/28: Afebrile overnight. Complaining worsening shortness of breath on minimal exertion and now on 2 L of oxygen. IV fluids at home. Awaiting chest radiograph. Did have some minimal improvement with breathing treatment with respiratory therapy. 04/29: Next radiograph with interstitial changes given IV Lasix with some improvement she still with abdominal fullness and shortness of breath on O2. Will give another IV dose of Lasix. Has variflow wound VAC per plastic surgery. Discussed with ID not ready for discharge. Breathing improved after Lasix but still with abdominal swelling. She did have a good bowel movement. Leg still swollen as well interfering with wound vacs. Wound care additional IV Lasix today replace potassium repeat labs in the [facility]. 04/19/21 Patient seen and examined at bedside. Remains afebrile. Agreeable to returning to [facility] for rehab. Continuing Zosyn will change to Invanz on discharge. Is endorsing some shortness of breath and bilateral upper extremity swelling this morning chest x-ray shows pulmonary edema, will try a one-time dose of Lasix. Plan of care discussed with bedside nurse 04/18/2021: Afebrile. Still with some leg pain, controlled with medication. She will need longterm facility that can manage wound VAC and IV antibiotic regimen. Likely change Zosyn to Invanz, per ID. She does not want to return to [facility] for longterm. match up worker helping to find other suitable rehab facilities per patient's preference. 04/17/2021: less ankle edema Afebrile, breathing on room air. Wound VAC in place to right thigh. worked with physical therapy . Continue treatment of bilateral lower extremity wounds with Zosyn. she has not willing to go back [facility] as did not really change the dressings on her legs. She would much prefer a different longterm facility upon discharge. Anticipate plastic surgery recommendations on management of right thigh hematoma. d/w rn and social work infected foul smelling wounds, bilateral lower extremity. Right lower thigh hematoma evacuation with a wound VAC in place 28 min pt exam, chart review, > 50% of time spent with exam, chart review, pt care coordination 04/16/2021: Afebrile, breathing on room air. Wound VAC in place to right thigh. worked with physical therapy . Continue treatment of bilateral lower extremity wounds with Zosyn. she has not willing to go back [facility] as did not really change the dressings on her legs. She would much prefer a different longterm facility upon discharge. Anticipate plastic surgery recommendations on management of right thigh hematoma. d/w rn and social work infected foul smelling wounds, bilateral lower extremity. Right lower thigh hematoma evacuation with a wound VAC in place 04/15/2021: Afebrile, breathing on room air. Wound VAC in place to right thigh. She reports some pain in her legs with movement, but worked with physical therapy yesterday. Continue treatment of bilateral lower extremity wounds with Zosyn. She states that she has not found to [facility] as did not really change the dressings on her legs. She would much prefer a different longterm facility upon discharge. Anticipate plastic surgery recommendations on management of right thigh hematoma. 04/14/2021: Febrile overnight with T-max 100.7 F. WBC 11.4. Will place consult to ID to help with management of cellulitis that failed outpatient antibiotic treatment. Per vascular surgery, no urgency for surgical debridement of her wounds or angiogram currently. She had wound VAC placed in the right thigh yesterday. Await recommendations from plastic surgery. Vitals/I&O Vitals/I&O: Vital Signs Date Time Temp Pulse Resp B/P (MAP) Pulse Ox O2 Delivery O2 Flow Rate FiO2 04/30/21 03:13 20 04/30/21 03:00 98.5 76 154/51 (85) 93 Room Air 98.5 04/29/21 10:27 1.5 I & O 04/29/21 04/29/21 04/30/21 15:00 23:00 07:00 Intake Total 440 ml 1740 ml 0 ml Output Total 725 ml Balance 440 ml 1015 ml 0 ml Physical Exam Physical Exam: GENERAL: Alert, oriented female, not in distress. resting in bed HEENT: Both pupils are round and reacting. No conjunctival lesion, no lesion in the mouth. NECK: Supple LUNGS: Decreased breath sound at the bases HEART: S1, S2 regular. ABDOMEN: Soft, nontender, no organomegaly. EXTREMITIES: Bilateral lower extremity swelling present improving, right lower extremity wound VAC present for both wounds, thigh and leg NEUROLOGIC: The patient is alert, awake, and appropriate. No focal neurologic deficit. General: Alert Heart: Regular rate, Normal S1, Normal S2, No murmurs Lungs: Clear Abdomen: Normal bowel sounds, Soft, Other (Morbidly obese) Extremities: No clubbing, No edema, Other (Dressings with serous fluid strikethrough. Intact biphasic dorsalis pedis Doppler signals bilaterally, posterior tibial Doppler signals are absent bilaterally) Skin: Other (Full-thickness superficial gangrene involving the posterior right lower extremity with several large patches of wounds, superficial full-thickness wounds involving the left dorsal surface pretibial area, chronic venous insufficiency skin changes bilaterally with hemosiderin deposition, no celluli tis, no purulent drainage) Labs Labs: Laboratory Tests Test 04/29/21 11:40 04/29/21 16:52 04/29/21 21:00 04/30/21 07:15 Glucose (Fingerstick) 151 mg/dL (70-99) 138 mg/dL (70-99) 137 mg/dL (70-99) Prothrombin Time 29.6 SEC (11.7-14.0) Prothromb Time International Ratio 2.9 (0.8-1.1) Test 04/30/21 08:01 Glucose (Fingerstick) 132 mg/dL (70-99) Comment Review of Relevant I have reviewed the following items ronen (where applicable) has been applied. Medications: Current Medications Medications (Trade) Dose Ordered Sig/Gennaro Route PRN Reason Start Time Stop Time Status Last Admin Dose Admin Warfarin Sodium (Coumadin) 2 mg 1X WARF ONCE PO 04/29/21 16:00 04/29/21 16:01 DC 04/29/21 16:00 Furosemide (Lasix) 40 mg 1X ONCE IVP 04/29/21 11:30 04/29/21 11:31 DC 04/29/21 12:41 Potassium Chloride/Water 100 ml @ 100 mls/hr Q1H IV 04/29/21 12:00 04/29/21 15:59 DC 04/29/21 17:29 Justifications for Admission Other Justification Diabetic ulcers, failed outpatient treatment JAZMINE TARANGO MD Apr 30, 2021 08:47
[2021-04-30] MEDS: LACTOBACILLUS RHAMNOSUS GG 1 CAPSULE. PO SCH ×2 (08:54→21:00)
[2021-04-30] MEDS: CITALOPRAM 20 MG TABLET. PO SCH (08:54)
[2021-04-30] MEDS: NYSTATIN TOPICAL POWDER 15GM BOTTLE. TP SCH ×2 (08:55→21:00)
[2021-04-30] MEDS: LOSARTAN POTASSIUM 50 MG TABLET. PO SCH (08:55)
[2021-04-30] MEDS: SODIUM HYPOCHLORITE 0.125% 473 ML BOTTLE. TP SCH (08:56)
[2021-04-30] MEDS: METOPROLOL SUCC 24HR ER 50 MG TAB.ER.24H. PO SCH (09:07)
[2021-04-30 09:32] LABS: CALCIUM 7.7 mg/dL (8.5-10.1); CREATININE 0.6 mg/dL (0.6-1.0); GFR 96.9; POTASSIUM 3.3 mmol/L (3.5-5.1)
[2021-04-30 11:00] VITALS: BP 133/62
--- NOTE | 2021-04-30 11:14 | NUR ---
Pharmacy Warfarin Dosing Note S:Pharmacy consulted to assist with anticoagulation therapy started with target INR: 2 -3 O:SIXTO MEREDITH is a 76 year old F with h/o DVT LABS: Last INR: 2.9 Last HGB: 7.6 Last HCT: 23.9 Last PLT: 324 Last dose of 2 mg given on 04/29/21 at 1600 Previous Regimen: 4MG DAILY Vitamin K given: Y 04/21 5MG, 04/22 5MG Drug Interaction Changes: None A:INR of 2.9 is within desired range. Target range for this patient is: 2 -3 P: Warfarin dose: 2 mg Today at 1600 Bridge Therapy: None Next INR due 05/01/21 Pharmacy anticoagulation service will continue to follow. BRE CASTRO RPH, 04/30/21 [id number]
[2021-04-30] MEDS ORDERED: POTASSIUM BICARB 20 MEQ EFFERVESCENT TABLET. PO ONE (11:45)
[2021-04-30] MEDS ORDERED: FUROSEMIDE 20 MG/2 ML VIAL. IVP ONE (11:45)
[2021-04-30] MEDS: cefTRIAXone IV Push 2 GM VIAL. IVP SCH (13:21)
--- NOTE | 2021-04-30 14:36 | NUR ---
Wound Care Wound Type/Assessment: Follow up for management of BLE stasis ulcers s/p multiple debridement. Right thigh, right lower leg wounds, left lower leg wounds all vac and y-ed connected to 1 wound vac. L great toe and R plantar foot have dry, stable eschar covered wounds, those were painted with betadine Treatment Recommendations/Plan: R anterior thigh, R posterior lower leg, L posterior lower leg,L anterior lower leg: regular vac at -125mmgh, y connector used, ostomy rings used to periwound. Right plantar, left great toe: paint with betadine daily Education provided: Pt educated regarding wound care, leg elevation, and pressure ulcer prevention Offloading surface/device: Pillows to elevate legs. Pt positioning options are limited due to cardiac and respiratory status Recommended Referrals/Tests: NA Discharge Recommendations for dressings: As above Addendum: 04/30/21 at 1621 by ANTHONY DAVIS RN Wound Care: Decision to place veraflo wound vac with cleanse choice plus silver foam dressing to R posterior calf. Wound bed to R posterior calf is slough covered with exposed tendon, muscle, and adipose. Multiple pieces of silver waffle foam to wound base with solid piece of silver foam over the top. Ostomy ring to periwound. Good seal achieved. Veraflo settings: NS @12cc x5 min Q3H. Will follow up on monday to change dressings.
[2021-04-30] MEDS: HYDROmorphone 2 MG/ML VIAL IVP PRN (15:30)
[2021-04-30 15:55] VITALS: BP 146/65
[2021-04-30] MEDS ORDERED: WARFARIN 2 MG TABLET. PO ONE (16:00)
[2021-04-30 19:51] VITALS: BP 152/46
[2021-04-30] MEDS: ATORVASTATIN CALCIUM 40 MG TABLET. PO SCH (21:01)
[2021-04-30] MEDS: INSULIN GLARGINE SYRINGE. SQ SCH (21:02)
[2021-04-30 23:22] VITALS: BP 152/56
[2021-05-01] MEDS: HYDROcodone/APAP 5/325MG 1 TAB TABLET PO PRN ×5 (01:20→21:40)
[2021-05-01 03:20] VITALS: BP 146/59
[2021-05-01 05:59] LABS: CREATININE 0.7 mg/dL (0.6-1.0); GFR 81.1; MAGNESIUM 1.8 mg/dL (1.8-2.4)
[2021-05-01 06:00] LABS: PROTHROMBIN TIME PATIENT 30.6 SEC (11.7-14.0)
[2021-05-01 06:13] LABS: POTASSIUM 2.9 mmol/L (3.5-5.1)
[2021-05-01] MEDS ORDERED: POTASSIUM CHLORIDE 20 MEQ TABLET.ER. PO ONE (06:45)
[2021-05-01 07:00] VITALS: BP 170/61
[2021-05-01] MEDS: INSULIN LISPRO 300 UNITS/3 ML VIAL. SQ SCH ×3 (08:00→16:49)
--- NOTE | 2021-05-01 08:17 | PDOC ---
Infectious Disease Note Subjective: Subjective Patient feels better On room air Denies fever, nausea, vomiting, diarrhea, abdominal pain Vital Signs: Vital Signs Vital Signs Date Time Temp Pulse Resp B/P (MAP) Pulse Ox O2 Delivery O2 Flow Rate FiO2 05/01/21 03:20 98.7 65 20 146/59 (88) 91 Room Air 98.7 Physical Exam: PHYSICAL EXAM GENERAL: Alert, oriented female, not in distress. resting in bed HEENT: Both pupils are round and reacting. No conjunctival lesion, no lesion in the mouth. NECK: Supple LUNGS: Crackles in both bases of lungs HEART: S1, S2 regular. ABDOMEN: Soft, nontender, EXTREMITIES: Bilateral lower extremity swelling present improving, right lower extremity wound VAC present for both wounds, thigh and leg, left leg wound VAC present NEUROLOGIC: The patient is alert, awake, and appropriate. No focal neurologic deficit. Medications: Inpatient Meds: Medications reviewed. Labs: Lab Laboratory Tests Test 04/30/21 12:15 04/30/21 17:12 04/30/21 20:45 05/01/21 05:00 Glucose (Fingerstick) 153 mg/dL (70-99) 170 mg/dL (70-99) 124 mg/dL (70-99) Prothrombin Time 30.6 SEC (11.7-14.0) Prothromb Time International Ratio 3.0 (0.8-1.1) Sodium Level 143 mmol/L (136-145) Potassium Level 2.9 mmol/L (3.5-5.1) Chloride Level 109 mmol/L (98-107) Carbon Dioxide Level 28 mmol/L (21-32) Anion Gap 6 (6-14) Blood Urea Nitrogen 7 mg/dL (7-20) Creatinine 0.7 mg/dL (0.6-1.0) Estimated GFR (Cockcroft-Gault) 81.1 Glucose Level 81 mg/dL (70-99) Calcium Level 8.0 mg/dL (8.5-10.1) Magnesium Level 1.8 mg/dL (1.8-2.4) Test 05/01/21 07:27 Glucose (Fingerstick) 82 mg/dL (70-99) Micro RUN DATE: 04/29/21 [facility] *LIVE* PAGE 1 RUN TIME: 906 Specimen Inquiry PATIENT: SIXTO MEREDITH ACCT: [id number] LOC: [address] [place] [address] U: [id number] AGE/SX: 76/F ROOM: [facility] RE04/12/[address]: NATE BHATT III, DO : 1945 BED: 1 DIS: STATUS: ADM IN TLOC: SPEC #: [id number] MARÍA ELENA: 04/23/21 STATUS: COMP REQ #: [id number] RECD: 04/23/[address]: NATE BHATT III, DO SOURCE: LEG ENTR: 04/23/[address]: NIXON COURTNEY [facility] PANCHO ROMAN,TOMAS ALVARADO,JESSE ADAN,ODALYS CRUZ MD, AXEL DO ORDERED: ANAER/AEROB/PARUL COMMENTS: RT LEG WOUND Procedure Result - GRAM STAIN Final Final NO ORGANISMS SEEN. SQUAMOUS EPI CELL:NONE SEEN PMN (WBCs):NONE SEEN Unless otherwise specified, Testing Performed by: [address] [address] For Inquires, the Physician may contact the Microbiology department at [phone] ANAEROBIC-AEROBIC CULTURE Final Final RARE [PROTEUS VULGARIS GROUP] on 04/25/21 at 1418 NO ANAEROBIC ORGANISMS ISOLATED on 04/29/21 at 0903 PROTEUS VULGARIS GROUP ANTIMICROBIAL SUSCEPTIBILITY Final Comment NEG TAMEKA 56 PROTEUS VULGARIS GROUP ANTIBIOTIC RESULT INTERPRETATION AMPICILLIN/SULBACTAM 8/4 S AMIKACIN <=16 S AMPICILLIN >16 R AMOXICILLIN/K CLAVULANATE <=8/4 S AZTREONAM <=4 S CEFTRIAXONE <=1 S CEFTAZIDIME <=1 S CEFOTAXIME <=2 S CEFOXITIN <=8 S CEFAZOLIN >16 R CIPROFLOXACIN <=0.25 S CEFEPIME <=2 S RUN DATE: 04/29/21 [facility] *LIVE* PAGE 2 RUN TIME: 906 Specimen Inquiry - SPEC: [id number] PATIENT: SIXTO MEREDITH [id number] (Continued) Procedure Result CONTINUED ON NEXT PAGE RUN DATE: 04/29/21 [facility] *LIVE* PAGE 3 RUN TIME: 906 Specimen Inquiry SPEC: [id number] PATIENT: SIXTO MEREDITH [id number] (Continued) Procedure Result ANTIMICROBIAL SUSCEPTIBILITY Final (continued) CEFUROXIME >16 R ERTAPENEM <=0.5 S GENTAMICIN <=2 S LEVOFLOXACIN <=0.5 S MEROPENEM <=1 S PIPERACILLIN/TAZOBACTAM <=8 S TRIMETHOPRIM/SULFAMETHOXAZOLE <=0.5/9.5 S TETRACYCLINE 8 R* TOBRAMYCIN <=2 S Unless otherwise specified, Testing Performed by: [address] [place] [address] For Inquires, the Physician may contact the Microbiology department at [phone] Objective: Assessment: 1. 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 Right lower thigh hematoma evacuation with a wound VAC in place, clean wound 3. Leukocytosis. 4. Fever. resolved 5. Peripheral vascular disease. 6. Coronary artery disease. 7. Dyspnea likely volume overload Plan: Plan of Care Continue ceftriaxone while here transition to p.o. Augmentin when ready for discharge for 5 more days Please do not place PICC line Offload Cont local woundvac care as directed Patient would benefit discharge to [place] than home Discussed with nursing staff Discussed with CASTRO Verdin MD May 01, 2021 08:17
[2021-05-01] MEDS: LACTOBACILLUS RHAMNOSUS GG 1 CAPSULE. PO SCH ×2 (08:25→21:37)
[2021-05-01] MEDS: CITALOPRAM 20 MG TABLET. PO SCH (08:26)
[2021-05-01] MEDS: LOSARTAN POTASSIUM 50 MG TABLET. PO SCH (08:29)
[2021-05-01] MEDS: METOPROLOL SUCC 24HR ER 50 MG TAB.ER.24H. PO SCH (08:30)
[2021-05-01] MEDS: SODIUM HYPOCHLORITE 0.125% 473 ML BOTTLE. TP SCH (08:30)
[2021-05-01] MEDS: HYDROmorphone 2 MG/ML VIAL IVP PRN (10:02)
[2021-05-01] MEDS: NYSTATIN TOPICAL POWDER 15GM BOTTLE. TP SCH ×2 (10:05→21:37)
[2021-05-01 11:00] VITALS: BP 141/50
--- NOTE | 2021-05-01 12:08 | PDOC ---
[facility] [facility] PROGRESS NOTE Date of Service DOS: DATE: 05/01/21 TIME: 12:08 Chief Complaint Chief Complaint Assessment Sepsis present on admission Nonhealing acute on chronic bilateral lower extremity wounds, foul-smelling and necrotic tissue down to subcutaneous fat status post surgical debridement 2020 Right lower thigh hematoma with wound VAC in place Severe peripheral vascular disease with multiple stenosis Atrial fibrillation Supratherapeutic INR, hold warfarin, pharmacy to adjust need 04-17 DM2 CAD HTN Severe protein malnutrition Anemia of chronic inflammatory disease Transaminitiselevated alkaline phosphatase likely related to bone disease Hypokalemia Plan: Resume anticoagulation with goal of INR between 2-3, pharmacy to dose Consulted to vascular surgery, plastic surgery, and wound care Patient likely to need additional debridement; planning for April 23 pending INR below 1.5 tomorrow morning Continue Zosyn; will change to Invanz on discharge Continue holding warfarin due to supratherapeutic INR Continue home medications FEN - Cardiac diet PPX -hold warfarin for procedure tomorrow DNR Dispo - inpatient for above Surrogate decision-maker is her daughter (Alyce Santana) History of Present Illness History of Present Illness Ms Santana is a 76-year-old female with past medical history DM2, CAD, HTN, HLD, presents as a direct admit from [facility] due to multiple nonhealing blistering wounds to her bilateral feet for the past month. She was recently treated on our service (03/22/2021) for evacuation and debridement of right thigh hematoma. Right lower extremity CTA at that time showed calcified plaque with approximately 50 percent stenosis to SFA, extensive arterial calcifications to right popliteal artery, heavy calcifications to anterior tibial artery, and oc cluded right posterior tibial artery; Left lower extremity CTA showed popliteal artery with 60-70 percent stenosis at mid segment, left anterior tibial artery with heavy calcifications, left posterior tibial artery occluded distally. She has been receiving local wound care and follow-up at wound care clinic without significant improvement in her blisters. She denies any significant pain but does admit to some clear serous drainage from her bilateral feet. Will admit patient for further medical management. 04/20: Patient seen and examined at bedside. This morning she reports her breathing is stable. Does report increased swelling in her bilateral upper extremities encouraged her to elevate them. Patient being reevaluated by vascular surgery today. Also will consult hematology for vasculitis work-up. Plan of care discussed with bedside nurse. 04/21: Patient seen and examined at bedside. Does say she is having some worsening pain in her right lower extremity. Evaluated by hematology and vascular surgery today. Plastic surgery reconsulted and planning for irrigation and debridement tomorrow. However patient's INR needs to be below 1.5, it is 2.7 today however has been dropping at least one-point the past 2 days. Will give dose of vitamin K today and recheck INR in the morning. If above one-point 5 in the morning patient may need FFP prior to surgery. 04/22: Patient seen and examined at bedside. Other than right lower extremity pain no complaints. INR 2 elevated this morning, 2.1, so high for surgery. 04/24: No acute events overnight. Patient seen and examined bedside. Dressings are moist with strikethrough with serous fluid. Pain is well controlled at this time. 04/25: No acute events overnight. Patient seen and examined bedside during wound dressing changes. There is definitely still weeping around the wounds but the wounds do not appear infected or is or any active bleeding or purulent drainage. Warfarin managed by pharmacy and currently INR is at 1.6 at home dose warfarin. Patient will likely need some skilled rehab upon discharge. Anticipate discharge in the next 24 to 48 hours. Patient's chart, labs, images were revi ewed and discussed with RN 04/26: No overnight Events. No significant pain with dressing changes. Still on IV Zosyn. Awaiting biopsy results. 04/27: Swelling improved pain improved in the legs. Changed to Rocephin per ID Proteus vulgaris and wound 04/28: Afebrile overnight. Complaining worsening shortness of breath on minimal exertion and now on 2 L of oxygen. IV fluids at home. Awaiting chest radiograph. Did have some minimal improvement with breathing treatment with respiratory therapy. 04/29: Next radiograph with interstitial changes given IV Lasix with some improvement she still with abdominal fullness and shortness of breath on O2. Will give another IV dose of Lasix. Has variflow wound VAC per plastic surgery. Discussed with ID not ready for discharge. 04/30: Breathing improved after Lasix but still with abdominal swelling. She did have a good bowel movement. Leg still swollen as well interfering with wound vacs. Wound care additional IV Lasix today replace potassium repeat labs in the morning. Breathing improved. K2.9 mag 1.8 after additional Lasix dosing. Now with 3 wound VAC on right leg including knee and left leg and her left anterior foot wound is left open for now. 04/19/21 Patient seen and examined at bedside. Remains afebrile. Agreeable to returning to [facility] for rehab. Continuing Zosyn will change to Invanz on discharge. Is endorsing some shortness of breath and bilateral upper extremity swelling this morning chest x-ray shows pulmonary edema, will try a one-time dose of Lasix. Plan of care discussed with bedside nurse 04/18/2021: Afebrile. Still with some leg pain, controlled with medication. She will need [facility] facility that can manage wound VAC and IV antibiotic regimen. Likely change Zosyn to Invanz, per ID. She does not want to return to [facility] for [facility]. [employer] worker helping to find other suitable rehab facilities per patient's preference. 04/17/2021: less ankle edema Afebrile, breathing on room air. Wound VAC in place to right thigh. worked with physical therapy . Continue treatment of bilateral lower extremity wounds with Zosyn. she has not willing to go back [facility] as did not really change the dressings on her legs. She would much prefer a different [facility] facility upon discharge. Anticipate plastic surgery recommendations on management of right thigh hematoma. d/w rn and social work infected foul smelling wounds, bilateral lower extremity. Right lower thigh hematoma evacuation with a wound VAC in place 28 min pt exam, chart review, > 50% of time spent with exam, chart review, pt care coordination 04/16/2021: Afebrile, breathing on room air. Wound VAC in place to right thigh. worked with physical therapy . Continue treatment of bilateral lower extremity wounds with Zosyn. she has not willing to go back [facility] as did not really change the dressings on her legs. She would much prefer a different [facility] facility upon discharge. Anticipate plastic surgery recommendations on management of right thigh hematoma. d/w rn and social work infected foul smelling wounds, bilateral lower extremity. Right lower thigh hematoma evacuation with a wound VAC in place 04/15/2021: Afebrile, breathing on room air. Wound VAC in place to right thigh. She reports some pain in her legs with movement, but worked with physical therapy yesterday. Continue treatment of bilateral lower extremity wounds with Zosyn. She states that she has not found to [facility] as did not really change the dressings on her legs. She would much prefer a different [facility] facility upon discharge. Anticipate plastic surgery recommendations on management of right thigh hematoma. 04/14/2021: Febrile overnight with T-max 100.7 F. WBC 11.4. Will place consult to ID to help with management of cellulitis that failed outpatient antibiotic treatment. Per vascular surgery, no urgency for surgical debridement of her wounds or angiogram currently. She had wound VAC placed in the right thigh yesterday. Await recommendations from plastic surgery. Vitals/I&O Vitals/I&O: Vital Signs Date Time Temp Pulse Resp B/P (MAP) Pulse Ox O2 Delivery O2 Flow Rate FiO2 05/01/21 11:00 98.3 65 20 141/50 (80) 92 Room Air 98.3 I & O 04/30/21 04/30/21 05/01/21 15:00 23:00 07:00 Intake Total 250 ml Output Total 0 ml Balance 250 ml Physical Exam Physical Exam: GENERAL: Alert, oriented female, not in distress. resting in bed HEENT: Both pupils are round and reacting. No conjunctival lesion, no lesion in the mouth. NECK: Supple LUNGS: Crackles in both bases of lungs HEART: S1, S2 regular. ABDOMEN: Soft, nontender, EXTREMITIES: Bilateral lower extremity swelling present improving, right lower extremity wound VAC present for both wounds, thigh and leg, left leg wound VAC present NEUROLOGIC: The patient is alert, awake, and appropriate. No focal neurologic deficit. General: Alert Heart: Regular rate, Normal S1, Normal S2, No murmurs Lungs: Clear Abdomen: Normal bowel sounds, Soft, Other (Morbidly obese) Extremities: No clubbing, No edema, Other (Dressings with serous fluid strikethrough. Intact biphasic dorsalis pedis Doppler signals bilaterally, posterior tibial Doppler signals are absent bilaterally) Skin: Other (Full-thickness superficial gangrene involving the posterior right lower extremity with several large patches of wounds, superficial full-thickness wounds involving the left dorsal surface pretibial area, chronic venous insufficiency skin changes bilaterally with hemosiderin deposition, no cellulitis, no purulent drainage) Labs Labs: Laboratory Tests Test 04/30/21 12:15 04/30/21 17:12 04/30/21 20:45 05/01/21 05:00 Glucose (Fingerstick) 153 mg/dL (70-99) 170 mg/dL (70-99) 124 mg/dL (70-99) Prothrombin Time 30.6 SEC (11.7-14.0) Prothromb Time International Ratio 3.0 (0.8-1.1) Sodium Level 143 mmol/L (136-145) Potassium Level 2.9 mmol/L (3.5-5.1) Chloride Level 109 mmol/L (98-107) Carbon Dioxide Level 28 mmol/L (21-32) Anion Gap 6 (6-14) Blood Urea Nitrogen 7 mg/dL (7-20) Creatinine 0.7 mg/dL (0.6-1.0) Estimated GFR (Cockcroft-Gault) 81.1 Glucose Level 81 mg/dL (70-99) Calcium Level 8.0 mg/dL (8.5-10.1) Magnesium Level 1.8 mg/dL (1.8-2.4) Test 05/01/21 07:27 05/01/21 11:47 Glucose (Fingerstick) 82 mg/dL (70-99) 127 mg/dL (70-99) Comment Review of Relevant I have reviewed the following items ronen (where applicable) has been applied. Medications: Current Medications Medications (Trade) Dose Ordered Sig/Gennaro Route PRN Reason Start Time Stop Time Status Last Admin Dose Admin Warfarin Sodium (Coumadin) 2 mg 1X WARF ONCE PO 04/30/21 16:00 04/30/21 16:01 DC 04/30/21 17:24 Potassium Chloride (Klor-Con) 40 meq 1X ONCE PO 05/01/21 06:45 05/01/21 06:46 DC 05/01/21 08:26 Justifications for Admission Other Justification Diabetic ulcers, failed outpatient treatment JAZMINE TARANGO MD May 01, 2021 12:08
[2021-05-01] MEDS: cefTRIAXone IV Push 2 GM VIAL. IVP SCH (12:25)
[2021-05-01] MEDS ORDERED: MAGNESIUM SULFATE 2GM 50 ML IV ONE (13:00)
[2021-05-01] MEDS: POTASSIUM CHLORIDE 10MEQ 100 ML IV SCH ×4 (14:16→17:54)
[2021-05-01 15:00] VITALS: BP 132/44
[2021-05-01] MEDS ORDERED: WARFARIN 1 MG TABLET. PO ONE (16:00)
[2021-05-01 19:00] VITALS: BP 150/55
[2021-05-01] MEDS: INSULIN GLARGINE SYRINGE. SQ SCH (21:36)
[2021-05-01] MEDS: ATORVASTATIN CALCIUM 40 MG TABLET. PO SCH (21:36)
[2021-05-01 23:00] VITALS: BP 149/56
[2021-05-02 03:00] VITALS: BP 162/65
[2021-05-02] MEDS: HYDROcodone/APAP 5/325MG 1 TAB TABLET PO PRN ×3 (06:10→20:58)
[2021-05-02 07:30] VITALS: BP 151/54
--- NOTE | 2021-05-02 07:49 | PDOC ---
Infectious Disease Note Subjective: Subjective Patient is resting comfortably O2 by nasal cannula Vital Signs: Vital Signs Vital Signs Date Time Temp Pulse Resp B/P (MAP) Pulse Ox O2 Delivery O2 Flow Rate FiO2 05/02/21 03:00 98.5 64 18 162/65 (97) 94 Room Air 98.5 Physical Exam: PHYSICAL EXAM GENERAL: Alert, oriented female, not in distress. resting in bed HEENT: Both pupils are round and reacting. No conjunctival lesion, no lesion in the mouth. NECK: Supple LUNGS: Crackles in both bases of lungs HEART: S1, S2 regular. ABDOMEN: Soft, nontender, EXTREMITIES: Bilateral lower extremity swelling present improving, right lower extremity wound VAC present for both wounds, thigh and leg, left leg wound VAC present NEUROLOGIC: The patient is alert, awake, and appropriate. No focal neurologic deficit. Medications: Inpatient Meds: Medications reviewed. Labs: Lab Laboratory Tests Test 05/01/21 11:47 05/01/21 16:42 05/01/21 21:09 Glucose (Fingerstick) 127 mg/dL (70-99) 148 mg/dL (70-99) 141 mg/dL (70-99) Micro RUN DATE: 04/29/21 [facility] *LIVE* PAGE 1 RUN TIME: 906 Specimen Inquiry PATIENT: SIXTO MEREDITH ACCT: [id number] LOC: [address] [place] [address] U: [id number] AGE/SX: 76/F ROOM: 528 RE04/12/[address]: NATE BHATT III, DO : 1945 BED: 1 DIS: STATUS: ADM IN TLOC: SPEC #: [id number] MARÍA ELENA: 04/23/21 STATUS: COMP REQ #: [id number] RECD: 04/23/[address]: NATE BHATT III, DO SOURCE: LEG ENTR: 04/23/[address] [facility] [address]: NIXON COURTNEY MD [facility]: ABSCESS ROMAN,TOMAS ALVARADO,JESSE ADAN,ILIR ODALYS FIGUEROA MD, AXEL DO ORDERED: ANAER/AEROB/PARUL COMMENTS: RT LEG WOUND Procedure Result GRAM STAIN Final Final NO ORGANISMS SEEN. SQUAMOUS EPI CELL:NONE SEEN PMN (WBCs):NONE SEEN Unless otherwise specified, Testing Performed by: [address] [address] For Inquires, the Physician may contact the Microbiology department at [phone] ANAEROBIC-AEROBIC CULTURE Final Final RARE [PROTEUS VULGARIS GROUP] on 04/25/21 at 1418 NO ANAEROBIC ORGANISMS ISOLATED on 04/29/21 at 0903 PROTEUS VULGARIS GROUP ANTIMICROBIAL SUSCEPTIBILITY Final Comment NEG TAMEKA 56 PROTEUS VULGARIS GROUP ANTIBIOTIC RESULT INTERPRETATION AMPICILLIN/SULBACTAM 8/4 S AMIKACIN <=16 S AMPICILLIN >16 R AMOXICILLIN/K CLAVULANATE <=8/4 S AZTREONAM <=4 S CEFTRIAXONE <=1 S CEFTAZIDIME <=1 S CEFOTAXIME <=2 S CEFOXITIN <=8 S CEFAZOLIN >16 R CIPROFLOXACIN <=0.25 S CEFEPIME <=2 S RUN DATE: 04/29/21 [facility] *LIVE* PAGE 2 RUN TIME: 906 Specimen Inquiry SPEC: [id number] PATIENT: SIXTO MEREDITH [id number] (Continued) Procedure Result CONTINUED ON NEXT PAGE RUN DATE: 04/29/21 [facility] *LIVE* PAGE 3 RUN TIME: 0907 Specimen Inquiry SPEC: [id number] PATIENT: SIXTO MEREDITH [id number] (Continued) Procedure Result --- --------- ANTIMICROBIAL SUSCEPTIBILITY Final (continued) CEFUROXIME >16 R ERTAPENEM <=0.5 S GENTAMICIN <=2 S LEVOFLOXACIN <=0.5 S MEROPENEM <=1 S PIPERACILLIN/TAZOBACTAM <=8 S TRIMETHOPRIM/SULFAMETHOXAZOLE <=0.5/9.5 S TETRACYCLINE 8 R* TOBRAMYCIN <=2 S Unless otherwise specified, Testing Performed by: [address] [address] For Inquires, the Physician may contact the Microbiology department at [phone] Objective: Assessment: 1. 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 Right lower thigh hematoma evacuation with a wound VAC in place, clean wound 3. Leukocytosis. 4. Fever. resolved 5. Peripheral vascular disease. 6. Coronary artery disease. 7. Dyspnea likely volume overload Plan: Plan of Care Continue ceftriaxone transition to p.o. Augmentin when ready for discharge for [address] PICC line Offload Cont local woundvac care as directed CASTRO ROMAN MD May 02, 2021 07:49
[2021-05-02] MEDS: INSULIN LISPRO 300 UNITS/3 ML VIAL. SQ SCH ×3 (08:00→16:40)
[2021-05-02] MEDS: CITALOPRAM 20 MG TABLET. PO SCH (09:01)
[2021-05-02] MEDS: METOPROLOL SUCC 24HR ER 50 MG TAB.ER.24H. PO SCH (09:02)
[2021-05-02] MEDS: LACTOBACILLUS RHAMNOSUS GG 1 CAPSULE. PO SCH ×2 (09:02→20:57)
[2021-05-02] MEDS: LOSARTAN POTASSIUM 50 MG TABLET. PO SCH (09:02)
[2021-05-02] MEDS: SODIUM HYPOCHLORITE 0.125% 473 ML BOTTLE. TP SCH (09:03)
[2021-05-02] MEDS: NYSTATIN TOPICAL POWDER 15GM BOTTLE. TP SCH ×2 (09:03→21:00)
--- NOTE | 2021-05-02 09:51 | NUR ---
Pharmacy Warfarin Dosing Note S:Pharmacy consulted to assist with anticoagulation therapy started with target INR: 2 -3 O:SIXTO MEREDITH is a 76 year old F with DVT/PE H/O DVT LABS: Last INR: 2.8 Last HGB: 7.6 Last HCT: 23.9 Last PLT: 324 Last dose of 1 mg given on 05/01/21 at 1648 Previous Regimen: 4MG DAILY Vitamin K given: Y 04/21 5MG, 04/22 5MG Drug Interaction Changes: None Ongoing Drug Interactions: A:INR of 2.8 is within desired range. Target range for this patient is: 2 -3 P: Warfarin dose: 1 mg Today at 1600 Bridge Therapy: None Next INR due 05/04/21. Pharmacy anticoagulation service will continue to follow. JENNA SAEED RP, 05/02/21 0973
[2021-05-02 11:30] VITALS: BP 158/52
[2021-05-02] MEDS: cefTRIAXone IV Push 2 GM VIAL. IVP SCH (12:16)
[2021-05-02] MEDS: HYDROmorphone 2 MG/ML VIAL IVP PRN ×2 (12:42→22:56)
--- NOTE | 2021-05-02 13:20 | PDOC ---
[facility] PROGRESS NOTE Date of Service DOS: DATE: 05/02/21 TIME: 13:14 Chief Complaint Chief Complaint Assessment Sepsis present on admission Nonhealing acute on chronic bilateral lower extremity wounds, foul-smelling and necrotic tissue down to subcutaneous fat status post surgical debridement 2020 Right lower thigh hematoma with wound VAC in place Severe peripheral vascular disease with multiple stenosis Atrial fibrillation Supratherapeutic INR, hold warfarin, pharmacy to adjust need 04-17 DM2 CAD HTN Severe protein malnutrition Anemia of chronic inflammatory disease Transaminitiselevated alkaline phosphatase likely related to bone disease Hypokalemia Plan: Resume anticoagulation with goal of INR between 2-3, pharmacy to dose Consulted to vascular surgery, plastic surgery, and wound care Patient likely to need additional debridement; planning for April 23 pending INR below 1.5 tomorrow morning Continue Zosyn; will change to Invanz on discharge Continue holding warfarin due to supratherapeutic INR Continue home medications FEN - Cardiac diet PPX -hold warfarin for procedure tomorrow DNR Dispo - inpatient for above Surrogate decision-maker is her daughter (Alyce Santana) History of Present Illness History of Present Illness Ms Santana is a 76-year-old female with past medical history DM2, CAD, HTN, HLD, presents as a direct admit from [facility] due to multiple nonhealing blistering wounds to her bilateral feet for the past month. She was recently treated on our service (03/22/2021) for evacuation and debridement of right thigh hematoma. Right lower extremity CTA at that time showed calcified plaque with approximately 50 percent stenosis to SFA, extensive arterial calcifications to right popliteal artery, heavy calcifications to anterior tibial artery, and oc cluded right posterior tibial artery; Left lower extremity CTA showed popliteal artery with 60-70 percent stenosis at mid segment, left anterior tibial artery with heavy calcifications, left posterior tibial artery occluded distally. She has been receiving local wound care and follow-up at wound care clinic without significant improvement in her blisters. She denies any significant pain but does admit to some clear serous drainage from her bilateral feet. Will admit patient for further medical management. 04/14: Febrile overnight with T-max 100.7 F. WBC 11.4. consult to ID. Per vascular surgery, no urgency for surgical debridement of her wounds or angiogram currently. She had wound VAC placed in the right thigh yesterday. Await recommendations from plastic surgery. 04/15: Afebrile, breathing on room air. Wound VAC in place to right thigh. She reports some pain in her legs with movement, but worked with PT. Continue treatment of bilateral lower extremity wounds with Zosyn. plastic surgery recommendations on management of right thigh hematoma. 04/16: Afebrile, breathing on room air. Wound VAC in place to right thigh. worked with physical therapy . Continue treatment of bilateral lower extremity wounds with Zosyn. 04/17: less ankle edema 04/18: Afebrile. Still with some leg pain, controlled with medication. She will need retirement facility that can manage wound VAC and IV antibiotic regimen. Likely change Zosyn to Invanz, per ID. She does not want to return to [facility] for retirement. 04/19: Remains afebrile. Agreeable to returning to [facility] for rehab. Continuing Zosyn will change to Invanz on discharge. Is endorsing some shortness of breath and bilateral upper extremity swelling this morning chest x- ray shows pulmonary edema, will try a one-time dose of Lasix. 04/20: Patient seen and examined at bedside. This morning she reports her breathing is stable. Does report increased swelling in her bilateral upper extremities encouraged her to elevate them. Patient being reevaluated by vascular surgery today.Consult hematology for vasculitis work-up. 04/21: Worsening pain RLE. Eval by hematology and vascular surgery. Planning for irrigation and debridement tomorrow. INR needs to be below 1.5, it is 2.7 today. dose of vitamin K today and recheck INR in the morning. If above one-point 5 in the morning patient may need FFP prior to surgery. 04/22: Patient seen and examined at bedside. Other than right lower extremity pain no complaints. INR 2 elevated this morning, 2.1, so high for surgery. 04/24: No acute events overnight. Patient seen and examined bedside. Dressings are moist with strikethrough with serous fluid. Pain is well controlled at this time. 04/25: No acute events overnight. Patient seen and examined bedside during wound dressing changes. There is definitely still weeping around the wounds but the wounds do not appear infected or is or any active bleeding or purulent drainage. Warfarin managed by pharmacy and currently INR is at 1.6 at home dose warfarin. Patient will likely need some skilled rehab upon discharge. Anticipate discharge in the next 24 to 48 hours. Patient's chart, labs, images were reviewed and discussed with RN 04/26: No overnight Events. No significant pain with dressing changes. Still on IV Zosyn. Awaiting biopsy results. 04/27: Swelling improved pain improved in the legs. Changed to Rocephin per ID Proteus vulgaris and wound 04/28: Afebrile overnight. Complaining worsening shortness of breath on minimal exertion and now on 2 L of oxygen. IV fluids at home. Awaiting chest radiograph. Did have some minimal improvement with breathing treatment with respiratory therapy. 04/29: Next radiograph with interstitial changes given IV Lasix with some improvement she still with abdominal fullness and shortness of breath on O2. Will give another IV dose of Lasix. Has variflow wound VAC per plastic surgery. Discussed with ID not ready for discharge. 04/30: Breathing improved after Lasix but still with abdominal swelling. She did have a good bowel movement. Leg still swollen as well interfering with wound vacs. Wound care additional IV Lasix today replace potassium repeat labs in the morning. 05/01: Breathing improved. K2.9 mag 1.8 after additional Lasix dosing. Now with 3 wound VAC on right leg including knee and left leg and her left anterior foot wound is left open for now. 05/02: Little dyspnea on minimal exertion today. INR therapeutic. Wound vacs with good suction. Given the number of complicated wounds she does request referral to LTACH which would be appropriate as she has failed SNF level care for her complicated wounds requiring readmission and surgery. Vitals/I&O Vitals/I&O: Vital Signs Date Time Temp Pulse Resp B/P (MAP) Pulse Ox O2 Delivery O2 Flow Rate FiO2 05/02/21 12:42 Room Air 2.0 05/02/21 11:30 98.4 67 18 158/52 (87) 99 98.4 I & O 05/01/21 05/01/21 05/02/21 15:00 23:00 07:00 Intake Total 440 ml 200 ml 450 ml Output Total 200 ml Balance 440 ml 0 ml 450 ml Physical Exam Physical Exam: GENERAL: Alert, oriented female, not in distress. resting in bed HEENT: Both pupils are round and reacting. No conjunctival lesion, no lesion in the mouth. NECK: Supple LUNGS: Crackles in both bases of lungs HEART: S1, S2 regular. ABDOMEN: Soft, nontender, EXTREMITIES: Bilateral lower extremity swelling present improving, right lower extremity wound VAC present for both wounds, thigh and leg, left leg wound VAC present NEUROLOGIC: The patient is alert, awake, and appropriate. No focal neurologic deficit. General: Alert Heart: Regular rate, Normal S1, Normal S2, No murmurs Lungs: Clear Abdomen: Normal bowel sounds, Soft, Other (Morbidly obese) Extremities: No clubbing, No edema, Other (Dressings with serous fluid strikethrough. Intact biphasic dorsalis pedis Doppler signals bilaterally, posterior tibial Doppler signals are absent bilaterally) Skin: Other (Full-thickness superficial gangrene involving the posterior right lower extremity with several large patches of wounds, superficial full-thickness wounds involving the left dorsal surface pretibial area, chronic venous insufficiency skin changes bilaterally with hemosiderin deposition, no cellulitis, no purulent drainage) Labs Labs: Laboratory Tests Test 05/01/21 16:42 05/01/21 21:09 05/02/21 06:25 05/02/21 07:27 Glucose (Fingerstick) 148 mg/dL (70-99) 141 mg/dL (70-99) 134 mg/dL (70-99) Prothrombin Time 29.0 SEC (11.7-14.0) Prothromb Time International Ratio 2.8 (0.8-1.1) Test 05/02/21 11:15 Glucose (Fingerstick) 150 mg/dL (70-99) Comment Review of Relevant I have reviewed the following items ronen (where applicable) has been applied. Medications: Current Medications Medications (Trade) Dose Ordered Sig/Gennaro Route PRN Reason Start Time Stop Time Status Last Admin Dose Admin Warfarin Sodium (Coumadin) 1 mg 1X WARF ONCE PO 05/01/21 16:00 05/01/21 16:01 DC 05/01/21 16:48 Justifications for Admission Other Justification Diabetic ulcers, failed outpatient treatment JAZMINE TARANGO MD May 02, 2021 13:20
[2021-05-02] MEDS ORDERED: POTASSIUM BICARB 20 MEQ EFFERVESCENT TABLET. PO ONE (13:30)
[2021-05-02 15:00] VITALS: BP 165/51
[2021-05-02] MEDS ORDERED: WARFARIN 1 MG TABLET. PO ONE (16:00)
[2021-05-02 19:00] VITALS: BP 162/51
[2021-05-02] MEDS: ATORVASTATIN CALCIUM 40 MG TABLET. PO SCH (20:57)
[2021-05-02] MEDS: INSULIN GLARGINE SYRINGE. SQ SCH (21:02)
[2021-05-02 23:00] VITALS: BP 162/53
[2021-05-03 07:00] VITALS: BP 148/58
--- NOTE | 2021-05-03 07:57 | PDOC ---
Infectious Disease Note Subjective: Subjective Patient is resting comfortably Continues to have shortness of breath Remains on O2 by nasal cannula Vital Signs: Vital Signs Vital Signs Date Time Temp Pulse Resp B/P (MAP) Pulse Ox O2 Delivery O2 Flow Rate FiO2 05/03/21 03:00 66 Nasal Cannula 2.0 05/02/21 23:00 99.0 20 162/53 (89) 94 99.0 Physical Exam: PHYSICAL EXAM GENERAL: Alert, oriented female, not in distress. resting in bed HEENT: Both pupils are round and reacting. No conjunctival lesion, no lesion in the mouth. NECK: Supple LUNGS: Crackles in both bases of lungs HEART: S1, S2 regular. ABDOMEN: Soft, nontender, EXTREMITIES: Bilateral lower extremity swelling present improving, right lower extremity wound VAC present for both wounds, thigh and leg, left leg wound VAC present NEUROLOGIC: The patient is alert, awake, and appropriate. No focal neurologic deficit. Medications: Inpatient Meds: Medications reviewed. Labs: Lab Laboratory Tests Test 05/02/21 11:15 05/02/21 16:39 05/02/21 21:21 Glucose (Fingerstick) 150 mg/dL (70-99) 147 mg/dL (70-99) 145 mg/dL (70-99) Micro RUN DATE: 04/29/21 [facility] *LIVE* PAGE 1 RUN TIME: 906 Specimen Inquiry PATIENT: SIXTO MEREDITH ACCT: [id number] LOC: [address] [place] [address] U: [id number] AGE/SX: 76/F ROOM: 528 RE04/12/[address]: NATE BHATT III, DO : 1945 BED: 1 DIS: STATUS: ADM IN TLOC: SPEC #: [id number] MARÍA ELENA: 04/23/21 STATUS: COMP REQ #: [id number] RECD: 04/23/[address]: NATE BHATT III, DO SOURCE: LEG ENTR: 04/23/[address]: NIXNO [facility]: ABSCESS ROMAN,TOMAS ALVARADO,ILIR GALINDO MD, SASHIDHAR MD THORS, AXEL DO ORDERED: ANAER/AEROB/PARUL COMMENTS: RT LEG WOUND Procedure Result GRAM STAIN Final Final NO ORGANISMS SEEN. SQUAMOUS EPI CELL:NONE SEEN PMN (WBCs):NONE SEEN Unless otherwise specified, Testing Performed by: [address] [place] [address] For Inquires, the Physician may contact the Microbiology department at [phone] ANAEROBIC-AEROBIC CULTURE Final Final RARE [PROTEUS VULGARIS GROUP] on 04/25/21 at 1418 NO ANAEROBIC ORGANISMS ISOLATED on 04/29/21 at 0903 PROTEUS VULGARIS GROUP ANTIMICROBIAL SUSCEPTIBILITY Final Comment NEG TAMEKA 56 PROTEUS VULGARIS GROUP ANTIBIOTIC RESULT INTERPRETATION AMPICILLIN/SULBACTAM 8/4 S AMIKACIN <=16 S AMPICILLIN >16 R AMOXICILLIN/K CLAVULANATE <=8/4 S AZTREONAM <=4 S CEFTRIAXONE <=1 S CEFTAZIDIME <=1 S CEFOTAXIME <=2 S CEFOXITIN <=8 S CEFAZOLIN >16 R CIPROFLOXACIN <=0.25 S CEFEPIME <=2 S RUN DATE: 04/29/21 [facility] *LIVE* PAGE 2 RUN TIME: 906 Specimen Inquiry SPEC: [id number] PATIENT: SIXTO MREEDITH [id number] (Continued) Procedure Result CONTINUED ON NEXT PAGE - RUN DATE: 04/29/21 [facility] *LIVE* PAGE 3 RUN TIME: 906 Specimen Inquiry - SPEC: [id number] PATIENT: SIXTO MEREDITH [id number] (Continued) Procedure Result ANTIMICROBIAL SUSCEPTIBILITY Final (continued) CEFUROXIME >16 R ERTAPENEM <=0.5 S GENTAMICIN <=2 S LEVOFLOXACIN <=0.5 S MEROPENEM <=1 S PIPERACILLIN/TAZOBACTAM <=8 S TRIMETHOPRIM/SULFAMETHOXAZOLE <=0.5/9.5 S TETRACYCLINE 8 R* TOBRAMYCIN <=2 S Unless otherwise specified, Testing Performed by: [address] [address] For Inquires, the Physician may contact the Microbiology department at [phone] Objective: Assessment: 1. Infected foul smelling wounds, bilateral lower extremity.S/P I&D April 23 Cultures positive for Proteus vulgaris 2. Right lower thigh hematoma evacuation with a wound VAC in place, clean wound 3. Leukocytosis. Resolved 4. Fever. resolved 5. Peripheral vascular disease. 6. Coronary artery disease. 7. CHF Plan: Plan of Care Continue ceftriaxone while here transition to p.o. Augmentin when ready for discharge for [address] PICC line Offload Cont local woundvac care as directed CASTRO ROMAN MD May 03, 2021 07:57
[2021-05-03] MEDS: INSULIN LISPRO 300 UNITS/3 ML VIAL. SQ SCH ×3 (08:00→17:09)
[2021-05-03 08:41] LABS: BASO % 0 % (0-3); EOS # 0.1 x10^3/uL (0.0-0.7); EOS % 2 % (0-3); HEMATOCRIT 23.4 % (36.0-47.0); HEMOGLOBIN 7.3 g/dL (12.0-15.5); LYMPH # 1.2 x10^3/uL (1.0-4.8); LYMPH % 20 % (24-48); MEAN CORPUSCULAR HEMOGLOBIN 25 pg (25-35); MEAN CORPUSCULAR HGB CONC 31 g/dL (31-37); MEAN CORPUSCULAR VOLUME 80 fL (79-100); MONO # 0.5 x10^3/uL (0.0-1.1); MONO % 8 % (0-9); NEUT # 4.5 x10^3/uL (1.8-7.7); NEUT % 71 % (31-73); PLATELET COUNT 289 x10^3/uL (140-400); RED BLOOD COUNT 2.94 x10^6/uL (3.50-5.40); RED CELL DISTRIBUTION WIDTH 19.4 % (11.5-14.5); WHITE BLOOD COUNT 6.3 x10^3/uL (4.0-11.0)
[2021-05-03] MEDS: LACTOBACILLUS RHAMNOSUS GG 1 CAPSULE. PO SCH ×2 (09:06→20:44)
[2021-05-03] MEDS: HYDROcodone/APAP 5/325MG 1 TAB TABLET PO PRN ×3 (09:06→20:45)
[2021-05-03] MEDS: CITALOPRAM 20 MG TABLET. PO SCH (09:07)
[2021-05-03] MEDS: LOSARTAN POTASSIUM 50 MG TABLET. PO SCH (09:07)
[2021-05-03] MEDS: METOPROLOL SUCC 24HR ER 50 MG TAB.ER.24H. PO SCH (09:07)
[2021-05-03] MEDS: NYSTATIN TOPICAL POWDER 15GM BOTTLE. TP SCH ×2 (09:08→20:45)
[2021-05-03] MEDS: SODIUM HYPOCHLORITE 0.125% 473 ML BOTTLE. TP SCH (09:08)
[2021-05-03 09:10] LABS: ALBUMIN 1.2 g/dL (3.4-5.0); ALBUMIN/GLOBULIN RATIO 0.3 (1.0-1.7); CALCIUM 7.9 mg/dL (8.5-10.1); CREATININE 0.6 mg/dL (0.6-1.0); GFR 96.9; POTASSIUM 3.7 mmol/L (3.5-5.1); TOTAL BILIRUBIN 0.2 mg/dL (0.2-1.0); TOTAL PROTEIN 5.1 g/dL (6.4-8.2)
[2021-05-03 11:00] VITALS: BP 140/55
--- NOTE | 2021-05-03 11:05 | NUR ---
Pharmacy Warfarin Dosing Note S:Pharmacy consulted to assist with anticoagulation therapy started with target INR: 2 -3 O:SIXTO MEREDITH is a 76 year old F with H/O DVT LABS: Last INR: 2.7 Last HGB: 7.3 Last HCT: 23.4 Last PLT: 289 Last dose of 1 mg given on 05/02/21 at 1636 Previous Regimen: 4MG DAILY Vitamin K given: Y 04/21 5MG, 04/22 5MG Drug Interaction Changes: None Ongoing Drug Interactions: A:INR of 2.7 is within desired range. Target range for this patient is: 2 -3 P: Warfarin dose: 1 mg Today at 1600 Bridge Therapy: None Next INR due 05/04/21 Pharmacy anticoagulation service will continue to follow. BRE CASTRO RPH, 05/03/21 8034
--- NOTE | 2021-05-03 12:41 | PDOC ---
[employer] PROGRESS NOTE Date of Service DOS: DATE: 05/03/21 TIME: 12:22 Chief Complaint Chief Complaint Nonhealing acute on chronic bilateral lower extremity wounds, foul-smelling and necrotic tissue Sepsis Right lower thigh hematoma Severe peripheral vascular disease with multiple stenosis Atrial fibrillation DM2 CAD HTN Severe protein malnutrition Anemia of chronic inflammatory disease Transaminitis Hypokalemia History of Present Illness History of Present Illness Ms Santana is a 76-year-old female with past medical history DM2, CAD, HTN, HLD, presents as a direct admit from [facility] due to multiple nonhealing blistering wounds to her bilateral feet for the past month. She was recently treated on our service (03/22/2021) for evacuation and debridement of right thigh hematoma. Right lower extremity CTA at that time showed calcified plaque with approximately 50 percent stenosis to SFA, extensive arterial calcifications to right popliteal artery, heavy calcifications to anterior tibial artery, and occluded right posterior tibial artery; Left lower extremity CTA showed popliteal artery with 60-70 percent stenosis at mid segment, left anterior tibial artery with heavy calcifications, left posterior tibial artery occluded distally. She has been receiving local wound care and follow-up at wound care clinic without significant improvement in her blisters. She denies any significant pain but does admit to some clear serous drainage from her bilateral feet. Will admit patient for further medical management. 04/14: Febrile overnight with T-max 100.7 F. WBC 11.4. consult to ID. Per vascular surgery, no urgency for surgical debridement of her wounds or angiogram currently. She had wound VAC placed in the right thigh yesterday. Await recommendations from plastic surgery. 04/15: Afebrile, breathing on room air. Wound VAC in place to right thigh. She reports some pain in her legs with movement, but worked with PT. Continue treatment of bilateral lower extremity wounds with Zosyn. plastic surgery recommendations on management of right thigh hematoma. 04/16: Afebrile, breathing on room air. Wound VAC in place to right thigh. worked with physical therapy . Continue treatment of bilateral lower extremity wounds with Zosyn. 04/17: less ankle edema 04/18: Afebrile. Still with some leg pain, controlled with medication. She will need snf facility that can manage wound VAC and IV antibiotic regimen. Likely change Zosyn to Invanz, per ID. She does not want to return to [facility] for snf. 04/19: Remains afebrile. Agreeable to returning to [facility] for rehab. Continuing Zosyn will change to Invanz on discharge. Is endorsing some shortness of breath and bilateral upper extremity swelling this morning chest x- ray shows pulmonary edema, will try a one-time dose of Lasix. 04/20: Patient seen and examined at bedside. This morning she reports her breathing is stable. Does report increased swelling in her bilateral upper extremities encouraged her to elevate them. Patient being reevaluated by vascular surgery today.Consult hematology for vasculitis work-up. 04/21: Worsening pain RLE. Eval by hematology and vascular surgery. Planning for irrigation and debridement tomorrow. INR needs to be below 1.5, it is 2.7 today. dose of vitamin K today and recheck INR in the morning. If above one-point 5 in the morning patient may need FFP prior to surgery. 04/22: Patient seen and examined at bedside. Other than right lower extremity pain no complaints. INR 2 elevated this morning, 2.1, so high for surgery. 04/24: No acute events overnight. Patient seen and examined bedside. Dressings are moist with strikethrough with serous fluid. Pain is well controlled at this time. 04/25: No acute events overnight. Patient seen and examined bedside during wound dressing changes. There is definitely still weeping around the wounds but the wounds do not appear infected or is or any active bleeding or purulent drainage. Warfarin managed by pharmacy and currently INR is at 1.6 at home dose warfarin. Patient will likely need some skilled rehab upon discharge. Anticipate discharge in the next 24 to 48 hours. Patient's chart, labs, images were reviewed and discussed with RN 04/26: No overnight Events. No significant pain with dressing changes. Still on IV Zosyn. Awaiting biopsy results. 04/27: Swelling improved pain improved in the legs. Changed to Rocephin per ID Proteus vulgaris and wound 04/28: Afebrile overnight. Complaining worsening shortness of breath on minimal exertion and now on 2 L of oxygen. IV fluids at home. Awaiting chest radiograph. Did have some minimal improvement with breathing treatment with respiratory therapy. 04/29: Next radiograph with interstitial changes given IV Lasix with some improvement she still with abdominal fullness and shortness of breath on O2. Will give another IV dose of Lasix. Has variflow wound VAC per plastic surgery. Discussed with ID not ready for discharge. 04/30: Breathing improved after Lasix but still with abdominal swelling. She did have a good bowel movement. Leg still swollen as well interfering with wound vacs. Wound care additional IV Lasix today replace potassium repeat labs in the morning. 05/01: Breathing improved. K2.9 mag 1.8 after additional Lasix dosing. Now with 3 wound VAC on right leg including knee and left leg and her left anterior foot wound is left open for now. 05/02: Little dyspnea on minimal exertion today. INR therapeutic. Wound vacs with good suction. Given the number of complicated wounds she does request referral to LTACH which would be appropriate as she has failed [facility] level care for her complicated wounds requiring readmission and surgery. 05/03: Patient seen and examined. Discussed with RN. Chart reviewed. Vitals/I&O Vitals/I&O: Vital Signs Date Time Temp Pulse Resp B/P (MAP) Pulse Ox O2 Delivery O2 Flow Rate FiO2 05/03/21 11:00 98.1 65 20 140/55 (83) 97 Nasal Cannula 2.0 98.1 I & O 05/02/21 05/02/21 05/03/21 15:00 23:00 07:00 Intake Total 330 ml 480 ml Output Total 0 ml Balance 330 ml 480 ml 0 ml Physical Exam Physical Exam: GENERAL: Alert, oriented female, not in distress. resting in bed HEENT: Both pupils are round and reacting. No conjunctival lesion, no lesion in the mouth. NECK: Supple LUNGS: Crackles in both bases of lungs HEART: S1, S2 regular. ABDOMEN: Soft, nontender, EXTREMITIES: Bilateral lower extremity swelling present improving, right lower extremity wound VAC present for both wounds, thigh and leg, left leg wound VAC present NEUROLOGIC: The patient is alert, awake, and appropriate. No focal neurologic deficit. General: Alert Heart: Regular rate, Normal S1, Normal S2, No murmurs Lungs: Clear Abdomen: Normal bowel sounds, Soft, Other (Morbidly obese) Extremities: No clubbing, No edema, Other (Dressings with serous fluid strikethrough. Intact biphasic dorsalis pedis Doppler signals bilaterally, posterior tibial Doppler signals are absent bilaterally) Skin: Other (Full-thickness superficial gangrene involving the posterior right lower extremity with several large patches of wounds, superficial full-thickness wounds involving the left dorsal surface pretibial area, chronic venous insufficiency skin changes bilaterally with hemosiderin deposition, no cellulitis, no purulent drainage) Labs Labs: Laboratory Tests Test 05/02/21 16:39 05/02/21 21:21 05/03/21 07:55 05/03/21 08:01 Glucose (Fingerstick) 147 mg/dL (70-99) 145 mg/dL (70-99) 131 mg/dL (70-99) White Blood Count 6.3 x10^3/uL (4.0-11.0) Red Blood Count 2.94 x10^6/uL (3.50-5.40) Hemoglobin 7.3 g/dL (12.0-15.5) Hematocrit 23.4 % (36.0-47.0) Mean Corpuscular Volume 80 fL (79-100) Mean Corpuscular Hemoglobin 25 pg (25-35) Mean Corpuscular Hemoglobin Concent 31 g/dL (31-37) Red Cell Distribution Width 19.4 % (11.5-14.5) Platelet Count 289 x10^3/uL (140-400) Neutrophils (%) (Auto) 71 % (31-73) Lymphocytes (%) (Auto) 20 % (24-48) Monocytes (%) (Auto) 8 % (0-9) Eosinophils (%) (Auto) 2 % (0-3) Basophils (%) (Auto) 0 % (0-3) Neutrophils # (Auto) 4.5 x10^3/uL (1.8-7.7) Lymphocytes # (Auto) 1.2 x10^3/uL (1.0-4.8) Monocytes # (Auto) 0.5 x10^3/uL (0.0-1.1) Eosinophils # (Auto) 0.1 x10^3/uL (0.0-0.7) Basophils # (Auto) 0.0 x10^3/uL (0.0-0.2) Prothrombin Time 28.0 SEC (11.7-14.0) Prothromb Time International Ratio 2.7 (0.8-1.1) Sodium Level 145 mmol/L (136-145) Potassium Level 3.7 mmol/L (3.5-5.1) Chloride Level 111 mmol/L (98-107) Carbon Dioxide Level 26 mmol/L (21-32) Anion Gap 8 (6-14) Blood Urea Nitrogen 7 mg/dL (7-20) Creatinine 0.6 mg/dL (0.6-1.0) Estimated GFR (Cockcroft-Gault) 96.9 BUN/Creatinine Ratio 12 (6-20) Glucose Level 133 mg/dL (70-99) Calcium Level 7.9 mg/dL (8.5-10.1) Total Bilirubin 0.2 mg/dL (0.2-1.0) Aspartate Amino Transf (AST/SGOT) 23 U/L (15-37) Alanine Aminotransferase (ALT/SGPT) 9 U/L (14-59) Alkaline Phosphatase 139 U/L (46-116) Total Protein 5.1 g/dL (6.4-8.2) Albumin 1.2 g/dL (3.4-5.0) Albumin/Globulin Ratio 0.3 (1.0-1.7) Test 05/03/21 11:33 Glucose (Fingerstick) 146 mg/dL (70-99) Review of Systems Review of Systems: Denies nausea and vomiting. Assessment and Plan Assessmemt and Plan Sepsis present on admission Nonhealing acute on chronic bilateral lower extremity wounds, foul-smelling and necrotic tissue down to subcutaneous fat status post surgical debridement 04/23/2021 Right lower thigh hematoma with wound VAC in place Severe peripheral vascular disease with multiple stenosis Atrial fibrillation Supratherapeutic INR, hold warfarin, pharmacy to adjust need 04-17 DM2 CAD HTN Severe protein malnutrition Anemia of chronic inflammatory disease Transaminitiselevated alkaline phosphatase likely related to bone disease Hypokalemia Plan: 1. Resume anticoagulation with goal of INR between 2-3, pharmacy to dose 2. Consulted to vascular surgery, plastic surgery, and wound care 3. Wound care 4. Continue wound vacs 5. Continue Zosyn; will change to Invanz on discharge 6. PT/OT 7. Home meds 8. Trend labs 9. FEN- Cardiac Diet 10. DNR 11. Discharge disposition pending Surrogate decision-maker is her daughter (Alyce Santana) Comment Review of Relevant I have reviewed the following items ronen (where applicable) has been applied. Medications: Current Medications Medications (Trade) Dose Ordered Sig/Gennaro Route PRN Reason Start Time Stop Time Status Last Admin Dose Admin Warfarin Sodium (Coumadin) 1 mg 1X WARF ONCE PO 05/02/21 16:00 05/02/21 16:01 DC 05/02/21 16:36 Potassium Bicarbonate (Potassium Effervescent Tablet) 10 meq 1X ONCE PO 05/02/21 13:30 05/02/21 13:31 DC 05/02/21 15:48 Justifications for Admission Other Justification Diabetic ulcers, failed outpatient treatment NATE BHATT III DO May 03, 2021 12:41
[2021-05-03] MEDS: cefTRIAXone IV Push 2 GM VIAL. IVP SCH (12:56)
[2021-05-03] MEDS: HYDROmorphone 2 MG/ML VIAL IVP PRN ×2 (14:54→18:34)
[2021-05-03 15:00] VITALS: BP 135/51
--- NOTE | 2021-05-03 15:59 | NUR ---
Wound Care Wound Type/Assessment: Follow up wound management on venous ulcers to BLE and DFUs to L great toe and R plantar foot. DFUs are covered in stable, dry eschar. R anterior thigh wound is bright pink and granular with less than 15% slough. Black foam used to cover large surface area of wound, good seal achieved. Wounds to LLE (x2) prepped and black foam applied to wound bases. Good seal achieved. Y-connector used to join LLE and R thigh wounds. R posterior lower leg wound is clean with exposed adipose, tendon, and muscle, minimal granular tissue observed. Silver cleanse choice used to veraflow R posterior lower leg, multiple pieces of waffle and solid silver foam placed to connect total of 4 openings, ostomy ring to periwound. No other wounds noted on head to toe inspection Treatment Recommendations/Plan: Maintain NPWT to leg wounds, wound care team will manage dressings. Veralflow settings: NS @ 12cc x5min Q3H. Nonadherent foams placed to weeping skin of RLE and secured with kerlix to manage drainage. Betadine to bilateral foot wounds. Education provided: Regarding pain control, woundcare, and pressure ulcer prevention Offloading surface/device: Pt is independently mobile in bed Recommended Referrals/Tests: NA Discharge Recommendations for dressings: Concerning for drainage management due to excessive weeping of the lower extremities. Dressings on discharge will be intended to manage moisture
[2021-05-03] MEDS ORDERED: HYDROmorphone 2 MG/ML VIAL IVP ONE (16:00)
[2021-05-03] MEDS ORDERED: WARFARIN 1 MG TABLET. PO ONE (16:00)
[2021-05-03 19:00] VITALS: BP 147/55
[2021-05-03] MEDS: ATORVASTATIN CALCIUM 40 MG TABLET. PO SCH (20:44)
[2021-05-03 23:00] VITALS: BP 138/59
[2021-05-04] MEDS: INSULIN GLARGINE SYRINGE. SQ SCH ×2 (00:02→21:46)
[2021-05-04] MEDS: HYDROcodone/APAP 5/325MG 1 TAB TABLET PO PRN ×4 (01:03→21:47)
[2021-05-04] MEDS: HYDROmorphone 2 MG/ML VIAL IVP PRN ×3 (02:04→21:58)
[2021-05-04 03:00] VITALS: BP 143/54
[2021-05-04 04:40] LABS: PROTHROMBIN TIME PATIENT 26.3 SEC (11.7-14.0)
[2021-05-04 07:00] VITALS: BP 150/91
[2021-05-04] MEDS: INSULIN LISPRO 300 UNITS/3 ML VIAL. SQ SCH ×3 (08:00→17:00)
--- NOTE | 2021-05-04 08:21 | PDOC ---
Infectious Disease Note Subjective: Subjective Patient complains of pain in both lower extremities Vital Signs: Vital Signs Vital Signs Date Time Temp Pulse Resp B/P (MAP) Pulse Ox O2 Delivery O2 Flow Rate FiO2 05/04/21 03:00 98.9 68 18 143/54 (83) 93 Nasal Cannula 2.0 98.9 Physical Exam: PHYSICAL EXAM GENERAL: Alert, oriented female, not in distress. resting in bed HEENT: Both pupils are round and reacting. No conjunctival lesion, no lesion in the mouth. NECK: Supple LUNGS: Crackles in both bases of lungs HEART: S1, S2 regular. ABDOMEN: Soft, nontender, EXTREMITIES: Bilateral lower extremity swelling present improving, right lower extremity wound VAC present for both wounds, thigh and leg, left leg wound VAC present Left dorsal toe wound dry, no drainage NEUROLOGIC: The patient is alert, awake, and appropriate. No focal neurologic deficit. Medications: Inpatient Meds: Medications reviewed. Labs: Lab Laboratory Tests Test 05/03/21 11:33 05/03/21 16:47 05/03/21 22:47 05/04/21 03:45 Glucose (Fingerstick) 146 mg/dL (70-99) 148 mg/dL (70-99) 167 mg/dL (70-99) Prothrombin Time 26.3 SEC (11.7-14.0) Prothromb Time International Ratio 2.5 (0.8-1.1) Test 05/04/21 07:51 Glucose (Fingerstick) 119 mg/dL (70-99) Micro --------- --- RUN DATE: 04/29/21 [facility] *LIVE* PAGE 1 RUN TIME: 906 Specimen Inquiry PATIENT: SIXTO MEREDITH ACCT: [id number] LOC: [address] [place] [address] U: [id number] AGE/SX: 76/F ROOM: 528 RE04/12/[address]: NATE BHATT III, DO : 1945 BED: 1 DIS: STATUS: ADM IN TLOC: SPEC #: [id number] MARÍA ELENA: 04/23/21 STATUS: COMP REQ #: [id number] RECD: 04/23/[address]: NATE BHATT III, DO SOURCE: LEG ENTR: 04/23/[address]: NIXON COURTNEY MD SPDESC: PANCHO ROMAN,JESSE PEÑA MD, MD, DOUGLAS M DO MANTHRAVADI, SASHI DHAR MD THORS, AXEL DO ORDERED: ANAER/FEDE/PARUL COMMENTS: RT LEG WOUND --------- --- Procedure Result GRAM STAIN Final Final NO ORGANISMS SEEN. SQUAMOUS EPI CELL:NONE SEEN PMN (WBCs):NONE SEEN Unless otherwise specified, Testing Performed by: [address] [address] For Inquires, the Physician may contact the Microbiology department at [phone] ANAEROBIC-AEROBIC CULTURE Final Final RARE [PROTEUS VULGARIS GROUP] on 04/25/21 at 1418 NO ANAEROBIC ORGANISMS ISOLATED on 04/29/21 at 0903 PROTEUS VULGARIS GROUP ANTIMICROBIAL SUSCEPTIBILITY Final Comment NEG TAMEKA 56 PROTEUS VULGARIS GROUP ANTIBIOTIC RESULT INTERPRETATION AMPICILLIN/SULBACTAM 8/4 S AMIKACIN <=16 S AMPICILLIN >16 R AMOXICILLIN/K CLAVULANATE <=8/4 S AZTREONAM <=4 S CEFTRIAXONE <=1 S CEFTAZIDIME <=1 S CEFOTAXIME <=2 S CEFOXITIN <=8 S CEFAZOLIN >16 R CIPROFLOXACIN <=0.25 S CEFEPIME <=2 S RUN DATE: 04/29/21 [facility] *LIVE* PAGE 2 RUN TIME: 906 Specimen Inquiry SPEC: [id number] PATIENT: SIXTO MEREDITH [id number] (Continued) Procedure Result - CONTINUED ON NEXT PAGE RUN DATE: 04/29/21 [facility] *LIVE* PAGE 3 RUN TIME: 0907 Specimen Inquiry SPEC: [id number] PATIENT: SIXTO MEREDITH [id number] (Continued) Procedure Result ANTIMICROBIAL SUSCEPTIBILITY Final (continued) CEFUROXIME >16 R ERTAPENEM <=0.5 S GENTAMICIN <=2 S LEVOFLOXACIN <=0.5 S MEROPENEM <=1 S PIPERACILLIN/TAZOBACTAM <=8 S TRIMETHOPRIM/SULFAMETHOXAZOLE <=0.5/9.5 S TETRACYCLINE 8 R* TOBRAMYCIN <=2 S Unless otherwise specified, Testing Performed by: [address] [address] For Inquires, the Physician may contact the Microbiology department at [phone] Objective: Assessment: 1. Infected foul smelling wounds, bilateral lower extremity.S/P I&D April 23 Cultures positive for Proteus vulgaris 2. Right lower thigh hematoma evacuation with a wound VAC in place, clean wound 3. Leukocytosis. Resolved 4. Fever. resolved 5. Peripheral vascular disease. 6. Coronary artery disease. 7. CHF Plan: Plan of Care Continue ceftriaxone transition to p.o. Augmentin when ready for discharge for [address] PICC line Offload Cont local woundvac care as directed Continue supportive care CASTRO ROMAN MD May 04, 2021 08:21
[2021-05-04] MEDS: METOPROLOL SUCC 24HR ER 50 MG TAB.ER.24H. PO SCH (09:50)
[2021-05-04] MEDS: LOSARTAN POTASSIUM 50 MG TABLET. PO SCH (09:51)
[2021-05-04] MEDS: CITALOPRAM 20 MG TABLET. PO SCH (09:51)
[2021-05-04] MEDS: LACTOBACILLUS RHAMNOSUS GG 1 CAPSULE. PO SCH ×2 (09:53→21:48)
[2021-05-04] MEDS: SODIUM HYPOCHLORITE 0.125% 473 ML BOTTLE. TP SCH (09:54)
[2021-05-04] MEDS: NYSTATIN TOPICAL POWDER 15GM BOTTLE. TP SCH ×2 (09:55→21:00)
--- NOTE | 2021-05-04 09:56 | NUR ---
Pharmacy Warfarin Dosing Note S:Pharmacy consulted to assist with anticoagulation therapy started with target INR: 2 -3 O:SIXTO MEREDITH is a 76 year old F with H/O DVT LABS: Last INR: 2.5 Last HGB: 7.3 Last HCT: 23.4 Last PLT: 289 Last dose of 1 mg given on 05/03/21 at 1609 Previous Regimen: 4MG DAILY Vitamin K given: Y 04/21 5MG, 04/22 5MG Drug Interaction Changes: None A:INR of 2.5 is within desired range. Target range for this patient is: 2 -3 P: Warfarin dose: 2 mg Today at 1600 Bridge Therapy: None Next INR due 05/06/21 Pharmacy anticoagulation service will continue to follow. BRE CASTRO RPH, 05/04/21 0905
[2021-05-04 11:00] VITALS: BP 175/47
[2021-05-04] MEDS: cefTRIAXone IV Push 2 GM VIAL. IVP SCH (12:17)
--- NOTE | 2021-05-04 13:05 | PDOC ---
[employer] PROGRESS NOTE Date of Service DOS: DATE: 05/04/21 TIME: 12:41 Chief Complaint Chief Complaint Nonhealing acute on chronic bilateral lower extremity wounds, foul-smelling and necrotic tissue Sepsis Right lower thigh hematoma Severe peripheral vascular disease with multiple stenosis Atrial fibrillation DM2 CAD HTN Severe protein malnutrition Anemia of chronic inflammatory disease Transaminitis Hypokalemia History of Present Illness History of Present Illness Ms Santana is a 76-year-old female with past medical history DM2, CAD, HTN, HLD, presents as a direct admit from [facility] due to multiple nonhealing blistering wounds to her bilateral feet for the past month. She was recently treated on our service (03/22/2021) for evacuation and debridement of right thigh hematoma. Right lower extremity CTA at that time showed calcified plaque with approximately 50 percent stenosis to SFA, extensive arterial calcifications to right popliteal artery, heavy calcifications to anterior tibial artery, and occluded right posterior tibial artery; Left lower extremity CTA showed popliteal artery with 60-70 percent stenosis at mid segment, left anterior tibial artery with heavy calcifications, left posterior tibial artery occluded distally. She has been receiving local wound care and follow-up at wound care clinic without significant improvement in her blisters. She denies any significant pain but does admit to some clear serous drainage from her bilateral feet. Will admit patient for further medical management. 04/14: Febrile overnight with T-max 100.7 F. WBC 11.4. consult to ID. Per vascular surgery, no urgency for surgical debridement of her wounds or angiogram currently. She had wound VAC placed in the right thigh yesterday. Await recommendations from plastic surgery. 04/15: Afebrile, breathing on room air. Wound VAC in place to right thigh. She reports some pain in her legs with movement, but worked with PT. Continue treatment of bilateral lower extremity wounds with Zosyn. plastic surgery recommendations on management of right thigh hematoma. 04/16: Afebrile, breathing on room air. Wound VAC in place to right thigh. worked with physical therapy . Continue treatment of bilateral lower extremity wounds with Zosyn. 04/17: less ankle edema 04/18: Afebrile. Still with some leg pain, controlled with medication. She will need residential facility that can manage wound VAC and IV antibiotic regimen. Likely change Zosyn to Invanz, per ID. She does not want to return to [facility] for residential. 04/19: Remains afebrile. Agreeable to returning to [facility] for rehab. Continuing Zosyn will change to Invanz on discharge. Is endorsing some shortness of breath and bilateral upper extremity swelling this morning chest x- ray shows pulmonary edema, will try a one-time dose of Lasix. 04/20: Patient seen and examined at bedside. This morning she reports her breathing is stable. Does report increased swelling in her bilateral upper extremities encouraged her to elevate them. Patient being reevaluated by vascular surgery today.Consult hematology for vasculitis work-up. 04/21: Worsening pain RLE. Eval by hematology and vascular surgery. Planning for irrigation and debridement tomorrow. INR needs to be below 1.5, it is 2.7 today. dose of vitamin K today and recheck INR in the morning. If above one-point 5 in the morning patient may need FFP prior to surgery. 04/22: Patient seen and examined at bedside. Other than right lower extremity pain no complaints. INR 2 elevated this morning, 2.1, so high for surgery. 04/24: No acute events overnight. Patient seen and examined bedside. Dressings are moist with strikethrough with serous fluid. Pain is well controlled at this time. 04/25: No acute events overnight. Patient seen and examined bedside during wound dressing changes. There is definitely still weeping around the wounds but the wounds do not appear infected or is or any active bleeding or purulent drainage. Warfarin managed by pharmacy and currently INR is at 1.6 at home dose warfarin. Patient will likely need some skilled rehab upon discharge. Anticipate discharge in the next 24 to 48 hours. Patient's chart, labs, images were reviewed and discussed with RN 04/26: No overnight Events. No significant pain with dressing changes. Still on IV Zosyn. Awaiting biopsy results. 04/27: Swelling improved pain improved in the legs. Changed to Rocephin per ID Proteus vulgaris and wound 04/28: Afebrile overnight. Complaining worsening shortness of breath on minimal exertion and now on 2 L of oxygen. IV fluids at home. Awaiting chest radiograph. Did have some minimal improvement with breathing treatment with respiratory therapy. 04/29: Next radiograph with interstitial changes given IV Lasix with some improvement she still with abdominal fullness and shortness of breath on O2. Will give another IV dose of Lasix. Has variflow wound VAC per plastic surgery. Discussed with ID not ready for discharge. 04/30: Breathing improved after Lasix but still with abdominal swelling. She did have a good bowel movement. Leg still swollen as well interfering with wound vacs. Wound care additional IV Lasix today replace potassium repeat labs in the morning. 05/01: Breathing improved. K2.9 mag 1.8 after additional Lasix dosing. Now with 3 wound VAC on right leg including knee and left leg and her left anterior foot wound is left open for now. 05/02: Little dyspnea on minimal exertion today. INR therapeutic. Wound vacs with good suction. Given the number of complicated wounds she does request referral to LTACH which would be appropriate as she has failed [facility] level care for her complicated wounds requiring readmission and surgery. 05/03: Patient seen and examined. Discussed with RN. Chart reviewed. : Patient seen and examined. Wound vacs on with good suction. INR is in therapeutic range at 2.5. She endorses pain and would like another dose of Dilaudid today. Vitals/I&O Vitals/I&O: Vital Signs Date Time Temp Pulse Resp B/P (MAP) Pulse Ox O2 Delivery O2 Flow Rate FiO2 05/04/21 11:00 99.1 67 18 175/47 (89) 94 Nasal Cannula 2.0 99.1 I & O 05/03/21 05/03/21 05/04/21 15:00 23:00 07:00 Intake Total 540 ml 300 ml 60 ml Output Total 0 ml 0 ml Balance 540 ml 300 ml 60 ml Physical Exam Physical Exam: GENERAL: Alert, oriented female, not in distress. resting in bed HEENT: Both pupils are round and reacting. No conjunctival lesion, no lesion in the mouth. NECK: Supple LUNGS: Crackles in both bases of lungs HEART: S1, S2 regular. ABDOMEN: Soft, nontender, EXTREMITIES: Bilateral lower extremity swelling present improving, right lower extremity wound VAC present for both wounds, thigh and leg, left leg wound VAC present Left dorsal toe wound dry, no drainage NEUROLOGIC: The patient is alert, awake, and appropriate. No focal neurologic deficit. General: Alert Heart: Regular rate, Normal S1, Normal S2, No murmurs Lungs: Clear Abdomen: Normal bowel sounds, Soft, Other (Morbidly obese) Extremities: No clubbing, No edema, Other (Dressings with serous fluid strikethrough. Intact biphasic dorsalis pedis Doppler signals bilaterally, posterior tibial Doppler signals are absent bilaterally) Skin: Other (Full-thickness superficial gangrene involving the posterior right lower extremity with several large patches of wounds, superficial full-thickness wounds involving the left dorsal surface pretibial area, chronic venous insufficiency skin changes bilaterally with hemosiderin deposition, no cellulitis, no purulent drainage) Labs Labs: Laboratory Tests Test 05/03/21 16:47 05/03/21 22:47 05/04/21 03:45 05/04/21 07:51 Glucose (Fingerstick) 148 mg/dL (70-99) 167 mg/dL (70-99) 119 mg/dL (70-99) Prothrombin Time 26.3 SEC (11.7-14.0) Prothromb Time International Ratio 2.5 (0.8-1.1) Test 05/04/21 11:48 Glucose (Fingerstick) 138 mg/dL (70-99) Review of Systems Review of Systems: Patient endorses lower extremity pain and swelling. Assessment and Plan Assessmemt and Plan Sepsis present on admission Nonhealing acute on chronic bilateral lower extremity wounds, foul-smelling and necrotic tissue down to subcutaneous fat status post surgical debridement 04/23/2021 Right lower thigh hematoma with wound VAC in place Severe peripheral vascular disease with multiple stenosis Atrial fibrillation Supratherapeutic INR, hold warfarin, pharmacy to adjust need 04-17 DM2 CAD HTN Severe protein malnutrition Anemia of chronic inflammatory disease Transaminitiselevated alkaline phosphatase likely related to bone disease Hypokalemia Plan: 1. Continue anticoagulation with goal of INR between 2-3, pharmacy to dose 2. Continue PRN Pain Medication for lower extremity wound pain 3. Consulted to vascular surgery, plastic surgery, and wound care 4. Continue wound care 5. Continue wound vacs 6. Continue antibiotics (Note: Zosyn was discontinued on 04/27; and Ceftriaxone was initiated on 04/27) 7. PT/OT 8. Home meds 9. Trend labs 10. FEN- Cardiac Diet 11. DNR 12. Discharge disposition pending Surrogate decision-maker is her daughter (Alyce Santana) Comment Review of Relevant I have reviewed the following items ronen (where applicable) has been applied. Medications: Current Medications Medications (Trade) Dose Ordered Sig/Gennaro Route PRN Reason Start Time Stop Time Status Last Admin Dose Admin Warfarin Sodium (Coumadin) 1 mg 1X WARF ONCE PO 05/03/21 16:00 05/03/21 16:01 DC 05/03/21 16:09 Hydromorphone HCl (Dilaudid) 0.5 mg 1X ONCE IVP 05/03/21 16:00 05/03/21 16:01 DC 05/03/21 16:06 Justifications for Admission Other Justification Diabetic ulcers, failed outpatient treatment NATE BHATT III DO May 04, 2021 13:05
[2021-05-04 15:00] VITALS: BP 151/55
[2021-05-04] MEDS ORDERED: WARFARIN 2 MG TABLET. PO ONE (16:00)
[2021-05-04 19:00] VITALS: BP 150/59
[2021-05-04] MEDS: ATORVASTATIN CALCIUM 40 MG TABLET. PO SCH (21:48)
[2021-05-04 23:00] VITALS: BP 138/85
[2021-05-05 03:00] VITALS: BP 140/81
[2021-05-05] MEDS: HYDROcodone/APAP 5/325MG 1 TAB TABLET PO PRN ×4 (06:34→23:00)
[2021-05-05 06:53] LABS: BASO % 0 % (0-3); EOS # 0.2 x10^3/uL (0.0-0.7); EOS % 3 % (0-3); HEMATOCRIT 25.6 % (36.0-47.0); HEMOGLOBIN 7.8 g/dL (12.0-15.5); LYMPH # 1.6 x10^3/uL (1.0-4.8); LYMPH % 28 % (24-48); MEAN CORPUSCULAR HEMOGLOBIN 25 pg (25-35); MEAN CORPUSCULAR HGB CONC 31 g/dL (31-37); MEAN CORPUSCULAR VOLUME 80 fL (79-100); MONO # 0.5 x10^3/uL (0.0-1.1); MONO % 9 % (0-9); NEUT # 3.5 x10^3/uL (1.8-7.7); NEUT % 60 % (31-73); PLATELET COUNT 299 x10^3/uL (140-400); RED BLOOD COUNT 3.18 x10^6/uL (3.50-5.40); RED CELL DISTRIBUTION WIDTH 19.6 % (11.5-14.5); WHITE BLOOD COUNT 5.8 x10^3/uL (4.0-11.0)
[2021-05-05 07:00] VITALS: BP 154/58
[2021-05-05 07:28] LABS: ALBUMIN 1.3 g/dL (3.4-5.0); ALBUMIN/GLOBULIN RATIO 0.3 (1.0-1.7); CALCIUM 8.2 mg/dL (8.5-10.1); CREATININE 0.7 mg/dL (0.6-1.0); GFR 81.1; POTASSIUM 3.8 mmol/L (3.5-5.1); TOTAL BILIRUBIN 0.2 mg/dL (0.2-1.0); TOTAL PROTEIN 5.4 g/dL (6.4-8.2)
[2021-05-05] MEDS: INSULIN LISPRO 300 UNITS/3 ML VIAL. SQ SCH ×3 (08:00→18:13)
[2021-05-05] MEDS: LACTOBACILLUS RHAMNOSUS GG 1 CAPSULE. PO SCH ×2 (08:32→20:52)
[2021-05-05] MEDS: MULTIVITAMIN with MINERAL TABLET. PO SCH (08:32)
[2021-05-05] MEDS: ASCORBIC ACID 500 MG TABLET PO SCH (08:34)
[2021-05-05] MEDS: NYSTATIN TOPICAL POWDER 15GM BOTTLE. TP SCH ×2 (08:34→20:57)
[2021-05-05] MEDS: CITALOPRAM 20 MG TABLET. PO SCH (08:34)
[2021-05-05] MEDS: LOSARTAN POTASSIUM 50 MG TABLET. PO SCH (08:34)
[2021-05-05] MEDS: SODIUM HYPOCHLORITE 0.125% 473 ML BOTTLE. TP SCH (08:35)
[2021-05-05] MEDS: METOPROLOL SUCC 24HR ER 50 MG TAB.ER.24H. PO SCH (08:37)
--- NOTE | 2021-05-05 08:48 | PDOC ---
Infectious Disease Note Subjective: Subjective Patient without complaints Vital Signs: Vital Signs Vital Signs Date Time Temp Pulse Resp B/P (MAP) Pulse Ox O2 Delivery O2 Flow Rate FiO2 05/05/21 08:37 75 154/58 05/05/21 03:00 98.7 18 90 Room Air 98.7 05/04/21 23:00 2.0 Physical Exam: PHYSICAL EXAM GENERAL: Alert, oriented female, not in distress. resting in bed HEENT: Both pupils are round and reacting. No conjunctival lesion, no lesion in the mouth. NECK: Supple LUNGS: Crackles in both bases of lungs HEART: S1, S2 regular. ABDOMEN: Soft, nontender, EXTREMITIES: Bilateral lower extremity swelling present improving, right lower extremity wound VAC present for both wounds, thigh and leg, left leg wound VAC present Left dorsal toe wound dry, no drainage NEUROLOGIC: The patient is alert, awake, and appropriate. No focal neurologic deficit. Medications: Inpatient Meds: Medications reviewed. Labs: Lab Laboratory Tests Test 05/04/21 11:48 05/04/21 17:15 05/04/21 23:07 05/05/21 06:15 Glucose (Fingerstick) 138 mg/dL (70-99) 152 mg/dL (70-99) 141 mg/dL (70-99) White Blood Count 5.8 x10^3/uL (4.0-11.0) Red Blood Count 3.18 x10^6/uL (3.50-5.40) Hemoglobin 7.8 g/dL (12.0-15.5) Hematocrit 25.6 % (36.0-47.0) Mean Corpuscular Volume 80 fL (79-100) Mean Corpuscular Hemoglobin 25 pg (25-35) Mean Corpuscular Hemoglobin Concent 31 g/dL (31-37) Red Cell Distribution Width 19.6 % (11.5-14.5) Platelet Count 299 x10^3/uL (140-400) Neutrophils (%) (Auto) 60 % (31-73) Lymphocytes (%) (Auto) 28 % (24-48) Monocytes (%) (Auto) 9 % (0-9) Eosinophils (%) (Auto) 3 % (0-3) Basophils (%) (Auto) 0 % (0-3) Neutrophils # (Auto) 3.5 x10^3/uL (1.8-7.7) Lymphocytes # (Auto) 1.6 x10^3/uL (1.0-4.8) Monocytes # (Auto) 0.5 x10^3/uL (0.0-1.1) Eosinophils # (Auto) 0.2 x10^3/uL (0.0-0.7) Basophils # (Auto) 0.0 x10^3/uL (0.0-0.2) Sodium Level 143 mmol/L (136-145) Potassium Level 3.8 mmol/L (3.5-5.1) Chloride Level 109 mmol/L (98-107) Carbon Dioxide Level 29 mmol/L (21-32) Anion Gap 5 (6-14) Blood Urea Nitrogen 6 mg/dL (7-20) Creatinine 0.7 mg/dL (0.6-1.0) Estimated GFR (Cockcroft-Gault) 81.1 BUN/Creatinine Ratio 9 (6-20) Glucose Level 105 mg/dL (70-99) Calcium Level 8.2 mg/dL (8.5-10.1) Total Bilirubin 0.2 mg/dL (0.2-1.0) Aspartate Amino Transf (AST/SGOT) 29 U/L (15-37) Alanine Aminotransferase (ALT/SGPT) 13 U/L (14-59) Alkaline Phosphatase 118 U/L (46-116) Total Protein 5.4 g/dL (6.4-8.2) Albumin 1.3 g/dL (3.4-5.0) Albumin/Globulin Ratio 0.3 (1.0-1.7) Test 05/05/21 07:42 Glucose (Fingerstick) 110 mg/dL (70-99) Micro RUN DATE: 04/29/21 [facility] *LIVE* PAGE 1 RUN TIME: 906 Specimen Inquiry PATIENT: SIXTO MEREDITH ACCT: [id number] LOC: [address] [place] [address] U: [id number] AGE/SX: 76/F ROOM: [facility] RE04/12/[address]: NATE BHATT III, DO : 1945 BED: 1 DIS: STATUS: ADM IN TLOC: -- SPEC #: [id number] MARÍA ELENA: 04/23/21 STATUS: COMP REQ #: [id number] RECD: 04/23/[address]: NATE BHATT III, DO SOURCE: LEG ENTR: 04/23/[address]: NIXON COURTNEY MD SPDESC: TOMAS PARTIDA MD, RAVEN C MD KELLING, DOUGLAS M DO MANTHRAVADI, SASHIDHAR MD THORS, AXEL DO ORDERED: ANAER/FEDE/PARUL COMMENTS: RT LEG WOUND Procedure Result GRAM STAIN Final Final NO ORGANISMS SEEN. SQUAMOUS EPI CELL:NONE SEEN PMN (WBCs):NONE SEEN Unless otherwise specified, Testing Performed by: [address] [address] For Inquires, the Physician may contact the Microbiology department at [phone] ANAEROBIC-AEROBIC CULTURE Final Final RARE [PROTEUS VULGARIS GROUP] on 04/25/21 at 1418 NO ANAEROBIC ORGANISMS ISOLATED on 04/29/21 at 0903 PROTEUS VULGARIS GROUP ANTIMICROBIAL SUSCEPTIBILITY Final Comment NEG TAMEKA 56 PROTEUS VULGARIS GROUP ANTIBIOTIC RESULT INTERPRETATION AMPICILLIN/SULBACTAM 8/4 S AMIKACIN <=16 S AMPICILLIN >16 R AMOXICILLIN/K CLAVULANATE <=8/4 S AZTREONAM <=4 S CEFTRIAXONE <=1 S CEFTAZIDIME <=1 S CEFOTAXIME <=2 S CEFOXITIN <=8 S CEFAZOLIN >16 R CIPROFLOXACIN <=0.25 S CEFEPIME <=2 S RUN DATE: 04/29/21 [facility] *LIVE* PAGE 2 RUN TIME: 906 Specimen Inquiry SPEC: [id number] PATIENT: SIXTO MEREDITH [id number] (Continued) --- --------- Procedure Result CONTINUED ON NEXT PAGE RUN DATE: 04/29/21 [facility] *LIVE* PAGE 3 RUN TIME: 0907 Specimen Inquiry SPEC: [id number] PATIENT: SIXTO MEREDITH [id number] (Continued) Procedure Result ANTIMICROBIAL SUSCEPTIBILITY Final (continued) CEFUROXIME >16 R ERTAPENEM <=0.5 S GENTAMICIN <=2 S LEVOFLOXACIN <=0.5 S MEROPENEM <=1 S PIPERACILLIN/TAZOBACTAM <=8 S TRIMETHOPRIM/SULFAMETHOXAZOLE <=0.5/9.5 S TETRACYCLINE 8 R* TOBRAMYCIN <=2 S Unless otherwise specified, Testing Performed by: [address] [address] For Inquires, the Physician may contact the Microbiology department at [phone] Objective: Assessment: 1. Infected foul smelling wounds, bilateral lower extremity.S/P I&D April 23 Cultures positive for Proteus vulgaris 2. Right lower thigh hematoma evacuation with a wound VAC in place, clean wound 3. Leukocytosis. Resolved 4. Fever. resolved 5. Peripheral vascular disease. 6. Coronary artery disease. 7. CHF Plan: Plan of Care Continue ceftriaxone Do not place PICC line Offload Cont local woundvac care as directed Continue supportive care CASTRO ROMAN MD May 05, 2021 08:48
--- NOTE | 2021-05-05 10:06 | PDOC ---
[employer] PROGRESS NOTE Date of Service DOS: DATE: 05/05/21 TIME: 09:46 Chief Complaint Chief Complaint Nonhealing acute on chronic bilateral lower extremity wounds, foul-smelling and necrotic tissue Sepsis Right lower thigh hematoma Severe peripheral vascular disease with multiple stenosis Atrial fibrillation DM2 CAD HTN Severe protein malnutrition Anemia of chronic inflammatory disease Transaminitis Hypokalemia History of Present Illness History of Present Illness Ms Santana is a 76-year-old female with past medical history DM2, CAD, HTN, HLD, presents as a direct admit from [facility] due to multiple nonhealing blistering wounds to her bilateral feet for the past month. She was recently treated on our service (03/22/2021) for evacuation and debridement of right thigh hematoma. Right lower extremity CTA at that time showed calcified plaque with approximately 50 percent stenosis to SFA, extensive arterial calcifications to right popliteal artery, heavy calcifications to anterior tibial artery, and occluded right posterior tibial artery; Left lower extremity CTA showed popliteal artery with 60-70 percent stenosis at mid segment, left anterior tibial artery with heavy calcifications, left posterior tibial artery occluded distally. She has been receiving local wound care and follow-up at wound care clinic without significant improvement in her blisters. She denies any significant pain but does admit to some clear serous drainage from her bilateral feet. Will admit patient for further medical management. 04/14: Febrile overnight with T-max 100.7 F. WBC 11.4. consult to ID. Per vascular surgery, no urgency for surgical debridement of her wounds or angiogram currently. She had wound VAC placed in the right thigh yesterday. Await recommendations from plastic surgery. 04/15: Afebrile, breathing on room air. Wound VAC in place to right thigh. She reports some pain in her legs with movement, but worked with PT. Continue treatment of bilateral lower extremity wounds with Zosyn. plastic surgery recommendations on management of right thigh hematoma. 04/16: Afebrile, breathing on room air. Wound VAC in place to right thigh. worked with physical therapy . Continue treatment of bilateral lower extremity wounds with Zosyn. 04/17: less ankle edema 04/18: Afebrile. Still with some leg pain, controlled with medication. She will need senior living facility that can manage wound VAC and IV antibiotic regimen. Likely change Zosyn to Invanz, per ID. She does not want to return to [facility] for senior living. 04/19: Remains afebrile. Agreeable to returning to [facility] for rehab. Continuing Zosyn will change to Invanz on discharge. Is endorsing some shortness of breath and bilateral upper extremity swelling this morning chest x- ray shows pulmonary edema, will try a one-time dose of Lasix. 04/20: Patient seen and examined at bedside. This morning she reports her breathing is stable. Does report increased swelling in her bilateral upper extremities encouraged her to elevate them. Patient being reevaluated by vascular surgery today.Consult hematology for vasculitis work-up. 04/21: Worsening pain RLE. Eval by hematology and vascular surgery. Planning for irrigation and debridement tomorrow. INR needs to be below 1.5, it is 2.7 today. dose of vitamin K today and recheck INR in the morning. If above one-point 5 in the morning patient may need FFP prior to surgery. 04/22: Patient seen and examined at bedside. Other than right lower extremity pain no complaints. INR 2 elevated this morning, 2.1, so high for surgery. 04/24: No acute events overnight. Patient seen and examined bedside. Dressings are moist with strikethrough with serous fluid. Pain is well controlled at this time. 04/25: No acute events overnight. Patient seen and examined bedside during wound dressing changes. There is definitely still weeping around the wounds but the wounds do not appear infected or is or any active bleeding or purulent drainage. Warfarin managed by pharmacy and currently INR is at 1.6 at home dose warfarin. Patient will likely need some skilled rehab upon discharge. Anticipate discharge in the next 24 to 48 hours. Patient's chart, labs, images were reviewed and discussed with RN 04/26: No overnight Events. No significant pain with dressing changes. Still on IV Zosyn. Awaiting biopsy results. 04/27: Swelling improved pain improved in the legs. Changed to Rocephin per ID Proteus vulgaris and wound 04/28: Afebrile overnight. Complaining worsening shortness of breath on minimal exertion and now on 2 L of oxygen. IV fluids at home. Awaiting chest radiograph. Did have some minimal improvement with breathing treatment with respiratory therapy. 04/29: Next radiograph with interstitial changes given IV Lasix with some improvement she still with abdominal fullness and shortness of breath on O2. Will give another IV dose of Lasix. Has variflow wound VAC per plastic surgery. Discussed with ID not ready for discharge. 04/30: Breathing improved after Lasix but still with abdominal swelling. She did have a good bowel movement. Leg still swollen as well interfering with wound vacs. Wound care additional IV Lasix today replace potassium repeat labs in the morning. 05/01: Breathing improved. K2.9 mag 1.8 after additional Lasix dosing. Now with 3 wound VAC on right leg including knee and left leg and her left anterior foot wound is left open for now. 05/02: Little dyspnea on minimal exertion today. INR therapeutic. Wound vacs with good suction. Given the number of complicated wounds she does request referral to LTACH which would be appropriate as she has failed SNF level care for her complicated wounds requiring readmission and surgery. 05/03: Patient seen and examined. Discussed with RN. Chart reviewed. 05/04: Patient seen and examined. Wound vacs on with good suction. INR is in therapeutic range at 2.5. She endorses pain and would like another dose of Dilaudid today. 05/05: Patient seen and examined. Wound vacs on with good suction. Patient endorses wanting to switch diuretic from hydrochlorothiazide and continue with Lasix. Discharge has been discussed with potential to send patient to [facility] facility. Discussed with RN. Chart Reviewed. Vitals/I&O Vitals/I&O: Vital Signs Date Time Temp Pulse Resp B/P (MAP) Pulse Ox O2 Delivery O2 Flow Rate FiO2 05/05/21 08:37 75 154/58 05/05/21 07:00 98.1 16 94 Nasal Cannula 98.1 05/04/21 23:00 2.0 I & O 05/04/21 05/04/21 05/05/21 15:00 23:00 07:00 Intake Total 400 ml Output Total 470 ml Balance 400 ml -470 ml Physical Exam Physical Exam: GENERAL: Alert, oriented female, not in distress. resting in bed HEENT: Both pupils are round and reacting. No conjunctival lesion, no lesion in the mouth. NECK: Supple LUNGS: Crackles in both bases of lungs HEART: S1, S2 regular. ABDOMEN: Soft, nontender, EXTREMITIES: Bilateral lower extremity swelling present improving, right lower extremity wound VAC present for both wounds, thigh and leg, left leg wound VAC present Left dorsal toe wound dry, no drainage NEUROLOGIC: The patient is alert, awake, and appropriate. No focal neurologic deficit. General: Alert Heart: Regular rate, Normal S1, Normal S2, No murmurs Lungs: Clear Abdomen: Normal bowel sounds, Soft, Other (Morbidly obese) Extremities: No clubbing, No edema, Other (Dressings with serous fluid strikethrough. Intact biphasic dorsalis pedis Doppler signals bilaterally, posterior tibial Doppler signals are absent bilaterally) Skin: Other (Full-thickness superficial gangrene involving the posterior right lower extremity with several large patches of wounds, superficial full-thickness wounds involving the left dorsal surface pretibial area, chronic venous insufficiency skin changes bilaterally with hemosiderin deposition, no cellulitis, no purulent drainage) Labs Labs: Laboratory Tests Test 05/04/21 11:48 05/04/21 17:15 05/04/21 23:07 05/05/21 06:15 Glucose (Fingerstick) 138 mg/dL (70-99) 152 mg/dL (70-99) 141 mg/dL (70-99) White Blood Count 5.8 x10^3/uL (4.0-11.0) Red Blood Count 3.18 x10^6/uL (3.50-5.40) Hemoglobin 7.8 g/dL (12.0-15.5) Hematocrit 25.6 % (36.0-47.0) Mean Corpuscular Volume 80 fL (79-100) Mean Corpuscular Hemoglobin 25 pg (25-35) Mean Corpuscular Hemoglobin Concent 31 g/dL (31-37) Red Cell Distribution Width 19.6 % (11.5-14.5) Platelet Count 299 x10^3/uL (140-400) Neutrophils (%) (Auto) 60 % (31-73) Lymphocytes (%) (Auto) 28 % (24-48) Monocytes (%) (Auto) 9 % (0-9) Eosinophils (%) (Auto) 3 % (0-3) Basophils (%) (Auto) 0 % (0-3) Neutrophils # (Auto) 3.5 x10^3/uL (1.8-7.7) Lymphocytes # (Auto) 1.6 x10^3/uL (1.0-4.8) Monocytes # (Auto) 0.5 x10^3/uL (0.0-1.1) Eosinophils # (Auto) 0.2 x10^3/uL (0.0-0.7) Basophils # (Auto) 0.0 x10^3/uL (0.0-0.2) Sodium Level 143 mmol/L (136-145) Potassium Level 3.8 mmol/L (3.5-5.1) Chloride Level 109 mmol/L (98-107) Carbon Dioxide Level 29 mmol/L (21-32) Anion Gap 5 (6-14) Blood Urea Nitrogen 6 mg/dL (7-20) Creatinine 0.7 mg/dL (0.6-1.0) Estimated GFR (Cockcroft-Gault) 81.1 BUN/Creatinine Ratio 9 (6-20) Glucose Level 105 mg/dL (70-99) Calcium Level 8.2 mg/dL (8.5-10.1) Total Bilirubin 0.2 mg/dL (0.2-1.0) Aspartate Amino Transf (AST/SGOT) 29 U/L (15-37) Alanine Aminotransferase (ALT/SGPT) 13 U/L (14-59) Alkaline Phosphatase 118 U/L (46-116) Total Protein 5.4 g/dL (6.4-8.2) Albumin 1.3 g/dL (3.4-5.0) Albumin/Globulin Ratio 0.3 (1.0-1.7) Test 05/05/21 07:42 Glucose (Fingerstick) 110 mg/dL (70-99) Review of Systems Review of Systems: Patient denies blurry vision or loss of vision. Assessment and Plan Assessmemt and Plan Sepsis present on admission Nonhealing acute on chronic bilateral lower extremity wounds, foul-smelling and necrotic tissue down to subcutaneous fat status post surgical debridement 04/23/2021 Right lower thigh hematoma with wound VAC in place Severe peripheral vascular disease with multiple stenosis Atrial fibrillation Supratherapeutic INR, pharmacy to adjust need 04-17 DM2 CAD HTN Severe protein malnutrition Anemia of chronic inflammatory disease Transaminitiselevated alkaline phosphatase likely related to bone disease Hypokalemia Plan: 1. Initiate Lasix 20 mg PO QD 2. Continue anticoagulation (goal INR: 2-3) 3. Continue PRN Pain Medication for lower extremity wound pain 4. Continue wound care 5. Continue wound vacs 6. Continue antibiotics (Note: Zosyn was discontinued on 04/27; and Ceftriaxone was initiated on 04/27) 7. PT/OT 8. Home meds 9. Trend labs 10. FEN- Cardiac Diet 11. DNR 12. Discharge disposition pending Surrogate decision-maker is her daughter (Alyce Santana) Comment Review of Relevant I have reviewed the following items ronen (where applicable) has been applied. Medications: Current Medications Medications (Trade) Dose Ordered Sig/Gennaro Route PRN Reason Start Time Stop Time Status Last Admin Dose Admin Warfarin Sodium (Coumadin) 2 mg 1X WARF ONCE PO 05/04/21 16:00 05/04/21 16:01 DC 05/04/21 16:05 Multivitamins (Thera M Plus) 1 tab DAILY PO 05/05/21 09:00 05/05/21 08:32 Ascorbic Acid (Vitamin C) 500 mg DAILY PO 05/05/21 09:00 05/05/21 08:34 Justifications for Admission Other Justification Diabetic ulcers, failed outpatient treatment NATE BHATT III DO May 05, 2021 10:06
--- NOTE | 2021-05-05 10:16 | NUR ---
Pharmacy Warfarin Dosing Note S: Pharmacy consulted to assist with anticoagulation therapy O: SIXTO MEREDITH is a 76 year old F with DVT/PE H/O DVT LABS: Last INR: 2.5 Last HGB: 7.8 Last HCT: 25.6 Last PLT: 299 Last dose of 2 mg given on 05/04/21 at 1605 Vitamin K given: Y 8/ 5MG, 8/12 5MG A:INR of 2.5 is within desired range. Target range for this patient is: 2 -3 P: Warfarin dose: 2 mg Today at 1600 Bridge Therapy: None Next INR due TOMORROW Pharmacy anticoagulation service will continue to follow. Lidia Lewis RPH, 05/05/21 1016
[2021-05-05 11:00] VITALS: BP 149/53
[2021-05-05] MEDS: cefTRIAXone IV Push 2 GM VIAL. IVP SCH (12:01)
[2021-05-05] MEDS: HYDROmorphone 2 MG/ML VIAL IVP PRN ×2 (14:28→23:44)
[2021-05-05 15:00] VITALS: BP 133/51
--- NOTE | 2021-05-05 15:38 | NUR ---
Wound Care: NPWT removed by Dr. Cartwright and replaced with WTD dressings. Tentative plans to return to OR for further debridement tomorrow or Monday, pending INR values.
[2021-05-05] MEDS ORDERED: WARFARIN 2 MG TABLET. PO ONE (16:00)
[2021-05-05 19:00] VITALS: BP 142/48
[2021-05-05] MEDS: ATORVASTATIN CALCIUM 40 MG TABLET. PO SCH (20:53)
[2021-05-05] MEDS: INSULIN GLARGINE SYRINGE. SQ SCH (20:57)
[2021-05-05] MEDS: IV NORMAL SALINE 1000ML BAG 1,000 ML IV SCH (22:59)
[2021-05-05 23:00] VITALS: BP 139/49
[2021-05-06] VITALS (14 sets, daily range): BP systolic 91–177; BP diastolic 43–91
[2021-05-06 07:59] LABS: BASO % 0 % (0-3); EOS # 0.2 x10^3/uL (0.0-0.7); EOS % 3 % (0-3); HEMOGLOBIN 7.6 g/dL (12.0-15.5); LYMPH # 1.9 x10^3/uL (1.0-4.8); LYMPH % 32 % (24-48); MEAN CORPUSCULAR HEMOGLOBIN 24 pg (25-35); MEAN CORPUSCULAR HGB CONC 30 g/dL (31-37); MEAN CORPUSCULAR VOLUME 80 fL (79-100); MONO # 0.6 x10^3/uL (0.0-1.1); MONO % 10 % (0-9); NEUT # 3.2 x10^3/uL (1.8-7.7); NEUT % 55 % (31-73); PLATELET COUNT 301 x10^3/uL (140-400); RED BLOOD COUNT 3.13 x10^6/uL (3.50-5.40); RED CELL DISTRIBUTION WIDTH 19.5 % (11.5-14.5); WHITE BLOOD COUNT 5.9 x10^3/uL (4.0-11.0)
[2021-05-06] MEDS: INSULIN LISPRO 300 UNITS/3 ML VIAL. SQ SCH ×3 (08:00→17:00)
[2021-05-06 08:19] LABS: ALBUMIN 1.2 g/dL (3.4-5.0); ALBUMIN/GLOBULIN RATIO 0.3 (1.0-1.7); CALCIUM 8.1 mg/dL (8.5-10.1); CREATININE 0.7 mg/dL (0.6-1.0); GFR 81.1; POTASSIUM 3.5 mmol/L (3.5-5.1); TOTAL BILIRUBIN 0.2 mg/dL (0.2-1.0); TOTAL PROTEIN 5.3 g/dL (6.4-8.2)
[2021-05-06 08:22] LABS: PROTHROMBIN TIME PATIENT 24.3 SEC (11.7-14.0)
[2021-05-06] MEDS: LACTOBACILLUS RHAMNOSUS GG 1 CAPSULE. PO SCH ×2 (09:00→18:31)
[2021-05-06] MEDS: SODIUM HYPOCHLORITE 0.125% 473 ML BOTTLE. TP SCH (09:00)
[2021-05-06] MEDS: HYDROmorphone 2 MG/ML VIAL IVP PRN ×5 (09:33→20:49)
--- NOTE | 2021-05-06 09:47 | PDOC ---
Infectious Disease Note Subjective: Subjective Patient without complaints awaiting surgery by plastics per rn Vital Signs: Vital Signs Vital Signs Date Time Temp Pulse Resp B/P (MAP) Pulse Ox O2 Delivery O2 Flow Rate FiO2 05/06/21 07:30 98.8 76 22 177/66 (103) 93 Room Air 98.8 05/05/21 08:00 2.0 Physical Exam: PHYSICAL EXAM GENERAL: Alert, oriented female, not in distress. resting in bed HEENT: Both pupils are round and reacting. No conjunctival lesion, no lesion in the mouth. NECK: Supple LUNGS: Crackles in both bases of lungs HEART: S1, S2 regular. ABDOMEN: Soft, nontender, EXTREMITIES: Bilateral lower extremity swelling present improving, right lower extremity wound VAC present for both wounds, thigh and leg, left leg wound VAC present Left dorsal toe wound dry, no drainage NEUROLOGIC: The patient is alert, awake, and appropriate. No focal neurologic deficit. Medications: Inpatient Meds: Medications reviewed. Labs: Lab Laboratory Tests Test 05/05/21 11:19 05/05/21 16:32 05/05/21 20:32 05/06/21 06:15 Glucose (Fingerstick) 134 mg/dL (70-99) 164 mg/dL (70-99) 138 mg/dL (70-99) White Blood Count 5.9 x10^3/uL (4.0-11.0) Red Blood Count 3.13 x10^6/uL (3.50-5.40) Hemoglobin 7.6 g/dL (12.0-15.5) Hematocrit 25.0 % (36.0-47.0) Mean Corpuscular Volume 80 fL (79-100) Mean Corpuscular Hemoglobin 24 pg (25-35) Mean Corpuscular Hemoglobin Concent 30 g/dL (31-37) Red Cell Distribution Width 19.5 % (11.5-14.5) Platelet Count 301 x10^3/uL (140-400) Neutrophils (%) (Auto) 55 % (31-73) Lymphocytes (%) (Auto) 32 % (24-48) Monocytes (%) (Auto) 10 % (0-9) Eosinophils (%) (Auto) 3 % (0-3) Basophils (%) (Auto) 0 % (0-3) Neutrophils # (Auto) 3.2 x10^3/uL (1.8-7.7) Lymphocytes # (Auto) 1.9 x10^3/uL (1.0-4.8) Monocytes # (Auto) 0.6 x10^3/uL (0.0-1.1) Eosinophils # (Auto) 0.2 x10^3/uL (0.0-0.7) Basophils # (Auto) 0.0 x10^3/uL (0.0-0.2) Prothrombin Time 24.3 SEC (11.7-14.0) Prothromb Time International Ratio 2.2 (0.8-1.1) Sodium Level 142 mmol/L (136-145) Potassium Level 3.5 mmol/L (3.5-5.1) Chloride Level 109 mmol/L (98-107) Carbon Dioxide Level 31 mmol/L (21-32) Anion Gap 2 (6-14) Blood Urea Nitrogen 6 mg/dL (7-20) Creatinine 0.7 mg/dL (0.6-1.0) Estimated GFR (Cockcroft-Gault) 81.1 BUN/Creatinine Ratio 9 (6-20) Glucose Level 107 mg/dL (70-99) Calcium Level 8.1 mg/dL (8.5-10.1) Total Bilirubin 0.2 mg/dL (0.2-1.0) Aspartate Amino Transf (AST/SGOT) 27 U/L (15-37) Alanine Aminotransferase (ALT/SGPT) 17 U/L (14-59) Alkaline Phosphatase 126 U/L (46-116) Total Protein 5.3 g/dL (6.4-8.2) Albumin 1.2 g/dL (3.4-5.0) Albumin/Globulin Ratio 0.3 (1.0-1.7) Test 05/06/21 07:55 Glucose (Fingerstick) 118 mg/dL (70-99) Micro RUN DATE: 04/29/21 [facility] *LIVE* PAGE 1 RUN TIME: 906 Specimen Inquiry PATIENT: SIXTO MEREDITH ACCT: [id number] LOC: [address] [place] [address] U: [id number] AGE/SX: 76/F ROOM: 528 RE04/12/[address]: NATE BHATT III, DO : 1945 BED: 1 DIS: STATUS: ADM IN TLOC: SPEC #: [id number] MARÍA ELENA: 04/23/21 STATUS: COMP REQ #: [id number] RECD: 04/23/[address] [facility] [address]: NATE BHATT III, DO SOURCE: LEG ENTR: 04/23/[address] [facility] [address]: NIXON COURTNEY MD SPDC: ABSCESS ROMAN,JESSE PEÑA MD, MD, DOUGLAS M DO MANTHRAVADI, SASHIDHAR MD THORS, AXEL DO ORDERED: SHIELA/FEDE/PARUL COMMENTS: RT LEG WOUND Procedure Result GRAM STAIN Final Final NO ORGANISMS SEEN. SQUAMOUS EPI CELL:NONE SEEN PMN (WBCs):NONE SEEN Unless otherwise specified, Testing Performed by: [facility] [address] [place] [address] For Inquires, the Physician may contact the Microbiology department at [phone] ANAEROBIC-AEROBIC CULTURE Final Final RARE [PROTEUS VULGARIS GROUP] on 04/25/21 at 1418 NO ANAEROBIC ORGANISMS ISOLATED on 04/29/21 at 0903 PROTEUS VULGARIS GROUP ANTIMICROBIAL SUSCEPTIBILITY Final Comment NEG TAMEKA 56 PROTEUS VULGARIS GROUP ANTIBIOTIC RESULT INTERPRETATION AMPICILLIN/SULBACTAM 8/4 S AMIKACIN <=16 S AMPICILLIN >16 R AMOXICILLIN/K CLAVULANATE <=8/4 S AZTREONAM <=4 S CEFTRIAXONE <=1 S CEFTAZIDIME <=1 S CEFOTAXIME <=2 S CEFOXITIN <=8 S CEFAZOLIN >16 R CIPROFLOXACIN <=0.25 S CEFEPIME <=2 S RUN DATE: 04/29/21 [facility] *LIVE* PAGE 2 RUN TIME: 906 Specimen Inquiry SPEC: [id number] PATIENT: SIXTO MEREDITH [id number] (Continued) ------- ----- Procedure Result CONTINUED ON NEXT PAGE RUN DATE: 04/29/21 [facility] *LIVE* PAGE 3 RUN TIME: 09 Specimen Inquiry SPEC: [id number] PATIENT: SIXTO MEREDITH [id number] (Continued) Procedure Result ANTIMICROBIAL SUSCEPTIBILITY Final (continued) CEFUROXIME >16 R ERTAPENEM <=0.5 S GENTAMICIN <=2 S LEVOFLOXACIN <=0.5 S MEROPENEM <=1 S PIPERACILLIN/TAZOBACTAM <=8 S TRIMETHOPRIM/SULFAMETHOXAZOLE <=0.5/9.5 S TETRACYCLINE 8 R* TOBRAMYCIN <=2 S Unless otherwise specified, Testing Performed by: [address] [address] For Inquires, the Physician may contact the Microbiology department at [phone] Objective: Assessment: 1. Infected foul smelling wounds, bilateral lower extremity.S/P I&D April 23 Cultures positive for Proteus vulgaris 2. Right lower thigh hematoma evacuation with a wound VAC in place, clean wound 3. Leukocytosis. Resolved 4. Fever. resolved 5. Peripheral vascular disease. 6. Coronary artery disease. 7. CHF Plan: Plan of Care DC Ceftriaxone start zosyn awaiting I and D per plastics Offload Cont local woundvac care as directed Continue supportive care CASTRO ROMAN MD May 06, 2021 09:47
[2021-05-06] MEDS: METOPROLOL SUCC 24HR ER 50 MG TAB.ER.24H. PO SCH (10:46)
[2021-05-06] MEDS: PIPERACILLIN/TAZOBACTAM 3.375 GM in IV NORMAL SALINE 50ML 50 ML IV SCH ×2 (10:50→18:30)
--- NOTE | 2021-05-06 12:09 | PDOC ---
[employer] PROGRESS NOTE Date of Service DOS: DATE: 05/06/21 TIME: 11:57 Chief Complaint Chief Complaint Nonhealing acute on chronic bilateral lower extremity wounds, foul-smelling and necrotic tissue Sepsis Right lower thigh hematoma Severe peripheral vascular disease with multiple stenosis Atrial fibrillation DM2 CAD HTN Severe protein malnutrition Anemia of chronic inflammatory disease Transaminitis Hypokalemia History of Present Illness History of Present Illness Ms Santana is a 76-year-old female with past medical history DM2, CAD, HTN, HLD, presents as a direct admit from [facility] due to multiple nonhealing blistering wounds to her bilateral feet for the past month. She was recently treated on our service (03/22/2021) for evacuation and debridement of right thigh hematoma. Right lower extremity CTA at that time showed calcified plaque with approximately 50 percent stenosis to SFA, extensive arterial calcifications to right popliteal artery, heavy calcifications to anterior tibial artery, and occluded right posterior tibial artery; Left lower extremity CTA showed popliteal artery with 60-70 percent stenosis at mid segment, left anterior tibial artery with heavy calcifications, left posterior tibial artery occluded distally. She has been receiving local wound care and follow-up at wound care clinic without significant improvement in her blisters. She denies any significant pain but does admit to some clear serous drainage from her bilateral feet. Will admit patient for further medical management. 04/14: Febrile overnight with T-max 100.7 F. WBC 11.4. consult to ID. Per vascular surgery, no urgency for surgical debridement of her wounds or angiogram currently. She had wound VAC placed in the right thigh yesterday. Await recommendations from plastic surgery. 04/15: Afebrile, breathing on room air. Wound VAC in place to right thigh. She reports some pain in her legs with movement, but worked with PT. Continue treatment of bilateral lower extremity wounds with Zosyn. plastic surgery recommendations on management of right thigh hematoma. 04/16: Afebrile, breathing on room air. Wound VAC in place to right thigh. worked with physical therapy . Continue treatment of bilateral lower extremity wounds with Zosyn. 04/17: less ankle edema 04/18: Afebrile. Still with some leg pain, controlled with medication. She will need fpc facility that can manage wound VAC and IV antibiotic regimen. Likely change Zosyn to Invanz, per ID. She does not want to return to [facility] for fpc. 04/19: Remains afebrile. Agreeable to returning to [facility] for rehab. Continuing Zosyn will change to Invanz on discharge. Is endorsing some shortness of breath and bilateral upper extremity swelling this morning chest x- ray shows pulmonary edema, will try a one-time dose of Lasix. 04/20: Patient seen and examined at bedside. This morning she reports her breathing is stable. Does report increased swelling in her bilateral upper extremities encouraged her to elevate them. Patient being reevaluated by vascular surgery today.Consult hematology for vasculitis work-up. 04/21: Worsening pain RLE. Eval by hematology and vascular surgery. Planning for irrigation and debridement tomorrow. INR needs to be below 1.5, it is 2.7 today. dose of vitamin K today and recheck INR in the morning. If above one-point 5 in the morning patient may need FFP prior to surgery. 04/22: Patient seen and examined at bedside. Other than right lower extremity pain no complaints. INR 2 elevated this morning, 2.1, so high for surgery. 04/24: No acute events overnight. Patient seen and examined bedside. Dressings are moist with strikethrough with serous fluid. Pain is well controlled at this time. 04/25: No acute events overnight. Patient seen and examined bedside during wound dressing changes. There is definitely still weeping around the wounds but the wounds do not appear infected or is or any active bleeding or purulent drainage. Warfarin managed by pharmacy and currently INR is at 1.6 at home dose warfarin. Patient will likely need some skilled rehab upon discharge. Anticipate discharge in the next 24 to 48 hours. Patient's chart, labs, images were reviewed and discussed with RN 04/26: No overnight Events. No significant pain with dressing changes. Still on IV Zosyn. Awaiting biopsy results. 04/27: Swelling improved pain improved in the legs. Changed to Rocephin per ID Proteus vulgaris and wound 04/28: Afebrile overnight. Complaining worsening shortness of breath on minimal exertion and now on 2 L of oxygen. IV fluids at home. Awaiting chest radiograph. Did have some minimal improvement with breathing treatment with respiratory therapy. 04/29: Next radiograph with interstitial changes given IV Lasix with some improvement she still with abdominal fullness and shortness of breath on O2. Will give another IV dose of Lasix. Has variflow wound VAC per plastic surgery. Discussed with ID not ready for discharge. 04/30: Breathing improved after Lasix but still with abdominal swelling. She did have a good bowel movement. Leg still swollen as well interfering with wound vacs. Wound care additional IV Lasix today replace potassium repeat labs in the morning. 05/01: Breathing improved. K2.9 mag 1.8 after additional Lasix dosing. Now with 3 wound VAC on right leg including knee and left leg and her left anterior foot wound is left open for now. 05/02: Little dyspnea on minimal exertion today. INR therapeutic. Wound vacs with good suction. Given the number of complicated wounds she does request referral to LTACH which would be appropriate as she has failed SNF level care for her complicated wounds requiring readmission and surgery. 05/03: Patient seen and examined. Discussed with RN. Chart reviewed. 05/04: Patient seen and examined. Wound vacs on with good suction. INR is in therapeutic range at 2.5. She endorses pain and would like another dose of Dilaudid today. 05/05: Patient seen and examined. Wound vacs on with good suction. Patient endorses wanting to switch diuretic from hydrochlorothiazide and continue with Lasix. Discharge has been discussed with potential to send patient to [facility] facility. Discussed with RN. Chart Reviewed. 05/06: Patient seen and examined. Wound vacs were taken off in anticipation of surgical debridement. INR is 2.2. [facility] has agreed to accept patient on discharge. Discussed with RN. Chart reviewed. Vitals/I&O Vitals/I&O: Vital Signs Date Time Temp Pulse Resp B/P (MAP) Pulse Ox O2 Delivery O2 Flow Rate FiO2 05/06/21 11:30 98.6 72 22 171/56 (94) 91 Room Air 98.6 05/05/21 08:00 2.0 I & O 05/05/21 05/05/21 05/06/21 15:00 23:00 07:00 Intake Total 360 ml Output Total 0 ml Balance 0 ml 360 ml Physical Exam Physical Exam: GENERAL: Alert, oriented female, not in distress. resting in bed HEENT: Both pupils are round and reacting. No conjunctival lesion, no lesion in the mouth. NECK: Supple LUNGS: Crackles in both bases of lungs HEART: S1, S2 regular. ABDOMEN: Soft, nontender, EXTREMITIES: Bilateral lower extremity swelling present improving, right lower extremity wound VAC present for both wounds, thigh and leg, left leg wound VAC present Left dorsal toe wound dry, no drainage NEUROLOGIC: The patient is alert, awake, and appropriate. No focal neurologic deficit. General: Alert Heart: Regular rate, Normal S1, Normal S2, No murmurs Lungs: Clear Abdomen: Normal bowel sounds, Soft, Other (Morbidly obese) Extremities: No clubbing, No edema, Other (Dressings with serous fluid strikethrough. Intact biphasic dorsalis pedis Doppler signals bilaterally, posterior tibial Doppler signals are absent bilaterally) Skin: Other (Full-thickness superficial gangrene involving the posterior right lower extremity with several large patches of wounds, superficial full-thickness wounds involving the left dorsal surface pretibial area, chronic venous insufficiency skin changes bilaterally with hemosiderin deposition, no cellulitis, no purulent drainage) Labs Labs: Laboratory Tests Test 05/05/21 16:32 05/05/21 20:32 05/06/21 06:15 05/06/21 07:55 Glucose (Fingerstick) 164 mg/dL (70-99) 138 mg/dL (70-99) 118 mg/dL (70-99) White Blood Count 5.9 x10^3/uL (4.0-11.0) Red Blood Count 3.13 x10^6/uL (3.50-5.40) Hemoglobin 7.6 g/dL (12.0-15.5) Hematocrit 25.0 % (36.0-47.0) Mean Corpuscular Volume 80 fL (79-100) Mean Corpuscular Hemoglobin 24 pg (25-35) Mean Corpuscular Hemoglobin Concent 30 g/dL (31-37) Red Cell Distribution Width 19.5 % (11.5-14.5) Platelet Count 301 x10^3/uL (140-400) Neutrophils (%) (Auto) 55 % (31-73) Lymphocytes (%) (Auto) 32 % (24-48) Monocytes (%) (Auto) 10 % (0-9) Eosinophils (%) (Auto) 3 % (0-3) Basophils (%) (Auto) 0 % (0-3) Neutrophils # (Auto) 3.2 x10^3/uL (1.8-7.7) Lymphocytes # (Auto) 1.9 x10^3/uL (1.0-4.8) Monocytes # (Auto) 0.6 x10^3/uL (0.0-1.1) Eosinophils # (Auto) 0.2 x10^3/uL (0.0-0.7) Basophils # (Auto) 0.0 x10^3/uL (0.0-0.2) Prothrombin Time 24.3 SEC (11.7-14.0) Prothromb Time International Ratio 2.2 (0.8-1.1) Sodium Level 142 mmol/L (136-145) Potassium Level 3.5 mmol/L (3.5-5.1) Chloride Level 109 mmol/L (98-107) Carbon Dioxide Level 31 mmol/L (21-32) Anion Gap 2 (6-14) Blood Urea Nitrogen 6 mg/dL (7-20) Creatinine 0.7 mg/dL (0.6-1.0) Estimated GFR (Cockcroft-Gault) 81.1 BUN/Creatinine Ratio 9 (6-20) Glucose Level 107 mg/dL (70-99) Calcium Level 8.1 mg/dL (8.5-10.1) Total Bilirubin 0.2 mg/dL (0.2-1.0) Aspartate Amino Transf (AST/SGOT) 27 U/L (15-37) Alanine Aminotransferase (ALT/SGPT) 17 U/L (14-59) Alkaline Phosphatase 126 U/L (46-116) Total Protein 5.3 g/dL (6.4-8.2) Albumin 1.2 g/dL (3.4-5.0) Albumin/Globulin Ratio 0.3 (1.0-1.7) Test 05/06/21 11:55 Glucose (Fingerstick) 122 mg/dL (70-99) Review of Systems Review of Systems: Patient denies loss of vision or blurry vision. Assessment and Plan Assessmemt and Plan Sepsis present on admission Nonhealing acute on chronic bilateral lower extremity wounds, foul-smelling and necrotic tissue down to subcutaneous fat status post surgical debridement 04/23/2021 Right lower thigh hematoma with wound VAC in place Severe peripheral vascular disease with multiple stenosis Atrial fibrillation Supratherapeutic INR, pharmacy to adjust need 8 DM2 CAD HTN Severe protein malnutrition Anemia of chronic inflammatory disease Transaminitiselevated alkaline phosphatase likely related to bone disease Hypokalemia Plan: 1. Await surgical debridement 2. Start Lasix 20 mg PO QD 3. Hold anticoagulation (Warfarin) for surgical debridement 4. Continue PRN Pain Medication for lower extremity wound pain 5. Continue wound care 6. Start Zosyn antibiotics (Ceftriaxone was discontinued on 05/05) 7. PT/OT 8. Home meds 9. Trend labs 10. FEN- ADA/Cardiac Diet 11. DNR 12. Discharge disposition pending- [facility] Surrogate decision-maker is her daughter (Alyce Santana) Comment Review of Relevant I have reviewed the following items ronen (where applicable) has been applied. Medications: Current Medications Medications (Trade) Dose Ordered Sig/Gennaro Route PRN Reason Start Time Stop Time Status Last Admin Dose Admin Sodium Chloride 1,000 ml @ 50 mls/hr Q20H IV 05/05/21 16:15 05/05/21 22:59 Piperacillin Sod/ Tazobactam Sod 3.375 gm/Sodium Chloride 50 ml @ 100 mls/hr Q6HRS IV 05/06/21 12:00 05/06/21 10:50 Justifications for Admission Other Justification Diabetic ulcers, failed outpatient treatment NATE BHATT III DO May 06, 2021 12:09
[2021-05-06] MEDS: IV NORMAL SALINE 1000ML BAG 1,000 ML IV SCH (12:15)
[2021-05-06] MEDS ORDERED: silver sulfADIAZINE 1% CREAM 400GM JAR. TP ONE (13:30)
[2021-05-06] MEDS ORDERED: IV RINGERS,LACTATED 1000ML 1,000 ML IV SCH (14:15)
[2021-05-06] MEDS ORDERED: PROCHLORPERAZINE 10 MG/2 ML VIAL. IVP PRN (14:15)
[2021-05-06] MEDS ORDERED: fentaNYL PF VIAL 100 MCG/2 ML VIAL IVP PRN ×2 (14:15)
[2021-05-06] MEDS ORDERED: EPINEPHrine 1 MG/ML VIAL IRR ONE (14:45)
--- NOTE | 2021-05-06 15:21 | NUR ---
Pharmacy Warfarin Dosing Note S: Pharmacy consulted to assist with anticoagulation therapy O: SIXTO MEREDITH is a 76 year old F with H/O DVT LABS: Last INR: 2.2 Last HGB: 7.8 Last HCT: 25.6 Last PLT: 299 Last dose held 05/05 (for planned I&D today) Vitamin K given: Y 04/21 5MG, 04/22 5MG Ongoing Drug Interactions: A:INR of 2.2 is within desired range. Target range for this patient is: 2 -3 P: Warfarin dose: 2 mg Today at 1600 Bridge Therapy: None Next INR due tomorrow Pharmacy anticoagulation service will continue to follow. Lidia Lewis Nancie, 05/06/21 [id number]
[2021-05-06] MEDS ORDERED: WARFARIN 2 MG TABLET. PO ONE (16:00)
[2021-05-06] MEDS: MORPHINE SULFATE 2 MG/ML INJ. IVP PRN ×2 (16:12→16:26)
--- NOTE | 2021-05-06 16:32 | PDOC ---
Date of Service: DATE: 05/05/21 TIME: 14:00 Progress Note: S: Pt examined at bedside with RN. Pt reports ambulating better with PT/OT. Still with edema and intermittent oxygen requirements. O: Afebrile. Stable vitals PE: Gen: No acute distress Extremities: Wound vacs removed from bilateral lower extremities. Wounds with moderate yellow slough. There is granulation tissue of the right thigh wound without necrotic tissue. The right posterior and lateral lower legs wounds have islands of granulation tissue but moderate yellow slough with fascial exposure. There is no exposed muscle. The right lower extremity has macerated skin with serous blisters forming on the anterior and anterolateral leg. Right second toe healing well. The left anterior has pink granulation tissue with mild yellow slough. The left posterior leg wound has pink granulation tissue with moderate overlying yellow slough. No surrounding cellulitis. No detectable odor. There is edema of both lower extremities. Dry eschar to left great toe. Feet are warm. Dakin's wet to dry dressing placed. Hgb: 7.6 INR: 2.5 A/P: 76yo female with PVD and bilateral lower extremity wounds -Will plan to return to OR for debridement and repeat cultures and repeat biopsy -Discontinue wound vac for now considering increasing necrotic tissue and slough. Dakin's wet to dry placed until surgery tomorrow vs Monday pending INR. -Plan for alternative dressing considering painful nature of vac change today. -Continue PT/OT -Protein supplements -Antibiotics per ID -Medical mangement per hospitalists. Isa Alvarado MD Justifications for Admission Other Justification Diabetic ulcers, failed outpatient treatment ISA ALVARADO MD May 06, 2021 16:32
--- NOTE | 2021-05-06 16:43 | PDOC4 ---
OPERATIVE NOTE Date: Date: Mar 04, 2021 Pre-Op Diagnosis: Peripheral vascular disease with bilateral lower extremity wounds Post-Op Diagnosis: Same Procedure Performed: Debridement bilateral lower extremity wounds Surgeon: Isa Alvarado MD Anesthesia Type: General Blood Loss: 20mL Specimans Obtained: Tissue cultures of right thigh, right lateral lower leg, left anterior leg Findings: See operative note Complications: None Operative Note: Informed consent was obtained in the perioperative holding area. The risks of bleeding, infection, worsening of the wounds, need for additional procedures, delayed wound healing were discussed with the patient. She understood the risks and desired to proceed. The patient was taken to the operating room and placed on the OR table in the supine position. She had recently received scheduled antibiotics. SCDs were in place prior to induction of anesthesia. General endotracheal anesthesia was induced. The patient was secured to the operating room table. The patient's bilateral lower extremities were prepped with Betadine and draped in a sterile fashion. I began by debriding the slough that had developed on the right thigh wound using a curette. The level of debridement was to fascia. This was then irrigated with an aqueous iodine solution. Attention was then turned to the left anterior and posterolateral leg wounds where a mild layer of slough was removed with a curette. The level of debridement was to the fascia. This was followed by irrigation. The process repeated for the right posterior and lateral wounds. Tenotomy and scissors were used to remove necrotic superficial fascia from the right posterolateral wound. The deep fascia remained intact and no muscle was exposed. Tissue from these wounds were sent to the lab for microbiologic and histopathologic analysis. In addition, a normal island of tissue with associated affected tissue from the right posterolateral wound was sent to pathology and histology for analysis. The level of debridement was to the fascia at each site. After all wounds were thoroughly irrigated hemostasis was obtained by using an epinephrine soaked sponge on each site. The wounds were dressed with Aquacel Ag, covered in ABDs, and wrapped with Kerlix. The patient tolerated the procedure well was transferred to the PACU in stable condition. Operating time: 14:45-15:30 ISA ALVARADO MD May 06, 2021 16:43
[2021-05-06] MEDS: HYDROcodone/APAP 5/325MG 1 TAB TABLET PO PRN ×2 (18:30→22:38)
[2021-05-06] MEDS: CITALOPRAM 20 MG TABLET. PO SCH (18:31)
[2021-05-06] MEDS: ASCORBIC ACID 500 MG TABLET PO SCH (18:31)
[2021-05-06] MEDS: FUROSEMIDE 20 MG TABLET PO SCH (18:33)
[2021-05-06] MEDS: LOSARTAN POTASSIUM 50 MG TABLET. PO SCH (18:33)
[2021-05-06] MEDS: MULTIVITAMIN with MINERAL TABLET. PO SCH (18:34)
[2021-05-06] MEDS: NYSTATIN TOPICAL POWDER 15GM BOTTLE. TP SCH ×2 (18:34→20:50)
[2021-05-06] MEDS: ATORVASTATIN CALCIUM 40 MG TABLET. PO SCH (20:49)
[2021-05-06] MEDS: INSULIN GLARGINE SYRINGE. SQ SCH (21:55)
[2021-05-07] MEDS: PIPERACILLIN/TAZOBACTAM 3.375 GM in IV NORMAL SALINE 50ML 50 ML IV SCH ×4 (00:23→17:46)
[2021-05-07] MEDS: HYDROmorphone 2 MG/ML VIAL IVP PRN ×3 (00:29→20:36)
[2021-05-07 03:00] VITALS: BP 128/36
[2021-05-07] MEDS: IV NORMAL SALINE 1000ML BAG 1,000 ML IV SCH (03:14)
[2021-05-07 04:04] LABS: BASO % 0 % (0-3); EOS % 0 % (0-3); HEMATOCRIT 23.8 % (36.0-47.0); HEMOGLOBIN 7.2 g/dL (12.0-15.5); LYMPH # 0.8 x10^3/uL (1.0-4.8); LYMPH % 15 % (24-48); MEAN CORPUSCULAR HEMOGLOBIN 24 pg (25-35); MEAN CORPUSCULAR HGB CONC 30 g/dL (31-37); MEAN CORPUSCULAR VOLUME 80 fL (79-100); MONO # 0.2 x10^3/uL (0.0-1.1); MONO % 4 % (0-9); NEUT # 4.4 x10^3/uL (1.8-7.7); NEUT % 81 % (31-73); PLATELET COUNT 300 x10^3/uL (140-400); RED BLOOD COUNT 2.97 x10^6/uL (3.50-5.40); RED CELL DISTRIBUTION WIDTH 19.3 % (11.5-14.5); WHITE BLOOD COUNT 5.4 x10^3/uL (4.0-11.0)
[2021-05-07 04:33] LABS: ALBUMIN 1.1 g/dL (3.4-5.0); ALBUMIN/GLOBULIN RATIO 0.3 (1.0-1.7); CALCIUM 7.6 mg/dL (8.5-10.1); CREATININE 0.8 mg/dL (0.6-1.0); GFR 69.6; POTASSIUM 4.3 mmol/L (3.5-5.1); TOTAL BILIRUBIN 0.2 mg/dL (0.2-1.0); TOTAL PROTEIN 4.7 g/dL (6.4-8.2)
[2021-05-07 07:00] VITALS: BP 116/48
--- NOTE | 2021-05-07 08:24 | PDOC ---
Infectious Disease Note Subjective: Subjective Patient without complaints Underwent post I&D of bilateral lower extremity wounds by plastic surgery yesterday Vital Signs: Vital Signs Vital Signs Date Time Temp Pulse Resp B/P (MAP) Pulse Ox O2 Delivery O2 Flow Rate FiO2 05/07/21 03:00 98.3 67 18 128/36 (66) 92 98.3 05/06/21 20:10 Nasal Cannula 2.0 Physical Exam: PHYSICAL EXAM GENERAL: Alert, oriented female, not in distress. resting in bed HEENT: Both pupils are round and reacting. No conjunctival lesion, no lesion in the mouth. NECK: Supple LUNGS: Crackles in both bases of lungs HEART: S1, S2 regular. ABDOMEN: Soft, nontender, EXTREMITIES: Bilateral lower extremity swelling present improving, right lower extremity wound VAC present for both wounds, thigh and leg, left leg wound VAC present Left dorsal toe wound dry, no drainage NEUROLOGIC: The patient is alert, awake, and appropriate. No focal neurologic deficit. Medications: Inpatient Meds: Medications reviewed. Labs: Lab Laboratory Tests Test 05/06/21 11:55 05/06/21 16:15 05/06/21 17:24 05/06/21 21:11 Glucose (Fingerstick) 122 mg/dL (70-99) 123 mg/dL (70-99) 136 mg/dL (70-99) 218 mg/dL (70-99) Test 05/07/21 03:15 05/07/21 08:00 White Blood Count 5.4 x10^3/uL (4.0-11.0) Red Blood Count 2.97 x10^6/uL (3.50-5.40) Hemoglobin 7.2 g/dL (12.0-15.5) Hematocrit 23.8 % (36.0-47.0) Mean Corpuscular Volume 80 fL (79-100) Mean Corpuscular Hemoglobin 24 pg (25-35) Mean Corpuscular Hemoglobin Concent 30 g/dL (31-37) Red Cell Distribution Width 19.3 % (11.5-14.5) Platelet Count 300 x10^3/uL (140-400) Neutrophils (%) (Auto) 81 % (31-73) Lymphocytes (%) (Auto) 15 % (24-48) Monocytes (%) (Auto) 4 % (0-9) Eosinophils (%) (Auto) 0 % (0-3) Basophils (%) (Auto) 0 % (0-3) Neutrophils # (Auto) 4.4 x10^3/uL (1.8-7.7) Lymphocytes # (Auto) 0.8 x10^3/uL (1.0-4.8) Monocytes # (Auto) 0.2 x10^3/uL (0.0-1.1) Eosinophils # (Auto) 0.0 x10^3/uL (0.0-0.7) Basophils # (Auto) 0.0 x10^3/uL (0.0-0.2) Sodium Level 143 mmol/L (136-145) Potassium Level 4.3 mmol/L (3.5-5.1) Chloride Level 109 mmol/L (98-107) Carbon Dioxide Level 26 mmol/L (21-32) Anion Gap 8 (6-14) Blood Urea Nitrogen 8 mg/dL (7-20) Creatinine 0.8 mg/dL (0.6-1.0) Estimated GFR (Cockcroft-Gault) 69.6 BUN/Creatinine Ratio 10 (6-20) Glucose Level 195 mg/dL (70-99) Calcium Level 7.6 mg/dL (8.5-10.1) Total Bilirubin 0.2 mg/dL (0.2-1.0) Aspartate Amino Transf (AST/SGOT) 32 U/L (15-37) Alanine Aminotransferase (ALT/SGPT) 13 U/L (14-59) Alkaline Phosphatase 106 U/L (46-116) Total Protein 4.7 g/dL (6.4-8.2) Albumin 1.1 g/dL (3.4-5.0) Albumin/Globulin Ratio 0.3 (1.0-1.7) Glucose (Fingerstick) 186 mg/dL (70-99) Micro RUN DATE: 04/29/21 [facility] *LIVE* PAGE 1 RUN TIME: 906 Specimen Inquiry PATIENT: SIXTO MEREDITH ACCT: [id number] LOC: [address] [place] [address] U: [id number] AGE/SX: 76/F ROOM: 528 RE04/12/[address]: NATE BHATT III, DO : 1945 BED: 1 DIS : STATUS: ADM IN TLOC: SPEC #: [id number] MARÍA ELENA: 04/23/21 STATUS: COMP REQ #: [id number] RECD: 04/23/[address]: NATE BHATT III, DO SOURCE: LEG ENTR: 04/23/[address] [facility] [address]: NIXON COURTNEY MD SPDC: ABSCESS JESSIE,JESSE PEÑA MD, MD, DOUGLAS M DO MANTHRAVADI, SASHIDHAR MD THORS, AXEL DO ORDERED: ANAER/FEDE/PARUL COMMENTS: RT LEG WOUND Procedure Result GRAM STAIN Final Final NO ORGANISMS SEEN. SQUAMOUS EPI CELL:NONE SEEN PMN (WBCs):NONE SEEN Unless otherwise specified, Testing Performed by: [facility] [address] [place] [address] For Inquires, the Physician may contact the Microbiology department at [phone] ANAEROBIC-AEROBIC CULTURE Final Final RARE [PROTEUS VULGARIS GROUP] on 04/25/21 at 1418 NO ANAEROBIC ORGANISMS ISOLATED on 04/29/21 at 0903 PROTEUS VULGARIS GROUP ANTIMICROBIAL SUSCEPTIBILITY Final Comment NEG TAMEKA 56 PROTEUS VULGARIS GROUP ANTIBIOTIC RESULT INTERPRETATION AMPICILLIN/SULBACTAM 8/4 S AMIKACIN <=16 S AMPICILLIN >16 R AMOXICILLIN/K CLAVULANATE <=8/4 S AZTREONAM <=4 S CEFTRIAXONE <=1 S CEFTAZIDIME <=1 S CEFOTAXIME <=2 S CEFOXITIN <=8 S CEFAZOLIN >16 R CIPROFLOXACIN <=0.25 S CEFEPIME <=2 S RUN DATE: 04/29/21 [facility] *LIVE* PAGE 2 RUN TIME: 906 Specimen Inquiry SPEC: [id number] PATIENT: SIXTO MEREDITH [id number] (Continued) Procedure Result CONTINUED ON NEXT PAGE RUN DATE: 04/29/21 [facility] *LIVE* PAGE 3 RUN TIME: 906 Specimen Inquiry SPEC: [id number] PATIENT: SIXTO MEREDITH [id number] (Continued) - Procedure Result ANTIMICROBIAL SUSCEPTIBILITY Final (continued) CEFUROXIME >16 R ERTAPENEM <=0.5 S GENTAMICIN <=2 S LEVOFLOXACIN <=0.5 S MEROPENEM <=1 S PIPERACILLIN/TAZOBACTAM <=8 S TRIMETHOPRIM/SULFAMETHOXAZOLE <=0.5/9.5 S TETRACYCLINE 8 R* TOBRAMYCIN <=2 S Unless otherwise specified, Testing Performed by: [address] [address] For Inquires, the Physician may contact the Microbiology department at [phone] Objective: Assessment: 1. Infected foul smelling wounds, bilateral lower extremity.S/P I&D April 23 Cultures positive for Proteus vulgaris May 06, 2021 status post incision and debridement bilateral lower extremity wounds Tissue cultures of right thigh, right lateral lower leg, left anterior leg 2. Right lower thigh hematoma evacuation with a wound VAC in place, clean wound 3. Leukocytosis. Resolved 4. Fever. resolved 5. Peripheral vascular disease. 6. Coronary artery disease. 7. CHF Plan: Plan of Care Continue zosyn Add daptomycin Follow-up cultures from 05/06/2021 Offload Cont local wound/vac care as directed Continue supportive care CASTRO ROMAN MD May 07, 2021 08:24
[2021-05-07] MEDS: SODIUM HYPOCHLORITE 0.125% 473 ML BOTTLE. TP SCH (09:00)
[2021-05-07] MEDS: NYSTATIN TOPICAL POWDER 15GM BOTTLE. TP SCH ×2 (09:00→19:55)
[2021-05-07] MEDS: HYDROcodone/APAP 5/325MG 1 TAB TABLET PO PRN ×3 (10:04→19:54)
--- NOTE | 2021-05-07 10:13 | NUR ---
Pharmacy Warfarin Dosing Note S: Pharmacy consulted to assist with anticoagulation therapy O: SIXTO MEREDITH is a 76 year old F with H/O DVT LABS: Last INR: 2.2 Last HGB: 7.8 Last HCT: 25.6 Last PLT: 299 Last dose of 2 mg given on 05/06/21 at 1831 Vitamin K given: Y 04/21 5MG, 8 5MG Ongoing Drug Interactions: A:INR of 2.2 is within desired range. Target range for this patient is: 2 -3 P: Warfarin dose: 2 mg Today at 1600 Bridge Therapy: None Next INR due TOMORROW Pharmacy anticoagulation service will continue to follow. Lidia Lewis RPH, 05/07/21 1013
[2021-05-07] MEDS: LOSARTAN POTASSIUM 50 MG TABLET. PO SCH (10:22)
[2021-05-07] MEDS: LACTOBACILLUS RHAMNOSUS GG 1 CAPSULE. PO SCH ×2 (10:23→19:53)
[2021-05-07] MEDS: FUROSEMIDE 20 MG TABLET PO SCH (10:23)
[2021-05-07] MEDS: MULTIVITAMIN with MINERAL TABLET. PO SCH (10:23)
[2021-05-07] MEDS: ASCORBIC ACID 500 MG TABLET PO SCH (10:23)
[2021-05-07] MEDS: CITALOPRAM 20 MG TABLET. PO SCH (10:23)
[2021-05-07] MEDS: METOPROLOL SUCC 24HR ER 50 MG TAB.ER.24H. PO SCH (10:23)
[2021-05-07] MEDS: INSULIN LISPRO 300 UNITS/3 ML VIAL. SQ SCH ×3 (10:27→17:00)
[2021-05-07 11:00] VITALS: BP 156/32
--- NOTE | 2021-05-07 11:12 | PDOC ---
[employer] PROGRESS NOTE Date of Service DOS: DATE: 05/07/21 TIME: 10:56 Chief Complaint Chief Complaint Nonhealing acute on chronic bilateral lower extremity wounds, foul-smelling and necrotic tissue Sepsis Right lower thigh hematoma Severe peripheral vascular disease with multiple stenosis Atrial fibrillation DM2 CAD HTN Severe protein malnutrition Anemia of chronic inflammatory disease Transaminitis Hypokalemia History of Present Illness History of Present Illness Ms Santana is a 76-year-old female with past medical history DM2, CAD, HTN, HLD, presents as a direct admit from [facility] due to multiple nonhealing blistering wounds to her bilateral feet for the past month. She was recently treated on our service (03/22/2021) for evacuation and debridement of right thigh hematoma. Right lower extremity CTA at that time showed calcified plaque with approximately 50 percent stenosis to SFA, extensive arterial calcifications to right popliteal artery, heavy calcifications to anterior tibial artery, and occluded right posterior tibial artery; Left lower extremity CTA showed popliteal artery with 60-70 percent stenosis at mid segment, left anterior tibial artery with heavy calcifications, left posterior tibial artery occluded distally. She has been receiving local wound care and follow-up at wound care clinic without significant improvement in her blisters. She denies any significant pain but does admit to some clear serous drainage from her bilateral feet. Will admit patient for further medical management. 04/14: Febrile overnight with T-max 100.7 F. WBC 11.4. consult to ID. Per vascular surgery, no urgency for surgical debridement of her wounds or angiogram currently. She had wound VAC placed in the right thigh yesterday. Await recommendations from plastic surgery. 04/15: Afebrile, breathing on room air. Wound VAC in place to right thigh. She reports some pain in her legs with movement, but worked with PT. Continue treatment of bilateral lower extremity wounds with Zosyn. plastic surgery recommendations on management of right thigh hematoma. 04/16: Afebrile, breathing on room air. Wound VAC in place to right thigh. worked with physical therapy . Continue treatment of bilateral lower extremity wounds with Zosyn. 04/17: less ankle edema 04/18: Afebrile. Still with some leg pain, controlled with medication. She will need shelter facility that can manage wound VAC and IV antibiotic regimen. Likely change Zosyn to Invanz, per ID. She does not want to return to [facility] for shelter. 04/19: Remains afebrile. Agreeable to returning to [facility] for rehab. Continuing Zosyn will change to Invanz on discharge. Is endorsing some shortness of breath and bilateral upper extremity swelling this morning chest x- ray shows pulmonary edema, will try a one-time dose of Lasix. 04/20: Patient seen and examined at bedside. This morning she reports her breathing is stable. Does report increased swelling in her bilateral upper extremities encouraged her to elevate them. Patient being reevaluated by vascular surgery today.Consult hematology for vasculitis work-up. 04/21: Worsening pain RLE. Eval by hematology and vascular surgery. Planning for irrigation and debridement tomorrow. INR needs to be below 1.5, it is 2.7 today. dose of vitamin K today and recheck INR in the morning. If above one-point 5 in the morning patient may need FFP prior to surgery. 04/22: Patient seen and examined at bedside. Other than right lower extremity pain no complaints. INR 2 elevated this morning, 2.1, so high for surgery. 04/24: No acute events overnight. Patient seen and examined bedside. Dressings are moist with strikethrough with serous fluid. Pain is well controlled at this time. 04/25: No acute events overnight. Patient seen and examined bedside during wound dressing changes. There is definitely still weeping around the wounds but the wounds do not appear infected or is or any active bleeding or purulent drainage. Warfarin managed by pharmacy and currently INR is at 1.6 at home dose warfarin. Patient will likely need some skilled rehab upon discharge. Anticipate discharge in the next 24 to 48 hours. Patient's chart, labs, images were reviewed and discussed with RN 04/26: No overnight Events. No significant pain with dressing changes. Still on IV Zosyn. Awaiting biopsy results. 04/27: Swelling improved pain improved in the legs. Changed to Rocephin per ID Proteus vulgaris and wound 04/28: Afebrile overnight. Complaining worsening shortness of breath on minimal exertion and now on 2 L of oxygen. IV fluids at home. Awaiting chest radiograph. Did have some minimal improvement with breathing treatment with respiratory therapy. 04/29: Next radiograph with interstitial changes given IV Lasix with some improvement she still with abdominal fullness and shortness of breath on O2. Will give another IV dose of Lasix. Has variflow wound VAC per plastic surgery. Discussed with ID not ready for discharge. 04/30: Breathing improved after Lasix but still with abdominal swelling. She did have a good bowel movement. Leg still swollen as well interfering with wound vacs. Wound care additional IV Lasix today replace potassium repeat labs in the morning. 05/01: Breathing improved. K2.9 mag 1.8 after additional Lasix dosing. Now with 3 wound VAC on right leg including knee and left leg and her left anterior foot wound is left open for now. 05/02: Little dyspnea on minimal exertion today. INR therapeutic. Wound vacs with good suction. Given the number of complicated wounds she does request referral to LTACH which would be appropriate as she has failed SNF level care for her complicated wounds requiring readmission and surgery. 05/03: Patient seen and examined. Discussed with RN. Chart reviewed. 05/04: Patient seen and examined. Wound vacs on with good suction. INR is in therapeutic range at 2.5. She endorses pain and would like another dose of Dilaudid today. 05/05: Patient seen and examined. Wound vacs on with good suction. Patient endorses wanting to switch diuretic from hydrochlorothiazide and continue with Lasix. Discharge has been discussed with potential to send patient to [facility] facility. Discussed with RN. Chart Reviewed. 05/06: Patient seen and examined. Wound vacs were taken off in anticipation of surgical debridement. INR is 2.2. [facility] has agreed to accept patient on discharge. Discussed with RN. Chart reviewed. 05/07: Patient seen and examined. Discussed with RN. Chart reviewed. Patient endorses feeling really good today with increased energy. Patient is concerned due to lack of improvement in edema. She reports decreased appetite and minimal food intake due to constant feeling of fullness from fluid build-up. Vitals/I&O Vitals/I&O: Vital Signs Date Time Temp Pulse Resp B/P (MAP) Pulse Ox O2 Delivery O2 Flow Rate FiO2 05/07/21 10:23 71 116/48 05/07/21 10:21 Room Air 05/07/21 07:00 97.9 17 97 97.9 05/06/21 20:10 2.0 I & O 05/06/21 05/06/21 05/07/21 15:00 23:00 07:00 Intake Total 360 ml 120 ml Output Total 20 ml 200 ml Balance 340 ml -80 ml Physical Exam Physical Exam: GENERAL: Alert, oriented female, not in distress. resting in bed HEENT: Both pupils are round and reacting. No conjunctival lesion, no lesion in the mouth. NECK: Supple LUNGS: Crackles in both bases of lungs HEART: S1, S2 regular. ABDOMEN: Soft, nontender, EXTREMITIES: Bilateral lower extremity swelling present improving, right lower extremity wound VAC present for both wounds, thigh and leg, left leg wound VAC present Left dorsal toe wound dry, no drainage NEUROLOGIC: The patient is alert, awake, and appropriate. No focal neurologic deficit. General: Alert Heart: Regular rate, Normal S1, Normal S2, No murmurs Lungs: Clear Abdomen: Normal bowel sounds, Soft, Other (Morbidly obese) Extremities: No clubbing, No edema, Other (Dressings with serous fluid strikethrough. Intact biphasic dorsalis pedis Doppler signals bilaterally, posterior tibial Doppler signals are absent bilaterally) Skin: Other (Full-thickness superficial gangrene involving the posterior right lower extremity with several large patches of wounds, superficial full-thickness wounds involving the left dorsal surface pretibial area, chronic venous insufficiency skin changes bilaterally with hemosiderin deposition, no cellulitis, no purulent drainage) Labs Labs: Laboratory Tests Test 05/06/21 11:55 05/06/21 16:15 05/06/21 17:24 05/06/21 21:11 Glucose (Fingerstick) 122 mg/dL (70-99) 123 mg/dL (70-99) 136 mg/dL (70-99) 218 mg/dL (70-99) Test 05/07/21 03:15 05/07/21 08:00 White Blood Count 5.4 x10^3/uL (4.0-11.0) Red Blood Count 2.97 x10^6/uL (3.50-5.40) Hemoglobin 7.2 g/dL (12.0-15.5) Hematocrit 23.8 % (36.0-47.0) Mean Corpuscular Volume 80 fL (79-100) Mean Corpuscular Hemoglobin 24 pg (25-35) Mean Corpuscular Hemoglobin Concent 30 g/dL (31-37) Red Cell Distribution Width 19.3 % (11.5-14.5) Platelet Count 300 x10^3/uL (140-400) Neutrophils (%) (Auto) 81 % (31-73) Lymphocytes (%) (Auto) 15 % (24-48) Monocytes (%) (Auto) 4 % (0-9) Eosinophils (%) (Auto) 0 % (0-3) Basophils (%) (Auto) 0 % (0-3) Neutrophils # (Auto) 4.4 x10^3/uL (1.8-7.7) Lymphocytes # (Auto) 0.8 x10^3/uL (1.0-4.8) Monocytes # (Auto) 0.2 x10^3/uL (0.0-1.1) Eosinophils # (Auto) 0.0 x10^3/uL (0.0-0.7) Basophils # (Auto) 0.0 x10^3/uL (0.0-0.2) Sodium Level 143 mmol/L (136-145) Potassium Level 4.3 mmol/L (3.5-5.1) Chloride Level 109 mmol/L (98-107) Carbon Dioxide Level 26 mmol/L (21-32) Anion Gap 8 (6-14) Blood Urea Nitrogen 8 mg/dL (7-20) Creatinine 0.8 mg/dL (0.6-1.0) Estimated GFR (Cockcroft-Gault) 69.6 BUN/Creatinine Ratio 10 (6-20) Glucose Level 195 mg/dL (70-99) Calcium Level 7.6 mg/dL (8.5-10.1) Total Bilirubin 0.2 mg/dL (0.2-1.0) Aspartate Amino Transf (AST/SGOT) 32 U/L (15-37) Alanine Aminotransferase (ALT/SGPT) 13 U/L (14-59) Alkaline Phosphatase 106 U/L (46-116) Total Protein 4.7 g/dL (6.4-8.2) Albumin 1.1 g/dL (3.4-5.0) Albumin/Globulin Ratio 0.3 (1.0-1.7) Glucose (Fingerstick) 186 mg/dL (70-99) Review of Systems Review of Systems: Patient denies weakness or chest pain. Assessment and Plan Assessmemt and Plan Sepsis present on admission Nonhealing acute on chronic bilateral lower extremity wounds, foul-smelling and necrotic tissue down to subcutaneous fat status post surgical debridement 04/23/2021 Right lower thigh hematoma with wound VAC in place Severe peripheral vascular disease with multiple stenosis Atrial fibrillation Supratherapeutic INR, pharmacy to adjust need 04-17 DM2 CAD HTN Severe protein malnutrition Anemia of chronic inflammatory disease Transaminitiselevated alkaline phosphatase likely related to bone disease Hypokalemia Plan: 1. Follow up on cultures taken 05/06 2. Antibiotics: Continue Zosyn. Add daptomycin (per Dr. Hall progress note). 3. Wound care as directed (ensure dressings are changed promptly) 4. Continue Lasix 5. Continue anticoagulation 6. Continue PRN Pain Medication for lower extremity wound pain 7. PT/OT 8. Home meds 9. Trend labs 10. FEN- ADA/Cardiac Diet- encourage PO intake 11. DNR 12. Discharge disposition pending- [facility] Surrogate decision-maker is her daughter (Alyce Santana) Comment Review of Relevant I have reviewed the following items ronen (where applicable) has been applied. Medications: Current Medications Medications (Trade) Dose Ordered Sig/Gennaro Route PRN Reason Start Time Stop Time Status Last Admin Dose Admin Piperacillin Sod/ Tazobactam Sod 3.375 gm/Sodium Chloride 50 ml @ 100 mls/hr Q6HRS IV 05/06/21 12:00 05/07/21 05:13 Furosemide (Lasix) 20 mg DAILY PO 05/06/21 13:00 05/07/21 10:23 Morphine Sulfate (Morphine Sulfate) 1 mg PRN Q10MIN PRN IVP SEVERE PAIN 7-10 05/06/21 14:15 05/07/21 14:14 05/06/21 16:26 Hydromorphone HCl (Dilaudid) 0.5 mg PRN Q10MIN PRN IVP SEVERE PAIN 7-10, 2nd CHOICE 05/06/21 14:15 05/07/21 14:14 05/06/21 17:01 Epinephrine HCl (Adrenalin) 1 mg STK-MED ONCE IRR 05/06/21 14:45 05/06/21 14:48 DC 05/06/21 14:45 Warfarin Sodium (Coumadin) 2 mg 1X WARF ONCE PO 05/06/21 16:00 05/06/21 16:01 DC 05/06/21 18:31 Justifications for Admission Other Justification Diabetic ulcers, failed outpatient treatment NATE BHATT III DO May 07, 2021 11:12
[2021-05-07] MEDS: DAPTOMYCIN IV SCH (14:06)
[2021-05-07] MEDS: NORMAL SALINE IV SCH (14:06)
[2021-05-07 15:00] VITALS: BP 131/38
[2021-05-07] MEDS ORDERED: WARFARIN 2 MG TABLET. PO ONE (16:00)
[2021-05-07 19:00] VITALS: BP 130/48
[2021-05-07] MEDS: ATORVASTATIN CALCIUM 40 MG TABLET. PO SCH (19:54)
[2021-05-07] MEDS: INSULIN GLARGINE SYRINGE. SQ SCH (20:00)
[2021-05-07 23:00] VITALS: BP 125/44
[2021-05-08] MEDS: PIPERACILLIN/TAZOBACTAM 3.375 GM in IV NORMAL SALINE 50ML 50 ML IV SCH ×5 (00:55→23:19)
[2021-05-08] MEDS: HYDROcodone/APAP 5/325MG 1 TAB TABLET PO PRN ×4 (00:55→17:53)
[2021-05-08 03:00] VITALS: BP 127/73
[2021-05-08] MEDS: IV NORMAL SALINE 1000ML BAG 1,000 ML IV SCH (04:17)
[2021-05-08] MEDS: HYDROmorphone 2 MG/ML VIAL IVP PRN ×2 (06:01→14:11)
[2021-05-08 06:34] LABS: BASO % 0 % (0-3); EOS # 0.1 x10^3/uL (0.0-0.7); EOS % 1 % (0-3); HEMATOCRIT 23.6 % (36.0-47.0); HEMOGLOBIN 7.2 g/dL (12.0-15.5); LYMPH # 1.9 x10^3/uL (1.0-4.8); LYMPH % 28 % (24-48); MEAN CORPUSCULAR HEMOGLOBIN 24 pg (25-35); MEAN CORPUSCULAR HGB CONC 31 g/dL (31-37); MEAN CORPUSCULAR VOLUME 80 fL (79-100); MONO # 0.5 x10^3/uL (0.0-1.1); MONO % 8 % (0-9); NEUT # 4.2 x10^3/uL (1.8-7.7); NEUT % 63 % (31-73); PLATELET COUNT 325 x10^3/uL (140-400); RED BLOOD COUNT 2.96 x10^6/uL (3.50-5.40); RED CELL DISTRIBUTION WIDTH 19.7 % (11.5-14.5); WHITE BLOOD COUNT 6.8 x10^3/uL (4.0-11.0)
[2021-05-08 06:43] LABS: PROTHROMBIN TIME PATIENT 26.3 SEC (11.7-14.0)
[2021-05-08 06:54] LABS: ALBUMIN 1.3 g/dL (3.4-5.0); ALBUMIN/GLOBULIN RATIO 0.3 (1.0-1.7); CALCIUM 7.9 mg/dL (8.5-10.1); CREATININE 1.1 mg/dL (0.6-1.0); GFR 48.2; POTASSIUM 3.9 mmol/L (3.5-5.1); TOTAL BILIRUBIN 0.2 mg/dL (0.2-1.0); TOTAL PROTEIN 5.1 g/dL (6.4-8.2)
--- NOTE | 2021-05-08 07:37 | PDOC ---
Infectious Disease Note Subjective: Subjective Patient without complaints Vital Signs: Vital Signs Vital Signs Date Time Temp Pulse Resp B/P (MAP) Pulse Ox O2 Delivery O2 Flow Rate FiO2 05/08/21 03:00 98.3 63 16 127/73 (91) 91 Room Air 98.3 05/07/21 14:06 2.0 Physical Exam: PHYSICAL EXAM GENERAL: Alert, oriented female, not in distress. resting in bed HEENT: Both pupils are round and reacting. No conjunctival lesion, no lesion in the mouth. NECK: Supple LUNGS: Crackles in both bases of lungs HEART: S1, S2 regular. ABDOMEN: Soft, nontender, EXTREMITIES: Bilateral lower extremity swelling present improving, right lower extremity wound VAC present for both wounds, thigh and leg, left leg wound VAC present Left dorsal toe wound dry, no drainage NEUROLOGIC: The patient is alert, awake, and appropriate. No focal neurologic deficit. Medications: Inpatient Meds: Medications reviewed. Labs: Lab Laboratory Tests Test 05/07/21 08:00 05/07/21 10:58 05/07/21 16:51 05/07/21 19:54 Glucose (Fingerstick) 186 mg/dL (70-99) 204 mg/dL (70-99) 159 mg/dL (70-99) 207 mg/dL (70-99) Test 05/08/21 05:40 05/08/21 05:45 Prothrombin Time 26.3 SEC (11.7-14.0) Prothromb Time International Ratio 2.5 (0.8-1.1) White Blood Count 6.8 x10^3/uL (4.0-11.0) Red Blood Count 2.96 x10^6/uL (3.50-5.40) Hemoglobin 7.2 g/dL (12.0-15.5) Hematocrit 23.6 % (36.0-47.0) Mean Corpuscular Volume 80 fL (79-100) Mean Corpuscular Hemoglobin 24 pg (25-35) Mean Corpuscular Hemoglobin Concent 31 g/dL (31-37) Red Cell Distribution Width 19.7 % (11.5-14.5) Platelet Count 325 x10^3/uL (140-400) Neutrophils (%) (Auto) 63 % (31-73) Lymphocytes (%) (Auto) 28 % (24-48) Monocytes (%) (Auto) 8 % (0-9) Eosinophils (%) (Auto) 1 % (0-3) Basophils (%) (Auto) 0 % (0-3) Neutrophils # (Auto) 4.2 x10^3/uL (1.8-7.7) Lymphocytes # (Auto) 1.9 x10^3/uL (1.0-4.8) Monocytes # (Auto) 0.5 x10^3/uL (0.0-1.1) Eosinophils # (Auto) 0.1 x10^3/uL (0.0-0.7) Basophils # (Auto) 0.0 x10^3/uL (0.0-0.2) Sodium Level 143 mmol/L (136-145) Potassium Level 3.9 mmol/L (3.5-5.1) Chloride Level 109 mmol/L (98-107) Carbon Dioxide Level 29 mmol/L (21-32) Anion Gap 5 (6-14) Blood Urea Nitrogen 14 mg/dL (7-20) Creatinine 1.1 mg/dL (0.6-1.0) Estimated GFR (Cockcroft-Gault) 48.2 BUN/Creatinine Ratio 13 (6-20) Glucose Level 154 mg/dL (70-99) Calcium Level 7.9 mg/dL (8.5-10.1) Total Bilirubin 0.2 mg/dL (0.2-1.0) Aspartate Amino Transf (AST/SGOT) 35 U/L (15-37) Alanine Aminotransferase (ALT/SGPT) 18 U/L (14-59) Alkaline Phosphatase 111 U/L (46-116) Creatine Kinase 39 U/L (26-192) Total Protein 5.1 g/dL (6.4-8.2) Albumin 1.3 g/dL (3.4-5.0) Albumin/Globulin Ratio 0.3 (1.0-1.7) Micro RUN DATE: 04/29/21 [facility] *LIVE* PAGE 1 RUN TIME: 906 Specimen Inquiry PATIENT: SIXTO MEREDITH ACCT: [id number] LOC: [address] [place] [address] U: [id number] AGE/SX: 76/F ROOM: 528 RE04/12/[address]: NATE BHATT III, DO : 1945 BED: 1 DIS: STATUS: ADM IN TLOC: SPEC #: [id number] MARÍA ELENA: 04/23/21 STATUS: COMP REQ #: [id number] RECD: 04/23/[address]: NATE BHATT III, DO SOURCE: LEG ENTR: 04/23/21 [facility] DR: NIXON COURTNEY MD [facility]: ABSCESS ROMAN,TOMAS ALVARADO,ILIR GALINDO MD, SASHIDHAR MD THORS, AXEL DO ORDERED: SHIELA/FEDE/PARUL COMMENTS: RT LEG WOUND Procedure Result GRAM STAIN Final Final NO ORGANISMS SEEN. SQUAMOUS EPI CELL:NONE SEEN PMN (WBCs):NONE SEEN Unless otherwise specified, Testing Performed by: [facility] [address] [place] [address] For Inquires, the Physician may contact the Microbiology department at [phone] ANAEROBIC-AEROBIC CULTURE Final Final RARE [PROTEUS VULGARIS GROUP] on 04/25/21 at 1418 NO ANAEROBIC ORGANISMS ISOLATED on 04/29/21 at 0903 PROTEUS VULGARIS GROUP ANTIMICROBIAL SUSCEPTIBILITY Final Comment NEG TAMEKA 56 PROTEUS VULGARIS GROUP ANTIBIOTIC RESULT INTERPRETATION AMPICILLIN/SULBACTAM 8/4 S AMIKACIN <=16 S AMPICILLIN >16 R AMOXICILLIN/K CLAVULANATE <=8/4 S AZTREONAM <=4 S CEFTRIAXONE <=1 S CEFTAZIDIME <=1 S CEFOTAXIME <=2 S CEFOXITIN <=8 S CEFAZOLIN >16 R CIPROFLOXACIN <=0.25 S CEFEPIME <=2 S RUN DATE: 04/29/21 [facility] *LIVE* PAGE 2 RUN TIME: 906 Specimen Inquiry SPEC: [id number] PATIENT: SIXTO MEREDITH [id number] (Continued) Procedure Result CONTINUED ON NEXT PAGE RUN DATE: 04/29/21 [facility] *LIVE* PAGE 3 RUN TIME: 0907 Specimen Inquiry SPEC: [id number] PATIENT: SIXTO MEREDITH [id number] (Continued) Procedure Result ANTIMICROBIAL SUSCEPTIBILITY Final (continued) CEFUROXIME >16 R ERTAPENEM <=0.5 S GENTAMICIN <=2 S LEVOFLOXACIN <=0.5 S MEROPENEM <=1 S PIPERACILLIN/TAZOBACTAM <=8 S TRIMETHOPRIM/SULFAMETHOXAZOLE <=0.5/9.5 S TETRACYCLINE 8 R* TOBRAMYCIN <=2 S Unless otherwise specified, Testing Performed by: [address] [address] For Inquires, the Physician may contact the Microbiology department at [phone] ---- -------- Objective: Assessment: 1. Infected foul smelling wounds, bilateral lower extremity.S/P I&D April 23 Cultures positive for Proteus vulgaris May 06, 2021 status post incision and debridement bilateral lower extremity wounds Tissue cultures of right thigh, right lateral lower leg, left anterior leg 2. Right lower thigh hematoma evacuation with a wound VAC in place, clean wound 3. Leukocytosis. Resolved 4. Fever. resolved 5. Peripheral vascular disease. 6. Coronary artery disease. 7. CHF Plan: Plan of Care Continue zosyn and daptomycin Follow-up cultures from 05/06/2021, GNR from Lt anterior leg wound Offload Cont local wound/vac care as directed Continue supportive care CASTRO ROMAN MD May 08, 2021 07:37
[2021-05-08 08:00] VITALS: BP 129/54
[2021-05-08] MEDS: INSULIN LISPRO 300 UNITS/3 ML VIAL. SQ SCH ×3 (08:00→17:00)
[2021-05-08] MEDS: CITALOPRAM 20 MG TABLET. PO SCH (09:22)
[2021-05-08] MEDS: FUROSEMIDE 20 MG TABLET PO SCH (09:22)
[2021-05-08] MEDS: METOPROLOL SUCC 24HR ER 50 MG TAB.ER.24H. PO SCH (09:23)
[2021-05-08] MEDS: MULTIVITAMIN with MINERAL TABLET. PO SCH (09:23)
[2021-05-08] MEDS: ASCORBIC ACID 500 MG TABLET PO SCH (09:23)
[2021-05-08] MEDS: LOSARTAN POTASSIUM 50 MG TABLET. PO SCH (09:24)
[2021-05-08] MEDS: SODIUM HYPOCHLORITE 0.125% 473 ML BOTTLE. TP SCH (09:25)
[2021-05-08] MEDS: LACTOBACILLUS RHAMNOSUS GG 1 CAPSULE. PO SCH ×2 (09:25→20:43)
[2021-05-08] MEDS: NYSTATIN TOPICAL POWDER 15GM BOTTLE. TP SCH ×2 (09:44→20:47)
[2021-05-08 11:00] VITALS: BP 136/53
--- NOTE | 2021-05-08 12:02 | PDOC ---
[employer] PROGRESS NOTE Date of Service DOS: DATE: 05/08/21 TIME: 11:54 Chief Complaint Chief Complaint Nonhealing acute on chronic bilateral lower extremity wounds, foul-smelling and necrotic tissue Sepsis Right lower thigh hematoma Severe peripheral vascular disease with multiple stenosis Atrial fibrillation DM2 CAD HTN Severe protein malnutrition Anemia of chronic inflammatory disease Transaminitis Hypokalemia History of Present Illness History of Present Illness Ms Santana is a 76-year-old female with past medical history DM2, CAD, HTN, HLD, presents as a direct admit from [facility] due to multiple nonhealing blistering wounds to her bilateral feet for the past month. She was recently treated on our service (03/22/2021) for evacuation and debridement of right thigh hematoma. Right lower extremity CTA at that time showed calcified plaque with approximately 50 percent stenosis to SFA, extensive arterial calcifications to right popliteal artery, heavy calcifications to anterior tibial artery, and occluded right posterior tibial artery; Left lower extremity CTA showed popliteal artery with 60-70 percent stenosis at mid segment, left anterior tibial artery with heavy calcifications, left posterior tibial artery occluded distally. She has been receiving local wound care and follow-up at wound care clinic without significant improvement in her blisters. She denies any significant pain but does admit to some clear serous drainage from her bilateral feet. Will admit patient for further medical management. 04/14: Febrile overnight with T-max 100.7 F. WBC 11.4. consult to ID. Per vascular surgery, no urgency for surgical debridement of her wounds or angiogram currently. She had wound VAC placed in the right thigh yesterday. Await recommendations from plastic surgery. 04/15: Afebrile, breathing on room air. Wound VAC in place to right thigh. She reports some pain in her legs with movement, but worked with PT. Continue treatment of bilateral lower extremity wounds with Zosyn. plastic surgery recommendations on management of right thigh hematoma. 04/16: Afebrile, breathing on room air. Wound VAC in place to right thigh. worked with physical therapy . Continue treatment of bilateral lower extremity wounds with Zosyn. 04/17: less ankle edema 04/18: Afebrile. Still with some leg pain, controlled with medication. She will need prison facility that can manage wound VAC and IV antibiotic regimen. Likely change Zosyn to Invanz, per ID. She does not want to return to [facility] for prison. 04/19: Remains afebrile. Agreeable to returning to [facility] for rehab. Continuing Zosyn will change to Invanz on discharge. Is endorsing some shortness of breath and bilateral upper extremity swelling this morning chest x- ray shows pulmonary edema, will try a one-time dose of Lasix. 04/20: Patient seen and examined at bedside. This morning she reports her breathing is stable. Does report increased swelling in her bilateral upper extremities encouraged her to elevate them. Patient being reevaluated by vascular surgery today.Consult hematology for vasculitis work-up. 04/21: Worsening pain RLE. Eval by hematology and vascular surgery. Planning for irrigation and debridement tomorrow. INR needs to be below 1.5, it is 2.7 today. dose of vitamin K today and recheck INR in the morning. If above one-point 5 in the morning patient may need FFP prior to surgery. 04/22: Patient seen and examined at bedside. Other than right lower extremity pain no complaints. INR 2 elevated this morning, 2.1, so high for surgery. 04/24: No acute events overnight. Patient seen and examined bedside. Dressings are moist with strikethrough with serous fluid. Pain is well controlled at this time. 04/25: No acute events overnight. Patient seen and examined bedside during wound dressing changes. There is definitely still weeping around the wounds but the wounds do not appear infected or is or any active bleeding or purulent drainage. Warfarin managed by pharmacy and currently INR is at 1.6 at home dose warfarin. Patient will likely need some skilled rehab upon discharge. Anticipate discharge in the next 24 to 48 hours. Patient's chart, labs, images were reviewed and discussed with RN 04/26: No overnight Events. No significant pain with dressing changes. Still on IV Zosyn. Awaiting biopsy results. 04/27: Swelling improved pain improved in the legs. Changed to Rocephin per ID Proteus vulgaris and wound 04/28: Afebrile overnight. Complaining worsening shortness of breath on minimal exertion and now on 2 L of oxygen. IV fluids at home. Awaiting chest radiograph. Did have some minimal improvement with breathing treatment with respiratory therapy. 04/29: Next radiograph with interstitial changes given IV Lasix with some improvement she still with abdominal fullness and shortness of breath on O2. Will give another IV dose of Lasix. Has variflow wound VAC per plastic surgery. Discussed with ID not ready for discharge. 04/30: Breathing improved after Lasix but still with abdominal swelling. She did have a good bowel movement. Leg still swollen as well interfering with wound vacs. Wound care additional IV Lasix today replace potassium repeat labs in the morning. 05/01: Breathing improved. K2.9 mag 1.8 after additional Lasix dosing. Now with 3 wound VAC on right leg including knee and left leg and her left anterior foot wound is left open for now. 05/02: Little dyspnea on minimal exertion today. INR therapeutic. Wound vacs with good suction. Given the number of complicated wounds she does request referral to [facility] which would be appropriate as she has failed [facility] level care for her complicated wounds requiring readmission and surgery. 05/03: Patient seen and examined. Discussed with RN. Chart reviewed. 05/04: Patient seen and examined. Wound vacs on with good suction. INR is in therapeutic range at 2.5. She endorses pain and would like another dose of Dilaudid today. 05/05: Patient seen and examined. Wound vacs on with good suction. Patient endorses wanting to switch diuretic from hydrochlorothiazide and continue with Lasix. Discharge has been discussed with potential to send patient to [facility] facility. Discussed with RN. Chart Reviewed. 05/06: Patient seen and examined. Wound vacs were taken off in anticipation of surgical debridement. INR is 2.2. [facility] has agreed to accept patient on discharge. Discussed with RN. Chart reviewed. 05/07: Patient seen and examined. Discussed with RN. Chart reviewed. Patient endorses feeling really good today with increased energy. Patient is concerned due to lack of improvement in edema. She reports decreased appetite and minimal food intake due to constant feeling of fullness from fluid build-up. 05/08: Patient seen and examined. Chart reviewed. Patient endorses feeling well today with significant improvement in appetite. Discussed with RN to discontinue IV fluids due to weeping wounds. INR 2.5. Vitals/I&O Vitals/I&O: Vital Signs Date Time Temp Pulse Resp B/P (MAP) Pulse Ox O2 Delivery O2 Flow Rate FiO2 05/08/21 09:24 69 129/54 05/08/21 09:21 Room Air 05/08/21 08:00 98.0 20 96 98.0 05/07/21 14:06 2.0 I & O 05/07/21 05/07/21 05/08/21 15:00 23:00 07:00 Intake Total 520 ml 460 ml 200 ml Balance 520 ml 460 ml 200 ml Physical Exam Physical Exam: GENERAL: Alert, oriented female, not in distress. resting in bed HEENT: Both pupils are round and reacting. No conjunctival lesion, no lesion in the mouth. NECK: Supple LUNGS: Crackles in both bases of lungs HEART: S1, S2 regular. ABDOMEN: Soft, nontender, EXTREMITIES: Bilateral lower extremity swelling present improving, right lower extremity wound VAC present for both wounds, thigh and leg, left leg wound VAC present Left dorsal toe wound dry, no drainage NEUROLOGIC: The patient is alert, awake, and appropriate. No focal neurologic deficit. General: Alert Heart: Regular rate, Normal S1, Normal S2, No murmurs Lungs: Clear Abdomen: Normal bowel sounds, Soft, Other (Morbidly obese) Extremities: No clubbing, No edema, Other (Dressings with serous fluid strikethrough. Intact biphasic dorsalis pedis Doppler signals bilaterally, posterior tibial Doppler signals are absent bilaterally) Skin: Other (Full-thickness superficial gangrene involving the posterior right lower extremity with several large patches of wounds, superficial full-thickness wounds involving the left dorsal surface pretibial area, chronic venous insufficiency skin changes bilaterally with hemosiderin deposition, no cellulitis, no purulent drainage) Labs Labs: Laboratory Tests Test 05/07/21 16:51 05/07/21 19:54 05/08/21 05:40 05/08/21 05:45 Glucose (Fingerstick) 159 mg/dL (70-99) 207 mg/dL (70-99) Prothrombin Time 26.3 SEC (11.7-14.0) Prothromb Time International Ratio 2.5 (0.8-1.1) White Blood Count 6.8 x10^3/uL (4.0-11.0) Red Blood Count 2.96 x10^6/uL (3.50-5.40) Hemoglobin 7.2 g/dL (12.0-15.5) Hematocrit 23.6 % (36.0-47.0) Mean Corpuscular Volume 80 fL (79-100) Mean Corpuscular Hemoglobin 24 pg (25-35) Mean Corpuscular Hemoglobin Concent 31 g/dL (31-37) Red Cell Distribution Width 19.7 % (11.5-14.5) Platelet Count 325 x10^3/uL (140-400) Neutrophils (%) (Auto) 63 % (31-73) Lymphocytes (%) (Auto) 28 % (24-48) Monocytes (%) (Auto) 8 % (0-9) Eosinophils (%) (Auto) 1 % (0-3) Basophils (%) (Auto) 0 % (0-3) Neutrophils # (Auto) 4.2 x10^3/uL (1.8-7.7) Lymphocytes # (Auto) 1.9 x10^3/uL (1.0-4.8) Monocytes # (Auto) 0.5 x10^3/uL (0.0-1.1) Eosinophils # (Auto) 0.1 x10^3/uL (0.0-0.7) Basophils # (Auto) 0.0 x10^3/uL (0.0-0.2) Sodium Level 143 mmol/L (136-145) Potassium Level 3.9 mmol/L (3.5-5.1) Chloride Level 109 mmol/L (98-107) Carbon Dioxide Level 29 mmol/L (21-32) Anion Gap 5 (6-14) Blood Urea Nitrogen 14 mg/dL (7-20) Creatinine 1.1 mg/dL (0.6-1.0) Estimated GFR (Cockcroft-Gault) 48.2 BUN/Creatinine Ratio 13 (6-20) Glucose Level 154 mg/dL (70-99) Calcium Level 7.9 mg/dL (8.5-10.1) Total Bilirubin 0.2 mg/dL (0.2-1.0) Aspartate Amino Transf (AST/SGOT) 35 U/L (15-37) Alanine Aminotransferase (ALT/SGPT) 18 U/L (14-59) Alkaline Phosphatase 111 U/L (46-116) Creatine Kinase 39 U/L (26-192) Total Protein 5.1 g/dL (6.4-8.2) Albumin 1.3 g/dL (3.4-5.0) Albumin/Globulin Ratio 0.3 (1.0-1.7) Test 05/08/21 08:36 05/08/21 11:24 Glucose (Fingerstick) 139 mg/dL (70-99) 171 mg/dL (70-99) Review of Systems Review of Systems: Patient denies nausea and vomiting. Assessment and Plan Assessmemt and Plan Assessmemt and Plan Sepsis present on admission Nonhealing acute on chronic bilateral lower extremity wounds, foul-smelling and necrotic tissue down to subcutaneous fat status post surgical debridement 04/23/2021 Right lower thigh hematoma with wound VAC in place Severe peripheral vascular disease with multiple stenosis Atrial fibrillation Supratherapeutic INR, pharmacy to adjust need 04-17 DM2 CAD HTN Severe protein malnutrition Anemia of chronic inflammatory disease Transaminitiselevated alkaline phosphatase likely related to bone disease Hypokalemia Plan: 1. Appreciate subspecialty input 2. Discontinue IV fluids 3. Continue antibiotics: Zosyn and Daptomycin 4. Wound care as directed (ensure dressings are changed promptly) 5. Continue Lasix 6. Continue anticoagulation (INR 2.5) 7. Continue PRN Pain Medication for lower extremity wound pain 8. PT/OT 9. Home meds 10. Trend labs 11. FEN- ADA/Cardiac Diet- encourage PO intake 12. DNR 13. Discharge disposition pending- [facility] Surrogate decision-maker is her daughter (Alyce Santana) Comment Review of Relevant I have reviewed the following items ronen (where applicable) has been applied. Medications: Current Medications Medications (Trade) Dose Ordered Sig/Gennaro Route PRN Reason Start Time Stop Time Status Last Admin Dose Admin Warfarin Sodium (Coumadin) 2 mg 1X WARF ONCE PO 05/07/21 16:00 05/07/21 16:01 DC 05/07/21 17:46 Daptomycin 375 mg/ Sodium Chloride 50 ml @ 100 mls/hr Q24H IV 05/07/21 13:00 05/07/21 14:06 Justifications for Admission Other Justification Diabetic ulcers, failed outpatient treatment NATE BHATT III DO May 08, 2021 12:02
[2021-05-08] MEDS: DAPTOMYCIN IV SCH (13:45)
[2021-05-08] MEDS: NORMAL SALINE IV SCH (13:45)
[2021-05-08 15:00] VITALS: BP 123/68
[2021-05-08] MEDS ORDERED: WARFARIN 2 MG TABLET. PO ONE (16:00)
[2021-05-08 19:00] VITALS: BP 139/42
[2021-05-08] MEDS: INSULIN GLARGINE SYRINGE. SQ SCH (20:42)
[2021-05-08] MEDS: ATORVASTATIN CALCIUM 40 MG TABLET. PO SCH (20:42)
[2021-05-08 23:02] VITALS: BP 143/53
[2021-05-09] MEDS: HYDROcodone/APAP 5/325MG 1 TAB TABLET PO PRN ×4 (03:02→17:38)
[2021-05-09 03:12] VITALS: BP 148/68
[2021-05-09] MEDS: HYDROmorphone 2 MG/ML VIAL IVP PRN (03:46)
[2021-05-09] MEDS: PIPERACILLIN/TAZOBACTAM 3.375 GM in IV NORMAL SALINE 50ML 50 ML IV SCH ×3 (06:00→17:39)
[2021-05-09 06:50] VITALS: BP 142/54
[2021-05-09 07:07] LABS: BASO % 0 % (0-3); EOS # 0.1 x10^3/uL (0.0-0.7); EOS % 2 % (0-3); HEMATOCRIT 23.6 % (36.0-47.0); HEMOGLOBIN 7.1 g/dL (12.0-15.5); LYMPH # 1.2 x10^3/uL (1.0-4.8); LYMPH % 19 % (24-48); MEAN CORPUSCULAR HEMOGLOBIN 24 pg (25-35); MEAN CORPUSCULAR HGB CONC 30 g/dL (31-37); MEAN CORPUSCULAR VOLUME 80 fL (79-100); MONO # 0.5 x10^3/uL (0.0-1.1); MONO % 8 % (0-9); NEUT # 4.7 x10^3/uL (1.8-7.7); NEUT % 72 % (31-73); PLATELET COUNT 305 x10^3/uL (140-400); RED BLOOD COUNT 2.95 x10^6/uL (3.50-5.40); RED CELL DISTRIBUTION WIDTH 19.5 % (11.5-14.5); WHITE BLOOD COUNT 6.6 x10^3/uL (4.0-11.0)
[2021-05-09 07:17] LABS: ALBUMIN 1.3 g/dL (3.4-5.0); ALBUMIN/GLOBULIN RATIO 0.4 (1.0-1.7); CALCIUM 7.7 mg/dL (8.5-10.1); GFR 53.8; POTASSIUM 3.6 mmol/L (3.5-5.1); TOTAL BILIRUBIN 0.2 mg/dL (0.2-1.0)
--- NOTE | 2021-05-09 07:37 | PDOC ---
Infectious Disease Note Subjective: Subjective Patient without complaints Vital Signs: Vital Signs Vital Signs Date Time Temp Pulse Resp B/P (MAP) Pulse Ox O2 Delivery O2 Flow Rate FiO2 05/09/21 06:50 98.0 63 18 142/54 (83) 95 Room Air 98.0 05/08/21 19:17 2.0 Physical Exam: PHYSICAL EXAM GENERAL: Alert, oriented female, not in distress. resting in bed HEENT: Both pupils are round and reacting. No conjunctival lesion, no lesion in the mouth. NECK: Supple LUNGS: Crackles in both bases of lungs HEART: S1, S2 regular. ABDOMEN: Soft, nontender, EXTREMITIES: Bilateral lower extremity swelling present improving, right lower extremity wound VAC present for both wounds, thigh and leg, left leg wound VAC present Left dorsal toe wound dry, no drainage NEUROLOGIC: The patient is alert, awake, and appropriate. No focal neurologic deficit. Medications: Inpatient Meds: Medications reviewed. Labs: Lab Laboratory Tests Test 05/08/21 08:36 05/08/21 11:24 05/08/21 17:04 05/08/21 20:12 Glucose (Fingerstick) 139 mg/dL (70-99) 171 mg/dL (70-99) 149 mg/dL (70-99) 199 mg/dL (70-99) Test 05/09/21 05:50 White Blood Count 6.6 x10^3/uL (4.0-11.0) Red Blood Count 2.95 x10^6/uL (3.50-5.40) Hemoglobin 7.1 g/dL (12.0-15.5) Hematocrit 23.6 % (36.0-47.0) Mean Corpuscular Volume 80 fL (79-100) Mean Corpuscular Hemoglobin 24 pg (25-35) Mean Corpuscular Hemoglobin Concent 30 g/dL (31-37) Red Cell Distribution Width 19.5 % (11.5-14.5) Platelet Count 305 x10^3/uL (140-400) Neutrophils (%) (Auto) 72 % (31-73) Lymphocytes (%) (Auto) 19 % (24-48) Monocytes (%) (Auto) 8 % (0-9) Eosinophils (%) (Auto) 2 % (0-3) Basophils (%) (Auto) 0 % (0-3) Neutrophils # (Auto) 4.7 x10^3/uL (1.8-7.7) Lymphocytes # (Auto) 1.2 x10^3/uL (1.0-4.8) Monocytes # (Auto) 0.5 x10^3/uL (0.0-1.1) Eosinophils # (Auto) 0.1 x10^3/uL (0.0-0.7) Basophils # (Auto) 0.0 x10^3/uL (0.0-0.2) Sodium Level 143 mmol/L (136-145) Potassium Level 3.6 mmol/L (3.5-5.1) Chloride Level 109 mmol/L (98-107) Carbon Dioxide Level 28 mmol/L (21-32) Anion Gap 6 (6-14) Blood Urea Nitrogen 12 mg/dL (7-20) Creatinine 1.0 mg/dL (0.6-1.0) Estimated GFR (Cockcroft-Gault) 53.8 BUN/Creatinine Ratio 12 (6-20) Glucose Level 150 mg/dL (70-99) Calcium Level 7.7 mg/dL (8.5-10.1) Total Bilirubin 0.2 mg/dL (0.2-1.0) Aspartate Amino Transf (AST/SGOT) 39 U/L (15-37) Alanine Aminotransferase (ALT/SGPT) 21 U/L (14-59) Alkaline Phosphatase 109 U/L (46-116) Total Protein 5.0 g/dL (6.4-8.2) Albumin 1.3 g/dL (3.4-5.0) Albumin/Globulin Ratio 0.4 (1.0-1.7) Micro -- RUN DATE: 04/29/21 [facility] *LIVE* PAGE 1 RUN TIME: 906 Specimen Inquiry PATIENT: SIXTO MEREDITH ACCT: [id number] LOC: [address] [place] [address] U: [id number] AGE/SX: 76/F ROOM: 528 RE04/12/[address]: NATE BHATT III, DO : 1945 BED: 1 DIS: STATUS: ADM IN TLOC: SPEC #: [id number] MARÍA ELENA: 04/23/21 STATUS: COMP REQ #: [id number] RECD: 04/23/[address]: NATE BHATT III, DO SOURCE: LEG ENTR: 04/23/21 [facility] DR: NIXON COURTNEY MD SPDC: PANCHO ROMAN,JESSE PEÑA MD, MD, DOUGLAS M DO MANTHRAVAD I, SASHIDHAR MD THORS, AXEL DO ORDERED: ANAER/FEDE/PARUL COMMENTS: RT LEG WOUND -- Procedure Result GRAM STAIN Final Final NO ORGANISMS SEEN. SQUAMOUS EPI CELL:NONE SEEN PMN (WBCs):NONE SEEN Unless otherwise specified, Testing Performed by: [address] [address] For Inquires, the Physician may contact the Microbiology department at [phone] ANAEROBIC-AEROBIC CULTURE Final Final RARE [PROTEUS VULGARIS GROUP] on 04/25/21 at 1418 NO ANAEROBIC ORGANISMS ISOLATED on 04/29/21 at 0903 PROTEUS VULGARIS GROUP ANTIMICROBIAL SUSCEPTIBILITY Final Comment NEG TAMEKA 56 PROTEUS VULGARIS GROUP ANTIBIOTIC RESULT INTERPRETATION AMPICILLIN/SULBACTAM 8/4 S AMIKACIN <=16 S AMPICILLIN >16 R AMOXICILLIN/K CLAVULANATE <=8/4 S AZTREONAM <=4 S CEFTRIAXONE <=1 S CEFTAZIDIME <=1 S CEFOTAXIME <=2 S CEFOXITIN <=8 S CEFAZOLIN >16 R CIPROFLOXACIN <=0.25 S CEFEPIME <=2 S RUN DATE: 04/29/21 [facility] *LIVE* PAGE 2 RUN TIME: 906 Specimen Inquiry SPEC: [id number] PATIENT: SIXTO MEREDITH [id number] (Continued) Procedure Result CONTINUED ON NEXT PAGE RUN DATE: 04/29/21 [facility] *LIVE* PAGE 3 RUN TIME: 0907 Specimen Inquiry SPEC: [id number] PATIENT: SIXTO MEREDITH [id number] (Continued) Procedure Result ----- ------- ANTIMICROBIAL SUSCEPTIBILITY Final (continued) CEFUROXIME >16 R ERTAPENEM <=0.5 S GENTAMICIN <=2 S LEVOFLOXACIN <=0.5 S MEROPENEM <=1 S PIPERACILLIN/TAZOBACTAM <=8 S TRIMETHOPRIM/SULFAMETHOXAZOLE <=0.5/9.5 S TETRACYCLINE 8 R* TOBRAMYCIN <=2 S Unless otherwise specified, Testing Performed by: [address] [address] For Inquires, the Physician may contact the Microbiology department at [phone] Objective: Assessment: 1. Infected foul smelling wounds, bilateral lower extremity. S/P I&D April 23 Cultures positive for Proteus vulgaris May 06, 2021 status post incision and debridement bilateral lower extremity wounds Tissue cultures of right thigh, right lateral lower leg, left anterior leg cult positive for Pseudomonas and Enterococcus faecalis 2. Right lower thigh hematoma evacuation with a wound VAC in place, clean wound 3. Leukocytosis. Resolved 4. Fever. resolved 5. Peripheral vascular disease. 6. Coronary artery disease. 7. CHF Plan: Plan of Care Continue zosyn and daptomycin Follow-up cultures from 05/06/2021 Offload Cont local wound/vac care as directed Monitor labs Continue supportive care CASTRO ROMAN MD May 09, 2021 07:37
[2021-05-09] MEDS: INSULIN LISPRO 300 UNITS/3 ML VIAL. SQ SCH ×3 (08:00→17:00)
[2021-05-09] MEDS: FUROSEMIDE 20 MG TABLET PO SCH (09:13)
[2021-05-09] MEDS: LACTOBACILLUS RHAMNOSUS GG 1 CAPSULE. PO SCH (09:13)
[2021-05-09] MEDS: CITALOPRAM 20 MG TABLET. PO SCH (09:14)
[2021-05-09] MEDS: LOSARTAN POTASSIUM 50 MG TABLET. PO SCH (09:14)
[2021-05-09] MEDS: MULTIVITAMIN with MINERAL TABLET. PO SCH (09:14)
[2021-05-09] MEDS: ASCORBIC ACID 500 MG TABLET PO SCH (09:14)
[2021-05-09] MEDS: METOPROLOL SUCC 24HR ER 50 MG TAB.ER.24H. PO SCH (09:15)
[2021-05-09] MEDS: NYSTATIN TOPICAL POWDER 15GM BOTTLE. TP SCH (09:18)
[2021-05-09] MEDS: SODIUM HYPOCHLORITE 0.125% 473 ML BOTTLE. TP SCH (09:18)
--- NOTE | 2021-05-09 10:48 | PDOC ---
[employer] PROGRESS NOTE Date of Service DOS: DATE: 05/09/21 TIME: 10:41 Chief Complaint Chief Complaint Nonhealing acute on chronic bilateral lower extremity wounds, foul-smelling and necrotic tissue Sepsis Right lower thigh hematoma Severe peripheral vascular disease with multiple stenosis Atrial fibrillation DM2 CAD HTN Severe protein malnutrition Anemia of chronic inflammatory disease Transaminitis Hypokalemia History of Present Illness History of Present Illness Ms Santana is a 76-year-old female with past medical history DM2, CAD, HTN, HLD, presents as a direct admit from [facility] due to multiple nonhealing blistering wounds to her bilateral feet for the past month. She was recently treated on our service (03/22/2021) for evacuation and debridement of right thigh hematoma. Right lower extremity CTA at that time showed calcified plaque with approximately 50 percent stenosis to SFA, extensive arterial calcifications to right popliteal artery, heavy calcifications to anterior tibial artery, and occluded right posterior tibial artery; Left lower extremity CTA showed popliteal artery with 60-70 percent stenosis at mid segment, left anterior tibial artery with heavy calcifications, left posterior tibial artery occluded distally. She has been receiving local wound care and follow-up at wound care clinic without significant improvement in her blisters. She denies any significant pain but does admit to some clear serous drainage from her bilateral feet. Will admit patient for further medical management. 04/14: Febrile overnight with T-max 100.7 F. WBC 11.4. consult to ID. Per vascular surgery, no urgency for surgical debridement of her wounds or angiogram currently. She had wound VAC placed in the right thigh yesterday. Await recommendations from plastic surgery. 04/15: Afebrile, breathing on room air. Wound VAC in place to right thigh. She reports some pain in her legs with movement, but worked with PT. Continue treatment of bilateral lower extremity wounds with Zosyn. plastic surgery recommendations on management of right thigh hematoma. 04/16: Afebrile, breathing on room air. Wound VAC in place to right thigh. worked with physical therapy . Continue treatment of bilateral lower extremity wounds with Zosyn. 04/17: less ankle edema 04/18: Afebrile. Still with some leg pain, controlled with medication. She will need usp facility that can manage wound VAC and IV antibiotic regimen. Likely change Zosyn to Invanz, per ID. She does not want to return to [facility] for usp. 04/19: Remains afebrile. Agreeable to returning to [facility] for rehab. Continuing Zosyn will change to Invanz on discharge. Is endorsing some shortness of breath and bilateral upper extremity swelling this morning chest x- ray shows pulmonary edema, will try a one-time dose of Lasix. 04/20: Patient seen and examined at bedside. This morning she reports her breathing is stable. Does report increased swelling in her bilateral upper extremities encouraged her to elevate them. Patient being reevaluated by vascular surgery today.Consult hematology for vasculitis work-up. 04/21: Worsening pain RLE. Eval by hematology and vascular surgery. Planning for irrigation and debridement tomorrow. INR needs to be below 1.5, it is 2.7 today. dose of vitamin K today and recheck INR in the morning. If above one-point 5 in the morning patient may need FFP prior to surgery. 04/22: Patient seen and examined at bedside. Other than right lower extremity pain no complaints. INR 2 elevated this morning, 2.1, so high for surgery. 04/24: No acute events overnight. Patient seen and examined bedside. Dressings are moist with strikethrough with serous fluid. Pain is well controlled at this time. 04/25: No acute events overnight. Patient seen and examined bedside during wound dressing changes. There is definitely still weeping around the wounds but the wounds do not appear infected or is or any active bleeding or purulent drainage. Warfarin managed by pharmacy and currently INR is at 1.6 at home dose warfarin. Patient will likely need some skilled rehab upon discharge. Anticipate discharge in the next 24 to 48 hours. Patient's chart, labs, images were reviewed and discussed with RN 04/26: No overnight Events. No significant pain with dressing changes. Still on IV Zosyn. Awaiting biopsy results. 04/27: Swelling improved pain improved in the legs. Changed to Rocephin per ID Proteus vulgaris and wound 04/28: Afebrile overnight. Complaining worsening shortness of breath on minimal exertion and now on 2 L of oxygen. IV fluids at home. Awaiting chest radiograph. Did have some minimal improvement with breathing treatment with respiratory therapy. 04/29: Next radiograph with interstitial changes given IV Lasix with some improvement she still with abdominal fullness and shortness of breath on O2. Will give another IV dose of Lasix. Has variflow wound VAC per plastic surgery. Discussed with ID not ready for discharge. 04/30: Breathing improved after Lasix but still with abdominal swelling. She did have a good bowel movement. Leg still swollen as well interfering with wound vacs. Wound care additional IV Lasix today replace potassium repeat labs in the morning. 05/01: Breathing improved. K2.9 mag 1.8 after additional Lasix dosing. Now with 3 wound VAC on right leg including knee and left leg and her left anterior foot wound is left open for now. 05/02: Little dyspnea on minimal exertion today. INR therapeutic. Wound vacs with good suction. Given the number of complicated wounds she does [facility] which [facility] as she has failed [facility] level care for her complicated wounds requiring readmission and surgery. 05/03: Patient seen and examined. Discussed with RN. Chart reviewed. 05/04: Patient seen and examined. Wound vacs on with good suction. INR is in therapeutic range at 2.5. She endorses pain and would like another dose of Dilaudid today. 05/05: Patient seen and examined. Wound vacs on with good suction. Patient endorses wanting to switch diuretic from hydrochlorothiazide and continue with Lasix. Discharge has been discussed with potential to send patient to [facility] facility. Discussed with RN. Chart Reviewed. 05/06: Patient seen and examined. Wound vacs were taken off in anticipation of surgical debridement. INR is 2.2. [facility] has agreed to accept patient on discharge. Discussed with RN. Chart reviewed. 05/07: Patient seen and examined. Discussed with RN. Chart reviewed. Patient endorses feeling really good today with increased energy. Patient is concerned due to lack of improvement in edema. She reports decreased appetite and minimal food intake due to constant feeling of fullness from fluid build-up. 05/08: Patient seen and examined. Chart reviewed. Patient endorses feeling well today with significant improvement in appetite. Discussed with RN to discontinue IV fluids due to weeping wounds. INR 2.5. 05/09: Patient seen and examined. Discussed with RN. Chart reviewed. Patient endorses feeling well with good energy levels. She endorses reduced PO intake due to feeling of fullness from fluid buildup. Hgb has trended low, current level is 7.1. Edema is still prominent. Blood cultures came back + for Psuedomonas and Enterococcus Fecalis, Discussed with Dr. Hall. Vitals/I&O Vitals/I&O: Vital Signs Date Time Temp Pulse Resp B/P (MAP) Pulse Ox O2 Delivery O2 Flow Rate FiO2 05/09/21 09:15 63 142/54 05/09/21 06:50 98.0 18 95 Room Air 98.0 05/08/21 19:17 2.0 I & O 05/08/21 05/08/21 05/09/21 15:00 23:00 07:00 Output Total 0 ml Balance 0 ml Physical Exam Physical Exam: GENERAL: Alert, oriented female, not in distress. resting in bed HEENT: Both pupils are round and reacting. No conjunctival lesion, no lesion in the mouth. NECK: Supple LUNGS: Crackles in both bases of lungs HEART: S1, S2 regular. ABDOMEN: Soft, nontender, EXTREMITIES: Bilateral lower extremity swelling present improving, right lower extremity wound VAC present for both wounds, thigh and leg, left leg wound VAC present Left dorsal toe wound dry, no drainage NEUROLOGIC: The patient is alert, awake, and appropriate. No focal neurologic deficit. General: Alert Heart: Regular rate, Normal S1, Normal S2, No murmurs Lungs: Clear Abdomen: Normal bowel sounds, Soft, Other (Morbidly obese) Extremities: No clubbing, No edema, Other (Dressings with serous fluid strikethrough. Intact biphasic dorsalis pedis Doppler signals bilaterally, posterior tibial Doppler signals are absent bilaterally) Skin: Other (Full-thickness superficial gangrene involving the posterior right lower extremity with several large patches of wounds, superficial full-thickness wounds involving the left dorsal surface pretibial area, chronic venous insufficiency skin changes bilaterally with hemosiderin deposition, no cellulitis, no purulent drainage) Labs Labs: Laboratory Tests Test 05/08/21 11:24 05/08/21 17:04 05/08/21 20:12 05/09/21 05:50 Glucose (Fingerstick) 171 mg/dL (70-99) 149 mg/dL (70-99) 199 mg/dL (70-99) White Blood Count 6.6 x10^3/uL (4.0-11.0) Red Blood Count 2.95 x10^6/uL (3.50-5.40) Hemoglobin 7.1 g/dL (12.0-15.5) Hematocrit 23.6 % (36.0-47.0) Mean Corpuscular Volume 80 fL (79-100) Mean Corpuscular Hemoglobin 24 pg (25-35) Mean Corpuscular Hemoglobin Concent 30 g/dL (31-37) Red Cell Distribution Width 19.5 % (11.5-14.5) Platelet Count 305 x10^3/uL (140-400) Neutrophils (%) (Auto) 72 % (31-73) Lymphocytes (%) (Auto) 19 % (24-48) Monocytes (%) (Auto) 8 % (0-9) Eosinophils (%) (Auto) 2 % (0-3) Basophils (%) (Auto) 0 % (0-3) Neutrophils # (Auto) 4.7 x10^3/uL (1.8-7.7) Lymphocytes # (Auto) 1.2 x10^3/uL (1.0-4.8) Monocytes # (Auto) 0.5 x10^3/uL (0.0-1.1) Eosinophils # (Auto) 0.1 x10^3/uL (0.0-0.7) Basophils # (Auto) 0.0 x10^3/uL (0.0-0.2) Sodium Level 143 mmol/L (136-145) Potassium Level 3.6 mmol/L (3.5-5.1) Chloride Level 109 mmol/L (98-107) Carbon Dioxide Level 28 mmol/L (21-32) Anion Gap 6 (6-14) Blood Urea Nitrogen 12 mg/dL (7-20) Creatinine 1.0 mg/dL (0.6-1.0) Estimated GFR (Cockcroft-Gault) 53.8 BUN/Creatinine Ratio 12 (6-20) Glucose Level 150 mg/dL (70-99) Calcium Level 7.7 mg/dL (8.5-10.1) Total Bilirubin 0.2 mg/dL (0.2-1.0) Aspartate Amino Transf (AST/SGOT) 39 U/L (15-37) Alanine Aminotransferase (ALT/SGPT) 21 U/L (14-59) Alkaline Phosphatase 109 U/L (46-116) Total Protein 5.0 g/dL (6.4-8.2) Albumin 1.3 g/dL (3.4-5.0) Albumin/Globulin Ratio 0.4 (1.0-1.7) Test 05/09/21 07:45 Glucose (Fingerstick) 144 mg/dL (70-99) Review of Systems Review of Systems: Patient denies weakness or dizziness. Assessment and Plan Assessmemt and Plan Sepsis present on admission Nonhealing acute on chronic bilateral lower extremity wounds, foul-smelling and necrotic tissue down to subcutaneous fat status post surgical debridement 04/23/2021 Right lower thigh hematoma with wound VAC in place Severe peripheral vascular disease with multiple stenosis Atrial fibrillation Supratherapeutic INR, pharmacy to adjust need 04-17 DM2 CAD HTN Severe protein malnutrition Anemia of chronic inflammatory disease Transaminitiselevated alkaline phosphatase likely related to bone disease Hypokalemia Plan: 1. Appreciate Dr. Hall input 2. Continue to hold IV fluids 3. Continue antibiotics: Zosyn and Daptomycin 4. Wound care as directed (ensure dressings are changed promptly) 5. Continue Lasix 6. Continue anticoagulation (INR 2.5) 7. Continue PRN Pain Medication for lower extremity wound pain 8. PT/OT 9. Home meds 10. Trend labs 11. FEN- ADA/Cardiac Diet- encourage PO intake 12. DNR 13. Discharge disposition pending- [place] Surrogate decision-maker is her daughter (Alyce Santana) Comment Review of Relevant I have reviewed the following items ronen (where applicable) has been applied. Medications: Current Medications Medications (Trade) Dose Ordered Sig/Gennaro Route PRN Reason Start Time Stop Time Status Last Admin Dose Admin Warfarin Sodium (Coumadin) 2 mg 1X WARF ONCE PO 05/08/21 16:00 05/08/21 16:01 DC 05/08/21 17:45 Justifications for Admission Other Justification Diabetic ulcers, failed outpatient treatment NATE BHATT III DO May 09, 2021 10:48
[2021-05-09 11:00] VITALS: BP 151/51
[2021-05-09] MEDS: NORMAL SALINE IV SCH (13:00)
[2021-05-09] MEDS: DAPTOMYCIN IV SCH (13:00)
--- NOTE | 2021-05-09 13:39 | SNU/HH DC ---
DISCHARGE ORDERS DISCHARGE INFORMATION: CONDITION ON DISCHARGE: Stable CODE STATUS: Code Status: Full MCFP: SNF STAY <30 DAYS: No HOSPICE: HOSPICE: No HOSPICE EVAL & TREAT: No LTAC: ADMIT TO LTAC: Yes POST DISCHARGE ORDERS: ACTIVITY ORDERS: No restrictions WEIGHT BEARING STATUS: No restrictions, Full weight bearing BATHING ORDERS: No Tub Bath until see Dr. YOUNGBLOOD AFTER DISCHARGE: [place] WOUND/INCISION CARE: Keep wound/cast CDI, Reinforce dressing PRN CHECKS AFTER DISCHARGE: CHECKS AFTER DISCHARGE: Check blood press - daily, Check blood sugar, ac/hs, Check your Temp as needed, Weigh Yourself Daily FOLLOW-UP: LAB ORDERS FOR FOLLOW-UP: Check INR with goal range 23 TREATMENT/EQUIPMENT ORDERS: ADAPTIVE EQUIPMENT NEEDED: None RESPIRATORY EQUIPMENT NEEDED: Oxygen Physical Therapy For: Evalulation/Treatment Occupational Therapy For: Evaluation/Treatment DISCHARGE MEDICATIONS: Home Meds Active Scripts Hydrocodone Bit/Acetaminophen (HYDROCODONE-APAP 5-325 ) 1 Tab Tablet, 1 TAB PO PRN Q4HRS PRN for MILD TO MOD PAIN for 14 Days, #30 TAB Prov:NATE BHATT K III DO 03/24/21 Reported Medications Insulin Lispro (HUMALOG) 100 Unit/1 Ml Vial, SQ BIDWMEALS for ANTI-DIABETIC, EACH 03/04/21 Insulin Glargine,Hum.rec.anlog (LANTUS SOLOSTAR) 100 Unit/1 Ml Insuln.pen, 75 UNIT SQ QHS for ANTI-DIABETIC, #15 ML 3 Refills 03/04/21 Warfarin Sodium (WARFARIN SODIUM) 4 Mg Tablet, 4 MG PO DAILY, #30 TAB 11/29/20 Metoprolol Succinate (Toprol XL) 50 Mg Tab.er.24h, 50 MG PO DAILY for FOR HYPERTENSION, TAB.SR 11/29/20 Losartan Potassium (LOSARTAN POTASSIUM) 100 Mg Tablet, 100 MG PO DAILY for HYPERTENSION, TAB 11/29/20 Rosuvastatin Calcium (CRESTOR) 40 Mg Tablet, 1 TAB PO DAILY for cholesterol , #30 TAB 5 Refills 11/29/20 Amlodipine Besylate (AMLODIPINE BESYLATE) 10 Mg Tablet, 10 MG PO DAILY for BP, TAB 11/29/20 Escitalopram Oxalate (LEXAPRO) 20 Mg Tablet, 1 TAB PO DAILY for depression, #90 TAB 3 Refills 11/29/20 Acetaminophen (TYLENOL) 325 Mg Tablet, 325 MG PO DAILY for pain, TAB 11/29/20 NATE BHATT III DO May 09, 2021 13:39
[2021-05-09 15:00] VITALS: BP 138/53
--- NOTE | 2021-05-09 15:30 | NUR ---
Pharmacy Warfarin Dosing Note S:Pharmacy consulted to assist with anticoagulation therapy started with target INR: 2 -3 O:SIXTO MEREDITH is a 76 year old F with DVT/PE H/O DVT LABS: Last INR: 2.5 Last HGB: 7.1 Last HCT: 23.6 Last PLT: 305 Last dose of 2 mg given on 05/08/21 at 1745 Previous Regimen: 4MG DAILY Vitamin K given: Y 04/21 5MG, 04/22 5MG Drug Interaction Changes: None Ongoing Drug Interactions: A:INR of 2.5 is within desired range. Target range for this patient is: 2 -3 P: Warfarin dose: 1 mg Today at 1600. Bridge Therapy: None Next INR due tomorrow. Pharmacy anticoagulation service will continue to follow. Carson Chandler [facility], 05/09/21 [id number]
[2021-05-09] MEDS ORDERED: WARFARIN 1 MG TABLET. PO ONE (16:00)
--- NOTE | 2021-05-09 18:20 | NUR ---
Nurse exchange report called to LASHA Corona at [facility] . Transportation and pt packet with doctors orders has been faxed and set up per nursing machine maintenance supervisor.
--- NOTE | 2021-05-09 18:56 | DS ---
DATE OF DISCHARGE: 05/09/2021 ADMISSION DIAGNOSES: Right leg and foot wounds, peripheral vascular disease, leg abscess. DISCHARGE DIAGNOSES: Chronic leg wounds, peripheral vascular disease, overweight, coronary artery disease, hypertension, hyperlipidemia, asthma, pulmonary emboli, neuropathy, gastroesophageal reflux disease, anemia, osteoarthritis, diabetes, history of coronary bypass surgery, history of knee replacement, hysterectomy, resolving leg abscess. CONSULTS: Orthopedics, Oncology/Hematology, Plastic Surgery, Infectious Disease, ____, wound care team, Vascular Surgery. PROCEDURES: Debridement of bilateral lower extremity wounds by Dr. Isa Cartwright on 05/06. On 04/23, she had another debridement of bilateral lower extremity wounds with incision and debridement of abscess of right thigh, posterior leg. HOSPITAL COURSE: The patient is a pleasant elderly female who has multiple medical issues. Basically, we had her here in the recent past with similar issues. We had debrided the wound at that time on her thigh. She went to a rehab unit, but then the symptoms seemed to worsen. She developed an abscess. She was admitted. We gave her IV antibiotics. Above consults were obtained. She was taken for 2 debridements and abscess drainage. Over the past couple of weeks, she has returned to her baseline. Today, I saw and examined her. She is stable. The long-term acute care facility at [facility] has accepted her. We plan to discharge to there. DISPOSITION: [facility]. ACTIVITY: As tolerated. DIET: Low sodium. DISCHARGE MEDICATIONS: Please see the MRAD. TOTAL TIME: 34 minutes. FIDENCIO/TUAN/RUTH DR: Lb TID: [id number]
--- NOTE | 2021-05-10 08:17 | PDOC ---
Infectious Disease Note Subjective Subjective Patient without complaints Vital Sign Vital Signs Vital Signs Date Time Temp Pulse Resp B/P (MAP) Pulse Ox O2 Delivery O2 Flow Rate FiO2 05/09/21 17:38 Room Air 05/09/21 15:00 98.5 58 18 138/53 (81) 93 98.5 Physical Exam PHYSICAL EXAM GENERAL: Alert, oriented female, not in distress. resting in bed HEENT: Both pupils are round and reacting. No conjunctival lesion, no lesion in the mouth. NECK: Supple LUNGS: Crackles in both bases of lungs HEART: S1, S2 regular. ABDOMEN: Soft, nontender, EXTREMITIES: Bilateral lower extremity swelling present improving, right lower extremity wound VAC present for both wounds, thigh and leg, left leg wound VAC present Left dorsal toe wound dry, no drainage NEUROLOGIC: The patient is alert, awake, and appropriate. No focal neurologic deficit. Labs Lab Laboratory Tests Test 05/09/21 11:39 05/09/21 16:37 Glucose (Fingerstick) 163 mg/dL (70-99) 142 mg/dL (70-99) Micro Microbiology 05/06/21 Gram Stain - Final, Resulted 05/06/21 Aerobic and Anaerobic Culture - Preliminary, Resulted 05/06/21 Antimicrobic Susceptibility - Preliminary, Resulted Objective Assessment IMPRESSION: 1. Infected foul smelling wounds, bilateral lower extremity. 2. Right lower thigh hematoma evacuation with a wound VAC in place, unable to see right now. 3. Leukocytosis. 4. Fever. 5. Peripheral vascular disease. 6. Coronary artery disease. Plan Plan of Care Continue zosyn and daptomycin Follow-up cultures from 05/06/2021 Offload Cont local wound/vac care as directed Monitor labs Continue supportive care TOMAS ROMAN MD May 10, 2021 08:17
--- NOTE | 2021-05-10 09:08 | PDOC ---
PROGRESS NOTES Date of Service: DATE: 05/10/21 TIME: 09:07 Chief Complaint Chief Complaint Nonhealing acute on chronic bilateral lower extremity wounds, foul-smelling and necrotic tissue Sepsis Right lower thigh hematoma Severe peripheral vascular disease with multiple stenosis Atrial fibrillation DM2 CAD HTN Severe protein malnutrition Anemia of chronic inflammatory disease Transaminitis Hypokalemia History of Present Illness History of Present Illness Ms Santana is a 76-year-old female with past medical history DM2, CAD, HTN, HLD, p resents as a direct admit from [facility] due to multiple nonhealing blistering wounds to her bilateral feet for the past month. She was recently treated on our service (03/22/2021) for evacuation and debridement of right thigh hematoma. Right lower extremity CTA at that time showed calcified plaque with approximately 50 percent stenosis to SFA, extensive arterial calcifications to right popliteal artery, heavy calcifications to anterior tibial artery, and occluded right posterior tibial artery; Left lower extremity CTA showed popliteal artery with 60-70 percent stenosis at mid segment, left anterior tibial artery with heavy calcifications, left posterior tibial artery occluded distally. She has been receiving local wound care and follow-up at wound care clinic without significant improvement in her blisters. She denies any significant pain but does admit to some clear serous drainage from her bilateral feet. Will admit patient for further medical management. 04/14: Febrile overnight with T-max 100.7 F. WBC 11.4. consult to ID. Per vascular surgery, no urgency for surgical debridement of her wounds or angiogram currently. She had wound VAC placed in the right thigh yesterday. Await recommendations from plastic surgery. 04/15: Afebrile, breathing on room air. Wound VAC in place to right thigh. She reports some pain in her legs with movement, but worked with PT. Continue soo atment of bilateral lower extremity wounds with Zosyn. plastic surgery recommendations on management of right thigh hematoma. 04/16: Afebrile, breathing on room air. Wound VAC in place to right thigh. worked with physical therapy . Continue treatment of bilateral lower extremity wounds with Zosyn. 04/17: less ankle edema 04/18: Afebrile. Still with some leg pain, controlled with medication. She will need group home facility that can manage wound VAC and IV antibiotic regimen. Likely change Zosyn to Gr[place], per ID. She does not want to return to [facility] for group home. 04/19: Remains afebrile. Agreeable to returning to [facility] for rehab. Continuing Zosyn will change to Invanz on discharge. Is endorsing some shortness of breath and bilateral upper extremity swelling this morning chest x- ray shows pulmonary edema, will try a one-time dose of Lasix. 04/20: Patient seen and examined at bedside. This morning she reports her breathing is stable. Does report increased swelling in her bilateral upper extremities encouraged her to elevate them. Patient being reevaluated by vascular surgery today.Consult hematology for vasculitis work-up. 04/21: Worsening pain RLE. Eval by hematology and vascular surgery. Planning for irrigation and debridement tomorrow. INR needs to be below 1.5, it is 2.7 today. dose of vitamin K today and recheck INR in the morning. If above one-point 5 in the morning patient may need FFP prior to surgery. 04/22: Patient seen and examined at bedside. Other than right lower extremity pain no complaints. INR 2 elevated this morning, 2.1, so high for surgery. 04/24: No acute events overnight. Patient seen and examined bedside. Dressings are moist with strikethrough with serous fluid. Pain is well controlled at this time. 04/25: No acute events overnight. Patient seen and examined bedside during wound dressing changes. There is definitely still weeping around the wounds but the wounds do not appear infected or is or any active bleeding or purulent drainage. Warfarin managed by pharmacy and currently INR is at 1.6 at home dose warfarin. Patient will likely need some skilled rehab upon discharge. Anticipate discharge in the next 24 to 48 hours. Patient's chart, labs, images were reviewed and discussed with RN 04/26: No overnight Events. No significant pain with dressing changes. Still on IV Zosyn. Awaiting biopsy results. 04/27: Swelling improved pain improved in the legs. Changed to Rocephin per ID Proteus vulgaris and wound 04/28: Afebrile overnight. Complaining worsening shortness of breath on minimal exertion and now on 2 L of oxygen. IV fluids at home. Awaiting chest radiograph. Did have some minimal improvement with breathing treatment with respiratory therapy. 04/29: Next radiograph with interstitial changes given IV Lasix with some improvement she still with abdominal fullness and shortness of breath on O2. Will give another IV dose of Lasix. Has variflow wound VAC per plastic surgery. Discussed with ID not ready for discharge. 04/30: Breathing improved after Lasix but still with abdominal swelling. She did have a good bowel movement. Leg still swollen as well interfering with wound vacs. Wound care additional IV Lasix today replace potassium repeat labs in the morning. 05/01: Breathing improved. K2.9 mag 1.8 after additional Lasix dosing. Now with 3 wound VAC on right leg including knee and left leg and her left anterior foot wound is left open for now. 05/02: Little dyspnea on minimal exertion today. INR therapeutic. Wound vacs with good suction. Given the number of complicated wounds she does [facility] as she has failed SNF level care for her complicated wounds requiring readmission and surgery. 05/03: Patient seen and examined. Discussed with RN. Chart reviewed. 05/04: Patient seen and examined. Wound vacs on with good suction. INR is in therapeutic range at 2.5. She endorses pain and would like another dose of Dilaudid today. 05/05: Patient seen and examined. Wound vacs on with good suction. Patient endorses wanting to switch diuretic from hydrochlorothiazide and continue with Lasix. Discharge has been discussed with potential to send patient to [facility] facility. Discussed with RN. Chart Reviewed. 05/06: Patient seen and examined. Wound vacs were taken off in anticipation of surgical debridement. INR is 2.2. [facility] has agreed to accept patient on discharge. Discussed with RN. Chart reviewed. 05/07: Patient seen and examined. Discussed with RN. Chart reviewed. Patient endorses feeling really good today with increased energy. Patient is concerned due to lack of improvement in edema. She reports decreased appetite and minimal food intake due to constant feeling of fullness from fluid build-up. 05/08: Patient seen and examined. Chart reviewed. Patient endorses feeling well today with significant improvement in appetite. Discussed with RN to discontinue IV fluids due to weeping wounds. INR 2.5. 05/09: Patient seen and examined. Discussed with RN. Chart reviewed. Patient endorses feeling well with good energy levels. She endorses reduced PO intake due to feeling of fullness from fluid buildup. Hgb has trended low, current level is 7.1. Edema is still prominent. Blood cultures came back + for Psuedomonas and Enterococcus Fecalis, Discussed with Dr. Hall. Vitals Vitals Vital Signs Date Time Temp Pulse Resp B/P (MAP) Pulse Ox O2 Delivery O2 Flow Rate FiO2 05/09/21 17:38 Room Air 05/09/21 15:00 98.5 58 18 138/53 (81) 93 98.5 Physical Exam Physical Exam GENERAL: Alert, oriented female, not in distress. resting in bed HEENT: Both pupils are round and reacting. No conjunctival lesion, no lesion in the mouth. NECK: Supple LUNGS: Crackles in both bases of lungs HEART: S1, S2 regular. ABDOMEN: Soft, nontender, EXTREMITIES: Bilateral lower extremity swelling present improving, right lower extremity wound VAC present for both wounds, thigh and leg, left leg wound VAC present Left dorsal toe wound dry, no drainage NEUROLOGIC: The patient is alert, awake, and appropriate. No focal neurologic deficit. General: Alert Heart: Regular rate, Normal S1, Normal S2, No murmurs Lungs: Clear Abdomen: Normal bowel sounds, Soft, Other (Morbidly obese) Extremities: No clubbing, No edema, Other (Dressings with serous fluid strikethrough. Intact biphasic dorsalis pedis Doppler signals bilaterally, posterior tibial Doppler signals are absent bilaterally) Skin: Other (Full-thickness superficial gangrene involving the posterior right lower extremity with several large patches of wounds, superficial full-thickness wounds involving the left dorsal surface pretibial area, chronic venous insufficiency skin changes bilaterally with hemosiderin deposition, no cellulitis, no purulent drainage) Labs LABS Laboratory Tests Test 05/09/21 11:39 05/09/21 16:37 Glucose (Fingerstick) 163 mg/dL (70-99) 142 mg/dL (70-99) Comment Review of Relevant I have reviewed the following items ronen (where applicable) has been applied. Labs Laboratory Tests Test 05/08/21 11:24 05/08/21 17:04 05/08/21 20:12 05/09/21 05:50 Glucose (Fingerstick) 171 mg/dL (70-99) 149 mg/dL (70-99) 199 mg/dL (70-99) White Blood Count 6.6 x10^3/uL (4.0-11.0) Red Blood Count 2.95 x10^6/uL (3.50-5.40) Hemoglobin 7.1 g/dL (12.0-15.5) Hematocrit 23.6 % (36.0-47.0) Mean Corpuscular Volume 80 fL (79-100) Mean Corpuscular Hemoglobin 24 pg (25-35) Mean Corpuscular Hemoglobin Concent 30 g/dL (31-37) Red Cell Distribution Width 19.5 % (11.5-14.5) Platelet Count 305 x10^3/uL (140-400) Neutrophils (%) (Auto) 72 % (31-73) Lymphocytes (%) (Auto) 19 % (24-48) Monocytes (%) (Auto) 8 % (0-9) Eosinophils (%) (Auto) 2 % (0-3) Basophils (%) (Auto) 0 % (0-3) Neutrophils # (Auto) 4.7 x10^3/uL (1.8-7.7) Lymphocytes # (Auto) 1.2 x10^3/uL (1.0-4.8) Monocytes # (Auto) 0.5 x10^3/uL (0.0-1.1) Eosinophils # (Auto) 0.1 x10^3/uL (0.0-0.7) Basophils # (Auto) 0.0 x10^3/uL (0.0-0.2) Sodium Level 143 mmol/L (136-145) Potassium Level 3.6 mmol/L (3.5-5.1) Chloride Level 109 mmol/L (98-107) Carbon Dioxide Level 28 mmol/L (21-32) Anion Gap 6 (6-14) Blood Urea Nitrogen 12 mg/dL (7-20) Creatinine 1.0 mg/dL (0.6-1.0) Estimated GFR (Cockcroft-Gault) 53.8 BUN/Creatinine Ratio 12 (6-20) Glucose Level 150 mg/dL (70-99) Calcium Level 7.7 mg/dL (8.5-10.1) Total Bilirubin 0.2 mg/dL (0.2-1.0) Aspartate Amino Transf (AST/SGOT) 39 U/L (15-37) Alanine Aminotransferase (ALT/SGPT) 21 U/L (14-59) Alkaline Phosphatase 109 U/L (46-116) Total Protein 5.0 g/dL (6.4-8.2) Albumin 1.3 g/dL (3.4-5.0) Albumin/Globulin Ratio 0.4 (1.0-1.7) Test 05/09/21 07:45 05/09/21 11:39 05/09/21 16:37 Glucose (Fingerstick) 144 mg/dL (70-99) 163 mg/dL (70-99) 142 mg/dL (70-99) Laboratory Tests Test 05/09/21 11:39 05/09/21 16:37 Glucose (Fingerstick) 163 mg/dL (70-99) 142 mg/dL (70-99) Microbiology 05/06/21 Gram Stain - Final, Resulted 05/06/21 Aerobic and Anaerobic Culture - Preliminary, Resulted 05/06/21 Antimicrobic Susceptibility - Preliminary, Resulted Medications Current Medications Sodium Chloride (Normal Saline Flush) 3 ml QSHIFT PRN IV AFTER MEDS AND BLOOD DRAWS; Start 04/12/21 at 19:30; Stop 05/10/21 at 08:30; Status DC Sodium Chloride 1,000 ml @ 70 mls/hr [id number] IV Last administered on 04/17/21at 00:06; Start 04/12/21 at 19:30; Stop 04/18/21 at 17:42; Status DC Ondansetron HCl (Zofran) 4 mg PRN Q4HRS PRN IV NAUSEA/VOMITING; Start 04/12/21 at 19:30; Stop 05/10/21 at 08:30; Status DC Acetaminophen (Tylenol) 650 mg PRN Q4HRS PRN PO TEMP OVER 100.4F OR MILD PAIN Last administered on 04/18/21at 23:39; Start 04/12/21 at 19:30; Stop 05/10/21 at 08:30; Status DC Al Hydroxide/Mg Hydroxide (Mylanta Plus Xs) 30 ml PRN DAILY PRN PO HEARTBURN / GAS; Start 04/12/21 at 19:30; Stop 05/10/21 at 08:30; Status DC Sodium Monofluorophosphate (Fleet Adult) 133 ml PRN DAILY PRN OR CONSTIPATION; Start 04/12/21 at 19:30; Stop 04/28/21 at 14:07; Status DC Albuterol/ Ipratropium (Duoneb) 3 ml Q4HRS NEB ; Start 04/12/21 at 20:00; Stop 04/12/21 at 21:28; Status DC Guaifenesin (Robitussin) 200 mg PRN Q4HRS PRN PO COUGH Last administered on 04/30/21at 08:53; Start 04/12/21 at 19:30; Stop 05/10/21 at 08:30; Status DC Amlodipine Besylate (Norvasc) 10 mg DAILY PO Last administered on 05/09/21at 09:14; Start 04/13/21 at 09:00; Stop 05/10/21 at 08:30; Status DC Acetaminophen/ Hydrocodone Bitart (Lortab 5/325) 1 tab PRN Q4HRS PRN PO MILD TO MOD PAIN Last administered on 04/12/21at 19:56; Start 04/12/21 at 19:45; Stop 04/12/21 at 21:23; Status DC Metoprolol Succinate (Toprol Xl) 50 mg DAILY PO Last administered on 05/09/21at 09:15; Start 04/13/21 at 09:00; Stop 05/10/21 at 08:30; Status DC Warfarin Sodium (Coumadin) 4 mg DAILY16 PO Last administered on 04/16/21at 16:20; Start 04/12/21 at 20:00; Stop 04/17/21 at 09:07; Status DC Citalopram Hydrobromide (CeleXA) 40 mg DAILY PO Last administered on 05/09/21at 09:14; Start 04/13/21 at 09:00; Stop 05/10/21 at 08:30; Status DC Losartan Potassium (Cozaar) 100 mg DAILY PO Last administered on 05/09/21at 09:14; Start 04/13/21 at 09:00; Stop 05/10/21 at 08:30; Status DC Atorvastatin Calcium (Lipitor) 80 mg QHS PO Last administered on 05/08/21at 20:42; Start 04/12/21 at 21:00; Stop 05/10/21 at 08:30; Status DC Warfarin Sodium (Coumadin Per Physician) 1 each PRN DAILY PRN MC SEE COMMENTS L ast administered on 04/16/21at 13:55; Start 04/12/21 at 19:45; Stop 04/17/21 at 09:07; Status DC Sterile Water (WATER for RESP) 1,000 ml CONT PRN INH VIA VAPOTHERM DEVICE; Start 04/12/21 at 21:30; Status Cancel Insulin Human Lispro (HumaLOG) 0-5 UNITS TIDWMEALS SQ ; Start 04/13/21 at 08:00; Status Cancel Dextrose (Dextrose 50%-Water Syringe) 12.5 gm PRN Q15MIN PRN IV SEE COMMENTS; Start 04/12/21 at 21:30; Stop 05/10/21 at 08:30; Status DC Hydromorphone HCl (Dilaudid) 0.5 mg PRN Q2HRS PRN IVP SEVERE PAIN 7-10 Last administered on 04/20/21at 15:32; Start 04/12/21 at 21:30; Stop 04/21/21 at 11:12; Status DC Albuterol Sulfate (Ventolin Neb Soln) 2.5 mg PRN Q4HRS PRN NEB SHORTNESS OF BREATH Last administered on 04/28/21at 08:47; Start 04/12/21 at 21:45; Stop at 08:30; Status DC Insulin Glargine (Lantus Syringe) 75 unit QHS SQ ; Start 04/13/21 at 21:00; Stop 04/13/21 at 21:33; Status DC Insulin Human Lispro (HumaLOG) 0-9 UNITS TIDWMEALS SQ Last administered on 05/09/21at 12:00; Start 04/13/21 at 08:00; Stop 05/10/21 at 08:30; Status DC Dextrose (Dextrose 50%-Water Syringe) 12.5 gm PRN Q15MIN PRN IV SEE COMMENTS; Start 04/13/21 at 07:30; Status Cancel Dextrose (Iv Dextrose 5%) 250 ml PRN Q15MIN PRN IV SEE COMMENTS; Start 04/13/21 at 07:30; Status UNV Acetaminophen/ Hydrocodone Bitart (Lortab 5/325) 1 tab PRN Q4HRS PRN PO MODERATE-SEVERE PAIN Last administered on 04/21/21at 08:42; Start 04/13/21 at 07:30; Stop 04/21/21 at 11:12; Status DC Nystatin (Nystop) 1 debbie BID TP Last administered on 05/09/21 09:18; Start 04/13/21 at 11:00; Stop 05/10/21 at 08:30; Status DC Insulin Glargine (Lantus Syringe) 8 unit QHS SQ Last administered on 05/08/21at 20:42; Start 04/13/21 at 22:00; Stop 05/10/21 at 08:30; Status DC Piperacillin Sod/ Tazobactam Sod 3.375 gm/Sodium Chloride 50 ml @ 100 mls/hr Q6HRS IV Last administered on 04/27/21at 06:35; Start 04/14/21 at 10:00; Stop 04/27/21 at 11:01; Status DC Lactobacillus Rhamnosus (Culturelle) 1 cap BID PO Last administered on 05/09/21 09:13; Start 04/14/21 at 21:00; Stop 05/10/21 at 08:30; Status DC Warfarin Sodium (Coumadin Per Pharmacy) 1 each PRN DAILY PRN MC SEE COMMENTS Last administered on 05/09/21at 15:27; Start 04/17/21 at 09:00; Stop 05/10/21 at 08:30; Status DC Warfarin Sodium (Coumadin - No Dose Today) 1 each 1X WARF ONCE MC Last administered on 04/17/21at 16:00; Start 04/17/21 at 16:00; Stop 04/17/21 at 16:01; Status DC Warfarin Sodium (Coumadin - No Dose Today) 1 each 1X WARF ONCE MC Last administered on 04/18/21at 15:47; Start 04/18/21 at 16:00; Stop 04/18/21 at 16:01; Status DC Ertapenem 50 ml @ 100 mls/hr 1X ONCE IV ; Start 04/19/21 at 10:00; Stop 04/19/21 at 10:29; Status Cancel Warfarin Sodium (Coumadin - No Dose Today) 1 each 1X WARF ONCE MC Last administered on 04/19/21at 16:00; Start 04/19/21 at 16:00; Stop 04/19/21 at 16:01; Status DC Furosemide (Lasix) 20 mg 1X ONCE IVP Last administered on 04/19/21at 12:41; Start 04/19/21 at 12:15; Stop 04/19/21 at 12:16; Status DC Warfarin Sodium (Coumadin - No Dose Today) 1 each 1X WARF ONCE MC Last administered on 04/20/21at 16:00; Start 04/20/21 at 16:00; Stop 04/20/21 at 16:01; Status DC Acetaminophen/ Hydrocodone Bitart (Lortab 5/325) 2 tab PRN Q4HRS PRN PO SEVERE PAIN Last administered on 05/09/21at 17:38; Start 04/21/21 at 11:15; Stop 05/10/21 at 08:30; Status DC Acetaminophen/ Hydrocodone Bitart (Lortab 5/325) 1 tab PRN Q4HRS PRN PO MODERATE PAIN; Start 04/21/21 at 11:15; Stop 05/10/21 at 08:30; Status DC Phytonadione (Vitamin K Ampule) 5 mg 1X ONCE SQ Last administered on 04/21/21at 13:59; Start 04/21/21 at 13:00; Stop 04/21/21 at 13:01; Status DC Warfarin Sodium (Coumadin - No Dose Today) 1 each 1X WARF ONCE MC Last administered on 04/21/21at 16:00; Start 04/21/21 at 16:00; Stop 04/21/21 at 16:01; Status DC Sodium Chloride 1,000 ml @ 75 mls/hr [id number] IV Last administered on 04/27/21at 13:35; Start 04/21/21 at 19:45; Stop 04/28/21 at 12:15; Status DC Hydromorphone HCl (Dilaudid) 0.5 mg PRN Q2HR PRN IVP SEVERE PAIN 7-10 Last administered on 05/09/21at 03:46; Start 04/22/21 at 04:00; Stop 05/10/21 at 08:30; Status DC Phytonadione (Vitamin K Ampule) 5 mg 1X ONCE SQ Last administered on 04/22/21at 12:20; Start 04/22/21 at 09:30; Stop 04/22/21 at 09:31; Status DC Potassium Chloride/Water 100 ml @ 100 mls/hr Q1H IV Last administered on 04/23/21at 15:30; Start 04/23/21 at 09:00; Stop 04/23/21 at 12:59; Status DC Fentanyl Citrate (Fentanyl 2ml Vial) 25 mcg PRN Q5MIN PRN IVP MILD PAIN 1-3; Start 04/23/21 at 11:00; Stop 04/23/21 at 16:30; Status DC Fentanyl Citrate (Fentanyl 2ml Vial) 50 mcg PRN Q5MIN PRN IVP MODERATE PAIN 4-6 Last administered on 04/23/21at 16:08; Start 04/23/21 at 11:00; Stop 04/23/21 at 16:30; Status DC Morphine Sulfate (Morphine Sulfate) 1 mg PRN Q10MIN PRN IVP SEVERE PAIN 7-10; Start 04/23/21 at 11:00; Stop 04/23/21 at 19:00; Status DC Ringer's Solution 1,000 ml @ 30 mls/hr Q24H IV ; Start 04/23/21 at 11:00; Stop 04/23/21 at 22:59; Status DC Hydromorphone HCl (Dilaudid) 0.5 mg PRN Q10MIN PRN IVP SEVERE PAIN 7-10, 2nd CHOICE; Start 04/23/21 at 11:00; Stop 04/23/21 at 19:00; Status DC Prochlorperazine Edisylate (Compazine) 5 mg PACU PRN PRN IVP NAUSEA, MRX1 Last administered on 04/23/21at 15:29; Start 04/23/21 at 11:00; Stop 04/23/21 at 19:00; Status DC Warfarin Sodium (Coumadin) 4 mg 1X WARF ONCE PO Last administered on 04/23/21at 20:56; Start 04/23/21 at 21:00; Stop 04/23/21 at 21:01; Status DC Propofol (Diprivan) 200 mg STK-MED ONCE IV ; Start 04/23/21 at 13:13; Stop 04/23/21 at 13:13; Status DC Lidocaine HCl (Lidocaine Pf 2% Vial) 5 ml STK-MED ONCE .ROUTE ; Start 04/23/21 at 13:14; Stop 04/23/21 at 13:14; Status DC Dexamethasone Sodium Phosphate (Decadron) 4 mg STK-MED ONCE .ROUTE ; Start 04/23/21 at 13:14; Stop 04/23/21 at 13:14; Status DC Ondansetron HCl (Zofran) 4 mg STK-MED ONCE .ROUTE ; Start 04/23/21 at 13:14; Stop 04/23/21 at 13:14; Status DC Metoprolol Tartrate (Lopressor Vial) 5 mg STK-MED ONCE IVP ; Start 04/23/21 at 13:18; Stop 04/23/21 at 13:18; Status DC Hydromorphone HCl (Dilaudid) 2 mg STK-MED ONCE .ROUTE ; Start 04/23/21 at 13:20; Stop 04/23/21 at 13:20; Status DC Sodium Hypochlorite (Dakin'S 1/4 Strength) 1 debbie 1X ONCE TP Last administered on 04/23/21at 14:25; Start 04/23/21 at 14:00; Stop 04/23/21 at 14:05; Status DC Epinephrine HCl (Adrenalin) 30 mg STK-MED ONCE .ROUTE Last administered on 04/23/21at 13:51; Start 04/23/21 at 13:44; Stop 04/23/21 at 13:44; Status DC Fentanyl Citrate (Fentanyl 2ml Vial) 100 mcg STK-MED ONCE .ROUTE ; Start 04/23/21 at 15:21; Stop 04/23/21 at 15:21; Status DC Prochlorperazine Edisylate (Compazine) 10 mg STK-MED ONCE .ROUTE ; Start 04/23/21 at 15:21; Stop 04/23/21 at 15:22; Status DC Warfarin Sodium (Coumadin) 4 mg 1X WARF ONCE PO Last administered on 04/24/21at 18:03; Start 04/24/21 at 16:00; Stop 04/24/21 at 16:01; Status DC Sodium Hypochlorite (Dakin'S 1/4 Strength) 1 debbie DAILY TP Last administered on 05/09/21at 09:18; Start 04/25/21 at 09:00; Stop 05/10/21 at 08:30; Status DC Warfarin Sodium (Coumadin) 4 mg 1X WARF ONCE PO Last administered on 04/25/21at 17:23; Start 04/25/21 at 16:00; Stop 04/25/21 at 16:01; Status DC Warfarin Sodium (Coumadin) 4 mg 1X WARF ONCE PO Last administered on 04/26/21at 16:34; Start 04/26/21 at 16:00; Stop 04/26/21 at 16:01; Status DC Ceftriaxone Sodium (Rocephin) 2 gm Q24H IVP Last administered on 05/05/21at 12:01; Start 04/27/21 at 12:00; Stop 05/06/21 at 09:48; Status DC Warfarin Sodium (Coumadin) 2 mg 1X WARF ONCE PO Last administered on 04/27/21at 15:20; Start 04/27/21 at 16:00; Stop 04/27/21 at 16:01; Status DC Warfarin Sodium (Coumadin) 2 mg 1X WARF ONCE PO Last administered on 04/28/21at 16:20; Start 04/28/21 at 16:00; Stop 04/28/21 at 16:01; Status DC Potassium Chloride/Water 100 ml @ 100 mls/hr Q1H IV Last administered on 04/28/21at 20:04; Start 04/28/21 at 13:00; Stop 04/28/21 at 16:59; Status DC Furosemide (Lasix) 40 mg 1X ONCE IVP Last administered on 04/28/21at 15:23; Start 04/28/21 at 14:15; Stop 04/28/21 at 14:16; Status DC Warfarin Sodium (Coumadin) 2 mg 1X WARF ONCE PO Last administered on 04/29/21at 16:00; Start 04/29/21 at 16:00; Stop 04/29/21 at 16:01; Status DC Furosemide (Lasix) 40 mg 1X ONCE IVP Last administered on 04/29/21at 12:41; Start 04/29/21 at 11:30; Stop 04/29/21 at 11:31; Status DC Potassium Chloride/Water 100 ml @ 100 mls/hr Q1H IV Last administered on 04/29/21at 17:29; Start 04/29/21 at 12:00; Stop 04/29/21 at 15:59; Status DC Warfarin Sodium (Coumadin) 2 mg 1X WARF ONCE PO Last administered on 04/30/21at 17:24; Start 04/30/21 at 16:00; Stop 04/30/21 at 16:01; Status DC Potassium Bicarbonate (Potassium Effervescent Tablet) 40 meq 1X ONCE PO Last administered on 04/30/21at 13:27; Start 04/30/21 at 11:45; Stop 04/30/21 at 11:46; Status DC Furosemide (Lasix) 20 mg 1X ONCE IVP Last administered on 04/30/21at 13:24; Start 04/30/21 at 11:45; Stop 04/30/21 at 11:46; Status DC Potassium Chloride (Klor-Con) 40 meq 1X ONCE PO Last administered on 05/01/21at 08:26; Start 05/01/21 at 06:45; Stop 05/01/21 at 06:46; Status DC Magnesium Sulfate 50 ml @ 25 mls/hr 1X ONCE IV Last administered on 05/01/21at 19:58; Start 05/01/21 at 13:00; Stop 05/01/21 at 14:59; Status DC Potassium Chloride/Water 100 ml @ 100 mls/hr Q1H IV Last administered on 05/01/21at 17:54; Start 05/01/21 at 13:00; Stop 05/01/21 at 16:59; Status DC Warfarin Sodium (Coumadin) 1 mg 1X WARF ONCE PO Last administered on 05/01/21at 16:48; Start 05/01/21 at 16:00; Stop 05/01/21 at 16:01; Status DC Warfarin Sodium (Coumadin) 1 mg 1X WARF ONCE PO Last administered on 05/02/21at 16:36; Start 05/02/21 at 16:00; Stop 05/02/21 at 16:01; Status DC Potassium Bicarbonate (Potassium Effervescent Tablet) 10 meq 1X ONCE PO Last administered on 05/02/21at 15:48; Start 05/02/21 at 13:30; Stop 05/02/21 at 13:31; Status DC Warfarin Sodium (Coumadin) 1 mg 1X WARF ONCE PO Last administered on 05/03/21at 16:09; Start 05/03/21 at 16:00; Stop 05/03/21 at 16:01; Status DC Hydromorphone HCl (Dilaudid) 0.5 mg 1X ONCE IVP Last administered on 05/03/21 16:06; Start 05/03/21 at 16:00; Stop 05/03/21 at 16:01; Status DC Warfarin Sodium (Coumadin) 2 mg 1X WARF ONCE PO Last administered on 05/04/21at 16:05; Start 05/04/21 at 16:00; Stop 05/04/21 at 16:01; Status DC Multivitamins (Thera M Plus) 1 tab DAILY PO Last administered on 05/09/21at 09:14; Start 05/05/21 at 09:00; Stop 05/10/21 at 08:30; Status DC Ascorbic Acid (Vitamin C) 500 mg DAILY PO Last administered on 05/09/21at 09:14; Start 05/05/21 at 09:00; Stop 05/10/21 at 08:30; Status DC Warfarin Sodium (Coumadin) 2 mg 1X WARF ONCE PO ; Start 05/05/21 at 16:00; Stop 05/05/21 at 16:01; Status DC Sodium Chloride 1,000 ml @ 50 mls/hr Q20H IV Last administered on 05/07/21at 03:14; Start 05/05/21 at 16:15; Stop 05/08/21 at 19:45; Status DC Piperacillin Sod/ Tazobactam Sod 3.375 gm/Sodium Chloride 50 ml @ 100 mls/hr Q6HRS IV Last administered on 05/09/21at 17:39; Start 05/06/21 at 12:00; Stop 05/10/21 at 08:30; Status DC Furosemide (Lasix) 20 mg DAILY PO Last administered on 05/09/21at 09:13; Start 05/06/21 at 13:00; Stop 05/10/21 at 08:30; Status DC Silver Sulfadiazine (Silvadene) 1 debbie 1X ONCE TP ; Start 05/06/21 at 13:30; Stop 05/06/21 at 13:31; Status DC Fentanyl Citrate (Fentanyl 2ml Vial) 25 mcg PRN Q5MIN PRN IVP MILD PAIN 1-3; Start 05/06/21 at 14:15; Stop 05/07/21 at 14:14; Status DC Fentanyl Citrate (Fentanyl 2ml Vial) 50 mcg PRN Q5MIN PRN IVP MODERATE PAIN 4- 6; Start 05/06/21 at 14:15; Stop 05/07/21 at 14:14; Status DC Morphine Sulfate (Morphine Sulfate) 1 mg PRN Q10MIN PRN IVP SEVERE PAIN 7-10 Last administered on 05/06/21at 16:26; Start 05/06/21 at 14:15; Stop 05/07/21 at 14:14; Status DC Ringer's Solution 1,000 ml @ 30 mls/hr Q24H IV ; Start 05/06/21 at 14:15; Stop 05/07/21 at 02:14; Status DC Hydromorphone HCl (Dilaudid) 0.5 mg PRN Q10MIN PRN IVP SEVERE PAIN 7-10, 2nd CHOICE Last administered on 05/06/21at 17:01; Start 05/06/21 at 14:15; Stop 05/07/21 at 14:14; Status DC Prochlorperazine Edisylate (Compazine) 5 mg PACU PRN PRN IVP NAUSEA, MRX1; Start 05/06/21 at 14:15; Stop 05/07/21 at 14:14; Status DC Epinephrine HCl (Adrenalin) 1 mg STK-MED ONCE IRR Last administered on 05/06/21at 14:45; Start 05/06/21 at 14:45; Stop 05/06/21 at 14:48; Status DC Warfarin Sodium (Coumadin) 2 mg 1X WARF ONCE PO Last administered on 05/06/21at 18:31; Start 05/06/21 at 16:00; Stop 05/06/21 at 16:01; Status DC Warfarin Sodium (Coumadin) 2 mg 1X WARF ONCE PO Last administered on 05/07/21at 17:46; Start 05/07/21 at 16:00; Stop 05/07/21 at 16:01; Status DC Daptomycin 375 mg/ Sodium Chloride 50 ml @ 100 mls/hr Q24H IV Last administe red on 05/09/21at 13:00; Start 05/07/21 at 13:00; Stop 05/10/21 at 08:30; Status DC Warfarin Sodium (Coumadin) 2 mg 1X WARF ONCE PO Last administered on 05/08/21at 17:45; Start 05/08/21 at 16:00; Stop 05/08/21 at 16:01; Status DC Warfarin Sodium (Coumadin) 1 mg 1X WARF ONCE PO Last administered on 05/09/21at 16:25; Start 05/09/21 at 16:00; Stop 05/09/21 at 16:01; Status DC Active Scripts Active Hydrocodone-Apap 5-325 (Hydrocodone Bit/Acetaminophen) 1 Tab Tablet 1 Tab PO PRN Q4HRS PRN 14 Days Reported Humalog (Insulin Lispro) 100 Unit/1 Ml Vial Unknown Dose SQ BIDWMEALS Lantus Solostar (Insulin Glargine,Hum.rec.anlog) 100 Unit/1 Ml Insuln.pen 75 Unit SQ QHS Warfarin Sodium 4 Mg Tablet 4 Mg PO DAILY Toprol XL (Metoprolol Succinate) 50 Mg Tab.er.24h 50 Mg PO DAILY Losartan Potassium 100 Mg Tablet 100 Mg PO DAILY Crestor (Rosuvastatin Calcium) 40 Mg Tablet 1 Tab PO DAILY Amlodipine Besylate 10 Mg Tablet 10 Mg PO DAILY Lexapro (Escitalopram Oxalate) 20 Mg Tablet 1 Tab PO DAILY Tylenol (Acetaminophen) 325 Mg Tablet 325 Mg PO DAILY Vitals/I & O Vital Sign - Last 24 Hours 05/09/21 05/09/21 05/09/21 05/09/21 09:14 09:14 09:15 11:00 Temp 98.4 98.4 Pulse 63 63 63 66 Resp 18 B/P (MAP) 142/54 142/54 142/54 151/51 (84) Pulse Ox 96 O2 Delivery Room Air 05/09/21 05/09/21 15:00 17:38 Temp 98.5 98.5 Pulse 58 Resp 18 B/P (MAP) 138/53 (81) Pulse Ox 93 O2 Delivery Room Air Room Air Intake and Output 05/09/21 05/09/21 05/10/21 15:00 23:00 07:00 Intake Total 500 ml 30 ml Balance 500 ml 30 ml Justicifation of Admission Dx: Justifications for Admission: Justification of Admission Dx: Yes JEVON CUNNINGHAM MD May 10, 2021 09:07
== END 2021-05-09 19:00 | DRG 853 ==
LOC: 4 NORTH 19:06 → 5 NORTH 04-22 15:32
PROVIDERS: ADMIT Internal Medicine; ATTEND Internal Medicine
PROC: 0JBP0ZZ Excision of Left Lower Leg Subcutaneous Tissue and Fascia, Open Approach (ICD-10-PCS; 2021-04-23)
PROC: 0JBP0ZZ Excision of Left Lower Leg Subcutaneous Tissue and Fascia, Open Approach (ICD-10-PCS; 2021-04-23)
PROC: 0JBN0ZZ Excision of Right Lower Leg Subcutaneous Tissue and Fascia, Open Approach (ICD-10-PCS; 2021-04-23)
PROC: 0JBN0ZZ Excision of Right Lower Leg Subcutaneous Tissue and Fascia, Open Approach (ICD-10-PCS; 2021-04-23)
PROC: 0JBN0ZZ Excision of Right Lower Leg Subcutaneous Tissue and Fascia, Open Approach (ICD-10-PCS; 2021-04-23)
PROC: 0JBN0ZZ Excision of Right Lower Leg Subcutaneous Tissue and Fascia, Open Approach (ICD-10-PCS; 2021-04-23)
PROC: 0JBQ0ZZ Excision of Right Foot Subcutaneous Tissue and Fascia, Open Approach (ICD-10-PCS; 2021-04-23)
PROC: 0JBR0ZZ Excision of Left Foot Subcutaneous Tissue and Fascia, Open Approach (ICD-10-PCS; 2021-04-23)
PROC: 0JBL0ZZ Excision of Right Upper Leg Subcutaneous Tissue and Fascia, Open Approach (ICD-10-PCS; principal; 2021-04-23 13:30)
PROC: 0JBL0ZZ Excision of Right Upper Leg Subcutaneous Tissue and Fascia, Open Approach (ICD-10-PCS; 2021-05-06)
PROC: 0JBP0ZZ Excision of Left Lower Leg Subcutaneous Tissue and Fascia, Open Approach (ICD-10-PCS; 2021-05-06)
PROC: 0JBP0ZZ Excision of Left Lower Leg Subcutaneous Tissue and Fascia, Open Approach (ICD-10-PCS; 2021-05-06)
PROC: 0JBN0ZZ Excision of Right Lower Leg Subcutaneous Tissue and Fascia, Open Approach (ICD-10-PCS; 2021-05-06)
PROC: 0JBN0ZZ Excision of Right Lower Leg Subcutaneous Tissue and Fascia, Open Approach (ICD-10-PCS; 2021-05-06)
DX: A41.9 Sepsis, unspecified organism (principal); E43 Unspecified severe protein-calorie malnutrition; E11.52 Type 2 diabetes mellitus with diabetic peripheral angiopathy with gangrene; I70.263 Atherosclerosis of native arteries of extremities with gangrene, bilateral legs; L02.415 Cutaneous abscess of right lower limb; L97.919 Non-pressure chronic ulcer of unspecified part of right lower leg with unspecified severity; L97.929 Non-pressure chronic ulcer of unspecified part of left lower leg with unspecified severity; Z68.42 Body mass index [BMI] 45.0-49.9, adult; Z66 Do not resuscitate; Z20.822 Contact with and (suspected) exposure to COVID-19; D63.8 Anemia in other chronic diseases classified elsewhere; E11.42 Type 2 diabetes mellitus with diabetic polyneuropathy; E66.3 Overweight; E78.5 Hyperlipidemia, unspecified; E87.6 Hypokalemia; G89.29 Other chronic pain; I11.0 Hypertensive heart disease with heart failure; I25.10 Atherosclerotic heart disease of native coronary artery without angina pectoris; I48.91 Unspecified atrial fibrillation; I50.9 Heart failure, unspecified; J45.909 Unspecified asthma, uncomplicated; K21.9 Gastro-esophageal reflux disease without esophagitis; Z96.659 Presence of unspecified artificial knee joint; M54.9 Dorsalgia, unspecified; W01.0XXA Fall on same level from slipping, tripping and stumbling without subsequent striking against object, initial encounter; B96.4 Proteus (mirabilis) (morganii) as the cause of diseases classified elsewhere; B95.2 Enterococcus as the cause of diseases classified elsewhere; B96.5 Pseudomonas (aeruginosa) (mallei) (pseudomallei) as the cause of diseases classified elsewhere; Z79.01 Long term (current) use of anticoagulants; Z82.49 Family history of ischemic heart disease and other diseases of the circulatory system; Z86.711 Personal history of pulmonary embolism; Z95.1 Presence of aortocoronary bypass graft; Z90.710 Acquired absence of both cervix and uterus; Z88.2 Allergy status to sulfonamides; Y93.89 Activity, other specified; Y92.096 Garden or yard of other non-institutional residence as the place of occurrence of the external cause; Y99.8 Other external cause status
CPT/HCPCS: 36415; 71045; 80048; 80053; 82550; 82962; 83735; 84100; 84134; 85025; 85610; 86140; 87071; 87075; 87077; 87102; 87116; 87186; 87426; 88305; 93970; 93971; 94640; 94760; A4213; A4322; A4930; A6196; A6197; A6212; A6223; A6253; A6257; A6443; A6449; J0171; J0696; J0780; J0878; J1100; J1170; J1815; J1940; J2270; J2405; J2543; J2704; J3010; J3430; J3475; J3480; J3490; J7030; U0003; U0005; 97110-GO; 97110-GP; 97116-GP; 97530-GO; 97530-GP; 97535-GO; G0378; J7613